=== PATIENT | female | born 1965 ===

== ENCOUNTER 2020-01-10 11:21 | Outpatient (REF) | payer OTHER, SELFPAY ==
[2020-01-10 13:45] LABS: Alanine Aminotransferase 22 U/L (0-31); Albumin Level 4.4 g/dL (3.5-5.0); Alkaline Phosphatase 71 U/L (39-117); Anion Gap 12 (12-20); Aspartate Amino Transferase 19 U/L (5-31); Bilirubin Total 0.7 mg/dL (0.0-1.0); Blood Urea Nitrogen 17 mg/dL (9-16); Calcium 8.9 mg/dL (8.4-10.2); Carbon Dioxide 28 mmol/L (22-29); Chloride 106 mmol/L (96-108); Cholesterol 198 mg/dL; Estimated Glomerular Filt Rate > 60; Glucose Fasting 83 mg/dL (60-99); HDL Cholesterol 70 mg/dL; LDL Cholesterol Calculated 112 mg/dl; Potassium 4.4 mmol/l (3.3-5.1); Sodium 142 mmol/L (135-145); Total Protein 6.5 g/dL (6.5-8.0); Triglycerides 83 mg/dL
[2020-01-10 14:07] LABS: TSH reflex Free T4 0.99 mIU/mL (0.32-4.0)
[2020-01-10 14:10] LABS: Estimated Average Glucose 97 mg/dL
== END 2020-01-10 11:22 | disposition home or self-care (01) ==
LOC: HO.LAB 11:21
PROVIDERS: PCP Physician Assistant; Visit Provider Physician Assistant
DX: E78.9 Disorder of lipoprotein metabolism, unspecified (principal); Z13.1 Encounter for screening for diabetes mellitus
CPT/HCPCS: 80053; 80061; 83036; 84443

== ENCOUNTER 2020-01-30 11:07 | Outpatient (REF) | payer OTHER, SELFPAY | END 2020-01-30 11:08 | disposition home or self-care (01) | LOC: HO.LAB 11:07 | PROVIDERS: Visit Provider Internal Medicine | DX: Z20.828 Contact with and (suspected) exposure to other viral communicable diseases (principal) | CPT/HCPCS: C9803; U0003 ==

== ENCOUNTER 2020-02-21 09:00 | Outpatient (RCR) | payer OTHER, SELFPAY | END 2020-03-12 11:05 | disposition other institution (70) | LOC: HO.PT 09:00 | PROVIDERS: PCP Physician Assistant; Visit Provider Neurological Surgery | DX: M54.5 Low back pain (principal) | CPT/HCPCS: 97110; 97112; 97140 ==

== ENCOUNTER 2020-03-08 12:59 | Outpatient (REF) | payer OTHER, SELFPAY ==
--- NOTE | 2020-03-08 13:03 | US_ITS ---
EXAMINATION: US EXTREMITY NONVASCULAR CLINICAL INFORMATION: Localized swelling or mass or lump seen along the right paramidline line along posterior iliac crest. COMPARISON: None TECHNIQUE: Routine imaging through the right posterior pelvis is performed. FINDINGS: Imaging through palpable area along the right superior gluteal region, there is a hypoechoic area likely artifact from the electrode. In addition there is subtle area of increased echogenicity more superficial measuring 1.6 x 1.7 cm. No abscess visualized; however, this may represent thick keloid deep in the soft tissues in the muscular compartment. A small radiopaque foreign body cannot be excluded. Pelvic x-ray will be obtained for comparison. US/US extremity nonvascular costa IMPRESSION: Pelvic x-ray will be obtained for correlation. Hypoechoic area seen in the right supragluteal region where patient complains of pain. Question keloid, less likely foreign body or ruptured electrode. A pelvic exam will be obtained.
--- NOTE | 2020-03-08 14:32 | XR_ITS ---
EXAMINATION: XR PELVIS CLINICAL INFORMATION: Low back pain COMPARISON: Previous right hip x-ray July [address] of the abdomen and pelvis April 2018 TECHNIQUE: AP view of the pelvis. FINDINGS: Bone alignment is normal. No fracture or dislocation is seen. There is mild arthritis at the hip joints with small osteophytes, left greater than right. The pelvis is otherwise unremarkable. There is a right sacral stimulator with lead projecting over the right lower sacrum. This appears unchanged from July 2018 images. There are surgical clips in the right lower quadrant. There are bilateral pelvic calcifications probably representing calcified phleboliths. XR/XR pelvis 1-2V IMPRESSION: Mild bilateral hip arthritis, left greater than right. Right sacral stimulator unchanged from previous exams
== END 2020-03-08 13:00 | disposition home or self-care (01) ==
LOC: HO.US 12:59
PROVIDERS: PCP Physician Assistant; Visit Provider Physician Assistant
DX: R10.2 Pelvic and perineal pain (principal); R22.2 Localized swelling, mass and lump, trunk; M54.5 Low back pain
CPT/HCPCS: 72170; 76882

== ENCOUNTER 2020-04-19 09:57 | Outpatient (REF) | payer OTHER, SELFPAY ==
[2020-04-19 11:06] LABS: Anion Gap 12 (12-20); Blood Urea Nitrogen 16 mg/dL (9-16); Carbon Dioxide 29 mmol/L (22-29); Chloride 105 mmol/L (96-108); Estimated Glomerular Filt Rate > 60; Glucose Random 87 mg/dL (60-115); Sodium 142 mmol/L (135-145)
[2020-04-19 11:27] LABS: Glucose Urine UA NEG (NEG); Leukocyte Esterase Urine NEG (NEG); Nitrite Urine NEG (NEG); PH 5.5 (5.0-8.0); Urine Blood NEG (NEG); Urine Ketones NEG (NEG); Urine Protein NEG (NEG-TRACE)
[2020-04-19 11:49] LABS: Appearance Urine CLEAR; Color Urine STRAW
== END 2020-04-19 09:58 | disposition home or self-care (01) ==
LOC: HO.LAB 09:57
PROVIDERS: PCP Physician Assistant; Visit Provider Urology
DX: N39.0 Urinary tract infection, site not specified (principal); T83.12 Displacement of other urinary devices and implants
CPT/HCPCS: 36415; 80051; 81003; 82565; 82947; 84520; 87086

== ENCOUNTER 2020-05-14 15:36 | Outpatient (REF) | payer OTHER, SELFPAY ==
[2020-05-14 17:11] LABS: Glucose Urine UA NEG (NEG); Leukocyte Esterase Urine NEG (NEG); Nitrite Urine NEG (NEG); PH 5.5 (5.0-8.0); Specific Gravity - Urine >= 1.030 (1.005-1.025); Urine Blood 1+ (NEG); Urine Ketones NEG (NEG); Urine Protein NEG (NEG-TRACE)
[2020-05-14 17:17] LABS: Appearance Urine CLEAR; Color Urine YELLOW
[2020-05-14 17:30] LABS: RBC Urine 0-2 /HPF (0); Squamous Epithelial Cell Urine 1+ /LPF; WBC Urine 0 /HPF (0-4)
[2020-05-14 17:38] LABS: Alanine Aminotransferase 17 U/L (0-31); Albumin Level 4.4 g/dL (3.5-5.0); Alkaline Phosphatase 83 U/L (39-117); Anion Gap 16 (12-20); Aspartate Amino Transferase 21 U/L (5-31); Bilirubin Total 0.9 mg/dL (0.0-1.0); Blood Urea Nitrogen 14 mg/dL (9-16); Calcium 8.9 mg/dL (8.4-10.2); Carbon Dioxide 25 mmol/L (22-29); Chloride 101 mmol/L (96-108); Estimated Glomerular Filt Rate > 60; Glucose Random 118 mg/dL (60-115); Potassium 3.5 mmol/L (3.3-5.1); Sodium 138 mmol/L (135-145); Total Protein 6.7 g/dL (6.5-8.0)
== END 2020-05-14 15:37 | disposition home or self-care (01) ==
LOC: HO.LAB 15:36
PROVIDERS: PCP Physician Assistant; Visit Provider Urology
DX: T83.12 Displacement of other urinary devices and implants (principal); N39.0 Urinary tract infection, site not specified
CPT/HCPCS: 36415; 80053; 81001; 81003; 87086

== ENCOUNTER 2020-08-15 13:11 | Emergency (ER) | payer OTHER, SELFPAY ==
[2020-08-15 13:41] VITALS: BP 178/74; PULSE 90; RESP 18; TEMP 36.6; O2SAT 99; BMI 30.2
[2020-08-15] MEDS: Tetracaine HCl/PF 0.5% Oph Sol 4 ML DROPS 2 DROP EYE-BOTH (14:27)
[2020-08-15] MEDS: Fluorescein Sodium STRIP 1 STRIP EYE-BOTH (14:27)
--- NOTE | 2020-08-15 14:55 | ED.EYEPROB ---
HPI - Eye Problem General Chief complaint: Eye Problems <BONNIE Murray - Last Filed: 08/15/20 15:13> Stated complaint: eye problems <BONNIE Murray Last Filed: 08/15/20 15:13> Time Seen by Provider: 08/15/20 14:19 <BONNIE Murray - Last Filed: 08/15/20 15:13> Source: patient <BONNIE Murray Last Filed: 08/15/20 15:13> Mode of arrival: ambulatory <BONNIE Murray - Last Filed: 08/15/20 15:13> Limitations: no limitations <BONNIE Murray - Last Filed: 08/15/20 15:13> History of Present Illness HPI Narrative: 55-year-old female presenting to the ED with complaints of right eye pain/watery drainage/foreign body sensation after she hit her eye accidentally with a stick. She reports she also had false eyelashes although she has had these in the past and never had issues. Reports since then she has been having blurry vision. <BONNIE Murray - Last Filed: 08/15/20 15:13> MD chief complaint: eye pain, eye injury, vision change and foreign body <BONNIE Murray - Last Filed: 08/15/20 15:13> Onset (ago): day(s) (Few days ago worse today) <BONNIE Murray - Last Filed: 08/15/20 15:13> Onset description: gradual <BONNIE Murray - Last Filed: 08/15/20 15:13> Duration: constant and progressively worsening <BONNIE Murray Last Filed: 08/15/20 15:13> Location: left eye <BONNIE Murray Last Filed: 08/15/20 15:13> Eye Symptoms: burning, redness, pain, foreign body sensation, itching, discharge and blurry vision <BONNIE Murray Last Filed: 08/15/20 15:13> Place: home <BONNIE Murray Last Filed: 08/15/20 15:13> Mechanism: direct trauma <BONNIE Murray Last Filed: 08/15/20 15:13> Severity: moderate <BONNIE Murray - Last Filed: 08/15/20 15:13> Severity scale (1-10): >10 <BONNIE Murray - Last Filed: 08/15/20 15:13> If Pain, Quality: aching and throbbing <BONNIE Murray - Last Filed: 08/15/20 15:13> Associated symptoms: none <BONNIE Murray - Last Filed: 08/15/20 15:13> Treatments Prior to Arrival: none <BONNIE Murray - Last Filed: 08/15/20 15:13> Related Data Patient tetanus UTD: Yes <BONNIE Murray - Last Filed: 08/15/20 15:13> Home medications: Home Medications Medication Instructions Recorded Confirmed albuterol sulfate 90 mcg/actuation 2 puff INHALATION Q6H PRN 01/05/20 07/31/20 aerosol inhaler fluticasone propionate 50 1 spray INTRANASAL BID 02/14/20 07/31/20 mcg/actuation nasal spray,suspension melatonin 5 mg tablet 5 mg PO BEDTIME PRN 07/31/20 07/31/20 Previous Rx's Medication Instructions Recorded ibuprofen 800 mg tablet 800 mg PO Q8H #42 tab 01/02/20 furosemide 20 mg tablet 20 mg PO DAILY PRN #30 tab 05/31/20 cetirizine 10 mg capsule 10 mg PO DAILY 30 Days #30 cap 07/31/20 fluoxetine 20 mg capsule 20 mg PO QAM 30 Days #30 cap 07/31/20 acetaminophen [Tylenol Extra 1,000 mg PO QID PRN #14 tab 08/15/20 Strength] erythromycin 0.5 inch OPHTHALMIC (EYE) QID 7 08/15/20 Days #3.5 g ibuprofen 600 mg PO Q8H PRN #14 tab 08/15/20 oxycodone 5 mg PO BID PRN #14 tab 08/15/20 azithromycin 250 mg tablet See Rx Instructions PO .COMPLEX #6 09/03/20 tab clonazepam 0.5 mg tablet 0.5 mg PO BID PRN 30 Days #30 tab 09/12/20 <BONNIE Murray - Last Filed: 08/15/20 15:13> Allergies/adverse reactions: Allergies Allergy/AdvReac Type Severity Reaction Status Date / Time Iodinated Contrast Media Allergy Severe Shortness Verified 08/15/20 13:41 [IV CONTRAST] of Breath penicillin V Allergy Severe throat Verified 08/15/20 13:41 swelling Penicillins Allergy Severe RASH, Verified 08/15/20 13:41 DIFFICULTY BREATHING Tetanus Vaccines and Toxoid Allergy Intermediate Difficulty Verified 08/15/20 13:45 Swallowing <BONNIE Murray - Last Filed: 08/15/20 15:13> Review of Systems Review of Systems: Constitutional : No fevers, no chills, No changes in activity, No lethargy, No recent prior head injury, No agitation, No increased fussiness ENT/Mouth : No Ear Pain, No Nasal discharge/drainage Eyes: + Vision changes/blurry/decreased vision/Eye Pain/redness/FB sensation/itching/watery drainage, No Swelling, No Photophobia, no itching, no eyelid edema, no contact lens uses, no recent welding, no bleeding Cardiovascular : No Chest Pain, No SOB Respiratory : No Cough Gastrointestinal : No Nausea, No Vomiting, No abdominal Pain Genitourinary : No Dysuria, No Urinary Frequency, No Urinary Incontinence, No Urgency, No Flank Pain Musculoskeletal : No joint pain, No neck stiffness, No back pain/injury Skin : No lacerations Neuro : No unsteady gait, No Paresthesias, No Loss of Consciousness, No altered mental status, No dizziness, No Headache Denies past medical history of HIV, recent trauma, coagulopathy, recent spinal/ epidural procedure, new medication, URI symptoms, close contacts with similar symptoms, tick bite, or known CO2 exposure. <BONNIE Murray - Last Filed: 08/15/20 15:13> Yes all other systems are reviewed and are negative <BONNIE Murray - Last Filed: 08/15/20 15:13> PMF Past Medical History Attestation statement: The following information was validated with the patient. <BONNIE Murray - Last Filed: 08/15/20 15:13> Medical History: Medical History Normal colonoscopy <BONNIE Murray - Last Filed: 08/15/20 15:13> Surgical History: Surgical History History of appendectomy History of bladder surgery History of gallbladder disease History of partial hysterectomy History of torn meniscus of right knee <BONNIE Murray - Last Filed: 08/15/20 15:13> Family History Family History: Family History Father CVD (cardiovascular disease) Past heart attack Mother No problems noted. Brother Heart problem <BONNIE Murray - Last Filed: 08/15/20 15:13> Social History Social History: Social History Alcohol intake: never Patient Tobacco Use Status: Never used Tobacco Second Hand Smoke Exposure: No <BONNIE Murray - Last Filed: 08/15/20 15:13> Physical Exam Vital Signs: Vital Signs: Last Vital Signs Temp 97.9 F 08/15/20 13:41 Pulse 90 08/15/20 13:41 Resp 18 08/15/20 13:41 BP 178/74 H 08/15/20 13:41 Pulse Ox 99 08/15/20 13:41 Body Mass Index 30.2 vital signs have been reviewed as normal and appeared to be correct. Blood pressure normal. Heart rate normal. Respiration rate normal. Temperature normal. Oxygen saturation normal. <BONNIE Murray - Last Filed: 08/15/20 15:13> Vital Signs: Last Vital Signs Temp 97.9 F 08/15/20 13:41 Pulse 90 08/15/20 13:41 Resp 18 08/15/20 13:41 BP 178/74 H 08/15/20 13:41 Pulse Ox 99 08/15/20 13:41 Body Mass Index 30.2 <Devon Shipman MD - Last Filed: 09/17/20 19:04> Appearance: Alert. Oriented X3. No acute distress. Head: Normal external exam. Normocephalic. Atraumatic. No Morton signs noted. No raccoon eyes noted Eyes: PERRLA. EOMI. Conjunctiva are normal. Right cornea with fluorescein stain revealed 2 corneal abrasions 1 to the lateral aspect of the eye and 1 to the inferior aspect of the eye. Left Cornea is normal. Funduscopic exam within normal limits. Sclera normal. Mild bilateral eyelid edema to bilateral eyes. No papilledema noted. Anterior chamber normal. No photophobia noted. ENT: EAC normal. TM's Normal. Pharynx normal. Uvula midline. Moist mucous membranes. Neck: Normal inspection. Neck supple. FROM. No adenopathy. Thyroid Normal. No meningeal signs. No neck mass noted. CVS: Normal heart rate and rhythm. Heart sound normal. No murmurs noted. Pulses normal throughout. Respiratory: No respiratory distress. Painless inspiration. Breath sounds normal. Back: Full range of motion noted. Skin: Skin warm and dry. Normal skin color. Normal skin turgor. No rashes/lesions/lacerations noted. Extremities: No lower extremity edema. Extremities exhibit normal range of motion. Extremities nontender. Neuro: Oriented X 3. No motor deficit. No sensory deficit. Reflexes normal. <BONNIE Murray - Last Filed: 08/15/20 15:13> Course Course Course Narrative: 55-year-old female presenting to the ED with injury to right eye after she hit herself with a stick accidentally she noticed some swelling therefore she took off her false eyelashes although since then she has had increased redness/watery drainage in pain. On exam patient has 2 corneal abrasions. Therefore will place the patient on antibiotics and give her symptomatic treatment with Motrin and Percocet and instructions to follow up with Dr. Chand the institutional aide and to return if any new or worsening symptoms. Patient understands agrees with this plan. <BONNIE Murray - Last Filed: 08/15/20 15:13> I have reviewed the chart <Devon Shipman MD - Last Filed: 09/17/20 19:04> MDM - Eye Problem Medical Records Attestation: I reviewed the patient's medical records. <BONNIE Murray - Last Filed: 08/15/20 15:13> Discharge Plan Discharge Clinical Impression: Corneal abrasion <BONNIE Murray - Last Filed: 08/15/20 15:13> Patient Disposition: Home, Self-Care <BONNIE Murray - Last Filed: 08/15/20 15:13> Instructions: Corneal Abrasion (ED) <BONNIE Murray Last Filed: 06/23/21 15:13> Prescriptions: New erythromycin 5 mg/gram (0.5 %) ointment 0.5 inch ophthalmic (eye) QID 7 Days Qty: 3.5 RF: 0 ibuprofen 600 mg tablet 600 mg PO Q8H PRN (Reason: fever or pain) Qty: 14 RF: 0 oxycodone 5 mg tablet 5 mg PO BID PRN (Reason: pain) Qty: 14 RF: 0 acetaminophen [Tylenol Extra Strength] 500 mg tablet 1,000 mg PO QID PRN (Reason: fever or pain) Qty: 14 RF: 0 No Action ibuprofen 800 mg tablet 800 mg PO Q8H Qty: 42 RF: 2 fluticasone propionate 50 mcg/actuation spray,suspension 1 spray intranasal BID RF: 0 furosemide 20 mg tablet 20 mg PO DAILY PRN (Reason: for swelling) Qty: 30 RF: 3 clonazepam 0.5 mg tablet 0.5 mg PO BID PRN (Reason: panic attack(s)) 30 Days Qty: 30 RF: 1 albuterol sulfate [Ventolin HFA] 90 mcg/actuation HFA aerosol inhaler 2 puff inhalation Q6H PRNRF: 0 azithromycin 250 mg tablet See Rx Instructions PO .COMPLEX Qty: 6 RF: 0 melatonin 5 mg tablet 5 mg PO BEDTIME PRNRF: 0 cetirizine 10 mg capsule 10 mg PO DAILY 30 Days Qty: 30 RF: 2 fluoxetine 20 mg capsule 20 mg PO QAM 30 Days Qty: 30 RF: 3 <BONNIE Murray - Last Filed: 08/15/20 15:13> Referrals: Elan Chand [Physician] - 08/15/20 <BONNIE Murray - Last Filed: 08/15/20 15:13> Stand Alone Forms: Work/School Release <BONNIE Murray - Last Filed: 08/15/20 15:13> Interventions: ED Discharge Assessment Last Done: 08/15/20 15:16 <BONNIE Murray - Last Filed: 08/15/20 15:13> Discharge Date/Time: 08/15/20 15:16 <BONNIE Murray - Last Filed: 08/15/20 15:13> Print Language: Polish <BONNIE Murray - Last Filed: 08/15/20 15:13>
[2020-08-15] MEDS: Erythromycin Base 0.5% Oph Oin 1 GM TUBE 1 CM EYE-BOTH (15:10)
[2020-08-15] MEDS: Ibuprofen 600 MG TABLET PO (15:10)
== END 2020-08-15 15:16 | disposition home or self-care (01) ==
PROVIDERS: Emergency Provider Emergency Medicine; PCP Physician Assistant
DX: S05.01XA Injury of conjunctiva and corneal abrasion without foreign body, right eye, initial encounter (principal); W22.8XXA Striking against or struck by other objects, initial encounter; Y93.9 Activity, unspecified; Y92.9 Unspecified place or not applicable; Y99.9 Unspecified external cause status
CPT/HCPCS: 99283; 99284

== ENCOUNTER 2020-09-03 13:31 | Outpatient (REF) | payer OTHER, SELFPAY | END 2020-09-03 13:32 | disposition home or self-care (01) | LOC: HO.LAB 13:31 | PROVIDERS: Visit Provider Nurse Practitioner Family | DX: Z20.822 Contact with and (suspected) exposure to COVID-19 (principal); R05 Cough; R07.0 Pain in throat | CPT/HCPCS: U0003; U0005 ==

== ENCOUNTER 2020-09-03 13:46 | Outpatient (REF) | payer OTHER, SELFPAY ==
[2020-09-03 16:51] LABS: Hematocrit 39.6 % (37-47); Hemoglobin 13.5 g/dl (12.0-16.0); Mean Corpuscular HGB Conc 34.1 g/dl (31.0-35.0); Mean Corpuscular Hemoglobin 31.5 pg (27.0-33.0); Mean Corpuscular Volume 92.5 fL (80-98); Mean Platelet Volume 10.3 fL (9.4-12.3); Platelet Count 222 X10*3/uL (160-400); Red Blood Count 4.28 X10*6/uL (4.20-5.50); Red Cell Distribution Width 11.5 % (11.0-16.0); White Blood Count 5.9 X10*3/uL (4.8-10.8)
[2020-09-03 17:14] LABS: Alanine Aminotransferase 15 U/L (0-31); Albumin Level 4.5 g/dL (3.5-5.0); Alkaline Phosphatase 94 U/L (39-117); Anion Gap 15 (12-20); Aspartate Amino Transferase 16 U/L (5-31); Bilirubin Total 1.2 mg/dL (0.0-1.0); Blood Urea Nitrogen 11 mg/dL (9-16); Calcium 9.5 mg/dL (8.4-10.2); Carbon Dioxide 27 mmol/L (22-29); Chloride 102 mmol/L (96-108); Cholesterol 212 mg/dL; Estimated Glomerular Filt Rate > 60; Glucose Fasting 91 mg/dL (60-99); HDL Cholesterol 62 mg/dL; LDL Cholesterol Calculated 131 mg/dl; Potassium 3.9 mmol/L (3.3-5.1); Sodium 140 mmol/L (135-145); Triglycerides 98 mg/dL
[2020-09-03 17:36] LABS: TSH reflex Free T4 0.45 uIU/mL (0.32-4.0)
== END 2020-09-03 13:47 | disposition home or self-care (01) ==
LOC: HO.HMGCLDS 13:46
PROVIDERS: PCP Physician Assistant; Visit Provider Physician Assistant
DX: E78.9 Disorder of lipoprotein metabolism, unspecified (principal); I10 Essential (primary) hypertension
CPT/HCPCS: 36415; 80053; 80061; 84443; 85027

== ENCOUNTER 2021-03-20 10:49 | Outpatient (REF) | payer OTHER, SELFPAY ==
[2021-03-20 11:10] LABS: Hematocrit 41.1 % (37.0-47.0); Hemoglobin 13.8 g/dl (12.0-16.0); Mean Corpuscular HGB Conc 33.6 g/dl (31.0-35.0); Mean Corpuscular Hemoglobin 31.7 pg (27.0-33.0); Mean Corpuscular Volume 94.5 fL (80.0-98.0); Mean Platelet Volume 9.7 fL (9.4-12.3); Platelet Count 231 X10*3/uL (160-400); Red Blood Count 4.35 X10*6/uL (4.20-5.50); Red Cell Distribution Width 11.5 % (11.0-16.0); White Blood Count 4.3 X10*3/uL (4.8-10.8)
[2021-03-20 12:00] LABS: Alanine Aminotransferase 19 U/L (0-31); Albumin Level 4.5 g/dL (3.5-5.0); Alkaline Phosphatase 78 U/L (39-117); Anion Gap 11 (12-20); Aspartate Amino Transferase 18 U/L (5-31); Bilirubin Total 0.5 mg/dL (0.0-1.0); Blood Urea Nitrogen 16 mg/dL (9-16); Calcium 9.8 mg/dL (8.4-10.2); Carbon Dioxide 31 mmol/L (22-29); Chloride 104 mmol/L (96-108); Cholesterol 240 mg/dL; Estimated Glomerular Filt Rate > 60; Glucose Fasting 93 mg/dL (60-99); HDL Cholesterol 72 mg/dL; LDL Cholesterol Calculated 153 mg/dl; Potassium 4.7 mmol/L (3.3-5.1); Sodium 141 mmol/L (135-145); Triglycerides 78 mg/dL
== END 2021-03-20 10:50 | disposition home or self-care (01) ==
LOC: HO.LAB 10:49
PROVIDERS: PCP Physician Assistant; Visit Provider Physician Assistant
DX: E78.9 Disorder of lipoprotein metabolism, unspecified (principal)
CPT/HCPCS: 36415; 80053; 80061; 85027

== ENCOUNTER 2021-04-01 10:53 | Outpatient (REF) | payer OTHER, SELFPAY ==
--- NOTE | ~2021-04-01 | XR_ITS ---
EXAMINATION: XR cervical spine 4V CLINICAL INFORMATION: Radiculopathy COMPARISON: None TECHNIQUE: 5 views of the cervical spine were obtained. XR/XR cervical spine 4V FINDINGS/IMPRESSION: The cervical spine is visualized to the level of C7 on the lateral view. Vertebral body alignment is maintained. Vertebral body heights are maintained. Lateral masses of C1 are well aligned on C2. Visualized portion of the dens is intact. Disc space heights are maintained. Uncovertebral hypertrophy and facet arthropathy results in minimal neural foraminal narrowing on the right at C4-C5 and in minimal neural foraminal narrowing on the left at C5-C6. No prevertebral soft tissue swelling. Calcifications in the soft tissues of the bilateral neck may reflect carotid calcifications.
== END 2021-04-01 10:54 | disposition home or self-care (01) ==
LOC: HO.XRAY 10:53
PROVIDERS: PCP Physician Assistant; Visit Provider Physician Assistant
DX: M54.12 Radiculopathy, cervical region (principal)
CPT/HCPCS: 72050

== ENCOUNTER 2021-09-18 10:04 | Outpatient (REF) | payer OTHER, SELFPAY ==
--- NOTE | ~2021-09-18 | US_ITS ---
EXAMINATION: US ABDOMEN LIMITED CLINICAL INFORMATION: Palpable subcutaneous lump over left upper quadrant. COMPARISON: CT abdomen and pelvis with intravenous contrast only dated 05/16/2018. TECHNIQUE: Real-time imaging of the left upper quadrant just under the rib cage; medial-lateral and contralateral right upper quadrant area scanned for comparison. FINDINGS: Numerous hyperechoic masses are seen within the subcutaneous fat of the anterior left upper quadrant abdominal wall. The margins are somewhat indistinct. The largest measures 2.6 x 1.7 x 2.6 cm. Each of the findings is hyperechoic relative to adjacent subcutaneous fat and there is internal vascularity. There is subtle stranding of the fat of the left upper quadrant anterior abdominal wall on the prior CT scan possibly from prior subcutaneous injections but no discrete mass seen suggesting these findings are new. US/US abdomen limited IMPRESSION: Numerous hyperechoic masses are seen within the subcutaneous fat of the anterior left upper quadrant abdominal wall the largest measuring 2.6 x 1.7 x 2.6 cm. These are significantly more echogenic than the adjacent subcutaneous fat. The etiology is uncertain. Recommend contrast-enhanced CT or preferably MRI for definitive evaluation. The report will be called to the ordering clinician by a [facility].
== END 2021-09-18 10:05 | disposition home or self-care (01) ==
LOC: HO.HMGCX 10:04
PROVIDERS: PCP Physician Assistant; Visit Provider Physician Assistant
DX: R22.2 Localized swelling, mass and lump, trunk (principal)
CPT/HCPCS: 76705

== ENCOUNTER 2021-10-24 13:19 | Outpatient (REF) | payer OTHER, SELFPAY ==
--- NOTE | ~2021-10-24 | XR_ITS ---
EXAMINATION: XR MRI SCREENING CLINICAL INFORMATION: Prior to MRI. Question foreign body. COMPARISON: None TECHNIQUE: Frontal view of the abdomen FINDINGS: Surgical clips are seen in the right upper quadrant and right lower quadrant. Suture line noted at the right lower quadrant. No additional radiopaque foreign body. Pelvic phleboliths. No acute osseous abnormality. Degenerative changes of the spine. Nonobstructive bowel gas pattern. XR/XR pre mri screening IMPRESSION: No unexpected radiopaque foreign body to preclude MRI.
--- NOTE | ~2021-10-24 | MR_ITS ---
EXAMINATION: MR ABDOMEN WITHOUT AND WITH CONTRAST CLINICAL INFORMATION: Swelling and lumps (markers were placed). COMPARISON: Abdominal ultrasound 09/18/2021. CT abdomen/pelvis 05/16/2018. TECHNIQUE: MR abdomen was performed without and with use of 7.5 mL intravenous Gadavist gadolinium contrast. Postcontrast images are performed in multiphase dynamic sequences. Imaging was performed in 3 planes. FINDINGS: ABDOMINAL WALL: There are 2 markers placed in the left upper abdominal wall. There are faint ill-defined areas of enhancement in the subcutaneous fat of the abdominal wall bilaterally, for instance one of them posterior to one of the markers in the left upper abdomen (10:46). These likely correlate with recently described findings on the ultrasound, and appear to correspond to faint hyperdensities on a prior CT from 05/16/2018. There are possibly very minimally T2 bright with no clear correlate on T1 precontrast images. No hernia. LUNG BASES: The visualized lung bases are unremarkable. LIVER, GALLBLADDER, AND BILIARY TREE: There is signal loss in the [id number] dual echo images in keeping with hepatic steatosis. The liver is otherwise normal in size and shape with no focal lesion. Cholecystectomy. No biliary ductal dilatation. PANCREAS: Unremarkable. SPLEEN: Normal. ADRENAL GLANDS: Normal. KIDNEYS AND URETERS: Redemonstration of a 0.8 cm T2 bright Bosniak I cyst in the posterior mid left kidney for which no imaging follow-up is recommended. Symmetric nephrograms. No hydronephrosis. GASTROINTESTINAL TRACT: The imaged bowel is within normal limits. No ascites or fluid collection. LYMPH NODES: No lymphadenopathy by size criteria. VASCULAR: Unremarkable. OSSEOUS STRUCTURES: New prominent Schmorl's nodule along the superior endplate of T12. No destructive-appearing osseous lesions. MR/MR abdomen wo/w con IMPRESSION: There are faint nonspecific enhancing areas in the subcutaneous fat of the abdominal wall bilaterally, that in retrospect are also identified as subtle hyperdensities on a prior CT from 05/16/2018; appearance resembles that of injection sites or mild phlegmonous changes of the fat. No aggressive appearing lesions are noted. Recommend correlation with physical examination and if indicated a follow-up ultrasound to reassess and evaluate for changes in size and morphology. Otherwise, no significant finding.
== END 2021-10-24 13:20 | disposition home or self-care (01) ==
LOC: HO.MRI 13:19
PROVIDERS: Visit Provider Physician Assistant
DX: R19.02 Left upper quadrant abdominal swelling, mass and lump (principal)
CPT/HCPCS: 74183; A9585

== ENCOUNTER 2021-12-24 13:15 | Outpatient (REF) | payer OTHER, SELFPAY ==
[2021-12-24 13:46] LABS: Hematocrit 37.4 % (37.0-47.0); Hemoglobin 12.6 g/dl (12.0-16.0); Mean Corpuscular HGB Conc 33.7 g/dl (31.0-35.0); Mean Corpuscular Hemoglobin 31.5 pg (27.0-33.0); Mean Corpuscular Volume 93.5 fL (80.0-98.0); Mean Platelet Volume 10.3 fL (9.4-12.3); Platelet Count 225 X10*3/uL (160-400); Red Cell Distribution Width 11.6 % (11.0-16.0); White Blood Count 4.3 X10*3/uL (4.8-10.8)
[2021-12-24 14:57] LABS: Alanine Aminotransferase 19 U/L (0-31); Albumin Level 4.3 g/dL (3.5-5.0); Alkaline Phosphatase 68 U/L (39-117); Anion Gap 14 (12-20); Aspartate Amino Transferase 18 U/L (5-31); Bilirubin Total 0.6 mg/dL (0.0-1.0); Blood Urea Nitrogen 14 mg/dL (9-16); Calcium 9.2 mg/dL (8.4-10.2); Carbon Dioxide 27 mmol/L (22-29); Chloride 106 mmol/L (96-108); Cholesterol 223 mg/dL; Estimated Glomerular Filt Rate > 60; Glucose Fasting 86 mg/dL (60-99); HDL Cholesterol 59 mg/dL; LDL Cholesterol Calculated 148 mg/dl; Potassium 4.5 mmol/L (3.3-5.1); Sodium 142 mmol/L (135-145); Total Protein 6.4 g/dL (6.5-8.0); Triglycerides 84 mg/dL
== END 2021-12-24 13:16 | disposition home or self-care (01) ==
LOC: HO.LAB 13:15
PROVIDERS: PCP Physician Assistant; Visit Provider Physician Assistant
DX: E78.9 Disorder of lipoprotein metabolism, unspecified (principal)
CPT/HCPCS: 36415; 80053; 80061; 85027

== ENCOUNTER 2022-01-08 10:55 | Outpatient (REF) | payer OTHER, SELFPAY ==
--- NOTE | ~2022-01-08 | MR_ITS ---
EXAMINATION: MR CERVICAL SPINE WITHOUT CONTRAST CLINICAL INFORMATION: 56-year-old with bilateral arm numbness, neck pain and headaches. Cervical radiculopathy. COMPARISON: None TECHNIQUE: MRI of the cervical spine was obtained using routine sequences without contrast. FINDINGS: Alignment: Normal. No spondylolisthesis or retrolisthesis. Craniocervical Junction/C1-C2 Articulations: Intact and aligned. Visualized Intracranial Structures: Within normal limits. Vertebral Bodies: Vertebral body heights are well-maintained. Disc Spaces and Endplates: The intervertebral disc space heights are well-maintained with no significant spondylosis. Bone Marrow: No significant marrow-replacing process or bone marrow edema. C2-C3: No disc herniation or canal stenosis. Minor facet arthrosis on the right. No neural foraminal stenosis. C3-C4: Tiny central disc protrusion with minimal indentation of the ventral thecal sac without cord impingement or canal stenosis. Mild facet arthropathy on the right. No neural foraminal stenosis. C4-C5: No disc herniation or canal stenosis. Mild to moderate facet arthrosis on the right with mild right-sided neural foraminal stenosis. C5-C6: No disc herniation or canal stenosis. Minor uncovertebral spurring and facet arthropathy noted without significant neural foraminal stenosis. C6-C7: Small central extruded disc herniation with slight cephalad migration and mild indentation of the ventral thecal sac without cord impingement. Ligamentum flavum thickening is noted with mild central canal stenosis. There is uncovertebral arthrosis, right more than left and minor facet arthrosis, with moderate right-sided neural foraminal stenosis. C7-T1: No disc herniation or canal stenosis. Moderate right and mild left-sided facet arthropathy noted. Mild ligamentum flavum thickening is noted. No significant neural foraminal stenosis. T1-T2: No disc herniation or canal stenosis. Mild facet arthrosis noted on the left without significant neural foraminal stenosis. Spinal Cord: There is nonspecific mild dilatation of the central canal of the spinal cord noted between C5 and T2. Otherwise normal spinal cord parenchymal signal without focal lesion. Extracranial Soft Tissues: Note is made of a single mildly prominent left submandibular space lymph node of indeterminate significance. Normal signal voids are seen in the visualized major neck vessels. Prevertebral soft tissues appear unremarkable. MR/MR cervical spine wo con IMPRESSION: 1. Small central extruded disc herniation at C6-C7 without cord impingement, with ligamentum flavum thickening and mild central canal stenosis. 2. Multilevel facet arthropathy, right more than left, with mild right-sided neural foraminal stenosis at C4-C5 and moderate right-sided neural foraminal stenosis at C6-C7. 3. Nonspecific mild dilatation of the central canal of the spinal cord between C5 and T2. This is likely a benign finding, of indeterminate etiology. 4. A single mildly enlarged left submandibular space lymph node of indeterminate significance. Follow-up as per clinical indications.
== END 2022-01-08 10:56 | disposition home or self-care (01) ==
LOC: HO.MRI 10:55
PROVIDERS: Visit Provider Student in an Organized Health Care Education/Training Program
DX: M54.12 Radiculopathy, cervical region (principal)
CPT/HCPCS: 72141

== ENCOUNTER 2022-01-22 13:23 | Outpatient (REF) | payer OTHER, SELFPAY ==
--- NOTE | ~2022-01-22 | MM_ITS ---
EXAMINATION: MM SCREENING DIGITAL BREAST TOMOSYNTHESIS, BILATERAL CLINICAL INFORMATION: Screening. Asymptomatic. The lifetime risk of breast cancer based on the Tyrer-Cuzick Model is 7%. COMPARISON: Mammography: 02/11/2019, 05/05/2016, 02/01/2013 TECHNIQUE: Digital breast tomosynthesis is performed in both the craniocaudal and mediolateral oblique views along with computer-aided detection (CAD). Synthesized 2D images are generated from the tomosynthesis. FINDINGS: There are scattered areas of fibroglandular density (ACR BI-RADS breast composition Category b). There is focal asymmetric density mid 1:00 left breast, suspect summation artifact on tomography. Patient will be recalled for additional imaging. The remainder of the bilateral breasts show no significant changes. There is intramammary node again seen mid upper outer left breast and some benign rim calcifications anterior right breast. The axilla and skin contours are unremarkable. MM/MM tomosynthesis screening BI IMPRESSION: Left: -Focal asymmetric density mid 1:00, possibly benign summation artifact. Right: -No mammographic evidence of malignancy. ASSESSMENT: BI-RADS 0: Incomplete - Need Additional Imaging Evaluation RECOMMENDATION: 1. Additional views of the left breast (rolled CC x2, standard ML). 2. Targeted ultrasound if warranted after review of the additional views. 3. Radiology department staff will contact the patient for additional imaging. This patient's information was entered into a reminder system with a target due date for their next mammogram.
== END 2022-01-22 13:24 | disposition home or self-care (01) ==
LOC: HO.MAMMO 13:23
PROVIDERS: PCP Physician Assistant; Visit Provider Physician Assistant
DX: Z12.31 Encounter for screening mammogram for malignant neoplasm of breast (principal)
CPT/HCPCS: 77063; 77067

== ENCOUNTER 2022-02-12 10:10 | Outpatient (REF) | payer OTHER, SELFPAY ==
--- NOTE | ~2022-02-12 | MM_ITS ---
EXAMINATION: MM DIAGNOSTIC DIGITAL BREAST TOMOSYNTHESIS, LEFT US BREAST TARGETED, LEFT CLINICAL INFORMATION: Asymmetric density left breast. COMPARISON: Mammography: 01/22/2022 and studies dating back to 02/01/2013. TECHNIQUE: Digital breast tomosynthesis is performed. 2D images are generated from the tomosynthesis. The following views are obtained: Rolled craniocaudal views, 90 degree mediolateral view, and spot compression craniocaudal view. Targeted left breast ultrasound. FINDINGS: The breasts are heterogeneously dense, which may obscure small masses (ACR BI-RADS breast composition Category c). Additional views compress out the majority of density that was present. There remains a small amount of nodular density about the 11 to 12 o'clock position 5.5 cm from the nipple. The majority of density representing superimposition of fibroglandular tissue. Targeted left breast ultrasound demonstrates at the 12 o'clock position approximately 6 cm from the nipple a few adjacent simple-appearing cysts over a length of approximately 8 mm x 3 mm in size. No suspicious solid mass or region of abnormal distal sound-shadowing identified. No edematous change within the tissues seen. Results are discussed with the patient at time of visit. MM/MM tomosynthesis added views L IMPRESSION: Density about the superior aspect of the left breast corresponds to a few adjacent simple-appearing cysts. ASSESSMENT: BI-RADS 2: Benign RECOMMENDATION: Routine annual mammography screening. This patient's information was entered into a reminder system with a target due date for their next mammogram.
--- NOTE | ~2022-02-12 | FL_ITS ---
EXAMINATION: FL BARIUM SWALLOW CLINICAL INFORMATION: R13.19 - Other dysphagia. Patient notes mid chest pain while swallowing. No vomiting. COMPARISON: CT abdomen and pelvis 05/16/2018. TECHNIQUE: Barium swallow examination is performed using fluoroscopic evaluation in addition to multiple fluoroscopic spot views, including cine images during swallowing. The patient is imaged both upright and prone and using both thick and thin sulfate along with effervescent granules. Barium pill also used. Fluoroscopy time: 1.6 minutes DAP: 8.63 Gycm2 Images: 32 FINDINGS: Swallowing function is normal and there is no aspiration. The cervical esophagus has no web or diverticulum or stricture. The cervical thoracic junction appears normal. There is an intermittent small sliding hiatal hernia. The distal thoracic esophagus shows mild narrowing. There is some subtle irregularity of the mucosa on the posterior medial side. No definable ulcer crater. A barium pill readily passes through this area without delay. No gastroesophageal reflux is noted during the exam nor during the water siphon test. Cursory view upper abdomen shows no gastric outlet obstruction. FL/FL barium swallow IMPRESSION: -Small intermittent sliding hiatal hernia with mild narrowing distal thoracic esophagus. -Subtle irregularity mucosa distal thoracic esophagus posterior medial side. -Recommend further evaluation with direct visualization/endoscopy.
== END 2022-02-12 10:11 | disposition home or self-care (01) ==
LOC: HO.XRAY 10:10
PROVIDERS: PCP Physician Assistant; Visit Provider Physician Assistant
DX: R13.19 Other dysphagia (principal); N64.89 Other specified disorders of breast
CPT/HCPCS: 74220; 76642; 77061; 77065

== ENCOUNTER 2022-03-26 12:13 | Emergency (ER) | payer OTHER, SELFPAY ==
--- NOTE | ~2022-03-26 | XR_ITS ---
EXAMINATION: XR CHEST CLINICAL INFORMATION: Chest pain COMPARISON: None TECHNIQUE: 2 views of the chest were obtained. FINDINGS: No significant abnormality is noted involving the heart, lungs, mediastinum, bony thorax or soft tissues. XR/XR chest 2V IMPRESSION: Unremarkable chest examination.
[2022-03-26 12:17] VITALS: BP 137/70; PULSE 84; RESP 18; TEMP 36.7; O2SAT 99; BMI 33.0
--- NOTE | 2022-03-26 12:17 | ED.CHESTPAIN ---
HPI - Chest Pain General Chief Complaint: Chest Pain <Stephanie Pantoja NP - Last Filed: 03/26/22 12:19> Stated Complaint: Sharp pains in chest <Stephanie Pantoja NP - Last Filed: 03/26/22 12:19> Time Seen by Provider: 03/26/22 16:06 <Stephanie Pantoja NP - Last Filed: 03/26/22 12:19> Source: patient <Scarlet Osuna MD - Last Filed: 03/26/22 16:50> Mode of arrival: ambulatory <Scarlet Osuna MD - Last Filed: 03/26/22 16:50> Limitations: no limitations <Scarlet Osuna MD - Last Filed: 03/26/22 16:50> History of Present Illness HPI narrative: Patient comes to the emergency room complaining of 1 episode of chest pressure that occurred 3 days ago. Patient states that she was carrying grocery bags up the stairs. She had an episode of chest pressure. Patient states since then she has had chest pressure, almost 70 hours+ no shortness of breath. Patient denies any URI symptoms, no cardiac history per patient <Scarlet Osuna MD - Last Filed: 03/26/22 16:50> Related Data Home Medications: Home Medications Medication Instructions Recorded Confirmed albuterol sulfate 90 mcg/actuation 2 puff inhalation Q6H PRN 01/05/20 12/30/21 aerosol inhaler (Ventolin HFA) meloxicam 7.5 mg tablet 7.5 mg PO BID PRN 06/27/21 12/30/21 Previous Rx's Medication Instructions Recorded acetaminophen 500 mg tablet 1,000 mg PO QID PRN fever or pain 08/15/20 (Tylenol Extra Strength) #14 tabs fluoxetine 20 mg capsule 20 mg PO QAM 30 days #30 caps 02/27/21 cetirizine 10 mg capsule 10 mg PO DAILY 30 days #30 caps 06/27/21 fluticasone propionate 50 1 spray intranasal BID 30 days #16 06/27/21 mcg/actuation nasal grams spray,suspension (Flonase Allergy Relief) clonazepam 0.5 mg tablet 0.5 mg PO BID PRN panic attack(s) 12/30/21 30 days #30 tabs hydrochlorothiazide 12.5 mg tablet 12.5 mg PO DAILY PRN edema 14 days 12/30/21 #14 tabs omeprazole 20 mg capsule,delayed 20 mg PO DAILY 30 days #30 caps 12/30/21 release diclofenac sodium 1 % topical gel 2 g topical QID 30 days #100 grams 01/06/22 (Arthritis Pain (diclofenac)) <Stephanie Pantoja NP - Last Filed: 03/26/22 12:19> Allergies/Adverse Reactions: Allergies Allergy/AdvReac Type Severity Reaction Status Date / Time Iodinated Contrast Media Allergy Severe Shortness Verified 12/30/21 14:54 [IV CONTRAST] of Breath penicillin V Allergy Severe throat Verified 12/30/21 14:54 swelling Penicillins Allergy Severe RASH, Verified 12/30/21 14:54 DIFFICULTY BREATHING Tetanus Vaccines and Toxoid Allergy Intermediate Difficulty Verified 12/30/21 14:54 Swallowing <Stephanie Pantoja NP - Last Filed: 03/26/22 12:19> Review of Systems Review of Systems: Constitutional : No Weight loss, No Fever, No Chills, No Night Sweats, No Fatigue, No Malaise ENT/Mouth : No Hearing loss, No Ear Pain, No Nasal Congestion, No Sinus Pain, No Hoarseness, No sore throat, No Rhinorrhea, No Swallowing Difficulty Eyes: No Eye Pain, No Swelling, No Redness, No Foreign Body, No Discharge, No Vision Changes Cardiovascular : Complaining of chest pressure, No SOB, No Dyspnea on Exertion, No Orthopnea, No Edema, No Palpitations Respiratory : No Cough, No Sputum, No Wheezing, No Smoke Exposure, No Dyspnea Gastrointestinal : No Nausea, No Vomiting, No Diarrhea, No Constipation, No abdominal Pain, No Hematochezia, No Melena Genitourinary : no irregular bleeding, No Dysuria, No Urinary Frequency, No Hematuria, No Urinary Incontinence, No Urgency, No Flank Pain, No Urinary Flow Changes, No Hesitancy Musculoskeletal : No joint pain, No Myalgias, No Joint Swelling Skin : No Skin Lesions, No rash Neuro : No Weakness, No Numbness, No Paresthesias, No Loss of Consciousness, No Dizziness, No Headache Psych : No Anxiety/Panic, No Depression, No SI/HI/AH/VH, No Social Issues, Heme/Lymph: No Bruising, No Bleeding,No Lymphadenopathy Endocrine : No Polyuria, No Polydipsia, No Temperature Intolerance <Scarlet Osuna MD - Last Filed: 03/26/22 16:50> [facility] Past Medical History Medical History: Medical History (Updated 03/26/22 @ 16:50 by Scarlet Osuna MD) Anxiety, generalized Asthma Esophageal stricture Normal colonoscopy <Stephanie Pantoja NP - Last Filed: 03/26/22 12:19> Surgical History: Surgical History History of appendectomy History of bladder surgery History of gallbladder disease History of partial hysterectomy History of torn meniscus of right knee <Stephanie Pantoja NP - Last Filed: 03/26/22 12:19> Family History Family History: Family History Father CVD (cardiovascular disease) Past heart attack Mother No problems noted. Brother Heart problem <Stephanie Pantoja NP - Last Filed: 03/26/22 12:19> Social History Social History: Social History Housing: Apartment Alcohol intake: current Alcohol intake frequency: holidays/special occasions only Patient Tobacco Use Status: Never used Tobacco e-Cigarette/Vaping Use: Never Used Second Hand Smoke Exposure: No Advance Directives: No Advance Directives Information Provided: Yes service: No Current occupational status: unemployed Cognitive needs: No Hearing needs: No Vision needs: No <Stephanie Pantoja NP - Last Filed: 03/26/22 12:19> Physical Exam Vital Signs: Vital Signs: Last Vital Signs Temp 97.4 F 03/26/22 15:46 Pulse 83 03/26/22 15:46 Resp 20 03/26/22 15:46 BP 132/78 03/26/22 15:46 Pulse Ox 98 03/26/22 15:46 O2 Del Method 03/26/22 15:46 BMI result Body Mass Index 33.0 <Stephanie Pantoja NP - Last Filed: 03/26/22 12:19> Vital Signs: Last Vital Signs Temp 97.4 F 03/26/22 15:46 Pulse 83 03/26/22 15:46 Resp 20 03/26/22 15:46 BP 132/78 03/26/22 15:46 Pulse Ox 98 03/26/22 15:46 O2 Del Method 03/26/22 15:46 BMI result Body Mass Index 33.0 <Scarlet Osuna MD - Last Filed: 03/26/22 16:50> Const: Other: Appearance: Alert. Oriented X3. No acute distress. Eyes: Pupils equal, round and reactive to light. ENT: Pharynx normal. Neck: Normal inspection. Neck supple. No lymph nodes noted. No crepitus CVS: Normal heart rate and rhythm. Pulses normal. Normal S1 and S2 Respiratory: No respiratory distress. Breath sounds normal. No Wheezing. No rales Abdomen: Soft and nontender. No rigidity. No distention. Skin: Skin warm and dry. Normal skin color. Normal skin turgor. Extremities: No lower extremity edema. No Lacerations. No Rash Neuro: Oriented X 3. No motor deficit. No sensory deficit. Moving all extremities. No slurred speech. CN 2 through 12 grossly intact Psych: calm, cooperative, seems anxious <Scarlet Osuna MD - Last Filed: 03/26/22 16:50> Course Course Course Narrative: This is rapid medical exam. Deferred additional HPI, ROS, PE to primary provider, 56 yo female with chest pressure x 3 days, WEATHERS, feeling weak and tired. Will obtain labs, EKG, CXR, COVID screen. VSS <Stephanie Pantoja NP - Last Filed: 03/26/22 12:19> Medical Decision Making Medical Decision Making MDM Narrative: -hematology and chemistry unremarkable. Troponin 1. Negative. We are repeating a 2nd troponin. BNP negative, chest x-ray negative. -patient likely having anxiety, unlikely that the pressure she feels in her throat and chest secondary to cardiac etiology <Scarlet Osuna MD - Last Filed: 03/26/22 16:50> Lab Data Result Diagrams: 03/26/22 12:36 03/26/22 12:36 <Stephanie Pantoja NP - Last Filed: 03/26/22 12:19> Labs: Lab Results 03/26/22 03/26/22 03/26/22 Range/Units 12:36 12:36 12:36 WBC 4.3 L (4.8-10.8) X10*3/uL RBC 4.33 (4.20-5.50) X10*6/uL Hgb 13.4 (12.0-16.0) g/dl Hct 38.6 (37.0-47.0) % MCV 89.1 (80.0-98.0) fL MCH 30.9 (27.0-33.0) pg MCHC 34.7 (31.0-35.0) g/dl RDW 11.6 (11.0-16.0) % Plt Count 236 (160-400) X10*3/uL MPV 10.2 (9.4-12.3) fL Immature Gran % (Auto) 0.2 (0.0-0.4) % Neut % (Auto) 54.6 (45-73) % Lymph % (Auto) 38.3 (20-40) % [place] % (Auto) 4.6 (2-11) % Eos % (Auto) 1.6 (0-4) % Baso % (Auto) 0.7 (0-2) % Lymph # (Auto) 1.7 (1.2-4.9) X10*3/uL [place] # (Auto) 0.2 (0.1-1.2) X10*3/uL Eos # (Auto) 0.1 (0.0-0.4) X10*3/uL Baso # (Auto) 0.0 (0.0-0.2) X10*3/uL Abs Immat Gran (auto) 0.01 (0.00-0.03) X10*3/uL Absolute Neuts (auto) 2.4 (2.0-8.3) x10*3/uL Absolute Nucleated RBC 0.000 (0.0-0.012) X10*3/uL Nucleated RBC % (auto) 0.0 (0.0-0.2) /100WBC PT 10.1 (10.0-13.1) SEC INR 0.9 (0.9-1.1) Sodium (135-145) mmol/L Potassium (3.3-5.1) mmol/L Chloride (96-108) mmol/L Carbon Dioxide (22-29) mmol/L Anion Gap (12-20) BUN (9-16) mg/dL Creatinine (0.5-1.4) mg/dL Estim Creat Clear Calc Estimated GFR Random Glucose (60-115) mg/dL Calcium (8.4-10.2) mg/dL Magnesium (1.6-2.6) mg/dL Total Bilirubin (0.0-1.0) mg/dL Direct Bilirubin (0.0-0.5) mg/dL AST (5-31) U/L ALT (0-31) U/L Alkaline Phosphatase (39-117) U/L Troponin I High Sens (<3.5-17.0) ng/L B-Natriuretic Peptide (<100) pg/mL Total Protein (6.5-8.0) g/dL Albumin (3.5-5.0) g/dL COVID-19 ([facility]) Negative (Negative) COVID-19 Clin Com See Note 03/26/22 03/26/22 03/26/22 Range/Units 12:36 12:36 12:36 WBC (4.8-10.8) X10*3/uL RBC (4.20-5.50) X10*6/uL Hgb (12.0-16.0) g/dl Hct (37.0-47.0) % MCV (80.0-98.0) fL MCH (27.0-33.0) pg MCHC (31.0-35.0) g/dl RDW (11.0-16.0) % Plt Count (160-400) X10*3/uL MPV (9.4-12.3) fL Immature Gran % (Auto) (0.0-0.4) % Neut % (Auto) (45-73) % Lymph % (Auto) (20-40) % [place] % (Auto) (2-11) % Eos % (Auto) (0-4) % Baso % (Auto) (0-2) % Lymph # (Auto) (1.2-4.9) X10*3/uL [place] # (Auto) (0.1-1.2) X10*3/uL Eos # (Auto) (0.0-0.4) X10*3/uL Baso # (Auto) (0.0-0.2) X10*3/uL Abs Immat Gran (auto) (0.00-0.03) X10*3/uL Absolute Neuts (auto) (2.0-8.3) x10*3/uL Absolute Nucleated RBC (0.0-0.012) X10*3/uL Nucleated RBC % (auto) (0.0-0.2) /100WBC PT (10.0-13.1) SEC INR (0.9-1.1) Sodium 140 (135-145) mmol/L Potassium 4.1 (3.3-5.1) mmol/L Chloride 107 (96-108) mmol/L Carbon Dioxide 27 (22-29) mmol/L Anion Gap 10 L (12-20) BUN 18 H (9-16) mg/dL Creatinine 0.82 (0.5-1.4) mg/dL Estim Creat Clear Calc 72.2 Estimated GFR > 60 Random Glucose 94 (60-115) mg/dL Calcium 9.5 (8.4-10.2) mg/dL Magnesium 2.1 (1.6-2.6) mg/dL Total Bilirubin 0.9 (0.0-1.0) mg/dL Direct Bilirubin 0.2 (0.0-0.5) mg/dL AST 16 (5-31) U/L ALT 16 (0-31) U/L Alkaline Phosphatase 75 (39-117) U/L Troponin I High Sens < 3.5 (<3.5-17.0) ng/L B-Natriuretic Peptide 12 (<100) pg/mL Total Protein 6.5 (6.5-8.0) g/dL Albumin 4.5 (3.5-5.0) g/dL COVID-19 ([facility]) (Negative) COVID-19 Clin Com <Stephanie Pantoja NP - Last Filed: 03/26/22 12:19> Lab Results 03/26/22 03/26/22 03/26/22 Range/Units 12:36 12:36 12:36 WBC 4.3 L (4.8-10.8) X10*3/uL RBC 4.33 (4.20-5.50) X10*6/uL Hgb 13.4 (12.0-16.0) g/dl Hct 38.6 (37.0-47.0) % MCV 89.1 (80.0-98.0) fL MCH 30.9 (27.0-33.0) pg MCHC 34.7 (31.0-35.0) g/dl RDW 11.6 (11.0-16.0) % Plt Count 236 (160-400) X10*3/uL MPV 10.2 (9.4-12.3) fL Immature Gran % (Auto) 0.2 (0.0-0.4) % Neut % (Auto) 54.6 (45-73) % Lymph % (Auto) 38.3 (20-40) % [place] % (Auto) 4.6 (2-11) % Eos % (Auto) 1.6 (0-4) % Baso % (Auto) 0.7 (0-2) % Lymph # (Auto) 1.7 (1.2-4.9) X10*3/uL [place] # (Auto) 0.2 (0.1-1.2) X10*3/uL Eos # (Auto) 0.1 (0.0-0.4) X10*3/uL Baso # (Auto) 0.0 (0.0-0.2) X10*3/uL Abs Immat Gran (auto) 0.01 (0.00-0.03) X10*3/uL Absolute Neuts (auto) 2.4 (2.0-8.3) x10*3/uL Absolute Nucleated RBC 0.000 (0.0-0.012) X10*3/uL Nucleated RBC % (auto) 0.0 (0.0-0.2) /100WBC PT 10.1 (10.0-13.1) SEC INR 0.9 (0.9-1.1) Sodium (135-145) mmol/L Potassium (3.3-5.1) mmol/L Chloride (96-108) mmol/L Carbon Dioxide (22-29) mmol/L Anion Gap (12-20) BUN (9-16) mg/dL Creatinine (0.5-1.4) mg/dL Estim Creat Clear Calc Estimated GFR Random Glucose (60-115) mg/dL Calcium (8.4-10.2) mg/dL Magnesium (1.6-2.6) mg/dL Total Bilirubin (0.0-1.0) mg/dL Direct Bilirubin (0.0-0.5) mg/dL AST (5-31) U/L ALT (0-31) U/L Alkaline Phosphatase (39-117) U/L Troponin I High Sens (<3.5-17.0) ng/L B-Natriuretic Peptide (<100) pg/mL Total Protein (6.5-8.0) g/dL Albumin (3.5-5.0) g/dL COVID-19 ([facility]) Negative (Negative) COVID-19 Clin Com See Note 03/26/22 03/26/22 03/26/22 Range/Units 12:36 12:36 12:36 WBC (4.8-10.8) X10*3/uL RBC (4.20-5.50) X10*6/uL Hgb (12.0-16.0) g/dl Hct (37.0-47.0) % MCV (80.0-98.0) fL MCH (27.0-33.0) pg MCHC (31.0-35.0) g/dl RDW (11.0-16.0) % Plt Count (160-400) X10*3/uL MPV (9.4-12.3) fL Immature Gran % (Auto) (0.0-0.4) % Neut % (Auto) (45-73) % Lymph % (Auto) (20-40) % [place] % (Auto) (2-11) % Eos % (Auto) (0-4) % Baso % (Auto) (0-2) % Lymph # (Auto) (1.2-4.9) X10*3/uL [place] # (Auto) (0.1-1.2) X10*3/uL Eos # (Auto) (0.0-0.4) X10*3/uL Baso # (Auto) (0.0-0.2) X10*3/uL Abs Immat Gran (auto) (0.00-0.03) X10*3/uL Absolute Neuts (auto) (2.0-8.3) x10*3/uL Absolute Nucleated RBC (0.0-0.012) X10*3/uL Nucleated RBC % (auto) (0.0-0.2) /100WBC PT (10.0-13.1) SEC INR (0.9-1.1) Sodium 140 (135-145) mmol/L Potassium 4.1 (3.3-5.1) mmol/L Chloride 107 (96-108) mmol/L Carbon Dioxide 27 (22-29) mmol/L Anion Gap 10 L (12-20) BUN 18 H (9-16) mg/dL Creatinine 0.82 (0.5-1.4) mg/dL Estim Creat Clear Calc 72.2 Estimated GFR > 60 Random Glucose 94 (60-115) mg/dL Calcium 9.5 (8.4-10.2) mg/dL Magnesium 2.1 (1.6-2.6) mg/dL Total Bilirubin 0.9 (0.0-1.0) mg/dL Direct Bilirubin 0.2 (0.0-0.5) mg/dL AST 16 (5-31) U/L ALT 16 (0-31) U/L Alkaline Phosphatase 75 (39-117) U/L Troponin I High Sens < 3.5 (<3.5-17.0) ng/L B-Natriuretic Peptide 12 (<100) pg/mL Total Protein 6.5 (6.5-8.0) g/dL Albumin 4.5 (3.5-5.0) g/dL COVID-19 ([facility]) (Negative) COVID-19 Clin Com <Scarlet Osuna MD - Last Filed: 03/26/22 16:50> Discharge Plan Discharge Clinical Impression: MEE (generalized anxiety disorder), Atypical chest pain <Stephanie Pantoja NP - Last Filed: 03/26/22 12:19> Patient Disposition: Home, Self-Care <Stephanie Pantoja NP - Last Filed: 03/26/22 12:19> Instructions: Chest Wall Pain (ED), Anxiety (ED) <Stephanie Pantoja NP - Last Filed: 03/26/22 12:19> Additional Instructions: Please follow-up with your primary care physician tomorrow. If you have any worsening or new symptoms, please return to the emergency room or call 911 <Stephanie Pantoja NP - Last Filed: 03/26/22 12:19> Prescriptions: No Action diclofenac sodium [Arthritis Pain (diclofenac)] 1 % gel 2 g topical QID 30 Days Qty: 100 0RF Rx Instructions: apply to single elbow, wrist or hand; for hand includes palm/fingers/back of hand acetaminophen [Tylenol Extra Strength] 500 mg tablet 1,000 mg PO QID PRN (Reason: fever or pain) Qty: 14 0RF albuterol sulfate [Ventolin HFA] 90 mcg/actuation HFA aerosol inhaler 2 puff inhalation Q6H PRN fluoxetine 20 mg capsule 20 mg PO QAM 30 Days Qty: 30 3RF meloxicam 7.5 mg tablet 7.5 mg PO BID PRN cetirizine 10 mg capsule 10 mg PO DAILY 30 Days Qty: 30 2RF fluticasone propionate [Flonase Allergy Relief] 50 mcg/actuation spray,suspension 1 spray intranasal BID 30 Days Qty: 16 2RF Rx Instructions: administer into each nostril omeprazole 20 mg capsule,delayed release(DR/EC) 20 mg PO DAILY 30 Days Qty: 30 2RF clonazepam 0.5 mg tablet 0.5 mg PO BID PRN (Reason: panic attack(s)) 30 Days Qty: 30 0RF hydrochlorothiazide 12.5 mg tablet 12.5 mg PO DAILY PRN (Reason: edema) 14 Days Qty: 14 0RF <Stephanie Pantoja NP - Last Filed: 03/26/22 12:19>
--- NOTE | 2022-03-26 12:18 | ECG_ITS ---
Test Reason : cp Blood Pressure : / mmHG Vent. Rate : 075 BPM Atrial Rate : 075 BPM P-R Int : 162 ms QRS Dur : 084 ms QT Int : 392 ms P-R-T Axes : 037 004 042 degrees QTc Int : 437 ms Normal sinus rhythm Normal ECG When compared with ECG of 29-JUL-2018 07:37, No significant change was found Referred By: Stephanie Pantoja Electronically Signed By:Narendra Robbins
[2022-03-26 12:46] LABS: MANUAL DIFF FLAG NO
[2022-03-26 12:49] LABS: Basophils Percent Auto 0.7 % (0-2); Eosinophils Absolute Auto 0.1 X10*3/uL (0.0-0.4); Eosinophils Percent Auto 1.6 % (0-4); Hematocrit 38.6 % (37.0-47.0); Hemoglobin 13.4 g/dl (12.0-16.0); Imm Gran Abs Auto 0.01 X10*3/uL (0.00-0.03); Imm Gran Pct Auto 0.2 % (0.0-0.4); Lymphocytes Absolute Auto 1.7 X10*3/uL (1.2-4.9); Lymphocytes Percent Auto 38.3 % (20-40); Mean Corpuscular HGB Conc 34.7 g/dl (31.0-35.0); Mean Corpuscular Hemoglobin 30.9 pg (27.0-33.0); Mean Corpuscular Volume 89.1 fL (80.0-98.0); Mean Platelet Volume 10.2 fL (9.4-12.3); Monocytes Absolute Auto 0.2 X10*3/uL (0.1-1.2); Monocytes Percent Auto 4.6 % (2-11); Neutrophils Absolute Auto 2.4 x10*3/uL (2.0-8.3); Neutrophils Percent Auto 54.6 % (45-73); Platelet Count 236 X10*3/uL (160-400); Red Blood Count 4.33 X10*6/uL (4.20-5.50); Red Cell Distribution Width 11.6 % (11.0-16.0); White Blood Count 4.3 X10*3/uL (4.8-10.8)
[2022-03-26 12:54] LABS: INTERNATIONAL NORM RATIO 0.9 (0.9-1.1); Prothrombin Time 10.1 SEC (10.0-13.1)
[2022-03-26 13:04] LABS: Alanine Aminotransferase 16 U/L (0-31); Albumin Level 4.5 g/dL (3.5-5.0); Alkaline Phosphatase 75 U/L (39-117); Anion Gap 10 (12-20); Aspartate Amino Transferase 16 U/L (5-31); Bilirubin Direct 0.2 mg/dL (0.0-0.5); Bilirubin Total 0.9 mg/dL (0.0-1.0); Blood Urea Nitrogen 18 mg/dL (9-16); Calcium 9.5 mg/dL (8.4-10.2); Carbon Dioxide 27 mmol/L (22-29); Chloride 107 mmol/L (96-108); Creatinine Clr Calc Pharmacy 72.2; Estimated Glomerular Filt Rate > 60; Glucose Random 94 mg/dL (60-115); Magnesium 2.1 mg/dL (1.6-2.6); Potassium 4.1 mmol/L (3.3-5.1); Sodium 140 mmol/L (135-145); Total Protein 6.5 g/dL (6.5-8.0)
[2022-03-26 13:10] LABS: B Type Natriuretic Peptide 12 pg/mL (<100); COVID-19 Test Negative (Negative); IDNOW Serial# 9DB6401D
[2022-03-26 13:17] LABS: Troponin-I High Sensitivity < 3.5 ng/L (<3.5-17.0)
[2022-03-26 15:46] VITALS: BP 132/78; PULSE 83; RESP 20; TEMP 36.3; O2SAT 98
--- NOTE | 2022-03-26 16:08 | PC.NURSE ---
56 y/o F pw x2 days of chest pressure with exertion with associated SOB. pt has no other complaints, VSS. awaititng repeat labs
[2022-03-26 16:49] LABS: Troponin-I High Sensitivity < 3.5 ng/L (<3.5-17.0)
== END 2022-03-26 16:53 | disposition home or self-care (01) ==
PROVIDERS: Nurse Practitioner Family; Emergency Provider Emergency Medicine; PCP Physician Assistant
DX: R07.89 Other chest pain (principal); R06.02 Shortness of breath; Z20.822 Contact with and (suspected) exposure to COVID-19; Z20.828 Contact with and (suspected) exposure to other viral communicable diseases; Z79.899 Other long term (current) drug therapy
CPT/HCPCS: 36415; 71046; 80048; 80076; 83735; 83880; 84484; 85025; 85610; 87635; 93005; 99283; 99284

== ENCOUNTER 2022-05-12 12:23 | Emergency (ER) | payer OTHER, SELFPAY ==
--- NOTE | ~2022-05-12 | XR_ITS ---
EXAMINATION: XR CHEST CLINICAL INFORMATION: Dysphagia COMPARISON: None available. TECHNIQUE: 2 views of the chest were obtained. FINDINGS: No significant abnormality is noted involving the heart, lungs, mediastinum, bony thorax or soft tissues. XR/XR chest 2V IMPRESSION: Unremarkable chest examination.
[2022-05-12 12:33] VITALS: BP 157/67; PULSE 83; RESP 18; TEMP 36.2; O2SAT 98; BMI 33.9
--- NOTE | 2022-05-12 12:36 | ECG_ITS ---
Test Reason : cp Blood Pressure : / mmHG Vent. Rate : 071 BPM Atrial Rate : 071 BPM P-R Int : 154 ms QRS Dur : 086 ms QT Int : 392 ms P-R-T Axes : 040 009 047 degrees QTc Int : 425 ms Normal sinus rhythm Normal ECG When compared with ECG of 26-MAR-2022 12:29, No significant change was found Referred By: Generic ED Physician Electronically Signed By:MARQUES JOVEL MD
[2022-05-12 12:51] LABS: MANUAL DIFF FLAG NO
[2022-05-12 12:53] LABS: Basophils Percent Auto 0.6 % (0-2); Eosinophils Percent Auto 1.2 % (0-4); Hemoglobin 13.3 g/dl (12.0-16.0); Imm Gran Abs Auto 0.01 X10*3/uL (0.00-0.03); Imm Gran Pct Auto 0.3 % (0.0-0.4); Lymphocytes Absolute Auto 1.5 X10*3/uL (1.2-4.9); Lymphocytes Percent Auto 43.6 % (20-40); Mean Corpuscular HGB Conc 34.1 g/dl (31.0-35.0); Mean Corpuscular Hemoglobin 30.9 pg (27.0-33.0); Mean Corpuscular Volume 90.5 fL (80.0-98.0); Mean Platelet Volume 9.7 fL (9.4-12.3); Monocytes Absolute Auto 0.2 X10*3/uL (0.1-1.2); Monocytes Percent Auto 6.1 % (2-11); Neutrophils Absolute Auto 1.7 x10*3/uL (2.0-8.3); Neutrophils Percent Auto 48.2 % (45-73); Platelet Count 221 X10*3/uL (160-400); Red Blood Count 4.31 X10*6/uL (4.20-5.50); Red Cell Distribution Width 11.8 % (11.0-16.0); White Blood Count 3.4 X10*3/uL (4.8-10.8)
[2022-05-12 13:11] LABS: Alanine Aminotransferase 16 U/L (0-31); Albumin Level 4.3 g/dL (3.5-5.0); Alkaline Phosphatase 78 U/L (39-117); Anion Gap 15 (12-20); Aspartate Amino Transferase 15 U/L (5-31); Bilirubin Direct 0.3 mg/dL (0.0-0.5); Bilirubin Total 1.1 mg/dL (0.0-1.0); Blood Urea Nitrogen 17 mg/dL (9-16); Calcium 9.1 mg/dL (8.4-10.2); Carbon Dioxide 26 mmol/L (22-29); Chloride 104 mmol/L (96-108); Creatinine Clr Calc Pharmacy 69.4; Estimated Glomerular Filt Rate > 60; Glucose Random 93 mg/dL (60-115); Lipase 23 U/L (8-78); Potassium 3.9 mmol/L (3.3-5.1); Sodium 141 mmol/L (135-145); Total Protein 6.4 g/dL (6.5-8.0)
[2022-05-12 13:31] LABS: Troponin-I High Sensitivity < 3.5 ng/L (<3.5-17.0)
[2022-05-12 16:43] VITALS: BP 179/86; PULSE 71; RESP 16; TEMP 37.2; O2SAT 99
--- NOTE | 2022-05-12 16:44 | PC.NURSE ---
Pt resting on stretcher, reports burning in throat/upper chest area. States it has been happening for 3 days, but it has been occurring for about a month now, hence why she had a barium study. She also states she feels like she is dehydrated since she has has difficulty with eating/drinking. Blood pressure elevated, pt is visibly upset, will re-assess BP. Awaiting MD at this time
--- NOTE | 2022-05-12 17:21 | ED_ITS ---
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 comes here as difficulty in swallowing solids but is still able to swallow till 3 days ago for last 3 days patient been vomiting even after drinking liquids unable to swallow her saliva even, with increased pain in midepigastric area Related Data Home Medications Medication Instructions Recorded Confirmed albuterol sulfate 90 mcg/actuation 2 puff inhalation Q6H PRN 01/05/20 12/30/21 aerosol inhaler (Ventolin HFA) meloxicam 7.5 mg tablet 7.5 mg PO BID PRN 06/27/21 12/30/21 Previous Rx's Medication Instructions Recorded acetaminophen 500 mg tablet 1,000 mg PO QID PRN fever or pain 08/15/20 (Tylenol Extra Strength) #14 tabs fluoxetine 20 mg capsule 20 mg PO QAM 30 days #30 caps 02/27/21 cetirizine 10 mg capsule 10 mg PO DAILY 30 days #30 caps 06/27/21 fluticasone propionate 50 1 spray intranasal BID 30 days #16 06/27/21 mcg/actuation nasal grams spray,suspension (Flonase Allergy Relief) clonazepam 0.5 mg tablet 0.5 mg PO BID PRN panic attack(s) 12/30/21 30 days #30 tabs hydrochlorothiazide 12.5 mg tablet 12.5 mg PO DAILY PRN edema 14 days 12/30/21 #14 tabs omeprazole 20 mg capsule,delayed 20 mg PO DAILY 30 days #30 caps 12/30/21 release diclofenac sodium 1 % topical gel 2 g topical QID 30 days #100 grams 01/06/22 (Arthritis Pain (diclofenac)) clonazepam 0.5 mg tablet (Klonopin) 0.5 mg PO TID PRN anxiety #20 tabs 05/12/22 Allergies Allergy/AdvReac Type Severity Reaction Status Date / Time Iodinated Contrast Media Allergy Severe Shortness Verified 05/12/22 12:32 [IV CONTRAST] of Breath penicillin V Allergy Severe throat Verified 05/12/22 12:32 swelling Penicillins Allergy Severe RASH, Verified 05/12/22 12:32 DIFFICULTY BREATHING Tetanus Vaccines and Toxoid Allergy Intermediate Difficulty Verified 05/12/22 12:32 Swallowing Review of Systems Review of Systems: Yes all other systems are reviewed and are negative [facility] Past Medical History Medical History Anxiety, generalized Asthma Esophageal stricture Normal colonoscopy Surgical History History of appendectomy History of bladder surgery History of gallbladder disease History of partial hysterectomy History of torn meniscus of right knee Family History Family History Father CVD (cardiovascular disease) Past heart attack Mother No problems noted. Brother Heart problem Social History Social History Housing: Apartment Alcohol intake: never Patient Tobacco Use Status: Never used Tobacco Smoked in Last 30 Days: No e-Cigarette/Vaping Use: Never Used Second Hand Smoke Exposure: No Use of substances other than those prescribed or required for medical reasons: No Advance Directives: No Advance Directives Information Provided: No Patient : No service: No Current occupational status: unemployed Cognitive needs: No Hearing needs: No Vision needs: No Physical Exam ED Vital Signs: Vital Signs - 24 hr 05/12/22 12:33 05/12/22 16:43 05/12/22 18:41 Temperature 97.1 F 99.0 F 97.9 F Pulse Rate 83 71 65 Respiratory Rate 18 16 13 Blood Pressure 157/67 H 179/86 H 155/61 H Pulse Oximetry 98 99 99 Oxygen Delivery Method Room Air Room Air Room Air 05/12/22 20:55 Temperature Pulse Rate 71 Respiratory Rate 12 Blood Pressure 142/88 H Pulse Oximetry 96 Oxygen Delivery Method Room Air BMI result Body Mass Index 33.9 Appearance: Alert. Oriented X3. No acute distress. Anxious Eyes: PERRLA, No Nystagmus ENT: Pharynx normal. Oral Mucosa moist Neck: Normal inspection. Neck supple. CVS: Normal heart rate and rhythm. Pulses normal. Respiratory: No respiratory distress. Equal air entry bilateral, no wheezing/rales/rhonchi Abdomen: Soft tender in epigastric area. Bowel sounds are present, no mass palpable, no CVA tenderness Skin: Skin warm and dry. Normal skin color. Normal skin turgor. Extremities: No lower extremity edema. No calf tenderness Neuro: Oriented X 3. No motor deficit. Medications Administered Discontinued Medications Generic Name Dose Route Start Last Admin Trade Name Freq PRN Reason Stop Dose Admin Al Hydroxide/Mg Hydroxide 30 ml 05/12/22 17:44 05/12/22 17:52 Magnesium Hydrox/Alum Hydrox 30 Ml Oral.Susp PO 05/12/22 17:45 30 ml ONCE ONE Administration Famotidine 20 mg 05/12/22 18:21 05/12/22 18:58 Famotidine/Pf 20 Mg/2 Ml Vial IVPUSH 05/12/22 18:22 20 mg ONCE ONE Administration Glucagon 1 mg 05/12/22 18:21 05/12/22 18:58 Glucagon,Human Recombinant 1 Mg/Ml Vial IVPUSH 05/12/22 18:22 1 mg ONCE ONE Administration Sodium Chloride 1,000 mls @ 999 mls/hr 05/12/22 18:21 05/12/22 20:08 Ns IV 05/12/22 19:21 Infused .Q1H1M ONE Infusion Lidocaine HCl 15 ml 05/12/22 19:39 05/12/22 19:48 Lidocaine Hcl Viscous 2 % 15 Ml Solution MUCOUS MEM 05/12/22 19:40 15 ml ONCE ONE Administration Lorazepam 1 mg 05/12/22 18:21 05/12/22 18:58 Lorazepam 2 Mg/Ml Vial IVPUSH 05/12/22 18:22 1 mg ONCE ONE Administration Lorazepam 1 mg 05/12/22 20:31 05/12/22 20:45 Lorazepam 2 Mg/Ml Vial IVPUSH 05/12/22 20:32 1 mg ONCE ONE Administration Metoclopramide HCl 10 mg 05/12/22 20:31 05/12/22 20:45 Metoclopramide Hcl 10 Mg/2 Ml Vial IVPUSH 05/12/22 20:32 10 mg ONCE ONE Administration Ondansetron HCl 4 mg 05/12/22 17:44 05/12/22 17:53 Ondansetron Odt 4 Mg Tab.Rapdis TRANSLINGU 05/12/22 17:45 4 mg ONCE ONE Administration Medical Decision Making Medical Decision Making MDM Narrative: Patient with difficulty in swallowing to solids and liquids for last 3 days with history of slight hiatal hernia and esophageal narrowing in the barium studies done on - Small intermittent sliding hiatal hernia with mild narrowing distal thoracic esophagus. -Subtle irregularity mucosa distal thoracic esophagus posterior medial side. -Recommend further evaluation with direct visualization/endoscopy. ?Patient was very anxious at this time p.o. challenge was tried unable to take it will give IV fluids IV glucagon and if still have the problem will call GI 2100 On further evaluation patient able to swallow and had pudding after giving Ativan case discussed Dr. 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 05/12/22 12:47 05/12/22 12:47 Labs: Lab Results 05/12/22 05/12/22 05/12/22 Range/Units 12:47 12:47 12:47 WBC 3.4 L (4.8-10.8) X10*3/uL RBC 4.31 (4.20-5.50) X10*6/uL Hgb 13.3 (12.0-16.0) g/dl Hct 39.0 (37.0-47.0) % MCV 90.5 (80.0-98.0) fL MCH 30.9 (27.0-33.0) pg MCHC 34.1 (31.0-35.0) g/dl RDW 11.8 (11.0-16.0) % Plt Count 221 (160-400) X10*3/uL MPV 9.7 (9.4-12.3) fL Immature Gran % (Auto) 0.3 (0.0-0.4) % Neut % (Auto) 48.2 (45-73) % Lymph % (Auto) 43.6 H (20-40) % [place] % (Auto) 6.1 (2-11) % Eos % (Auto) 1.2 (0-4) % Baso % (Auto) 0.6 (0-2) % Lymph # (Auto) 1.5 (1.2-4.9) X10*3/uL [place] # (Auto) 0.2 (0.1-1.2) X10*3/uL Eos # (Auto) 0.0 (0.0-0.4) X10*3/uL Baso # (Auto) 0.0 (0.0-0.2) X10*3/uL Abs Immat Gran (auto) 0.01 (0.00-0.03) X10*3/uL Absolute Neuts (auto) 1.7 L (2.0-8.3) x10*3/uL Absolute Nucleated RBC 0.000 (0.0-0.012) X10*3/uL Nucleated RBC % (auto) 0.0 (0.0-0.2) /100WBC Sodium 141 (135-145) mmol/L Potassium 3.9 (3.3-5.1) mmol/L Chloride 104 (96-108) mmol/L Carbon Dioxide 26 (22-29) mmol/L Anion Gap 15 (12-20) BUN 17 H (9-16) mg/dL Creatinine 0.90 (0.5-1.4) mg/dL Estim Creat Clear Calc 69.4 Estimated GFR > 60 Random Glucose 93 (60-115) mg/dL Calcium 9.1 (8.4-10.2) mg/dL Total Bilirubin 1.1 H (0.0-1.0) mg/dL Direct Bilirubin 0.3 (0.0-0.5) mg/dL AST 15 (5-31) U/L ALT 16 (0-31) U/L Alkaline Phosphatase 78 (39-117) U/L Troponin I High Sens < 3.5 (<3.5-17.0) ng/L Total Protein 6.4 L (6.5-8.0) g/dL Albumin 4.3 (3.5-5.0) g/dL Lipase 23 (8-78) U/L Discharge Plan Discharge Clinical Impression: Esophageal hiatal hernia, Anxiety Patient Disposition: Home, Self-Care Instructions: Hiatal Hernia (ED), Anxiety (ED) Additional Instructions: Drink plenty of fluids Follow-up with your plant operations worker as scheduled take Klonopin 1 tablet every 8 hours as needed for anxiety/difficulty in swallowing Follow with PCP Prescriptions: New clonazepam [Klonopin] 0.5 mg tablet 0.5 mg PO TID PRN (Reason: anxiety) Qty: 20 0RF No Action diclofenac sodium [Arthritis Pain (diclofenac)] 1 % gel 2 g topical QID 30 Days Qty: 100 0RF Rx Instructions: apply to single elbow, wrist or hand; for hand includes palm/fingers/back of hand acetaminophen [Tylenol Extra Strength] 500 mg tablet 1,000 mg PO QID PRN (Reason: fever or pain) Qty: 14 0RF albuterol sulfate [Ventolin HFA] 90 mcg/actuation HFA aerosol inhaler 2 puff inhalation Q6H PRN fluoxetine 20 mg capsule 20 mg PO QAM 30 Days Qty: 30 3RF meloxicam 7.5 mg tablet 7.5 mg PO BID PRN cetirizine 10 mg capsule 10 mg PO DAILY 30 Days Qty: 30 2RF fluticasone propionate [Flonase Allergy Relief] 50 mcg/actuation spray,suspension 1 spray intranasal BID 30 Days Qty: 16 2RF Rx Instructions: administer into each nostril omeprazole 20 mg capsule,delayed release(DR/EC) 20 mg PO DAILY 30 Days Qty: 30 2RF clonazepam 0.5 mg tablet 0.5 mg PO BID PRN (Reason: panic attack(s)) 30 Days Qty: 30 0RF hydrochlorothiazide 12.5 mg tablet 12.5 mg PO DAILY PRN (Reason: edema) 14 Days Qty: 14 0RF
[2022-05-12] MEDS: Magnesium Hydrox/Alum Hydrox 30 ML ORAL.SUSP PO (17:52)
[2022-05-12] MEDS: Ondansetron ODT 4 MG TAB.RAPDIS TRANSLINGU (17:53)
[2022-05-12 18:41] VITALS: BP 155/61; PULSE 65; RESP 13; TEMP 36.6; O2SAT 99
[2022-05-12] MEDS: LORazepam 2 MG/ML VIAL 1 MG IVPUSH ×2 (18:58→20:45)
[2022-05-12] MEDS: Famotidine/PF 20 MG/2 ML VIAL IVPUSH (18:58)
[2022-05-12] MEDS: 0.9 % Sodium Chloride 1,000 ML 999 ML IV (18:58)
[2022-05-12] MEDS: Lidocaine HCl Viscous 2 % 15 ML SOLUTION MUCOUS MEM (19:48)
--- NOTE | 2022-05-12 20:08 | PC.NURSE ---
pt reports none of the medications are helping and continued nausea. Pt requesting additional MD erum aware. No new orders at this time. VSS, respirations even and unlabored
[2022-05-12] MEDS: Metoclopramide HCl 10 MG/2 ML VIAL IVPUSH (20:45)
[2022-05-12 20:55] VITALS: BP 142/88; PULSE 71; RESP 12; O2SAT 96
--- NOTE | 2022-05-12 21:33 | PC.NURSE ---
pt verbalizes feeling steady on her feet and ready to go home at this time. Pt able to swallow applesauce and water with minimal difficulty. Pt verbalizes ability to swallow and states that she feels anxious swallowing but is able to.
== END 2022-05-12 21:37 | disposition home or self-care (01) ==
PROVIDERS: Emergency Provider Internal Medicine; PCP Physician Assistant
DX: K44.9 Diaphragmatic hernia without obstruction or gangrene (principal); R11.10 Vomiting, unspecified; K20.90 Esophagitis, unspecified without bleeding; F41.9 Anxiety disorder, unspecified
CPT/HCPCS: 36415; 71046; 80053; 82248; 83690; 84484; 85025; 93005; 96361; 96374; 96375; 96376; 99285; J1610; J2060; J2765

== ENCOUNTER 2022-05-17 05:25 | Emergency (ER) | payer OTHER, SELFPAY ==
--- NOTE | ~2022-05-17 | CT_ITS ---
EXAMINATION: CT HEAD WITHOUT CONTRAST CLINICAL INFORMATION: Fall. Head injury. COMPARISON: 09/04/2019 TECHNIQUE: Contiguous axial imaging was performed from the skull base to vertex without intravenous contrast. This CT examination was performed using dose optimization techniques as appropriate, variously including the following: * Automated exposure control * Adjustment of mA and/or kV according to patient size (this includes techniques or standardized protocols for targeted exams where dose is matched to indication/reason for exam; i.e. extremities or head) Use of iterative reconstruction technique DLP: 605 mGy-cm. FINDINGS: There is no evidence of acute intracranial hemorrhage or territorial infarction. No abnormal mass effect or midline shift is seen. [place] to white matter differentiation is well preserved. No extra-axial fluid collections are identified. No hydrocephalus. No significant volume loss. There is no abnormal attenuation within the brain parenchyma. Prominent subgaleal hematoma along the posterior left parietal region. No calvarial fracture. The mastoid air cells and visualized portions of the paranasal sinuses are well aerated. CT/CT head/brain wo IV con IMPRESSION: No acute intracranial pathology.
--- NOTE | ~2022-05-17 | CT_ITS ---
EXAMINATION: CT CERVICAL SPINE WITHOUT CONTRAST CLINICAL INFORMATION: Trauma. Fall COMPARISON: None available. TECHNIQUE: Multidetector CT. Examination of the cervical spine without contrast. Reformatting in the coronal and parasagittal planes This CT examination was performed using dose optimization techniques as appropriate, variously including the following: *Automated exposure control *Adjustment of mA and/or kV according to patient size (this includes techniques or standardized protocols for targeted exams where dose is matched to indication/reason for exam; i.e. extremities or head) *Use of iterative reconstruction technique DLP: 549 mGy-cm FINDINGS: There is no fracture or subluxation. No focal lesion or loss of volume. Minor smooth ossification ventral to the C5/C6 disc appears degenerative and there is no surrounding hematoma. No large abnormality within the spinal canal. No suspicious abnormality in the visualized apex of the chest. There are calcifications within the carotid on each side CT/CT cervical spine wo IV con IMPRESSION: No fracture or subluxation of the cervical spine Fleischner guidelines were followed.
[2022-05-17 05:45] VITALS: BP 151/93; PULSE 98; RESP 16; TEMP 36.6; O2SAT 99; BMI 34.0
[2022-05-17 06:19] LABS: MANUAL DIFF FLAG NO
[2022-05-17 06:23] LABS: Basophils Percent Auto 0.3 % (0-2); Eosinophils Percent Auto 0.2 % (0-4); Hematocrit 36.4 % (37.0-47.0); Hemoglobin 12.6 g/dl (12.0-16.0); Imm Gran Abs Auto 0.04 X10*3/uL (0.00-0.03); Imm Gran Pct Auto 0.4 % (0.0-0.4); Lymphocytes Absolute Auto 1.2 X10*3/uL (1.2-4.9); Lymphocytes Percent Auto 12.2 % (20-40); Mean Corpuscular HGB Conc 34.6 g/dl (31.0-35.0); Mean Corpuscular Hemoglobin 30.8 pg (27.0-33.0); Mean Platelet Volume 9.9 fL (9.4-12.3); Monocytes Absolute Auto 0.4 X10*3/uL (0.1-1.2); Monocytes Percent Auto 3.7 % (2-11); Neutrophils Absolute Auto 7.9 x10*3/uL (2.0-8.3); Neutrophils Percent Auto 83.2 % (45-73); Platelet Count 210 X10*3/uL (160-400); Red Blood Count 4.09 X10*6/uL (4.20-5.50); Red Cell Distribution Width 11.9 % (11.0-16.0); White Blood Count 9.5 X10*3/uL (4.8-10.8)
[2022-05-17 06:37] LABS: Anion Gap 18 (12-20); Blood Urea Nitrogen 13 mg/dL (9-16); Calcium 9.1 mg/dL (8.4-10.2); Carbon Dioxide 23 mmol/L (22-29); Chloride 106 mmol/L (96-108); Estimated Glomerular Filt Rate > 60; Glucose Random 97 mg/dL (60-115); Potassium 3.7 mmol/L (3.3-5.1); Sodium 143 mmol/L (135-145)
--- NOTE | 2022-05-17 06:57 | ED.HEATRA ---
HPI - Head Injury General Chief complaint: Head Injury Stated complaint: Fell down the stairs, head injury Time Seen by Provider: 05/17/22 06:36 Source: patient Limitations: no limitations History of Present Illness HPI Narrative: This is a 56 years old of female presented to the emergency department complaining of fall. Patient states that she fell is about 6-7 steps, she lost her footing she is complaining of a headache she and vomiting. Denies any abdominal pain chest wall pain MD Complaint: head injury Onset (ago): hour(s) (3) Mechanism of Injury: fall Place: home Loss of Consciousness: no Location of injury: frontal Severity: moderate Radiation: none Related Data Home Medications Medication Instructions Recorded Confirmed albuterol sulfate 90 mcg/actuation 2 puff inhalation Q6H PRN 01/05/20 12/30/21 aerosol inhaler (Ventolin HFA) meloxicam 7.5 mg tablet 7.5 mg PO BID PRN 06/27/21 12/30/21 Previous Rx's Medication Instructions Recorded acetaminophen 500 mg tablet 1,000 mg PO QID PRN fever or pain 08/15/20 (Tylenol Extra Strength) #14 tabs fluoxetine 20 mg capsule 20 mg PO QAM 30 days #30 caps 02/27/21 cetirizine 10 mg capsule 10 mg PO DAILY 30 days #30 caps 06/27/21 fluticasone propionate 50 1 spray intranasal BID 30 days #16 06/27/21 mcg/actuation nasal grams spray,suspension (Flonase Allergy Relief) clonazepam 0.5 mg tablet 0.5 mg PO BID PRN panic attack(s) 12/30/21 30 days #30 tabs hydrochlorothiazide 12.5 mg tablet 12.5 mg PO DAILY PRN edema 14 days 12/30/21 #14 tabs omeprazole 20 mg capsule,delayed 20 mg PO DAILY 30 days #30 caps 12/30/21 release diclofenac sodium 1 % topical gel 2 g topical QID 30 days #100 grams 01/06/22 (Arthritis Pain (diclofenac)) clonazepam 0.5 mg tablet (Klonopin) 0.5 mg PO TID PRN anxiety #20 tabs 05/12/22 Allergies Allergy/AdvReac Type Severity Reaction Status Date / Time Iodinated Contrast Media Allergy Severe Shortness Verified 05/12/22 12:32 [IV CONTRAST] of Breath penicillin V Allergy Severe throat Verified 05/12/22 12:32 swelling Penicillins Allergy Severe RASH, Verified 05/12/22 12:32 DIFFICULTY BREATHING Tetanus Vaccines and Toxoid Allergy Intermediate Difficulty Verified 05/12/22 12:32 Swallowing Review of Systems Constitutional: Constitutional: Reports no additional constitutional complaints Gastrointestinal: Gastrointestinal: Reports nausea and Reports vomiting PMFSH Past Medical History Medical History Anxiety, generalized Asthma Esophageal stricture Normal colonoscopy Surgical History History of appendectomy History of bladder surgery History of gallbladder disease History of partial hysterectomy History of torn meniscus of right knee Family History Family History Father CVD (cardiovascular disease) Past heart attack Mother No problems noted. Brother Heart problem Social History Social History Housing: Apartment Alcohol intake: never Patient Tobacco Use Status: Never used Tobacco Smoked in Last 30 Days: No e-Cigarette/Vaping Use: Never Used Second Hand Smoke Exposure: No Use of substances other than those prescribed or required for medical reasons: No Advance Directives: No Advance Directives Information Provided: Yes Patient : No service: No Current occupational status: unemployed Cognitive needs: No Hearing needs: No Vision needs: No Physical Exam Vital Signs: Vital Signs: Last Vital Signs Temp 98 F 05/17/22 05:45 Pulse 92 05/17/22 07:37 Resp 20 05/17/22 07:37 BP 134/66 05/17/22 07:37 Pulse Ox 97 05/17/22 07:37 O2 Del Method Room Air 05/17/22 07:37 BMI result Body Mass Index 34.0 Const: General: cooperative Nutritional Appearance: well nourished HEENT: Other: Hematoma present in the left forehead Ears: hearing grossly normal bilaterally General nose exam: Normal external nose present Face and sinus: Yes normal facial exam Mouth: Normal oral and palatal mucosa present Teeth and gingiva: dentition normal Throat: Yes posterior oropharynx normal Neck: Neck: Yes normal visual inspection, Yes full ROM and Yes no lymphadenopathy Chest: Chest palpation & inspection: normal inspection of the chest Resp: Effort & Inspection: normal respiratory effort Auscultation: clear to auscultation bilaterally Cardio: Jugular venous distension: no JVD Rate: regular rate GI: Inspection: Yes normal to inspection Palpation (GI): Soft to palpation, not firm, nontender and no guarding Skin: General skin exam: no rashes or lesions noted Course Reevaluation(s) Reevaluation #1: Patient was re-evaluated before discharge and she was able to ambulate safely, no dizziness. Head CT and C-spine CT negative Medications Administered Discontinued Medications Generic Name Dose Route Start Last Admin Trade Name Freq PRN Reason Stop Dose Admin Sodium Chloride 1,000 mls @ 999 mls/hr 05/17/22 07:00 05/17/22 09:00 Ns IVCONT 05/17/22 08:00 Infused .Q1H1M DELORIS Infusion Ibuprofen 800 mg 05/17/22 09:12 05/17/22 09:19 Ibuprofen 800 Mg Tablet PO 05/17/22 09:13 800 mg ONCE ONE Administration Ondansetron HCl 4 mg 05/17/22 06:55 05/17/22 07:30 Ondansetron Hcl 4 Mg/2 Ml Vial IVPUSH 05/17/22 06:56 4 mg ONCE ONE Administration Medical Decision Making Medical Decision Making [facility] Narrative: Patient presented with head injury will get a CT of the head and C-spine Differential Diagnosis Differential Diagnoses: The differential diagnosis associated with the presentation includes Subdural hematoma/ concussion/skull fracture Admission/Observation Consideration of admission/observation: Escalation of care including admission/observation considered Lab Data MDM Lab Attestation statement: I reviewed the patient's lab results. 05/17/22 06:15 05/17/22 06:15 Labs: Lab Results 05/17/22 05/17/22 Range/Units 06:15 06:15 WBC 9.5 (4.8-10.8) X10*3/uL RBC 4.09 L (4.20-5.50) X10*6/uL Hgb 12.6 (12.0-16.0) g/dl Hct 36.4 L (37.0-47.0) % MCV 89.0 (80.0-98.0) fL MCH 30.8 (27.0-33.0) pg MCHC 34.6 (31.0-35.0) g/dl RDW 11.9 (11.0-16.0) % Plt Count 210 (160-400) X10*3/uL MPV 9.9 (9.4-12.3) fL Immature Gran % (Auto) 0.4 (0.0-0.4) % Neut % (Auto) 83.2 H (45-73) % Lymph % (Auto) 12.2 L (20-40) % [place] % (Auto) 3.7 (2-11) % Eos % (Auto) 0.2 (0-4) % Baso % (Auto) 0.3 (0-2) % Lymph # (Auto) 1.2 (1.2-4.9) X10*3/uL [place] # (Auto) 0.4 (0.1-1.2) X10*3/uL Eos # (Auto) 0.0 (0.0-0.4) X10*3/uL Baso # (Auto) 0.0 (0.0-0.2) X10*3/uL Abs Immat Gran (auto) 0.04 H (0.00-0.03) X10*3/uL Absolute Neuts (auto) 7.9 (2.0-8.3) x10*3/uL Absolute Nucleated RBC 0.000 (0.0-0.012) X10*3/uL Nucleated RBC % (auto) 0.0 (0.0-0.2) /100WBC Sodium 143 (135-145) mmol/L Potassium 3.7 (3.3-5.1) mmol/L Chloride 106 (96-108) mmol/L Carbon Dioxide 23 (22-29) mmol/L Anion Gap 18 (12-20) BUN 13 (9-16) mg/dL Creatinine 0.77 (0.5-1.4) mg/dL Estim Creat Clear Calc 78.0 Estimated GFR > 60 Random Glucose 97 (60-115) mg/dL Calcium 9.1 (8.4-10.2) mg/dL Radiology Impression Discussion of test interpretation with radiology: I have reviewed the radiologist's reading. Radiologist Impression: ose is matched to indication/reason for exam; i.e. extremities or head) Use of iterative reconstruction technique DLP: 605 mGy-cm. FINDINGS: There is no evidence of acute intracranial hemorrhage or territorial infarction. No abnormal mass effect or midline shift is seen. [place] to white matter differentiation is well preserved. No extra-axial fluid collections are identified. No hydrocephalus. No significant volume loss. There is no abnormal attenuation within the brain parenchyma. Prominent subgaleal hematoma along the posterior left parietal region. No calvarial fracture. The mastoid air cells and visualized portions of the paranasal sinuses are well aerated. ? CT/CT head/brain wo IV con IMPRESSION: No acute intracranial pathology. ? Dictated By: Rodrigo Bowie MD Discharge Plan Discharge Clinical Impression: Head injury Patient Disposition: Home, Self-Care Instructions: Head Injury (ED) Additional Instructions: Follow-up with your primary care physician on Thursday, return to the emergency room if you worse vomiting lethargy any concern Prescriptions: No Action diclofenac sodium [Arthritis Pain (diclofenac)] 1 % gel 2 g topical QID 30 Days Qty: 100 0RF Rx Instructions: apply to single elbow, wrist or hand; for hand includes palm/fingers/back of hand acetaminophen [Tylenol Extra Strength] 500 mg tablet 1,000 mg PO QID PRN (Reason: fever or pain) Qty: 14 0RF clonazepam [Klonopin] 0.5 mg tablet 0.5 mg PO TID PRN (Reason: anxiety) Qty: 20 0RF albuterol sulfate [Ventolin HFA] 90 mcg/actuation HFA aerosol inhaler 2 puff inhalation Q6H PRN fluoxetine 20 mg capsule 20 mg PO QAM 30 Days Qty: 30 3RF meloxicam 7.5 mg tablet 7.5 mg PO BID PRN cetirizine 10 mg capsule 10 mg PO DAILY 30 Days Qty: 30 2RF fluticasone propionate [Flonase Allergy Relief] 50 mcg/actuation spray,suspension 1 spray intranasal BID 30 Days Qty: 16 2RF Rx Instructions: administer into each nostril omeprazole 20 mg capsule,delayed release(DR/EC) 20 mg PO DAILY 30 Days Qty: 30 2RF clonazepam 0.5 mg tablet 0.5 mg PO BID PRN (Reason: panic attack(s)) 30 Days Qty: 30 0RF hydrochlorothiazide 12.5 mg tablet 12.5 mg PO DAILY PRN (Reason: edema) 14 Days Qty: 14 0RF Referrals: Physician,Unknown J [Primary Care Provider] - 2 days Interventions: ED Discharge Assessment Last Done: 05/17/22 12:26 Discharge Date/Time: 05/17/22 12:27
[2022-05-17] MEDS: 0.9 % Sodium Chloride 1,000 ML 999 ML IVCONT (07:30)
[2022-05-17] MEDS: ondansetron HCL 4 MG/2 ML VIAL IVPUSH (07:30)
--- NOTE | 2022-05-17 07:30 | PC.NURSE ---
Patient resting on stretcher on her side. Patient answering questions appropriately in a quiet voice. Scattered bruising noted on patient that she attributes to her fall. Patient just received CT scan, awaiting results at this time.
[2022-05-17 07:37] VITALS: BP 134/66; PULSE 92; RESP 20; O2SAT 97
--- NOTE | 2022-05-17 09:10 | PC.NURSE ---
attempted to ambulate the pt per md order, pt keeps stating that her head hurts, hesitant at wanting to get up out of bed, pt finally did get out of bed and ambulated very slowly around the room
[2022-05-17] MEDS: Ibuprofen 800 MG TABLET PO (09:19)
== END 2022-05-17 12:27 | disposition home or self-care (01) ==
PROVIDERS: Emergency Provider Emergency Medicine
DX: S09.90XA Unspecified injury of head, initial encounter (principal); W10.8XXA Fall (on) (from) other stairs and steps, initial encounter; R51.9 Headache, unspecified; R11.10 Vomiting, unspecified; Y93.9 Activity, unspecified; Y92.018 Other place in single-family (private) house as the place of occurrence of the external cause; Y99.9 Unspecified external cause status; Z79.899 Other long term (current) drug therapy
CPT/HCPCS: 36415; 70450; 72125; 80048; 85025; 96361; 96374; 99284; J2405

== ENCOUNTER 2022-05-19 09:54 | Emergency (ER) | payer OTHER, SELFPAY ==
--- NOTE | ~2022-05-19 | CT_ITS ---
EXAMINATION: CT HEAD WITHOUT CONTRAST CLINICAL INFORMATION: Severe pain at back of head COMPARISON: Head CT 05/17/2022. TECHNIQUE: Contiguous axial imaging was performed from the skull base to vertex without intravenous administration of contrast. This CT examination was performed using dose optimization techniques as appropriate, variously including the following: *Automated exposure control *Adjustment of mA and/or kV according to patient size (this includes techniques or standardized protocols for targeted exams where dose is matched to indication/reason for exam; i.e. extremities or head) *Use of iterative reconstruction technique DLP: 582 mGy-cm FINDINGS: There is no evidence of acute intracranial hemorrhage or territorial infarction. No abnormal mass effect or midline shift is appreciated. Sierra-white differentiation is well preserved. No extra-axial fluid collections. The ventricular system and cortical sulci are normal in size. Similar large hematoma of the left posterior scalp. No underlying osseous fracture. The visualized paranasal sinuses and mastoid air cells are well aerated. CT/CT head/brain wo IV con IMPRESSION: 1. No acute intracranial pathology. 2. Similar large hematoma of the left posterior scalp.
[2022-05-19 10:00] VITALS: BP 158/78; PULSE 83; RESP 14; TEMP 36.7; O2SAT 96; BMI 34.9
--- NOTE | 2022-05-19 12:49 | ED_ITS ---
HPI - General Adult General Chief complaint: General Medical Stated complaint: follow up fall downstairs head inj loss sight eye Time Seen by Provider: 05/19/22 11:04 Source: patient Mode of arrival: ambulatory History of Present Illness HPI narrative: 56-year-old female presents with increasing pain at the back of her head after she fell on Thursday and was evaluated here in the emergency room. She denies any visual disturbance but states that the pain is very bad . Related Data Home Medications Medication Instructions Recorded Confirmed albuterol sulfate 90 mcg/actuation 2 puff inhalation Q6H PRN 01/05/20 12/30/21 aerosol inhaler (Ventolin HFA) meloxicam 7.5 mg tablet 7.5 mg PO BID PRN 06/27/21 12/30/21 Previous Rx's Medication Instructions Recorded acetaminophen 500 mg tablet 1,000 mg PO QID PRN fever or pain 08/15/20 (Tylenol Extra Strength) #14 tabs fluoxetine 20 mg capsule 20 mg PO QAM 30 days #30 caps 02/27/21 cetirizine 10 mg capsule 10 mg PO DAILY 30 days #30 caps 06/27/21 fluticasone propionate 50 1 spray intranasal BID 30 days #16 06/27/21 mcg/actuation nasal grams spray,suspension (Flonase Allergy Relief) clonazepam 0.5 mg tablet 0.5 mg PO BID PRN panic attack(s) 12/30/21 30 days #30 tabs hydrochlorothiazide 12.5 mg tablet 12.5 mg PO DAILY PRN edema 14 days 12/30/21 #14 tabs omeprazole 20 mg capsule,delayed 20 mg PO DAILY 30 days #30 caps 12/30/21 release diclofenac sodium 1 % topical gel 2 g topical QID 30 days #100 grams 01/06/22 (Arthritis Pain (diclofenac)) clonazepam 0.5 mg tablet (Klonopin) 0.5 mg PO TID PRN anxiety #20 tabs 05/12/22 Allergies Allergy/AdvReac Type Severity Reaction Status Date / Time Iodinated Contrast Media Allergy Severe Shortness Verified 05/12/22 12:32 [IV CONTRAST] of Breath penicillin V Allergy Severe throat Verified 05/12/22 12:32 swelling Penicillins Allergy Severe RASH, Verified 05/12/22 12:32 DIFFICULTY BREATHING Tetanus Vaccines and Toxoid Allergy Intermediate Difficulty Verified 05/12/22 12:32 Swallowing Review of Systems Review of Systems: Pertinent positives and negatives as stated in HPI [facility] Past Medical History Source: nursing notes reviewed Medical History Anxiety, generalized Asthma Esophageal stricture Normal colonoscopy Surgical History History of appendectomy History of bladder surgery History of gallbladder disease History of partial hysterectomy History of torn meniscus of right knee Family History Family History Father CVD (cardiovascular disease) Past heart attack Mother No problems noted. Brother Heart problem Social History Social History Housing: Apartment Alcohol intake: never Patient Tobacco Use Status: Never used Tobacco Smoked in Last 30 Days: No e-Cigarette/Vaping Use: Never Used Second Hand Smoke Exposure: No Use of substances other than those prescribed or required for medical reasons: No Any prior treatment program specific to substance use: No Advance Directives: No Advance Directives Information Provided: No Patient : No service: No Current occupational status: unemployed Cognitive needs: No Hearing needs: No Vision needs: No Physical Exam ED Vital Signs: Vital Signs - 24 hr 05/19/22 10:00 Temperature 98.0 F Pulse Rate 83 Respiratory Rate 14 Blood Pressure 158/78 H Pulse Oximetry 96 Oxygen Delivery Method Room Air BMI result Body Mass Index 34.9 VITAL SIGNS: Reviewed. GENERAL: Well developed, well nourished, in no acute distress. HEAD: Normocephalic/hematoma/contusion with fluctuance mild abrasion EYES: PERRLA, EOMI, periorbital ecchymosis but no gaze palsies noted EARS: Ext canals without abnormality NOSE: Nares patent bilateral OROPHARYNX: no oral lesions noted, posterior pharynx clear NECK: Supple, no adenopathy LUNGS: Normal breath sounds. No adventitious sounds or accessory muscle use. SpO2<96> CARDIOVASCULAR: Regular rate and rhythm without noted murmurs ABDOMEN: Soft, non-tender, non-distended with bowel sounds. MUSCULOSKELETAL: No tenderness, deformities, or effusions noted on gross inspection. EXTREMITIES: No cyanosis, clubbing or edema. SKIN: Inspection of the skin reveals no rashes NEUROLOGIC: Alert and oriented x 4. Strength and sensation to light touch were grossly intact x 4. Medications Administered Discontinued Medications Generic Name Dose Route Start Last Admin Trade Name Freq PRN Reason Stop Dose Admin Acetaminophen 975 mg 05/19/22 12:50 05/19/22 12:56 Acetaminophen 325 Mg Tablet PO 05/19/22 12:51 975 mg ONCE ONE Administration Ibuprofen 400 mg 05/19/22 12:50 05/19/22 12:56 Ibuprofen 400 Mg Tablet PO 05/19/22 12:51 400 mg ONCE ONE Administration Medical Decision Making Medical Decision Making MDM Narrative: 56-year-old female will pre provided with combination analgesics, repeat head CT, she is nonfocal and no visual disturbances. Review of all investigations negative for new or in acute findings. She is otherwise discharged home in stable condition with recommendations for combination analgesics, ice, compression. Differential Diagnosis Please see the discussion above Lab Data Please see the discussion above Radiology Impression Radiologist Impression: My interpretation is in agreement with radiology's impression of the imaging study. External Record Review External record reviewed: Prior outpatient labs Discharge Plan Discharge Clinical Impression: Hematoma of occipital region of scalp Patient Disposition: Elopement Prescriptions: No Action diclofenac sodium [Arthritis Pain (diclofenac)] 1 % gel 2 g topical QID 30 Days Qty: 100 0RF Rx Instructions: apply to single elbow, wrist or hand; for hand includes palm/fingers/back of hand acetaminophen [Tylenol Extra Strength] 500 mg tablet 1,000 mg PO QID PRN (Reason: fever or pain) Qty: 14 0RF clonazepam [Klonopin] 0.5 mg tablet 0.5 mg PO TID PRN (Reason: anxiety) Qty: 20 0RF albuterol sulfate [Ventolin HFA] 90 mcg/actuation HFA aerosol inhaler 2 puff inhalation Q6H PRN fluoxetine 20 mg capsule 20 mg PO QAM 30 Days Qty: 30 3RF meloxicam 7.5 mg tablet 7.5 mg PO BID PRN cetirizine 10 mg capsule 10 mg PO DAILY 30 Days Qty: 30 2RF fluticasone propionate [Flonase Allergy Relief] 50 mcg/actuation spray,suspension 1 spray intranasal BID 30 Days Qty: 16 2RF Rx Instructions: administer into each nostril omeprazole 20 mg capsule,delayed release(DR/EC) 20 mg PO DAILY 30 Days Qty: 30 2RF clonazepam 0.5 mg tablet 0.5 mg PO BID PRN (Reason: panic attack(s)) 30 Days Qty: 30 0RF hydrochlorothiazide 12.5 mg tablet 12.5 mg PO DAILY PRN (Reason: edema) 14 Days Qty: 14 0RF Interventions: ED Discharge Assessment Last Done: 05/19/22 15:10
[2022-05-19] MEDS: Acetaminophen 325 MG TABLET 975 MG PO (12:56)
[2022-05-19] MEDS: Ibuprofen 400 MG TABLET PO (12:56)
== END 2022-05-19 15:22 | disposition left against medical advice (07) ==
PROVIDERS: Emergency Provider Student in an Organized Health Care Education/Training Program; PCP Physician Assistant
DX: S00.03XA Contusion of scalp, initial encounter (principal); R51.9 Headache, unspecified; X58.XXXA Exposure to other specified factors, initial encounter; Y93.9 Activity, unspecified; Y92.9 Unspecified place or not applicable; Y99.9 Unspecified external cause status
CPT/HCPCS: 70450; 99284

== ENCOUNTER 2022-06-17 10:24 | Day surgery (SDC) | payer OTHER, SELFPAY ==
--- NOTE | 2022-06-16 13:53 | HO.ANESPROP2 ---
HPI - Anesthesia Eval Consult details Narrative: 56yo F for Upper Endoscopy [facility] Active Problems Active Problems: All Active Problems (Updated 05/20/22 @ 00:00 by Marino Goyal) Esophageal stricture (Acute) Asthma (Acute) Abnormal barium swallow (Acute) Osteoarthritis (Acute) Leg edema (Acute) Dysphagia (Acute) Abdominal wall mass of left upper quadrant (Acute) Abdominal wall lump (Acute) Breast cancer screening (Acute) Annual physical exam (Acute) Radiculopathy of cervical spine (Acute) Cough (Acute) Throat pain in adult (Acute) MEE (generalized anxiety disorder) (Acute) Lumbar spine pain (Acute) Pelvic pain (Acute) Lump of skin of back (Acute) Annual physical exam (Acute) Screening for diabetes mellitus (DM) (Acute) Borderline high cholesterol (Acute) Obese (Acute) Allergic rhinitis (Acute) Lumbar disc disease (Acute) Past Medical History Medical History Anxiety, generalized Asthma Esophageal stricture Normal colonoscopy Family History Family History Father CVD (cardiovascular disease) Past heart attack Mother No problems noted. Brother Heart problem Surgical History Surgical History History of appendectomy History of bladder surgery History of gallbladder disease History of partial hysterectomy History of torn meniscus of right knee Social History Social History Housing: Apartment Alcohol intake: never Patient Tobacco Use Status: Never used Tobacco e-Cigarette/Vaping Use: Never Used Second Hand Smoke Exposure: No service: No Current occupational status: unemployed Cognitive needs: No Hearing needs: No Vision needs: No Meds Allergies Allergy/AdvReac Type Severity Reaction Status Date / Time Iodinated Contrast Media Allergy Severe Shortness Verified 05/12/22 12:32 [IV CONTRAST] of Breath penicillin V Allergy Severe throat Verified 05/12/22 12:32 swelling Penicillins Allergy Severe RASH, Verified 05/12/22 12:32 DIFFICULTY BREATHING Tetanus Vaccines and Toxoid Allergy Intermediate Difficulty Verified 05/12/22 12:32 Swallowing Exam Exam Date and Time: June 16, 2022 1353 Pertinent Lab Results Pertinent Lab Results: Laboratory Tests 05/17/22 05/17/22 06:15 06:15 WBC 9.5 Hgb 12.6 Hct 36.4 L Plt Count 210 Sodium 143 Potassium 3.7 Chloride 106 Carbon Dioxide 23 BUN 13 Creatinine 0.77 Narrative Narrative: EKG 04/2022 Vent. Rate : 071 BPM ? ? Atrial Rate : 071 BPM ?? P-R Int : 154 ms? QRS Dur : 086 ms ? ? QT Int : 392 ms ? ? ? P-R-T Axes : 040 009 047 degrees ?? QTc Int : 425 ms ? Normal sinus rhythm Normal ECG When compared with ECG of 26-MAR-2022 12:29, No significant change was found Assessment and Plan Assessment Anesthesia Assessment: Chart Reviewed
[2022-06-17 10:39] VITALS: BMI 33.4
[2022-06-17] MEDS: Lactated Ringers 1,000 ML 100 ML IVCONT (10:43)
[2022-06-17 10:57] VITALS: BP 140/69; PULSE 66; RESP 18; TEMP 36.2; O2SAT 98
--- NOTE | 2022-06-17 11:44 | MHC.SHP ---
Pre-Procedural Eval Section A Date of Service: 06/17/22 The patient is an INPATIENT: No Changes since office visit: No Cold of Flu in the past 2 weeks, No New Medical Problems, No Changes in Medication and No Patient answered all questions The History & Physical has been completed within 30 days and I have reviewed it.: Yes Section B Chief Complaint: Abnormal findings on diagnostic imaging,dysphagia Allergies: Allergies Allergy/AdvReac Type Severity Reaction Status Date / Time Iodinated Contrast Media Allergy Severe Shortness Verified 05/12/22 12:32 [IV CONTRAST] of Breath penicillin V Allergy Severe throat Verified 05/12/22 12:32 swelling Penicillins Allergy Severe RASH, Verified 05/12/22 12:32 DIFFICULTY BREATHING Tetanus Vaccines and Toxoid Allergy Intermediate Difficulty Verified 05/12/22 12:32 Swallowing Plan I have reviewed the history and physical and performed a pertinent physical examination on my patient. No changes have occurred unless specified. Time Spent With Patient Time: Total time managing care of this patient today ____ minutes.
--- NOTE | 2022-06-17 12:13 | PM.OP ---
Brief Operative Note Date of Service: 06/17/22 Pre-op diagnosis: dysphagia Post-op diagnosis: same Surgeon: Sami Foster Anesthesia: MAC Was an Sulfate Drier Machine Operator used for this Procedure?: No Estimated blood loss (mL): 2 Pathology: other Condition: stable Disposition: PACU
[2022-06-17 12:18] VITALS: BP 150/67; PULSE 73; RESP 16; TEMP 36.6; O2SAT 95
[2022-06-17 12:33] VITALS: BP 112/51; PULSE 69; RESP 16; TEMP 36.6; O2SAT 100
--- NOTE | 2022-06-17 12:43 | OP_ITS ---
DATE OF SERVICE: 06/17/2022 SURGEON: Sami Foster MD INDICATIONS: Dysphagia and abnormal barium swallow. PREOPERATIVE DIAGNOSIS: POSTOPERATIVE DIAGNOSIS: PROCEDURE PERFORMED: Upper endoscopy with biopsy. ESTIMATED BLOOD LOSS: COMPLICATIONS: ANESTHESIA: Monitored anesthesia care. ASSISTANTS: SPECIMENS: DESCRIPTION OF PROCEDURE: A history and physical was performed. The risks and benefits of the procedure were explained to the patient. An informed consent was obtained. The patient was placed in the left lateral decubitus position. The Olympus video gastroscope was introduced into the esophagus, stomach, and duodenum. Examination was performed. The scope was removed. She tolerated the procedure well and was returned to the recovery area in stable condition. FINDINGS: Esophagus: There was erosive esophagitis over the distal half of the esophagus with linear ulcerations. The largest was approximately 15 x 35 mm. There was no active bleeding. There was no definite stricture seen. Stomach: There was a small hiatal hernia. Antral biopsies were obtained to evaluate for H pylori. No ulcer was seen. Duodenum: The bulb and 2nd portion were normal. IMPRESSION: Erosive esophagitis. RECOMMENDATIONS: 1. Increase acid suppressive therapy to omeprazole 40 mg daily. 2. Followup the biopsy results. 3. She will need a repeat upper endoscopy in 12 weeks for followup of erosive esophagitis to assess her healing, any stricture formation, and possible underlying Barretts esophagus. MD PRICE Upton/NICOLASA / [id number] MTDD
--- NOTE | 2022-06-17 12:43 | HO.POSTANES ---
Post Anesthesia Evaluation Post Anesthesia Evaluation Vital Signs: Vital Signs Temp Pulse Resp BP Pulse Ox O2 Del Method 06/17/22 12:33 98 F 69 16 112/51 L 100 Room Air 06/17/22 12:18 98 F 73 16 150/67 H 95 Room Air 06/17/22 10:57 97.2 F 66 18 140/69 H 98 Room Air Anesthesia: Monitored Mental Status: Awake Pain Control: Satisfactory Nausea/Vomiting: None Hydration: Adequate Anesthesia-Related Issues: No Anes. Related Issues
== END 2022-06-17 13:14 | disposition home or self-care (01) ==
PROVIDERS: PCP Physician Assistant; Visit Provider Internal Medicine Gastroenterology
PROC: 0DJ08ZZ Inspection of Upper Intestinal Tract, Via Natural or Artificial Opening Endoscopic (ICD-10-PCS; CPT 43235; principal; 2022-06-17 11:50)
DX: R13.19 Other dysphagia (principal); K22.10 Ulcer of esophagus without bleeding; K44.9 Diaphragmatic hernia without obstruction or gangrene; J45.909 Unspecified asthma, uncomplicated; E78.00 Pure hypercholesterolemia, unspecified; Z79.899 Other long term (current) drug therapy; Z88.0 Allergy status to penicillin; Z91.041 Radiographic dye allergy status
CPT/HCPCS: 43239; 88305; 88342

== ENCOUNTER 2022-07-07 14:24 | Outpatient (REF) | payer OTHER, SELFPAY ==
[2022-07-07 15:30] LABS: Hematocrit 38.6 % (37.0-47.0); Hemoglobin 13.3 g/dl (12.0-16.0); Mean Corpuscular HGB Conc 34.5 g/dl (31.0-35.0); Mean Corpuscular Hemoglobin 30.4 pg (27.0-33.0); Mean Corpuscular Volume 88.1 fL (80.0-98.0); Mean Platelet Volume 10.1 fL (9.4-12.3); Platelet Count 229 X10*3/uL (160-400); Red Blood Count 4.38 X10*6/uL (4.20-5.50); Red Cell Distribution Width 11.9 % (11.0-16.0); White Blood Count 5.4 X10*3/uL (4.8-10.8)
[2022-07-07 16:11] LABS: Alanine Aminotransferase 26 U/L (0-31); Albumin Level 4.5 g/dL (3.5-5.0); Alkaline Phosphatase 84 U/L (39-117); Anion Gap 17 (12-20); Aspartate Amino Transferase 21 U/L (5-31); Bilirubin Total 1.4 mg/dL (0.0-1.0); Blood Urea Nitrogen 14 mg/dL (9-16); Calcium 9.5 mg/dL (8.4-10.2); Carbon Dioxide 22 mmol/L (22-29); Chloride 105 mmol/L (96-108); Cholesterol 265 mg/dL; Estimated Glomerular Filt Rate > 60; Glucose Fasting 81 mg/dL (60-99); HDL Cholesterol 66 mg/dL; LDL Cholesterol Calculated 179 mg/dl; Sodium 140 mmol/L (135-145); Total Protein 6.8 g/dL (6.5-8.0); Triglycerides 104 mg/dL
[2022-07-07 16:25] LABS: TSH reflex Free T4 1.28 uIU/mL (0.32-4.0)
== END 2022-07-07 14:25 | disposition home or self-care (01) ==
LOC: HO.LAB 14:24
PROVIDERS: PCP Physician Assistant; Visit Provider Physician Assistant
DX: E78.9 Disorder of lipoprotein metabolism, unspecified (principal); E78.00 Pure hypercholesterolemia, unspecified
CPT/HCPCS: 36415; 80053; 80061; 84443; 85027

== ENCOUNTER 2022-09-04 12:14 | Outpatient (AMB) | payer OTHER, SELFPAY ==
--- NOTE | 2022-09-04 12:50 | A.OFFPC_ITS ---
Vital Signs 09/04/22 12:51 Height 5 ft 1.5 in Weight 180 lb BMI 33.5 BP 136/70 Blood Pressure Location Lt brachial Position Sitting Pulse 87 Pulse Source Pulse Oximeter Temp Source Skin Pulse Oximetry (%) 96 Oxygen Delivery Method Room Air Intake Visit Reasons: Arm Pain Intake Note: pt states rash on both arms since yesterday, spreading throught body Architectural Wood Model Maker Required: No Allergies Iodinated Contrast Media [IV CONTRAST] Allergy (Severe, Verified 09/04/22 13:30) Shortness of Breath penicillin V Allergy (Severe, Verified 09/04/22 13:30) throat swelling Penicillins Allergy (Severe, Verified 09/04/22 13:30) RASH, DIFFICULTY BREATHING Tetanus Vaccines and Toxoid Allergy (Intermediate, Verified 09/04/22 13:30) Difficulty Swallowing Medication List - Last Reconciled 09/04/22 by JENNY Durant acetaminophen (Tylenol Extra Strength) 1,000 mg (2 x 500 mg) PO QID PRN omeprazole 20 mg PO DAILY 30 days Tobacco use date assessed: 09/04/22 HPI Arm Pain HPI Details Patient is a 57-year-old female who presents today for the same day visit due to burning rash her arms since yesterday. Patient of BONNIE Swenson. patient reports that 08/28/22 over 1 week ago she did have for injections in her neck for pain at the clinic in [place], then she did have IV contrast to take images and she developed anaphylactic reaction and she was transferred to [facility] ICU, she was discharged 2 days ago. Patient is allergic to IV contr ast. Patient reports that she was discharged home with epinephrine pen no other medications. Patient reports pruritic rash on her both arms and left groin, she reports that she feels like her arms are on fire. She denies difficulty breathing although reports that her neck is slightly swollen. Patient denies shortness of breath or chest pain. Patient reports that her chest feels slightly heavy since being admitted to the hospital. Patient denies new shampoo, body wash, new detergent. No new medications. Will request records from [facility]. [facility] Medical History Anxiety, generalized Asthma Esophageal stricture Normal colonoscopy Surgical History History of appendectomy History of bladder surgery History of endoscopy History of gallbladder disease History of partial hysterectomy History of torn meniscus of right knee Family History Father CVD (cardiovascular disease) Past heart attack Mother No problems noted. Brother Heart problem Pacemaker Social History Housing: Apartment Alcohol intake: never Patient Tobacco Use Status: Never used Tobacco e-Cigarette/Vaping Use: Never Used Second Hand Smoke Exposure: No service: No Current occupational status: unemployed Cognitive needs: No Hearing needs: No Vision needs: Yes (Reading glasses) Questionnaire Thrive Questionnaire Date Thrive assessed: 07/07/22 AUDIT C Alcohol Use Questionnaire (AUDIT-C) 1. How often do you have a drink containing alcohol?: Monthly or less 2. How many drinks containing alcohol do you have on a typical day when you are drinking?: 1 or 2 Total Score: 1 Score Reviewed/Action Taken: No MEE-7 AMB Questionnaire MEE-7 Date MEE - 7 assessed: 07/07/22 Source: Developed by Drs. John Phan, Bebe Valerio, Lito Padron and colleagues, with an educational allison from [employer]. Review of Systems Const Denies body aches, Denies chills, Denies fever(s) and Denies headache(s) Eyes Denies change in vision ENT Denies dizziness, Denies otalgia, Denies headache(s), Denies nasal discharge, Denies sinus pain and Denies sore throat Card Denies chest pain, Denies edema, Denies lightheadedness and Denies dyspnea Resp Denies cough and Denies dyspnea GI Denies abdominal pain Denies dysuria Musc Denies myalgias Skin/Breast Reports rash Neuro Denies dizziness and Denies headache(s) Physical exam (Primary Care) Vital Signs: Last Vital Signs Pulse 87 09/04/22 12:51 BP 136/70 09/04/22 12:51 Pulse Ox 96 09/04/22 12:51 Oxygen Delivery Method Room Air 09/04/22 12:51 BMI result Body Mass Index 33.5 Tobacco/Smoking Status: Tobacco use Status Tobacco use date assessed 09/04/22 09/04/22 12:51 Patient Tobacco Use Status Never used Tobacco 09/04/22 12:51 e-Cigarette/Vaping Use Never Used 09/04/22 12:51 Thrive Assessment: Date of Thrive Assessment Date Thrive assessed 07/07/22 09/04/22 12:51 Const General: cooperative and no acute distress Orientation/consciousness: patient oriented x3 HENMT Head: Yes normocephalic and Yes atraumatic Face and sinus: Yes sinuses nontender Mouth: oropharynx normal and moist mucous membranes Throat: Yes posterior oropharynx normal Eyes General: appearance normal, both eyes and all related structures Neck Other: Mild anterior neck fullness noted, patient reports mild tenderness on both sides of the neck Neck: Yes normal visual inspection, Yes full ROM and Yes no lymphadenopathy Resp Effort & Inspection: normal respiratory effort and able to speak in complete sentences Auscultation: clear to auscultation bilaterally, no crackles, no rales, no rhonchi and no wheezes Cardio Rate: regular rate Rhythm: regular rhythm Heart sounds: S1 normal heart sound present and S2 normal heart sound present GI Auscultation: normal bowel sounds Skin Other: Bilateral arms AC aspect with moderate amount of erythematous papular rash, patient reports severe pruritus, slightly tender to touch, skin is intact Left groin with mild amount of erythematous papular rash, patient reports severe pruritus, slightly tender to touch, skin is intact Neuro General: patient oriented x3 Gait exam (Neuro): Normal gait present Extrem General: Yes full ROM and No edema Assessment and Plan Assessment & Plan (1) Pruritic rash: Code(s): L28.2 - Other prurigo Plan: Patient presents today for the same day visit to follow-up after [facility] discharge due to anaphylactic reaction due to IV contrast. Physical exam revealed Bilateral arms AC aspect with moderate amount of erythematous papular rash, patient reports severe pruritus, slightly tender to touch, skin is intact. Left groin with mild amount of erythematous papular rash, patient reports severe pruritus, slightly tender to touch, skin is intact. Patient has EpiPen at home. Will treat with prednisone taper, Benadryl t.i.d. p.r.n.- educated about drowsiness and triamcinolone cream daily to rash. Follow-up if no improvement after finishing treatment. Signs and symptoms reviewed when to notify provider or go to the emergency department. Patient agreed with the plan. Medications: New prednisone Take 4 tablets for 3 days then, Take 3 tablets for 3 days then, Take 2 tablets 3 days then, Take 1 tablet 3 days and stop 10 mg PO DAILY 30 tabs 0RF L28.2 - Other prurigo diphenhydramine HCl (Benadryl Allergy) 25 mg PO TID PRN 20 tabs 0RF allergy symptoms L28.2 - Other prurigo triamcinolone acetonide 0.1% 1 appl topical DAILY 14 days 15 grams 0RF L28.2 - Other prurigo Coding Level of Care Code Est Pt Level 3 (81749) Diagnoses Pruritic rash L28.2
[2022-09-04 12:51] VITALS: BP 136/70; PULSE 87; O2SAT 96; BMI 33.5
== END 2022-09-04 14:18 | disposition home or self-care (01) ==
PROVIDERS: PCP Physician Assistant; Visit Provider Nurse Practitioner Family
DX: L28.2 Other prurigo (principal)
CPT/HCPCS: 99213

== ENCOUNTER 2022-09-16 07:04 | Day surgery (SDC) | payer OTHER, SELFPAY ==
--- NOTE | 2022-09-15 13:10 | PC.NURSE ---
Patient states went to hospital 08/28 d/t allergic reaction to contrast dye, was in ICU for a few days and discharged the or the followed up w/ PCP d/t recurring rash/reaction symptoms and was put on 14 day prednisone taper. My last pill is tomorrow morning (09/16) . Patient states I'm feeling fine now denies SOB, tightness in chest, other symptoms.
--- NOTE | 2022-09-15 14:26 | P.CONAN_ITS ---
Documented by User: Vicky Evangelista NP 09/15/22 14:31 HPI - Anesthesia Eval Consult details Narrative: 57yo F for Upper Endoscopy 08/2022 [facility] ICU admit for anaphylaxis from IV contrast with joint injections. Continued with rash at PCP f/u visit. Rx for prednisone taper. Per RN telephone call 09/15/22, symptoms improved, no SOB, last prednisone dose 09/16/22 PMFSH Active Problems Active Problems: All Active Problems (Updated 09/04/22 @ 13:41 by JENNY Durant) Pruritic rash (Acute) GERD (gastroesophageal reflux disease) (Acute) Esophageal stricture (Acute) Asthma (Acute) Abnormal barium swallow (Acute) Osteoarthritis (Acute) Leg edema (Acute) Dysphagia (Acute) Abdominal wall mass of left upper quadrant (Acute) Abdominal wall lump (Acute) Breast cancer screening (Acute) Annual physical exam (Acute) Radiculopathy of cervical spine (Acute) Cough (Acute) Throat pain in adult (Acute) MEE (generalized anxiety disorder) (Acute) Lumbar spine pain (Acute) Pelvic pain (Acute) Lump of skin of back (Acute) Annual physical exam (Acute) Screening for diabetes mellitus (DM) (Acute) Borderline high cholesterol (Acute) Obese (Acute) Allergic rhinitis (Acute) Lumbar disc disease (Acute) Past Medical History Medical History Anxiety, generalized Asthma Esophageal stricture Normal colonoscopy Family History Family History Father CVD (cardiovascular disease) Past heart attack Mother No problems noted. Brother Heart problem Pacemaker Surgical History Surgical History History of appendectomy History of bladder surgery History of endoscopy History of gallbladder disease History of partial hysterectomy History of torn meniscus of right knee Social History Social History Housing: Apartment Alcohol intake: never Patient Tobacco Use Status: Never used Tobacco e-Cigarette/Vaping Use: Never Used Second Hand Smoke Exposure: No Are you DNR?: No Advance Directives: No Advance Directives Information Provided: Yes Nutrition Risks: No Nutritional Risk service: No Current occupational status: unemployed Cognitive needs: No Hearing needs: No Vision needs: Yes (Reading glasses) Meds Allergies Allergy/AdvReac Type Severity Reaction Status Date / Time Iodinated Contrast Media Allergy Severe Anaphylaxis Verified 09/16/22 08:00 [IV CONTRAST] penicillin V Allergy Severe throat Verified 09/16/22 08:00 swelling Penicillins Allergy Severe RASH, Verified 09/16/22 08:00 DIFFICULTY BREATHING Tetanus Vaccines and Toxoid Allergy Intermediate Difficulty Verified 09/16/22 08:00 Swallowing Exam Exam Date and Time: September 15, 2022 1426 Pertinent Lab Results Pertinent Lab Results: Laboratory Tests 07/07/22 07/07/22 14:34 14:34 WBC 5.4 Hgb 13.3 Hct 38.6 Plt Count 229 Sodium 140 Potassium 4.0 Chloride 105 Carbon Dioxide 22 BUN 14 Creatinine 0.85 Narrative Narrative: EKG 04/2022 Vent. Rate : 071 BPM ? ? Atrial Rate : 071 BPM ?? P-R Int : 154 ms? QRS Dur : 086 ms ? ? QT Int : 392 ms ? ? ? P-R-T Axes : 040 009 047 degrees ?? QTc Int : 425 ms ? Normal sinus rhythm Normal ECG When compared with ECG of 26-MAR-2022 12:29, No significant change was found Assessment and Plan Assessment Anesthesia Assessment: Chart Reviewed Documented by User: Iwona Rosa MD 09/16/22 08:33 [facility] Past Medical History Medical History Anxiety, generalized Asthma Esophageal stricture Normal colonoscopy Family History Family History Father CVD (cardiovascular disease) Past heart attack Mother No problems noted. Brother Heart problem Pacemaker Family history of problems with anesthesia: No Surgical History Surgical History History of appendectomy History of bladder surgery History of endoscopy History of gallbladder disease History of partial hysterectomy History of torn meniscus of right knee History of Problems with Anesthesia: No Social History Social History Housing: Apartment Alcohol intake: never Patient Tobacco Use Status: Never used Tobacco e-Cigarette/Vaping Use: Never Used Second Hand Smoke Exposure: No Are you DNR?: No Advance Directives: No Advance Directives Information Provided: Yes Nutrition Risks: No Nutritional Risk service: No Current occupational status: unemployed Cognitive needs: No Hearing needs: No Vision needs: Yes (Reading glasses) Meds Allergies Allergy/AdvReac Type Severity Reaction Status Date / Time Iodinated Contrast Media Allergy Severe Anaphylaxis Verified 09/16/22 08:00 [IV CONTRAST] penicillin V Allergy Severe throat Verified 09/16/22 08:00 swelling Penicillins Allergy Severe RASH, Verified 09/16/22 08:00 DIFFICULTY BREATHING Tetanus Vaccines and Toxoid Allergy Intermediate Difficulty Verified 09/16/22 08:00 Swallowing Exam Airway Mallampati Class: II TM Dist: >3cm Neck ROM: Full Heart: rrr Lungs: cta Assessment and Plan Assessment Anesthesia Assessment: Anesthesia Plan Discussed Final Anesthetic Review Family History of Problems with Anesthesia: No History of Problems with Anesthesia: No NPO: Yes ASA Class: II Final Preanesthetic Review: No Changes in Pt Med Stat, Meds/Allgs Chart Reviewed, Consent Obtained/Reviewed and Anes Risks/Benef Reviewed Patient Risk: Low Procedure Risk: Low Anesthetic Plan Anesthetic Plan: MAC: Disposition: Standard PACU
[2022-09-16 05:57] VITALS: BMI 34.4
[2022-09-16] MEDS: Lactated Ringers 1,000 ML 100 ML IVCONT (07:27)
[2022-09-16 07:37] VITALS: BP 141/54; PULSE 70; RESP 18; TEMP 36.7; O2SAT 98
--- NOTE | 2022-09-16 08:19 | MHC.SHP ---
Pre-Procedural Eval Section A Date of Service: 09/16/22 Section B Chief Complaint: Other dysphagia Details of Present Illness: see H*P and addendum Relevant Family History (Specify if Yes): No Relevant Social History: None Present Medications: None Medical History: No relevant PMH History of Previous Operations: No relevant previous surgery Allergies: Allergies Allergy/AdvReac Type Severity Reaction Status Date / Time Iodinated Contrast Media Allergy Severe Anaphylaxis Verified 09/16/22 08:00 [IV CONTRAST] penicillin V Allergy Severe throat Verified 09/16/22 08:00 swelling Penicillins Allergy Severe RASH, Verified 09/16/22 08:00 DIFFICULTY BREATHING Tetanus Vaccines and Toxoid Allergy Intermediate Difficulty Verified 09/16/22 08:00 Swallowing Review of Systems Sugical H&P ROS: Negative: Constitution, Cardiovascular, Respiratory, Neurological, Psychiatric, Hem-Onc, Allergic/Immunologic, Gastrointestinal, Genitourinary, Musculoskeletal, Integumentary, Endocrine and Eyes/Ears/Nose/Throat Exam Surgical H&P Exam: Normal: HEENT, Normal: Heart, Normal: Lungs, Normal: Extremities, Normal: Abdomen, Normal: Skin and Normal: Neurological Plan Diagnosis/Plan: Unchanged I have reviewed the history and physical and performed a pertinent physical examination on my patient. No changes have occurred unless specified. Time Spent With Patient Time: Total time managing care of this patient today ____ minutes.
[2022-09-16 08:40] VITALS: BP 151/79; PULSE 87; RESP 16; TEMP 36.3; O2SAT 95
--- NOTE | 2022-09-16 08:47 | PM.OP ---
Brief Operative Note Date of Service: 09/16/22 Pre-op diagnosis: erosive esophagitis Post-op diagnosis: same Surgeon: Sami Foster Anesthesia: MAC Was an Clinical Abstractor used for this Procedure?: No Estimated blood loss (mL): 2 Pathology: other Condition: stable Disposition: PACU
--- NOTE | 2022-09-16 08:54 | OP_ITS ---
DATE OF SERVICE: 09/16/2022 SURGEON: Sami Foster MD INDICATIONS: Erosive esophagitis. PREOPERATIVE DIAGNOSIS: POSTOPERATIVE DIAGNOSIS: PROCEDURE PERFORMED: Upper endoscopy with biopsy. ESTIMATED BLOOD LOSS: COMPLICATIONS: ANESTHESIA: Monitored anesthesia care. ASSISTANTS: SPECIMENS: DESCRIPTION OF PROCEDURE: A history and physical were performed. The risks and benefits of the procedure were explained to the patient. Informed consent was obtained. The patient was placed in the left lateral decubitus position. The Olympus video gastroscope was introduced into the esophagus, stomach, and duodenum. Examination was performed. The scope was removed. She tolerated the procedure well and was returned to the recovery in stable condition. FINDINGS: 1. Esophagus. The esophagus showed 2 very small erosions just above the EG junction, measuring less than 5 mm. This was much improved from her previous endoscopy with there was erosive esophagitis involving the distal half of the esophagus. No stricture was identified. Biopsies were obtained from the EG junction. There was no definite endoscopic evidence of Quach esophagus. There was a small sliding hiatal hernia. 2. Stomach. The stomach showed no evidence of masses, ulcers, or polyps. There was some mild nodularity in the antrum. Biopsies were again obtained from the antrum. 3. Duodenum, the bulb, and second portion were normal. IMPRESSION: Erosive esophagitis. RECOMMENDATIONS: 1. Follow up the biopsy results. 2. Continue omeprazole 40 mg daily. MD PRICE Upton/NICOLASA / [id number]
[2022-09-16 08:55] VITALS: BP 145/75; PULSE 67; RESP 20; TEMP 36.4; O2SAT 95
[2022-09-16 09:05] VITALS: BP 145/75; PULSE 67; RESP 20; TEMP 36.4; O2SAT 95
== END 2022-09-16 09:57 | disposition home or self-care (01) ==
PROVIDERS: PCP Physician Assistant; Visit Provider Internal Medicine Gastroenterology
PROC: 0DJ08ZZ Inspection of Upper Intestinal Tract, Via Natural or Artificial Opening Endoscopic (ICD-10-PCS; CPT 43235; principal; 2022-09-16 08:00)
DX: K22.10 Ulcer of esophagus without bleeding (principal); R13.19 Other dysphagia; R93.3 Abnormal findings on diagnostic imaging of other parts of digestive tract; K21.9 Gastro-esophageal reflux disease without esophagitis; J45.909 Unspecified asthma, uncomplicated; E66.9 Obesity, unspecified; Z68.34 Body mass index [BMI] 34.0-34.9, adult
CPT/HCPCS: 43239; 88305; 88342

== ENCOUNTER 2022-12-10 14:04 | Outpatient (AMB) | payer OTHER, SELFPAY ==
--- NOTE | 2022-12-10 14:10 | AM.OFFWIN_ITS ---
Intake Vital Signs 3 12/10/22 14:11 Height 5 ft 1.5 in Weight 185 lb BMI 34.4 BP 138/80 Blood Pressure Location Lt brachial Position Sitting Pulse 78 Pulse Source Pulse Oximeter Temp 98.3 F Temp Source Temporal Artery Scan Pulse Oximetry (%) 97 Intake Visit Reasons: EP, left ear/face pain Intake Note: pt is here for c/o left ear and face pain Patient Tobacco Use Status: Never used Tobacco Allergies Iodinated Contrast Media [IV CONTRAST] Allergy (Severe, Verified 12/10/22 14:12) Anaphylaxis penicillin V Allergy (Severe, Verified 12/10/22 14:12) throat swelling Penicillins Allergy (Severe, Verified 12/10/22 14:12) RASH, DIFFICULTY BREATHING Tetanus Vaccines and Toxoid Allergy (Intermediate, Verified 12/10/22 14:12) Difficulty Swallowing HPI EP, left ear/face pain 2 HPI0 Details 57 year old female patient presents toda y with c/o left sided facial pain and swelling. She states this has been present for about 4 months and has been worsening. She recently had a temporary crown placed by her dentist about 2 weeks ago, however she reports facial pain/swelling started prior to this dental work. Dentist started her on an antibiotic which sounds to be possibly Keflex, which she has completed. She reports tenderness on her left upper cheek, near her TM joint as well as left ear pain. She denies any trauma to area. She denies any mouth or tooth pain. Denies fever or chills. Has pain with chewing but is able to swallow without pain. She has been taking Ibuprofen 800mg without relief. [facility] Medical History Anxiety, generalized Esophageal stricture Normal colonoscopy Asthma Surgical History History of endoscopy History of appendectomy History of bladder surgery History of torn meniscus of right knee History of gallbladder disease History of partial hysterectomy Family History Father CVD (cardiovascular disease) Past heart attack Mother No problems noted. Brother Heart problem Pacemaker Social History Housing: Apartment Alcohol intake: never Patient Tobacco Use Status: Never used Tobacco e-Cigarette/Vaping Use: Never Used Second Hand Smoke Exposure: No service: No Current occupational status: unemployed Cognitive needs: No Hearing needs: No Vision needs: Yes (Reading glasses) Review of Systems Const All systems reviewed & are unremarkable except as noted in HPI and below Physical Exam Vital Signs: Last Vital Signs Temp 98.3 F 12/10/22 14:11 Pulse 78 12/10/22 14:11 BP 138/80 12/10/22 14:11 Pulse Ox 97 12/10/22 14:11 BMI result Body Mass Index 34.4 Const Other: uncomfortable appearing General: cooperative HEENT Other: Mild swelling and moderate tenderness of left side of face over parotid area. No erythema or warmth. Pain in that location with opening/closing of the mouth. No clicking/popping of TMJ. Ears: hearing grossly normal bilaterally, external ears normal, TM normal on the right and TM abnormal (left TM bulging, erythematous) General nose exam: Normal external nose present Face images: 2 1. pain/swelling Mouth: Normal oral and palatal mucosa present, lip normal, tongue normal, oropharynx normal and moist mucous membranes Throat: Yes posterior oropharynx normal and Yes uvula midline Neck Neck: Yes no lymphadenopathy Resp Effort & Inspection: normal respiratory effort and able to speak in complete sentences Auscultation: clear to auscultation bilaterally Cardio Jugular venous distension: no JVD Palpation: normal PMI Rate: regular rate Rhythm: regular rhythm Skin General skin exam: no rashes or lesions noted Extrem General: Yes capillary refill normal and Yes no clubbing, cyanosis or edema Psych Appearance: grossly normal Mental Status: mental status grossly normal Speech and movement: Normal speech and movement present Assessment & Plan Assessment & Plan (1) Left facial swelling: Code(s): R22.0 - Localized swelling, mass and lump, head Plan: Patient has left sided facial pain/swelling over the last 4 months. She does not appear to have any sort of dental abscess/oral infection. She does however have left OM on exam. I discussed this case with Dr. Swanson, who advised to start her on abx, NSAID, and have her return Thursday to the clinic for f/u evaluation with him. She has PCN/Amxcn allergy and it sounds like her dentist previously had her on Keflex, so I will start her on Doxy BID as well as Meloxicam. We reviewed indications, use, possible s/e of medications. I advised she apply warm compress to area. She will f/u with Dr. Gary at [facility] on Thursday. If she develops any worsening pain, swelling, fever, difficulty/painful swallowing, she should go to the ED for evaluation. She verbalizes understanding and agrees to plan. (2) Left otitis media: Code(s): H66.92 - Otitis media, unspecified, left ear Qualifiers: Otitis media type: unspecified nonsuppurative Qualified Code(s): H65.92 - Unspecified nonsuppurative otitis media, left ear Medications: New 2 doxycycline hyclate 100 mg PO BID 7 days 14 tabs 0RF R22.0 - Localized swelling, mass and lump, head meloxicam 15 mg PO DAILY 7 days 7 tabs 0RF R22.0 - Localized swelling, mass and lump, head Coding Level of Care Code Est Pt Level 3 (57849) Diagnoses Left facial swelling R22.0 Left non-suppurative otitis media H65.92 Otitis media type: unspecified nonsuppurative
[2022-12-10 14:11] VITALS: BP 138/80; PULSE 78; TEMP 36.8; O2SAT 97; BMI 34.4
== END 2022-12-10 15:02 | disposition home or self-care (01) ==
PROVIDERS: PCP Physician Assistant; Visit Provider Nurse Practitioner Family
DX: R22.0 Localized swelling, mass and lump, head (principal); H65.92 Unspecified nonsuppurative otitis media, left ear
CPT/HCPCS: 99213

== ENCOUNTER 2022-12-12 10:45 | Emergency (ER) | payer OTHER, SELFPAY ==
--- NOTE | ~2022-12-12 | CT_ITS ---
EXAMINATION: CT FACIAL BONES WITHOUT CONTRAST CLINICAL INFORMATION: Question abscess to right upper teeth. Dental pain. COMPARISON: None available. TECHNIQUE: CT of the facial bones was performed without contrast. Multiplanar reformats were rendered and reviewed. This CT examination was performed using dose optimization techniques as appropriate, variously including the following: *Automated exposure control *Adjustment of mA and/or kV according to patient size (this includes techniques or standardized protocols for targeted exams where dose is matched to indication/reason for exam; i.e. extremities or head) *Use of iterative reconstruction technique DLP: 209 mGy-cm FINDINGS: No maxillary periapical disease is seen. There are retained right posterior maxillary molar root tips but without periapical lucency. No mandibular periapical disease is seen. There are no large caries. No inflammatory stranding is seen within the gingivobuccal tissues. No stranding is seen along the floor of mouth or in the submandibular triangles. The parotid and submandibular glands appear normal. No enlarged upper cervical chain lymph nodes are seen. There is no acute intracranial abnormality. The mastoids are underpneumatized but clear. The middle ear cavities are clear. There is mild bilateral ethmoid mucosal thickening. There is a small mucosal retention cysts along the right maxillary sinus floor. CT/CT facial bones wo IV con IMPRESSION: No periapical disease is seen. No evidence of gingivobuccal inflammatory stranding. No abscess.
[2022-12-12 10:50] VITALS: BP 137/71; PULSE 89; RESP 19; TEMP 36.6; O2SAT 98; BMI 32.1
--- NOTE | 2022-12-12 12:03 | ED_ITS ---
HPI - General Adult General Chief complaint: General Medical Stated complaint: l side facial swelling Time Seen by Provider: 12/12/22 11:23 Source: patient Mode of arrival: ambulatory Limitations: no limitations History of Present Illness HPI narrative: Patient is a 57-year-old female with a PMH of asthma, esophageal stricture, obese, borderline, MEE presenting with several months of left sided facial pain X 4 weeks that has acutely worsened the past several days. Patient that the pain began shortly after having an anaphylactic reaction to IV contrast in June of this year or after dental work. Pain is in the region in front of her left ear/cheek , radiates to the left mosque, is constant in nature, and worse with meals/ chewing. . She notes she recently has had many dental procedures done including a cavity repair 1 week ago on the same side. She was seen yesterday in urgent care for similar symptoms and sent home on doxycycline. Today she denies fever, chills, muscle aches, labored breathing, ear pain, chest pain, abdominal pain, nausea, difficulty swallowing, sore throat and vomiting. Onset (ago): month(s) Location: face and neck Exacerbating factors: eating Related Data Previous Rx's Medication Instructions Recorded acetaminophen 500 mg tablet 1,000 mg (2 x 500 mg) PO QID PRN 08/15/20 (Tylenol Extra Strength) fever or pain #14 tabs omeprazole 20 mg capsule,delayed 20 mg PO DAILY 30 days #30 caps 12/30/21 release diphenhydramine HCl 25 mg tablet 25 mg PO TID PRN allergy symptoms 09/04/22 (Benadryl Allergy) #20 tabs triamcinolone acetonide 0.1 % 1 appl topical DAILY 14 days #15 09/04/22 topical cream grams doxycycline hyclate 100 mg tablet 100 mg PO BID 7 days #14 tabs 12/10/22 meloxicam 15 mg tablet 15 mg PO DAILY 7 days #7 tabs 12/10/22 clindamycin HCl 300 mg capsule 300 mg PO TID 10 days #30 caps 12/12/22 ketorolac 10 mg tablet 10 mg PO Q8H #10 tabs 12/12/22 prednisone 20 mg tablet 40 mg (2 x 20 mg) PO DAILY 5 days 12/12/22 #10 tabs Allergies Allergy/AdvReac Type Severity Reaction Status Date / Time Iodinated Contrast Media Allergy Severe Anaphylaxis Verified 12/12/22 10:50 [IV CONTRAST] penicillin V Allergy Severe throat Verified 12/12/22 10:50 swelling Penicillins Allergy Severe RASH, Verified 12/12/22 10:50 DIFFICULTY BREATHING Tetanus Vaccines and Toxoid Allergy Intermediate Difficulty Verified 12/12/22 10:50 Swallowing Review of Systems 2 Review of Systems: Constitutional : No Weight loss, No Fever, No Chills, No Fatigue, No Malaise Head: + facial pain and swelling ENT/Mouth : + neck pain, No sore throat, No Rhinorrhea Eyes: , No Eye Pain, No Swelling, No Redness Cardiovascular : No Chest Pain, No SOB, No Dyspnea on Exertion, No Orthopnea, No Edema, No Palpitations Respiratory : No Cough, No Sputum, No Wheezing Gastrointestinal : No Nausea, No Vomiting, No Diarrhea, No Constipation, No abdominal Pain, No Hematochezia, No Melena Genitourinary : No Dysuria, No Urinary Frequency, No Hematuria, Musculoskeletal : No joint pain, No Myalgias, No Joint Swelling Skin : No Skin Lesions, No rash Neuro : No Weakness, No Numbness, No Dizziness All other systems reviewed and are negative Yes all other systems are reviewed and are negative FORMERLY [facility], [facility]–1983 Past Medical History Attestation statement: The following information was validated with the patient. Source: old records reviewed and nursing notes reviewed Medical History Anxiety, generalized Esophageal stricture Normal colonoscopy Asthma Surgical History History of endoscopy History of appendectomy History of bladder surgery History of torn meniscus of right knee History of gallbladder disease History of partial hysterectomy Family History Family History Father CVD (cardiovascular disease) Past heart attack Mother No problems noted. Brother Heart problem Pacemaker Social History Social History Housing: Apartment Alcohol intake: never Patient Tobacco Use Status: Never used Tobacco e-Cigarette/Vaping Use: Never Used Second Hand Smoke Exposure: No Advance Directives: No Advance Directives Information Provided: No service: No Current occupational status: unemployed Cognitive needs: No Hearing needs: No Vision needs: Yes (Reading glasses) Physical Exam ED Vital Signs: Vital Signs - 24 hr 12/12/22 10:50 12/12/22 13:53 Temperature 98 F 98.2 F Pulse Rate 89 67 Respiratory Rate 19 16 Blood Pressure 137/71 159/77 H Pulse Oximetry 98 97 Oxygen Delivery Method Room Air BMI result Body Mass Index 32.1 vss Appearance: Alert.? Oriented X3.? Tearful.? Head: Normocephalic, atraumatic. Tender mild left sided facial swelling in the preauricular region/ cheek and to the left anterior neck without overlaying erythema. Eyes: Pupils equal, round and reactive to light.? ENT:+ TTP to left upper gum region. Pharynx normal.?No uvular deviation. External ears normal, TMs normal bilaterally and EAC's normal. No pain with manipulation of external ears bilaterally. No mastoid tenderness. Neck: Normal inspection.? Neck supple.? CVS: Normal heart rate and rhythm.? Pulses normal.? Respiratory: No respiratory distress.? Breath sounds normal.? Abdomen: Soft and nontender.? Skin: Skin warm and dry.? Normal skin color.? Normal skin turgor.? Extremities: No lower extremity edema.? No calf ttp. 5/5 strength to bilateral upper and lower extremities Neuro: Oriented X 3.? Course Reevaluation(s) Reevaluation #1: Ct of facial bones ordered w/o contrast due to anaphylaxis to contrast. Imaging pending Time: 15:14 Reevaluation #2: CT of the face no periapical disease no evidence of gingivalbuvo inflammatory stranding or abscess however this is limited secondary to no contrast, I am concerned for possible cellulitis starting in mouth. Will discharge on clindamycin. Advised to follow-up with dentist. Labs unremarkable normal inflammatory markers. Unlikely temporal arteritis. Educated patient on diagnosis and treatment plan, answered all question, patient verbalizes understanding. At this time patient will be discharged home, advised to return with new or worsening symptoms. Educated on worrisome signs and symptoms and when to return. At this time I feel comfortable discharge home. Time: 16:30 Reevaluation #3: Toradol sent for patient as requested for dental pain. Medications Administered Discontinued Medications Generic Name Dose Route Start Last Admin Trade Name Freq PRN Reason Stop Dose Admin Dexamethasone Sodium Phosphate 10 mg 12/12/22 12:18 12/12/22 13:07 Dexamethasone Sod Phosphate 10 Mg/Ml Vial IVPUSH 12/12/22 12:19 10 mg ONCE ONE Administration Ketorolac Tromethamine 30 mg 12/12/22 15:17 12/12/22 15:44 Ketorolac Tromethamine 15 Mg/Ml Vial IM 12/12/22 15:18 30 mg ONCE ONE Administration Medical Decision Making Medical Decision Making [facility] Narrative: Patient is a 57-year-old female presenting with several months of left sided facial pain that has acutely worsened the past several days. Recently had a cavity filled on the left side one week ago. PE w/ + TTP to left upper gum region. Tender mild left sided facial swelling in the preauricular region/ cheek and to the left anterior neck without overlaying erythema. Likely periapical/dental abscess given history of poor dentition and recent dental procedures. Possibly early cellulitis. Unlikely mastoiditis,necrotizing infection, OM/externa, malignant otitis externa, peritonsillar abscess, sialadenitis, trigeminal neuralgia, and giant cell arteritis. Unlikely acute anaphylaxis or allergic reaction. I do not suspect angioedema No signs of stroke or posterior stroke Patient to be sent home with oral antibiotics and analgesics. Recommend follow up with dentist. Differential Diagnosis Differential Diagnoses: The differential diagnosis associated with the presentation includes Likely periapical/dental abscess given history of poor dentition and recent dental procedures. Possibly early cellulitis. Unlikely mastoiditis,necrotizing infection, OM/externa, malignant otitis externa, peritonsillar abscess, sialadenitis, trigeminal neuralgia, and giant cell arteritis. Unlikely acute anaphylaxis or allergic reaction. I do not suspect angioedema No signs of stroke or posterior stroke Admission/Observation Consideration of admission/observation: Escalation of care including admission/observation considered Lab Data 12/12/22 15:25 12/12/22 15:25 Labs: Lab Results 12/12/22 Range/Units 15:25 WBC 6.7 (4.8-10.8) X10*3/uL RBC 4.51 (4.20-5.50) X10*6/uL Hgb 13.9 (12.0-16.0) g/dl Hct 41.0 (37.0-47.0) % MCV 90.9 (80.0-98.0) fL MCH 30.8 (27.0-33.0) pg MCHC 33.9 (31.0-35.0) g/dl RDW 12.1 (11.0-16.0) % Plt Count 253 (160-400) X10*3/uL MPV 9.9 (9.4-12.3) fL Immature Gran % (Auto) 0.3 (0.0-0.4) % Neut % (Auto) 81.8 H (45-73) % Lymph % (Auto) 14.1 L (20-40) % [place] % (Auto) 1.8 L (2-11) % Eos % (Auto) 1.5 (0-4) % Baso % (Auto) 0.5 (0-2) % Lymph # (Auto) 0.9 L (1.2-4.9) X10*3/uL [place] # (Auto) 0.1 (0.1-1.2) X10*3/uL Eos # (Auto) 0.1 (0.0-0.4) X10*3/uL Baso # (Auto) 0.0 (0.0-0.2) X10*3/uL Abs Immat Gran (auto) 0.02 (0.00-0.03) X10*3/uL Absolute Neuts (auto) 5.4 (2.0-8.3) x10*3/uL Absolute Nucleated RBC 0.000 (0.0-0.012) X10*3/uL Nucleated RBC % (auto) 0.0 (0.0-0.2) /100WBC ESR 8 (0-20) MM/HR Sodium 140 (135-145) mmol/L Potassium 4.5 (3.3-5.1) mmol/L Chloride 104 (96-108) mmol/L Carbon Dioxide 26 (22-29) mmol/L Anion Gap 15 (12-20) BUN 9 (9-16) mg/dL Creatinine 0.76 (0.5-1.4) mg/dL Estim Creat Clear Calc 75.7 Estimated GFR > 60 Random Glucose 91 (60-115) mg/dL Calcium 10.2 D (8.4-10.2) mg/dL Total Bilirubin 1.2 H (0.0-1.0) mg/dL AST 23 (5-31) U/L ALT 25 (0-31) U/L Alkaline Phosphatase 92 (39-117) U/L C-Reactive Protein 0.14 (< or = 0.50) mg/dL Total Protein 7.5 (6.5-8.0) g/dL Albumin 4.8 (3.5-5.0) g/dL Independent Interpretation I performed an independent interpretation of an: CT Scan Radiology Impression Discussion of test interpretation with radiology: I have reviewed the radiologist's reading. Critical Care Time Critical Care Time Critical Care Time: No Discharge Plan Discharge Clinical Impression: Dental abscess, Facial swelling Patient Disposition: Home, Self-Care Instructions: Dental Abscess (ED) Additional Instructions: Take your medications as prescribed. If you were prescribed antibiotics today, it is important that you take your medication to their entirety, do not skip any doses, do not finish them early. Follow-up with your primary care provider this week. Please follow-up with a dentist as soon as possible Return to the emergency department with new or worsening symptoms. Such as fevers, chills, chest pain, shortness of breath, nausea, vomiting, dizziness, headache, vision changes, lethargy In case of emergency call 911 Stop taking doxycycline and start taking clindamycin it is better for the mouth brayden. This medication can cause infectious diarrhea if diarrhea rises please return for prompt evaluation. CT/CT facial bones wo IV con IMPRESSION: No periapical disease is seen. No evidence of gingivobuccal inflammatory stranding. No abscess. Prescriptions: New prednisone 20 mg tablet 40 mg PO DAILY 5 Days Qty: 10 0RF clindamycin HCl 300 mg capsule 300 mg PO TID 10 Days Qty: 30 0RF ketorolac 10 mg tablet 10 mg PO Q8H Qty: 10 0RF No Action acetaminophen [Tylenol Extra Strength] 500 mg tablet 1,000 mg PO QID PRN (Reason: fever or pain) Qty: 14 0RF doxycycline hyclate 100 mg tablet 100 mg PO BID 7 Days Qty: 14 0RF meloxicam 15 mg tablet 15 mg PO DAILY 7 Days Qty: 7 0RF omeprazole 20 mg capsule,delayed release(DR/EC) 20 mg PO DAILY 30 Days Qty: 30 2RF diphenhydramine HCl [Benadryl Allergy] 25 mg tablet 25 mg PO TID PRN (Reason: allergy symptoms) Qty: 20 0RF triamcinolone acetonide 0.1 % cream 1 appl topical DAILY 14 Days Qty: 15 0RF Referrals: Elias Swenson PA-C [Primary Care Provider] - 2 days Stand Alone Forms: Work/School Release
[2022-12-12] MEDS: dexAMETHasone sod phosphate 10 MG/ML VIAL IVPUSH (13:07)
[2022-12-12 13:53] VITALS: BP 159/77; PULSE 67; RESP 16; TEMP 36.8; O2SAT 97
[2022-12-12 15:34] LABS: MANUAL DIFF FLAG NO
[2022-12-12 15:38] LABS: Basophils Percent Auto 0.5 % (0-2); Eosinophils Absolute Auto 0.1 X10*3/uL (0.0-0.4); Eosinophils Percent Auto 1.5 % (0-4); Hemoglobin 13.9 g/dl (12.0-16.0); Imm Gran Abs Auto 0.02 X10*3/uL (0.00-0.03); Imm Gran Pct Auto 0.3 % (0.0-0.4); Lymphocytes Absolute Auto 0.9 X10*3/uL (1.2-4.9); Lymphocytes Percent Auto 14.1 % (20-40); Mean Corpuscular HGB Conc 33.9 g/dl (31.0-35.0); Mean Corpuscular Hemoglobin 30.8 pg (27.0-33.0); Mean Corpuscular Volume 90.9 fL (80.0-98.0); Mean Platelet Volume 9.9 fL (9.4-12.3); Monocytes Absolute Auto 0.1 X10*3/uL (0.1-1.2); Monocytes Percent Auto 1.8 % (2-11); Neutrophils Absolute Auto 5.4 x10*3/uL (2.0-8.3); Neutrophils Percent Auto 81.8 % (45-73); Platelet Count 253 X10*3/uL (160-400); Red Blood Count 4.51 X10*6/uL (4.20-5.50); Red Cell Distribution Width 12.1 % (11.0-16.0); White Blood Count 6.7 X10*3/uL (4.8-10.8)
[2022-12-12] MEDS: Ketorolac Tromethamine 15 MG/ML VIAL 30 MG IM (15:44)
[2022-12-12 15:53] LABS: Alanine Aminotransferase 25 U/L (0-31); Albumin Level 4.8 g/dL (3.5-5.0); Alkaline Phosphatase 92 U/L (39-117); Anion Gap 15 (12-20); Aspartate Amino Transferase 23 U/L (5-31); Bilirubin Total 1.2 mg/dL (0.0-1.0); Blood Urea Nitrogen 9 mg/dL (9-16); C Reactive Protein 0.14 mg/dL (< or = 0.50); Calcium 10.2 mg/dL (8.4-10.2); Carbon Dioxide 26 mmol/L (22-29); Chloride 104 mmol/L (96-108); Creatinine Clr Calc Pharmacy 75.7; Estimated Glomerular Filt Rate > 60; Glucose Random 91 mg/dL (60-115); Potassium 4.5 mmol/L (3.3-5.1); Sodium 140 mmol/L (135-145); Total Protein 7.5 g/dL (6.5-8.0)
[2022-12-12 16:52] LABS: Erythrocyte Sedimentation Rate 8 MM/HR (0-20)
== END 2022-12-12 17:04 | disposition home or self-care (01) ==
PROVIDERS: Physician Assistant; Emergency Provider Emergency Medicine; PCP Physician Assistant
DX: L02.91 Cutaneous abscess, unspecified (principal); R51.9 Headache, unspecified; M54.2 Cervicalgia; K08.89 Other specified disorders of teeth and supporting structures; Z79.899 Other long term (current) drug therapy
CPT/HCPCS: 36415; 70486; 80053; 85025; 85652; 86140; 96372; 96374; 99284; J1100; J1885

== ENCOUNTER 2022-12-30 13:48 | Outpatient (AMB) | payer OTHER, SELFPAY ==
--- NOTE | 2022-12-30 13:56 | A.OFFPC_ITS ---
Vital Signs 3 12/30/22 13:57 Height 5 ft 1 in Weight 177 lb 2 oz BMI 33.5 BP 158/70 H Blood Pressure Location Lt brachial Position Sitting Pulse 101 H Pulse Source Pulse Oximeter Pulse Oximetry (%) 97 Oxygen Delivery Method Room Air Intake Visit Reasons: f/u luis check and borderline cholesterol Public Health Worker Required: No Accompanied by: Self / Same As Patient Allergies Iodinated Contrast Media [IV CONTRAST] Allergy (Severe, Verified 12/30/22 14:22) Anaphylaxis penicillin V Allergy (Severe, Verified 12/30/22 14:22) throat swelling Penicillins Allergy (Severe, Verified 12/30/22 14:22) RASH, DIFFICULTY BREATHING Tetanus Vaccines and Toxoid Allergy (Intermediate, Verified 12/30/22 14:22) Difficulty Swallowing Medication List - Last Reconciled 12/30/22 by Elias Swenson PA-C acetaminophen (Tylenol Extra Strength) 1,000 mg (2 x 500 mg) PO QID PRN diphenhydramine HCl (Benadryl Allergy) 25 mg PO TID PRN omeprazole 20 mg PO DAILY 30 days Tobacco use date assessed: 09/04/22 Dental Screening Dental Screen Date: 12/30/22 Did you have a dental visit in the last 12 months?: Yes Did you have a dental problem in the last 6 months where you did not have access to dental care?: No Was dental information given to patient?: Patient has dentist HPI f/u luis check and borderline cholesterol 2 HPI0 Details Patient is a 57-year-old female here today for follow-up visit. ?Patient has a past medical history significant for allergic rhinitis, obesity, GERD, MEE, chronic lumbar and cervical? spine pain. Recently seen at the walk-in clinic for right facial swelling was placed on Keflex. Has been dealing with a dental issue recently getting a crown though does not feel it is fitting right. Continues to have swelling over the right side her face. Again has done 2 rounds of antibiotics and prednisone. She will be following up with dentist in near future for further treatment and upper dental pain and swelling. .. Hyperlipidemia: Most recent lipid panel showing high total cholesterol and LDL. He is not interested in starting medication will like to continue working on lifestyle to reduce her cholesterol. Of note she does have family history of coronary artery disease which she is aware of. Again advised on starting statin therapy though patient declines .. Lumbar /cervical spine pain:? Continues have pain in her lumbar spine though has been manageable with as needed Tylenol.? .. Obesity:? Unfortunately has gained some weight since last office visit.. She reports she has been stress eating due to having more stress at home with her 's health. Asthma: Well controlled only using her rescue inhaler on a p.r.n. basis. Laboratory Tests 12/24/21 05/17/22 07/07/22 13:23 06:15 14:34 RBC 4.09 L Hgb 12.6 Creatinine 0.77 Cholesterol 223 265 LDL Cholesterol, C alc 148 179 12/12/22 15:25 RBC 4.51 Hgb Creatinine 0.76 Cholesterol LDL Cholesterol, C alc PFSH Medical History Anxiety, generalized Esophageal stricture Normal colonoscopy Asthma Surgical History History of endoscopy History of appendectomy History of bladder surgery History of torn meniscus of right knee History of gallbladder disease History of partial hysterectomy Family History Father CVD (cardiovascular disease) Past heart attack Mother No problems noted. Brother Heart problem Pacemaker Social History Housing: Apartment Alcohol intake: never Patient Tobacco Use Status: Never used Tobacco e-Cigarette/Vaping Use: Never Used Second Hand Smoke Exposure: No service: No Current occupational status: unemployed Cognitive needs: No Hearing needs: No Vision needs: Yes (Reading glasses) Questionnaire Thrive Questionnaire Date Thrive assessed: 07/07/22 MEE-7 AMB Questionnaire MEE-7 Date MEE - 7 assessed: 07/07/22 Source: Developed by Drs. John Phan, Bebe Valerio, Lito Padron and colleagues, with an educational allison from [employer]. ACT Questionnaire In the past 4 weeks, how much of the time did your asthma keep you from getting as much done at work, school or at home?: None of the time During the past 4 weeks, how often have you had shortness of breath?: Not at all During the past 4 weeks, how often did your asthma symptoms wake you up at night or earlier than usual in the morning?: Not at all During the past 4 weeks, how often have you had to use your rescue inhaler or nebulizer medication?: Not at all How would you rate your asthma control during the past 4 weeks?: Completely controlled ACT Interpretation: Negative Score: 25 Review of Systems Const Denies headache(s) Eyes Denies loss of vision ENT Denies vertigo, Denies dizziness, Denies headache(s) and Denies sore throat Card Denies chest pain, Denies leg edema and Denies lightheadedness Resp Denies cough, Denies hemoptysis and Denies wheezing GI Denies abdominal pain, Denies melena, Denies constipation, Denies diarrhea and Denies vomiting Denies urinary frequency, Denies dysuria and Denies urinary urgency Musc Denies arthralgias, Denies joint swelling, Denies numbness and Denies tingling Neuro Denies Abnormal speech present, Denies behavioral changes, Denies vertigo, Denies dizziness, Denies headache(s), Denies loss of vision, Denies memory loss, Denies numbness and Denies tingling Psych Denies anxiety, Denies behavioral changes, Denies depression, Denies memory loss and Denies panic attacks Kane/Lymph Denies easy bleeding and Denies easy bruising Aller/Immun Denies wheezing Physical exam (Primary Care) Vital Signs: Last Vital Signs Pulse 101 H 12/30/22 13:57 BP 158/70 H 12/30/22 13:57 Pulse Ox 97 12/30/22 13:57 Oxygen Delivery Method Room Air 12/30/22 13:57 BMI result Body Mass Index 33.5 BMI Assessment/Plan discussion: High Tobacco/Smoking Status: Tobacco use Status Tobacco use date assessed 09/04/22 12/30/22 13:57 Patient Tobacco Use Status Never used Tobacco 12/30/22 13:57 e-Cigarette/Vaping Use Never Used 12/30/22 13:57 Thrive Assessment: Date of Thrive Assessment Date Thrive assessed 07/07/22 12/30/22 13:57 Const Other: Obese General: healthy appearing, no acute distress, alert and awake Nutritional Appearance: well nourished Orientation/consciousness: oriented to person, oriented to place and oriented to time [facility] Head images: 2 1. SMALL AMOUNTS FACIAL SWELLING ON LEFT SIDE Ears: TM's normal bilaterally General nose exam: Normal nasal mucous membranes and turbinates present Eyes Conjunctivae: conjunctivae normal Sclerae: sclerae normal Pupils: Equal, round and reactive pupils present Neck Neck: Yes no lymphadenopathy and Yes no JVD Thyroid: Thyroid normal Carotids: no bruits Resp Effort & Inspection: normal respiratory effort and not tachypneic Auscultation: no crackles, no rales, no rhonchi and no wheezes Cardio Rate: regular rate Rhythm: regular rhythm Heart sounds: no murmurs and normal S1 and S2 GI Palpation (GI): Soft to palpation, nontender, no hepatomegaly and no splenomegaly Auscultation: normal bowel sounds Skin General skin exam: no rashes or lesions noted and dry skin Neuro General: oriented to person, oriented to place and oriented to time Cranial nerves: Yes Equal, round and reactive pupils present Speech: No Abnormal speech present Gait exam (Neuro): Normal gait present Motor exam (neuro): no tremor noted Extrem Right upper extremity: full ROM Left upper extremity: full ROM Right lower extremity: full ROM; no edema Left lower extremity: full ROM; no edema Psych Mental Status: mental status grossly normal Speech and movement: Normal speech and movement present Affect: normal affect Attitude: cooperative Thought process: Normal thought process present Assessment and Plan Assessment & Plan (1) Obese: Code(s): E66.9 - Obesity, unspecified Qualifiers: Body mass index: BMI 32.0-32.9 Obesity classification: adult class 1 (BMI 30 - 34.9) Obesity type: due to excess calories Serious obesity comorbidity presence: without serious comorbidity Qualified Code(s): E66.09 - Other obesity due to excess calories; Z68.32 - Body mass index [BMI] 32.0-32.9, adult Plan: Patient does understand BMI is over 30 will continue working on better eating habits being more physically active to reduce her weight (2) Lumbar disc disease: Code(s): M51.9 - Unspecified thoracic, thoracolumbar and lumbosacral intervertebral disc disorder Plan: As per HPI patient does have chronic lumbar spine pain due to disc protrusion. She has done physical therapy and is able to manage her pain with as needed Tylenol. (3) GERD (gastroesophageal reflux disease): Code(s): K21.9 - Gastro-esophageal reflux disease without esophagitis Qualifiers: Esophagitis presence: without esophagitis Qualified Code(s): K21.9 - Gastro-esophageal reflux disease without esophagitis Plan: Patient found to gastritis and esophagitis on most recent EGD. Has been started on PPI therapy and will have repeat EGD in 2 months. (4) Borderline high cholesterol: Code(s): E78.9 - Disorder of lipoprotein metabolism, unspecified Plan: Patient's most recent fasting lipid panel showing high total cholesterol.. She does have family history of coronary artery disease. She has been working extensively on lifestyle modifications to reduce her weight and high cholesterol foods. Goal LDL to be below 130 (5) Asthma: Code(s): J45.909 - Unspecified asthma, uncomplicated Qualifiers: Asthma complication type: uncomplicated Asthma persistence: i ntermittent Asthma severity: mild Qualified Code(s): J45.20 - Mild intermittent asthma, uncomplicated Plan: Patient reports her asthma has been well controlled without even need for albuterol inhaler. She denies any nighttime awakenings with asthma symptoms or recent asthma exacerbations. Orders: Orders 2 Vitamin B12 and Folate 12/30/22 E53.8 - Deficiency of other specified B group vitamins, E78.9 - Disorder of lipoprotein metabolism, unspecified Lipid Panel 12/30/22 E78.9 - Disorder of lipoprotein metabolism, unspecified Comprehensive [place]. Panel Fast 12/30/22 E78.9 - Disorder of lipoprotein metabolism, unspecified Complete Blood Count no Diff 12/30/22 E78.9 - Disorder of lipoprotein metabolism, unspecified Coding Level of Care Code Est Pt Level 4 (38437) Diagnoses Class 1 obesity due to excess calories without serious comorbidity with body mass index (BMI) of 32.0 to 32.9 in adult E66.09; Z68.32 Body mass index: BMI 32.0-32.9 Obesity classification: adult class 1 (BMI 30 - 34.9) Obesity type: due to excess calories Serious obesity comorbidity presence: without serious comorbidity Lumbar disc disease M51.9 Gastroesophageal reflux disease without esophagitis K21.9 Esophagitis presence: without esophagitis Borderline high cholesterol E78.9 Mild intermittent asthma without complication J45.20 Asthma complication type: uncomplicated Asthma persistence: intermittent Asthma severity: mild
[2022-12-30 13:57] VITALS: BP 158/70; PULSE 101; O2SAT 97; BMI 33.5
== END 2022-12-30 14:38 | disposition home or self-care (01) ==
PROVIDERS: Visit Provider Physician Assistant
DX: E66.09 Other obesity due to excess calories (principal); Z68.32 Body mass index [BMI] 32.0-32.9, adult; M51.9 Unspecified thoracic, thoracolumbar and lumbosacral intervertebral disc disorder; K21.9 Gastro-esophageal reflux disease without esophagitis; E78.9 Disorder of lipoprotein metabolism, unspecified; J45.20 Mild intermittent asthma, uncomplicated
CPT/HCPCS: 99214

== ENCOUNTER 2023-01-28 09:06 | Outpatient (AMB) | payer OTHER, SELFPAY ==
--- NOTE | 2023-01-28 09:08 | MHC.OFFWIV ---
Intake Vital Signs 01/28/23 09:10 Height 5 ft 1 in Weight 177 lb BMI 33.4 BP 140/70 H Blood Pressure Location Rt brachial Position Sitting Pulse 81 Pulse Source Pulse Oximeter Temp 97.5 F Temp Source Temporal Artery Scan Pulse Oximetry (%) 98 Oxygen Delivery Method Room Air Intake Visit Reasons: EP cough congestion sinus masked in lobby Intake Note: Pt is here c/o cough congestion, and sinus pressure for more than one week. Pt states she is coughing up green/brown phlegm. Pt also has stuffy nose. Patient Tobacco Use Status: Never used Tobacco Allergies Iodinated Contrast Media [IV CONTRAST] Allergy (Severe, Verified 01/28/23 09:33) Anaphylaxis penicillin V Allergy (Severe, Verified 01/28/23 09:33) throat swelling Penicillins Allergy (Severe, Verified 01/28/23 09:33) RASH, DIFFICULTY BREATHING Tetanus Vaccines and Toxoid Allergy (Intermediate, Verified 01/28/23 09:33) Difficulty Swallowing Medication List - Last Reconciled 01/28/23 by MANUEL SuP- acetaminophen (Tylenol Extra Strength) 1,000 mg (2 x 500 mg) PO QID PRN omeprazole 20 mg PO DAILY 30 days Do you need a note to return to daycare/school/sports/work: Yes HPI HPI Comments History of Present Illness Details here today for c/o cough, stuffy nose, mild sore throat, feels week, tired sx > 1 week home COVID test neg x 2 taking multiple otc meds w/o relief did use vicks nasal decongestant x 2 UTD on vaccines exposed to grand kid w illness [facility] Medical History Anxiety, generalized Esophageal stricture Normal colonoscopy Asthma Surgical History History of endoscopy History of appendectomy History of bladder surgery History of torn meniscus of right knee History of gallbladder disease History of partial hysterectomy Family History Father CVD (cardiovascular disease) Past heart attack Mother No problems noted. Brother Heart problem Pacemaker Social History Housing: Apartment Alcohol intake: never Patient Tobacco Use Status: Never used Tobacco e-Cigarette/Vaping Use: Never Used Second Hand Smoke Exposure: No service: No Current occupational status: unemployed Cognitive needs: No Hearing needs: No Vision needs: Yes (Reading glasses) Review of Systems Const All systems reviewed & are unremarkable except as noted in HPI and below Physical Exam Vital Signs: Last Vital Signs Temp 97.5 F 01/28/23 09:10 Pulse 81 01/28/23 09:10 BP 140/70 H 01/28/23 09:10 Pulse Ox 98 01/28/23 09:10 Oxygen Delivery Method Room Air 01/28/23 09:10 BMI result Body Mass Index 33.4 Const Other: awake alert mildly ill appearing conjuntival inj bilat R TM effusion, Left TM intact, clear frontal sinus pain w/ palp, R turbinate edematous, congested. Pharynx PND LS CTAB, congested cough w/o distress RRR Assessment & Plan Assessment & Plan (1) Acute frontal sinusitis: Code(s): J01.10 - Acute frontal sinusitis, unspecified Qualifiers: Recurrence: non-recurrent Qualified Code(s): J01.10 - Acute frontal sinusitis, unspecified Plan: ab as directed, no nasal spray other than flonase or saline. rest, supportive care. OOW note provided (2) Cough: Code(s): R05 - Cough Qualifiers: Cough type: acute Qualified Code(s): R05.1 - Acute cough Plan: ab as directed, no nasal spray other than flonase or saline. rest, supportive care. OOW note provided Medications: New azithromycin For 250 mg dose pack: take 500 mg today (day 1), then 250 mg for 4 days (days 2-5) PO 6 tabs 0RF 5 days Coding Level of Care Code Est Pt Level 3 (78474) Diagnoses Acute non-recurrent frontal sinusitis J01.10 Recurrence: non-recurrent Acute cough R05.1 Cough type: acute
[2023-01-28 09:10] VITALS: BP 140/70; PULSE 81; TEMP 36.4; O2SAT 98; BMI 33.4
== END 2023-01-28 10:11 | disposition home or self-care (01) ==
PROVIDERS: PCP Physician Assistant; Visit Provider Nurse Practitioner Family
DX: J01.10 Acute frontal sinusitis, unspecified (principal); R05.1 Acute cough
CPT/HCPCS: 99213

== ENCOUNTER → 2023-01-28 13:30 | Outpatient (BNV) | payer OTHER, SELFPAY | PROVIDERS: PCP Physician Assistant; Visit Provider Radiology Diagnostic Radiology | DX: Z12.31 Encounter for screening mammogram for malignant neoplasm of breast (principal) | CPT/HCPCS: 77063; 77067 ==

== ENCOUNTER 2023-01-28 13:41 | Outpatient (REF) | payer OTHER, SELFPAY | END 2023-01-28 13:42 | disposition home or self-care (01) | LOC: HO.MAMMO 13:41 | PROVIDERS: PCP Physician Assistant; Visit Provider Physician Assistant | DX: Z12.31 Encounter for screening mammogram for malignant neoplasm of breast (principal) | CPT/HCPCS: 77063; 77067 ==

== ENCOUNTER 2023-02-15 07:02 | Emergency (ER) | payer OTHER, SELFPAY ==
--- NOTE | ~2023-02-15 | XR_ITS ---
EXAMINATION: XR CHEST CLINICAL INFORMATION: Cough. Shortness of breath. COMPARISON: None available. TECHNIQUE: 2 views of the chest were obtained. FINDINGS: Mild aortic calcific atherosclerosis. Normal heart size. No effusions or pneumothoraces. Normal pattern of pulmonary vasculature. No focal pulmonary consolidation. Right upper quadrant cholecystectomy clips. Mild multilevel anterior endplate osteophytosis of the thoracic spine. XR/XR chest 2V IMPRESSION: 1. No acute cardiopulmonary abnormalities. Lungs clear. 2. Mild aortic calcific atherosclerosis.
[2023-02-15 07:06] VITALS: BP 148/57; PULSE 90; RESP 16; TEMP 36.2; O2SAT 96; BMI 31.6
--- NOTE | 2023-02-15 07:15 | ECG_ITS ---
Test Reason : SOB Blood Pressure : / mmHG Vent. Rate : 074 BPM Atrial Rate : 074 BPM P-R Int : 152 ms QRS Dur : 084 ms QT Int : 398 ms P-R-T Axes : 029 007 042 degrees QTc Int : 441 ms Normal sinus rhythm Normal ECG No previous ECGs available Referred By: Generic ED Physician Electronically Signed By:MARQUES JOVEL MD
--- NOTE | 2023-02-15 07:26 | ED.GENADULT ---
HPI - General Adult General Chief complaint: General Medical Stated complaint: Shortness of breath, cough 4 days Time Seen by Provider: 02/15/23 07:21 Source: patient and family Mode of arrival: ambulatory Limitations: no limitations History of Present Illness HPI narrative: 49-year-old female who denies any medical history presents the ER with complaints of URI symptoms since Thursday now with wheezing and shortness of breath and palpitations. No chest pain. No leg swelling or leg pain, no fevers or chills. Patient denies smoking. She has been using an [id number] cough medication and Mucinex with continued symptoms. No recent travel or sick contact. Related Data Previous Rx's Medication Instructions Recorded azithromycin 250 mg tablet See Rx Instructions PO .COMPLEX #6 02/15/23 tabs benzonatate 200 mg capsule 200 mg PO TID PRN cough #30 caps 02/15/23 prednisone 20 mg tablet 40 mg (2 x 20 mg) PO DAILY #15 tabs 02/15/23 Allergies Allergy/AdvReac Type Severity Reaction Status Date / Time Penicillins [PCN] Allergy Hives Verified 02/15/23 07:12 Tetanus Vaccines and Toxoid Allergy Difficulty Verified 02/15/23 07:12 Breathing Iodinated Contrast Media AdvReac Anaphylaxis Verified 02/15/23 07:12 [Contrast Dye] Review of Systems Review of Systems: Yes all other systems are reviewed and are negative Constitutional: Constitutional: Reports no additional constitutional complaints, Denies body ache(s), Denies chills, Denies fever(s), Denies headache(s) and Denies weakness Eyes: Eyes: Reports no additional eye complaints and Denies change in vision ENT: Reports system reviewed and no additional complaints, except as documented, Denies dizziness, Denies headache(s), Denies nasal congestion, Denies nasal discharge and Denies neck pain Cardiovascular: Cardiovascular: Reports no additional cardiovascular complaints, Denies chest pain, Denies leg edema, Reports palpitations and Reports dyspnea Respiratory: Respiratory: Reports no additional respiratory complaints, Reports cough, Reports dyspnea and Reports wheezing Gastrointestinal: Gastrointestinal: Reports no additional gastrointestinal complaints, Denies abdominal pain, Denies diarrhea, Denies nausea and Denies vomiting Genitourinary: Genitourinary: Reports no additional female genitourinary complaints and Denies urinary incontinence Musculoskeletal: Musculoskeletal: Reports no additional musculoskeletal complaints, Denies back pain, Denies arthralgias, Denies joint swelling, Denies neck pain, Denies numbness and Denies tingling Integumentary/Breasts: Skin/Breast: Reports system reviewed and no additional complaints, except as docu and Denies rash Neurologic: Reports system reviewed and no additional complaints, except as documented, Denies Abnormal speech present, Denies dizziness, Denies headache(s), Denies numbness, Denies tingling and Denies weakness Endocrine: Endocrine: Reports palpitations Allergic/Immunologic: Allergic/Immunologic: Reports wheezing PMFSH Past Medical History Attestation statement: The following information was validated with the patient. Source: old records reviewed and nursing notes reviewed Social History Social History Advance Directives: No Advance Directives Information Provided: No Physical Exam ED Vital Signs: Vital Signs - 24 hr 02/15/23 07:06 02/15/23 07:42 Temperature 97.2 F Pulse Rate 90 91 Respiratory Rate 16 18 Blood Pressure 148/57 H Pulse Oximetry 96 Oxygen Delivery Method Room Air BMI result Body Mass Index 31.6 Const General: cooperative, healthy appearing, comfortable and no acute distress Orientation/consciousness: patient oriented x3 Limitations: no limitations HENMT Head: Yes normal to inspection Ears: hearing grossly normal bilaterally and TM's normal bilaterally General nose exam: Normal external nose present Face and sinus: Yes normal facial exam Mouth: Normal oral and palatal mucosa present Throat: Yes posterior oropharynx normal, Yes tonsils normal and Yes uvula midline Eyes General: appearance normal, both eyes and all related structures Pupils: Equal, round and reactive pupils present Neck Neck: Yes normal visual inspection, Yes full ROM, Yes no lymphadenopathy and Yes no meningeal signs Chest Chest palpation & inspection: normal inspection of the chest Resp Effort & Inspection: normal respiratory effort Auscultation: wheezes Cardio Rate: regular rate Rhythm: regular rhythm Peripheral pulses: Peripheral pulses 2+ throughout GI Inspection: Yes normal to inspection Palpation (GI): Soft to palpation and nontender Auscultation: normal bowel sounds Back/Spine/Pelvis Thoracic/Lumbar Spine: thoracic and lumbar spine normal to inspection Skin General skin exam: no rashes or lesions noted Neuro General: patient oriented x3, no meningeal signs, no focal motor deficits and normal sensation to monofilament Cranial nerves: Yes Equal, round and reactive pupils present Cognition (Neuro): normal cognition Speech: No Abnormal speech present Gait exam (Neuro): Normal gait present Motor exam (neuro): 5/5 motor strength present throughout Extrem General: Yes normal to inspection, Yes no pedal edema and Yes no calf tenderness Course Course Course Narrative: Chest x-ray shows no signs of infection. Viral testing is negative. EKG is nonischemic. Exam consistent with bronchitis. Patient will be discharged home with antibiotic, prednisone, cough suppressant and albuterol MDI. Reviewed worrisome signs and symptoms of when to return to the emergency room. Comfortable plan for discharge home. Medications Administered Discontinued Medications Generic Name Dose Route Start Last Admin Trade Name Freq PRN Reason Stop Dose Admin Albuterol Sulfate 2 puff 02/15/23 07:26 02/15/23 07:41 Albuterol Sulfate 90 Mcg 8 Gm Inhaler INHALE 02/15/23 07:27 2 puff ONCE ONE Administration Medical Decision Making Medical Decision Making [facility] Narrative: 49-year-old female who denies any medical history presents the ER with complaints of URI symptoms since Thursday now with wheezing and shortness of breath and palpitations.? No chest pain.? No leg swelling or leg pain, no fevers or chills.? Patient denies smoking.? She has been using an [id number] cough medication and Mucinex with continued symptoms.? No recent travel or sick contact. Wheezing on exam. Vitals are stable Will obtain EKG, chest x-ray, viral testing Will give albuterol MDI Differential Diagnosis Differential Diagnoses: The differential diagnosis associated with the presentation includes Bronchitis, viral syndrome, pneumonia Low concern for PE-no hypoxia, no tachypnea, no tachycardia, no clinical findings to suggest DVT Admission/Observation Consideration of admission/observation: Escalation of care including admission/observation considered No hypoxia or tachypnea requiring supplemental oxygen and or admission Lab Data MDM Lab Attestation statement: I reviewed the patient's lab results. Labs: Lab Results 02/15/23 Range/Units 07:29 Influenza Type A (PCR) NEGATIVE (Negative) Influenza Type B (PCR) NEGATIVE (Negative) RSV RNA Qual (PCR) NEGATIVE (Negative) SARS-CoV-2 RNA (RT-PCR) NEGATIVE (Negative) Independent Interpretation I performed an independent interpretation of an: EKG and Plain X-Ray Interpretation: I independently reviewed the EKG which shows normal sinus rhythm with a rate of 74, normal AR, normal QRS, normal QT I independently reviewed the chest x-ray agree with Radiology report Radiology Impression Discussion of test interpretation with radiology: I have reviewed the radiologist's reading. Radiologist Impression: [id number] [place] [id number] XRay Report Signed Patient: Ele Lino MR#: [id number] : 1965 Acct:[id number] Age/Sex: 57 / F ADM Date: 02/15/23 Loc: .ED Attending Dr: Ordering Physician: Stephanie Yanez NP Date of Service: 02/15/23 Procedure(s): XR chest 2V Accession Number(s): [id number] cc: Elias Swenson PA-C; Stephanie Yanez NP~ EXAMINATION: XR CHEST CLINICAL INFORMATION: Cough. Shortness of breath. COMPARISON: None available. TECHNIQUE: 2 views of the chest were obtained. FINDINGS: Mild aortic calcific atherosclerosis. Normal heart size. No effusions or pneumothoraces. Normal pattern of pulmonary vasculature. No focal pulmonary consolidation. Right upper quadrant cholecystectomy clips. Mild multilevel anterior endplate osteophytosis of the thoracic spine. XR/XR chest 2V IMPRESSION: 1. No acute cardiopulmonary abnormalities. Lungs clear. 2. Mild aortic calcific atherosclerosis. Prescription Management I considered prescription management with: Antibiotic Discharge Plan Discharge Clinical Impression: Bronchitis Patient Disposition: Home, Self-Care Instructions: Acute Bronchitis (ED) Additional Instructions: Testing for flu, COVID, RSV is negative Your chest x-ray shows no signs of pneumonia Increase fluids, rest Return for any worsening symptom Use albuterol 2 puffs every 4 hours as needed for cough or wheezing Prescriptions: New azithromycin 250 mg tablet See Rx Instructions .ROUTE .COMPLEX Qty: 6 0RF Rx Instructions: For 250 mg dose pack: take 500 mg today (day 1), then 250 mg for 4 days (days 2-5) prednisone 20 mg tablet 40 mg PO DAILY Qty: 15 0RF benzonatate 200 mg capsule 200 mg PO TID PRN (Reason: cough) Qty: 30 0RF Referrals: Messi,Elias, PA-C [Primary Care Provider] - 1 week Stand Alone Forms: Work/School Release
--- NOTE | 2023-02-15 07:32 | PC.NURSE ---
swab obtained and sent. patient resting quietly in room, awaiting respiratory and xray
[2023-02-15] MEDS: Albuterol Sulfate 90 MCG 8 GM INHALER 2 PUFF INHALE (07:41)
[2023-02-15 07:42] VITALS: PULSE 91; RESP 18; O2SAT 99
[2023-02-15 08:15] LABS: Influenza A PCR NEGATIVE (Negative); Influenza B PCR NEGATIVE (Negative); Resp Syncy Virus RNA Qual PCR NEGATIVE (Negative); SARS COV2 PCR INHOUSE NEGATIVE (Negative)
== END 2023-02-15 08:57 | disposition home or self-care (01) ==
PROVIDERS: Nurse Practitioner Family; Emergency Provider Student in an Organized Health Care Education/Training Program; PCP Physician Assistant
DX: J40 Bronchitis, not specified as acute or chronic (principal); Z20.822 Contact with and (suspected) exposure to COVID-19; Z20.828 Contact with and (suspected) exposure to other viral communicable diseases
CPT/HCPCS: 0241U; 71046; 93005; 94640; 99284

== ENCOUNTER → 2023-02-15 07:15 | Outpatient (BNV) | payer OTHER, SELFPAY | PROVIDERS: Emergency Provider Student in an Organized Health Care Education/Training Program; PCP Physician Assistant; Visit Provider Internal Medicine Cardiovascular Disease | DX: R06.02 Shortness of breath (principal) | CPT/HCPCS: 93010 ==

== ENCOUNTER 2023-03-16 09:06 | Outpatient (AMB) | payer OTHER, SELFPAY ==
--- NOTE | 2023-03-16 09:26 | MHC.PC.OV ---
Vital Signs 03/16/23 09:27 Height 5 ft 1 in Weight 170 lb BMI 32.1 Pulse 78 Pulse Source Pulse Oximeter Pulse Oximetry (%) 98 Oxygen Delivery Method Room Air Intake Visit Reasons: f/u covid +, currently having symptoms Intake Note: The patient is presenting with symptoms resembling Covid/flu and has received a positive result from a home test conducted on March 14, 2022. The patient is seeking a work note covering the period from March 10, 2023, to March 20, 2023. The patient's concerns include a persistent cough, body aches, high fever, vomiting, 1-2 episodes of diarrhea, and chest congestion. 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 Required: No Accompanied by: Self / Same As Patient Allergies penicillin V Allergy (Severe, Verified 03/16/23 09:48) throat swelling Penicillins [PCN] Allergy (Verified 03/16/23 09:48) Hives Tetanus Vaccines and Toxoid Allergy (Verified 03/16/23 09:48) Difficulty Breathing Iodinated Contrast Media [Contrast Dye] Adverse Reaction (Verified 03/16/23 09:48) Anaphylaxis Medication List - Last Reconciled 03/16/23 by Elias Swenson PA-C acetaminophen (Tylenol Extra Strength) 1,000 mg (2 x 500 mg) PO QID PRN azithromycin For 250 mg dose pack: take 500 mg today (day 1), then 250 mg for 4 days (days 2-5) PO 5 days benzonatate 200 mg PO TID PRN omeprazole 20 mg PO DAILY 30 days prednisone 40 mg (2 x 20 mg) PO DAILY Tobacco use date assessed: 03/16/23 Dental Screening Dental Screen Date: 03/16/23 Did you have a dental visit in the last 12 months?: Yes Did you have a dental problem in the last 6 months where you did not have access to dental care?: No Was dental information given to patient?: Patient has dentist HPI f/u covid +, currently having symptoms HPI Details Patient is a 57-year-old female here today for a problem visit. She reports she was exposed to influenza and was started on Tamiflu last week. Has been out of work due to her upper respiratory viral symptoms. She did test positive for COVID also on March 14. Here because she needs a note for work. We did discuss perhaps starting Paxlovid/ antiviral though will like to hold often manage symptoms conservatively with [id number] meds [facility] Medical History Anxiety, generalized Esophageal stricture Normal colonoscopy Asthma Surgical History History of endoscopy History of appendectomy History of bladder surgery History of torn meniscus of right knee History of gallbladder disease History of partial hysterectomy Family History Father CVD (cardiovascular disease) Past heart attack Mother No problems noted. Brother Heart problem Pacemaker Social History Housing: Apartment Alcohol intake: never Patient Tobacco Use Status: Never used Tobacco e-Cigarette/Vaping Use: Never Used Second Hand Smoke Exposure: No service: No Current occupational status: unemployed Cognitive needs: No Hearing needs: No Vision needs: Yes (Reading glasses) Questionnaire PHQ-9 Over the last 2 weeks, how often have you been bothered by any of the following problems? 1. Little interest or pleasure in doing things: not at all 2. Feeling down, depressed, or hopeless: not at all 3. Trouble falling or staying asleep, or sleeping too much: not at all 4. Feeling tired or having little energy: not at all 5. Poor appetite or overeating: not at all 6. Feeling bad about yourself - or that you are a failure or have let yourself or your family down: not at all 7. Trouble concentrating on things, such as reading the newspaper or watching television: not at all 8. Moving or speaking so slowly that other people could have noticed. Or the opposite - being so fidgety or restless that you have been moving around a lot more than usual: not at all 9. Thoughts that you would be better off or of hurting yourself in some way: not at all Total score: 0 Depression Screening Interpretation: Negative Depression Screening Done: Yes 76385 - PHQ-9 Billing: Yes Source: Developed by Drs. John Phan, Bebe Valerio, Lito Padron and colleagues, with an educational allison from [employer]. Thrive Questionnaire Date Thrive assessed: 03/16/23 I am a: Patient What is your living situation today?: I have a steady place to live Within the past 12 months, did the food you bought not last and you didn't have the money to get more?: Never true Within the past 12 months, did you worry whether your food would run out before you got money to buy more?: Never true Do you have trouble paying for medicines?: No Do you have trouble getting transportation to medical appointments?: No Do you have trouble paying your heating and electricity bill?: No Do you have trouble taking care of your child, family member or friend?: No Do you have trouble with day-to-day activities such as bathing, preparing meals, shopping, managing finances, etc.?: No Are you currently unemployed and looking for a job?: No Are you interested in more education?: No Please select the resources that you would like help with: None Currently or been in a relationship where the following occur: no concerns reported THRIVE Score: 0 AUDIT C Alcohol Use Questionnaire (AUDIT-C) 1. How often do you have a drink containing alcohol?: Monthly or less 2. How many drinks containing alcohol do you have on a typical day when you are drinking?: 1 or 2 Total Score: 1 Score Reviewed/Action Taken: No MEE-7 AMB Questionnaire MEE-7 Date MEE - 7 assessed: 03/16/23 Feeling nervous, anxious, or on edge: 0 = Not at all Not being able to stop or control worryin = Not at all Worrying too much about different things: 0 = Not at all Trouble relaxin = Not at all Being so restless that it is hard to sit still: 0 = Not at all Becoming easily annoyed or irritable: 0 = Not at all Feeling afraid as if something awful might happen: 0 = Not at all Total MEE-7 score (0-4 normal; 5-9 mild; 10-14 moderate; 15-21 severe): 0 Source: Developed by Drs. John Phan, Bebe Valerio, Lito Padron and colleagues, with an educational allison from [employer] MEE-7 Assessment Billing MEE-7 Assessment Tool: MEE-7 Assessment 79237 Review of Systems Const Reports headache(s) Eyes Denies loss of vision ENT Denies vertigo, Denies dizziness, Reports headache(s) and Reports sore throat Card Denies chest pain, Denies leg edema and Denies lightheadedness Resp Reports cough, Denies hemoptysis and Denies wheezing GI Denies abdominal pain, Denies melena, Denies constipation, Reports diarrhea and Denies vomiting Denies urinary frequency, Denies dysuria and Denies urinary urgency Musc Denies arthralgias, Denies joint swelling, Denies numbness and Denies tingling Neuro Denies Abnormal speech present, Denies behavioral changes, Denies vertigo, Denies dizziness, Reports headache(s), Denies loss of vision, Denies memory loss, Denies numbness and Denies tingling Psych Denies anxiety, Denies behavioral changes, Denies depression, Denies memory loss and Denies panic attacks Kane/Lymph Denies easy bleeding and Denies easy bruising Aller/Immun Denies wheezing Physical exam (Primary Care) Vital Signs: Last Vital Signs Pulse 78 03/16/23 09:27 Pulse Ox 98 03/16/23 09:27 Oxygen Delivery Method Room Air 03/16/23 09:27 BMI result Body Mass Index 32.1 Tobacco/Smoking Status: Tobacco use Status Tobacco use date assessed 03/16/23 03/16/23 09:42 Patient Tobacco Use Status Never used Tobacco 03/16/23 09:27 e-Cigarette/Vaping Use Never Used 03/16/23 09:27 PHQ-9: PHQ-9 Score PHQ-9: Total score 0 03/16/23 09:52 Depression Screening Interpretation: Negative Thrive Assessment: Date of Thrive Assessment Date Thrive assessed 03/16/23 03/16/23 09:36 Currently or been in a relationship where the following occur: no concerns reported Const Other: APPEARS ILL General: healthy appearing, no acute distress, alert and awake Nutritional Appearance: well nourished Orientation/consciousness: oriented to person, oriented to place and oriented to time HENMT Ears: TM's normal bilaterally General nose exam: Normal nasal mucous membranes and turbinates present Eyes Conjunctivae: conjunctivae normal Sclerae: sclerae normal Pupils: Equal, round and reactive pupils present Neck Neck: Yes no lymphadenopathy and Yes no JVD Thyroid: Thyroid normal Carotids: no bruits Resp Other: OCCASIONAL COUGH DURING EXAM Effort & Inspection: normal respiratory effort, Actively coughing and not tachypneic Auscultation: no crackles, no rales, no rhonchi and no wheezes Cardio Rate: regular rate Rhythm: regular rhythm Heart sounds: no murmurs and normal S1 and S2 GI Palpation (GI): Soft to palpation, nontender, no hepatomegaly and no splenomegaly Auscultation: normal bowel sounds Skin General skin exam: no rashes or lesions noted and dry skin Neuro General: oriented to person, oriented to place and oriented to time Cranial nerves: Yes Equal, round and reactive pupils present Speech: No Abnormal speech present Gait exam (Neuro): Normal gait present Motor exam (neuro): no tremor noted Extrem Right upper extremity: full ROM Left upper extremity: full ROM Right lower extremity: full ROM; no edema Left lower extremity: full ROM; no edema Psych Mental Status: mental status grossly normal Speech and movement: Normal speech and movement present Affect: normal affect Attitude: cooperative Thought process: Normal thought process present Assessment and Plan Assessment & Plan (1) COVID: Code(s): U07.1 - COVID-19 Plan: Patient positive COVID. We did discuss and patient would like to hold and treat conservatively with [id number] medications. Given work note for the rest of the week (2) Bronchitis: Code(s): J40 - Bronchitis, not specified as acute or chronic Plan: As above has upper respiratory viral bronchitis infection. Orders: Orders SARS-CoV2/FLU/RSV 03/16/23 R09.89 - Other specified symptoms and signs involving the circulatory and respiratory systems XR chest 2V 03/16/23 R05.1 - Acute cough Medications: Changed From prednisone 40 mg (2 x 20 mg) PO DAILY 15 tabs 0RF U07.1 - COVID-19 To prednisone 40 mg (2 x 20 mg) PO DAILY 4 days 8 tabs 0RF U07.1 - COVID-19 From benzonatate 200 mg PO TID PRN 30 caps 0RF cough U07.1 - COVID-19 To benzonatate 200 mg PO TID 7 days 21 caps 0RF cough U07.1 - COVID-19 Coding Level of Care Code Est Pt Level 3 (83783) Diagnoses COVID U07.1 Bronchitis J40 Additional Codes MEE-7 Assessment Billing - MEE-7 Assessment Tool: MEE-7 Assessment 21274 ([id number])
[2023-03-16 09:27] VITALS: PULSE 78; O2SAT 98; BMI 32.1
== END 2023-03-16 10:01 | disposition home or self-care (01) ==
PROVIDERS: PCP Physician Assistant; Visit Provider Physician Assistant
DX: U07.1 COVID-19 (principal); J40 Bronchitis, not specified as acute or chronic
CPT/HCPCS: 99213

== ENCOUNTER 2023-03-16 19:18 | Outpatient (REF) | payer OTHER, SELFPAY ==
[2023-03-16 20:02] LABS: Influenza A PCR NEGATIVE (Negative); Influenza B PCR NEGATIVE (Negative); Resp Syncy Virus RNA Qual PCR NEGATIVE (Negative); SARS COV2 PCR INHOUSE POSITIVE (Negative)
== END 2023-03-16 19:19 | disposition home or self-care (01) ==
LOC: HO.LNP 19:18
PROVIDERS: Visit Provider Physician Assistant
DX: Z11.52 Encounter for screening for COVID-19 (principal); Z20.822 Contact with and (suspected) exposure to COVID-19; R09.89 Other specified symptoms and signs involving the circulatory and respiratory systems
CPT/HCPCS: 0241U

== ENCOUNTER 2023-03-23 14:02 | Outpatient (REF) | payer OTHER, SELFPAY ==
--- NOTE | ~2023-03-23 | XR_ITS ---
EXAMINATION: XR CHEST CLINICAL INFORMATION: Acute cough. COMPARISON: Chest radiograph 02/15/2023. TECHNIQUE: 2 views of the chest were obtained. FINDINGS: Normal heart size. Mild aortic calcific atherosclerosis. Slightly increased diffuse interstitial prominence compared to January 2023. No focal consolidation, pleural effusion or pneumothorax. Thoracic spondylosis. No acute osseous findings. Right upper quadrant surgical clips. XR/XR chest 2V IMPRESSION: Slightly increased interstitial prominence since January 2023 which is nonspecific and could be associated with asthma, bronchitis or reactive airways disease.
== END 2023-03-23 14:03 | disposition home or self-care (01) ==
LOC: HO.XRAY 14:02
PROVIDERS: PCP Physician Assistant; Visit Provider Physician Assistant
DX: R05.1 Acute cough (principal)
CPT/HCPCS: 71046

== ENCOUNTER 2023-04-19 01:14 | Emergency (ER) | payer OTHER, SELFPAY ==
--- NOTE | ~2023-04-19 | XR_ITS ---
EXAMINATION: XR CHEST CLINICAL INFORMATION: Cough and fever. COMPARISON: 03/23/2023 TECHNIQUE: Frontal view of the chest was obtained. FINDINGS: No significant abnormality is noted involving the heart, lungs, mediastinum, bony thorax or soft tissues. XR/XR chest 1V IMPRESSION: Unremarkable examination.
[2023-04-19 01:26] VITALS: BP 146/65; PULSE 82; RESP 18; TEMP 36.7; O2SAT 98; BMI 32.5
[2023-04-19 03:07] LABS: COVID-19 Test Positive (Negative); IDNOW Serial# 08D9AD1C
[2023-04-19 03:08] LABS: IDNOW Serial# 58CA691E; Strep A Nucleic Acid Negative (Negative)
[2023-04-19 03:09] VITALS: BP 154/72; PULSE 74; RESP 18; TEMP 36.5; O2SAT 97
[2023-04-19 03:11] LABS: IDNOW Serial# 152EDE1D; Influenza A Negative (Negative); Influenza B2 Negative (Negative)
[2023-04-19 05:27] VITALS: O2SAT 96
--- NOTE | 2023-04-19 05:41 | ED.URI ---
HPI - URI/Sore Throat General Chief Complaint: Upper Respiratory Symptoms Stated Complaint: gen med Time Seen by Provider: 04/19/23 05:38 Related Data Previous Rx's Medication Instructions Recorded acetaminophen 500 mg tablet 1,000 mg (2 x 500 mg) PO QID PRN 08/15/20 (Tylenol Extra Strength) fever or pain #14 tabs omeprazole 20 mg capsule,delayed 20 mg PO DAILY 30 days #30 caps 12/30/21 release azithromycin 250 mg tablet See Rx Instructions PO .COMPLEX 5 01/28/23 days #6 tabs benzonatate 200 mg capsule 200 mg PO TID cough 7 days #21 caps 03/16/23 prednisone 20 mg tablet 40 mg (2 x 20 mg) PO DAILY 4 days 03/16/23 #8 tabs albuterol sulfate 90 mcg/actuation 1 inh inhalation QID PRN shortness 03/30/23 aerosol inhaler of breath or wheezing 30 days #8.5 grams cefuroxime axetil 500 mg tablet 500 mg PO Q12H 7 days #14 tabs 04/19/23 morphine 15 mg immediate release 15 mg PO Q6H PRN pain #10 tabs 04/19/23 tablet prednisone 20 mg tablet 60 mg (3 x 20 mg) PO DAILY 5 days 04/19/23 #15 tabs Allergies Allergy/AdvReac Type Severity Reaction Status Date / Time penicillin V Allergy Severe throat Verified 04/19/23 01:26 swelling Penicillins [PCN] Allergy Hives Verified 04/19/23 01:26 Tetanus Vaccines and Toxoid Allergy Difficulty Verified 04/19/23 01:26 Breathing Iodinated Contrast Media AdvReac Anaphylaxis Verified 04/19/23 01:26 [Contrast Dye] [facility] Past Medical History Medical History Anxiety, generalized Esophageal stricture Normal colonoscopy Asthma Surgical History History of endoscopy History of appendectomy History of bladder surgery History of torn meniscus of right knee History of gallbladder disease History of partial hysterectomy Family History Family History Father CVD (cardiovascular disease) Past heart attack Mother No problems noted. Brother Heart problem Pacemaker Social History Social History Housing: Apartment Alcohol intake: never Patient Tobacco Use Status: Never used Tobacco e-Cigarette/Vaping Use: Never Used Second Hand Smoke Exposure: No Advance Directives: No Advance Directives Information Provided: No Patient : No service: No Current occupational status: unemployed Cognitive needs: No Hearing needs: No Vision needs: Yes (Reading glasses) Physical Exam Vital Signs: Vital Signs: Last Vital Signs Temp 97.7 F 04/19/23 03:09 Pulse 74 04/19/23 03:09 Resp 18 04/19/23 03:09 BP 154/72 H 04/19/23 03:09 Pulse Ox 96 04/19/23 05:27 O2 Del Method Room Air 04/19/23 05:27 BMI result Body Mass Index 32.5 Medical Decision Making Lab Data Labs: Lab Results 04/19/23 Range/Units 02:43 COVID-19 ([facility]ESHAM) Positive A (Negative) COVID-19 Clin Com See Note Influenza Type A (BRENDA) Negative (Negative) Influenza Type B (BRENDA) Negative (Negative) Influenza A & B Note See Note S. pyogenes GrpA BRENDA Negative (Negative) Radiology Impression Discussion of test interpretation with radiology: I have reviewed the radiologist's reading. Radiologist Impression: XR chest 1V IMPRESSION: Unremarkable examination. Dictated By: John Salas Discharge Plan Discharge Clinical Impression: Acute bronchitis, Acute left otitis media, Asthma exacerbation, COVID-19 virus infection Patient Disposition: Home, Self-Care Additional Instructions: Your chest x-ray revealed no evidence for pneumonia. Your COVID test is positive-the COVID test can remain positive up to 2-8 weeks after the initial infection. Your left ear does appear to be infected. On your lung exam your wheezing and this is most likely caused by either bronchitis or flare-up of your asthma. Take Ceftin (cefuroxime) 500 mg, 1 pill every 12 hours times 7 days. Take prednisone 20 mg pills, 3 pills once a day for 5 days. While you ?are taking prednisone, do not take any NSAIDs (Motrin, Advil, ibuprofen, Aleve, naproxen). Continue to use your inhaler 2 puffs 4 to 6 times a day for your wheezing. Take Tylenol (acetaminophen) 2 pills every 4-6 hours as needed for pain. For pain not relieved byTylenol take morphine 15 mg pills, 1 pill every 4 hours as needed for pain. This medication will make you sleepy, do not drive or work while taking this medication. Morphine is a narcotic medication and can be addicting. If you are concerned about addiction you can ask the pharmacist for less pills or do not get this prescription filled. Follow-up with your doctor in 2 days. Please return to the emergency department if your symptoms get worse or if you develop any symptoms that are concerning to you. Please see the work note Prescriptions: New prednisone 20 mg tablet 60 mg PO DAILY 5 Days Qty: 15 0RF cefuroxime axetil 500 mg tablet 500 mg PO Q12H 7 Days Qty: 14 0RF morphine 15 mg tablet 15 mg PO Q6H PRN (Reason: pain) Qty: 10 0RF Rx Instructions: The patient may ask for partial fill; Partial Fill upon patient request. No Action albuterol sulfate 90 mcg/actuation HFA aerosol inhaler 1 inh inhalation QID PRN (Reason: shortness of breath or wheezing) 30 Days Qty: 8.5 0RF acetaminophen [Tylenol Extra Strength] 500 mg tablet 1,000 mg PO QID PRN (Reason: fever or pain) Qty: 14 0RF azithromycin 250 mg tablet See Rx Instructions PO .COMPLEX 5 Days Qty: 6 0RF Rx Instructions: For 250 mg dose pack: take 500 mg today (day 1), then 250 mg for 4 days (days 2-5) PO prednisone 20 mg tablet 40 mg PO DAILY 4 Days Qty: 8 0RF benzonatate 200 mg capsule 200 mg PO TID 7 Days Qty: 21 0RF omeprazole 20 mg capsule,delayed release(DR/EC) 20 mg PO DAILY 30 Days Qty: 30 2RF Stand Alone Forms: Work/School Release
== END 2023-04-19 06:12 | disposition home or self-care (01) ==
PROVIDERS: Emergency Provider Emergency Medicine Emergency Medical Services; PCP Physician Assistant
DX: U07.1 COVID-19 (principal); J45.901 Unspecified asthma with (acute) exacerbation; J20.9 Acute bronchitis, unspecified; J06.9 Acute upper respiratory infection, unspecified; H66.92 Otitis media, unspecified, left ear; Z79.899 Other long term (current) drug therapy
CPT/HCPCS: 71045; 87502; 87635; 87651; 99283; 99284

== ENCOUNTER 2023-05-21 11:30 | Emergency (ER) | payer OTHER, SELFPAY ==
[2023-05-21] VITALS (7 sets, daily range): BP systolic 128–153; BP diastolic 74–86; PULSE 79–107; RESP 18–20; TEMP 36.7–37.7; O2SAT 94–97; BMI 32.1
--- NOTE | ~2023-05-21 | XR_ITS ---
EXAMINATION: XR CHEST CLINICAL INFORMATION: Chest pain COMPARISON: 04/19/2023 TECHNIQUE: 2 views of the chest were obtained. FINDINGS: No significant abnormality is noted involving the heart, lungs, mediastinum, bony thorax or soft tissues. Degenerative changes are present in the spine. XR/XR chest 2V IMPRESSION: Unremarkable examination.
--- NOTE | 2023-05-21 11:35 | ED_ITS ---
HPI - General Adult General Chief complaint: Syncope Stated complaint: Heart palpitations, fainting Time Seen by Provider: 05/21/23 20:24 History of Present Illness HPI narrative: The patient is a 57-year-old woman who says that she has not felt very well for the last 2-3 weeks. She describes having a sense of palpitations in her chest. She describes having a sense of feeling faint. She also says that she has been having intermittent episodes of shortness of breath and wheezing and using her albuterol inhaler. She says she has a history of asthma but has never been a smoker. Related Data Previous Rx's Medication Instructions Recorded acetaminophen 500 mg tablet 1,000 mg (2 x 500 mg) PO QID PRN 08/15/20 (Tylenol Extra Strength) fever or pain #14 tabs omeprazole 20 mg capsule,delayed 20 mg PO DAILY 30 days #30 caps 12/30/21 release azithromycin 250 mg tablet See Rx Instructions PO .COMPLEX 5 01/28/23 days #6 tabs benzonatate 200 mg capsule 200 mg PO TID cough 7 days #21 caps 03/16/23 prednisone 20 mg tablet 40 mg (2 x 20 mg) PO DAILY 4 days 03/16/23 #8 tabs albuterol sulfate 90 mcg/actuation 1 inh inhalation QID PRN shortness 03/30/23 aerosol inhaler of breath or wheezing 30 days #8.5 grams cefuroxime axetil 500 mg tablet 500 mg PO Q12H 7 days #14 tabs 04/19/23 morphine 15 mg immediate release 15 mg PO Q6H PRN pain #10 tabs 04/19/23 tablet prednisone 20 mg tablet 60 mg (3 x 20 mg) PO DAILY 5 days 04/19/23 #15 tabs albuterol sulfate 90 mcg/actuation 2 puff inhalation Q4-6H PRN 05/22/23 aerosol inhaler shortness of breath or wheezing #8.5 grams azithromycin 250 mg tablet 250 mg PO DAILY 4 days #4 tabs 05/22/23 prednisone 20 mg tablet 20 mg PO DAILY #12 tabs 05/22/23 Allergies Allergy/AdvReac Type Severity Reaction Status Date / Time penicillin V Allergy Severe throat Verified 05/21/23 11:35 swelling Penicillins [PCN] Allergy Hives Verified 05/21/23 11:35 Tetanus Vaccines and Toxoid Allergy Difficulty Verified 05/21/23 11:35 Breathing Iodinated Contrast Media AdvReac Anaphylaxis Verified 05/21/23 11:35 [Contrast Dye] Review of Systems 2 Review of Systems: Yes all other systems are reviewed and are negative [facility] Past Medical History Medical History Anxiety, generalized Esophageal stricture Normal colonoscopy Asthma Surgical History History of endoscopy History of appendectomy History of bladder surgery History of torn meniscus of right knee History of gallbladder disease History of partial hysterectomy Family History Family History Father CVD (cardiovascular disease) Past heart attack Mother No problems noted. Brother Heart problem Pacemaker Social History Social History Housing: Apartment Alcohol intake: never Patient Tobacco Use Status: Never used Tobacco e-Cigarette/Vaping Use: Never Used Second Hand Smoke Exposure: No Advance Directives: No service: No Current occupational status: unemployed Cognitive needs: No Hearing needs: No Vision needs: Yes (Reading glasses) Physical Exam ED Vital Signs: Vital Signs - 24 hr 05/21/23 11:35 05/21/23 16:29 05/21/23 20:36 Temperature 98.1 F 99.9 F Pulse Rate 103 H 107 H Respiratory Rate 18 18 Blood Pressure 153/86 H 128/74 Pulse Oximetry 96 96 96 Oxygen Delivery Method Room Air Room Air Room Air 05/21/23 20:45 05/21/23 20:59 05/21/23 21:30 Temperature 99.1 F Pulse Rate 100 89 107 H Respiratory Rate 18 20 20 Blood Pressure 152/79 H Pulse Oximetry 97 Oxygen Delivery Method Room Air 05/21/23 22:47 05/22/23 01:22 05/22/23 01:30 Temperature 97.9 F 97.9 F Pulse Rate 79 74 74 Respiratory Rate 20 17 17 Blood Pressure 110/58 L 110/58 L Pulse Oximetry 96 96 Oxygen Delivery Method Room Air Room Air BMI result Body Mass Index 32.1 Const Other: The patient is awake and alert. She was coughing a great deal. She looks fatigued and somewhat worn out but she did not appear obviously acutely ill or toxic HENMT Other: Mucous membranes are moist, the pharynx is unremarkable. Face is symmetrical. Eyes Other: Insert round equal, conjunctivae are clear, extraocular movements intact Neck Other: No JVD Resp Other: The patient was coughing frequently, a course, deep cough. She had inspiratory and expiratory wheezes bilaterally and she seemed to have some crackles on the left side. Cardio Rate: regular rate Rhythm: regular rhythm Heart sounds: S1 normal heart sound present and S2 normal heart sound present GI Other: Abdomen is soft and nontender Skin Other: Skin is pale and dry. Neuro Other: The patient is awake and alert. Cranial nerves grossly intact. She moves her extremities symmetrically. Gait is normal. Grossly neurologically intact. Extrem Other: No calf swelling or tenderness, no peripheral edema Course Course Course Narrative: RME:?57 yo female w/ hx of asthma here for eval of generalized weakness, heart palpitations, SOB x1 week. endorses 1 episode of syncope 1 week ago when going from sitting to standing. cannot recall any preceding symptoms. no recent travel or long car rides. endorses episode of asthma yesterday where she had to use her inhaler at home. denies known sick contacts. denies fever, chills, sore throat, cough, hemoptysis, or LE pain/swelling. expiratory rhonchi to left lung base. labs, EKG, CXR ordered. Full HPI, ROS and PE to be performed by the primary ED provider. Medications Administered Discontinued Medications Generic Name Dose Route Start Last Admin Trade Name Freq PRN Reason Stop Dose Admin Albuterol Sulfate 5 mg 05/21/23 22:20 05/21/23 22:46 Albuterol Sulfate (0.083%) 2.5 Mg/3 Ml Vial.Neb INHALE 05/21/23 22:21 5 mg ONCE ONE Administration Albuterol/Ipratropium 3 ml 05/21/23 20:36 05/21/23 20:56 Albuterol/Iprat 2.5/0.5mg 3 Ml Ampul.Neb INHALE 05/21/23 20:37 3 ml ONCE ONE Administration Albuterol/Ipratropium 3 ml 05/21/23 21:18 05/21/23 21:29 Albuterol/Iprat 2.5/0.5mg 3 Ml Ampul.Neb INHALE 05/21/23 21:19 3 ml ONCE ONE Administration Azithromycin 500 mg 05/21/23 22:01 05/21/23 22:51 Azithromycin 500 Mg Tablet PO 05/21/23 22:02 500 mg ONCE ONE Administration Guaifenesin/Dextromethorphan 5 ml 05/21/23 21:40 05/21/23 21:58 Guaifenesin Dm 100/10/5 Ml 5 Ml Syrup PO 05/21/23 21:41 5 ml ONCE ONE Administration Sodium Chloride 1,000 mls @ 999 mls/hr 05/21/23 20:45 05/21/23 22:04 Ns IV 05/21/23 21:45 Infused .Q1H1M DELORSI Infusion Sodium Chloride 1,000 mls @ 999 mls/hr 05/21/23 22:15 05/21/23 22:51 Ns IV 05/21/23 23:15 999 mls/hr .Q1H1M DELORIS Administration Sodium Chloride 1,000 mls @ 999 mls/hr 05/21/23 22:15 05/21/23 22:51 Ns IV 05/21/23 23:15 999 mls/hr .Q1H1M DELORIS Administration Ketorolac Tromethamine 10 mg 05/21/23 20:37 05/21/23 20:42 Ketorolac Tromethamine 15 Mg/Ml Vial IVPUSH 05/21/23 20:38 10 mg ONCE ONE Administration Metoclopramide HCl 10 mg 05/21/23 21:18 05/21/23 21:27 Metoclopramide Hcl 10 Mg/2 Ml Vial IVPUSH 05/21/23 21:19 10 mg ONCE ONE Administration Ondansetron HCl 4 mg 05/21/23 16:30 05/21/23 16:33 Ondansetron Odt 4 Mg Tab.Rapdis TRANSLINGU 05/21/23 16:31 4 mg ONCE ONE Administration Prednisone 60 mg 05/21/23 21:18 05/21/23 21:27 Prednisone 20 Mg Tablet PO 05/21/23 21:19 60 mg ONCE ONE Administration Medical Decision Making Medical Decision Making MDM Narrative: The patient is a 57-year-old woman with a history of asthma who presents with 2 weeks of feeling unwell. She has felt congested. She has been coughing a great deal. She was coughing in the emergency room and clearly had a very congested cough. She has wheezes bilaterally. The nasal swab was negative for influenza, RSV, and COVID. Chest x-ray shows no acute findings. EKG showed normal sinus rhythm at 100 beats per minute. It was a normal EKG. White blood count was 4000 with a normal differential. Troponins are negative, undetectable. Clinically the patient seems to have a case of an acute asthmatic bronchitis. A D-dimer had been ordered at triage. Her D-dimer is mildly elevated. My clinical suspicion for pulmonary embolism is essentially non-existent as she seems to very much have a bronchitis syndrome. She has a severe contrast dye allergy and I do not think it would be iyer to obtain a CT pulmonary angiogram. My suspicion for pulmonary embolism is sufficiently low that I do not think a V/Q scan would be indicated. She was treated with a bronchodilator treatments, prednisone, and azithromycin. She was also given Robitussin for her cough. She was observed for several hours. Ultimately she fell asleep, azithromycin, and albuterol. She should follow up with her regular doctor. Return if worse. Lab Data 05/21/23 11:50 05/21/23 11:50 Labs: Lab Results 05/21/23 05/21/23 05/21/23 Range/Units 11:49 11:50 17:05 WBC 4.0 L (4.8-10.8) X10*3/uL RBC 4.30 (4.20-5.50) X10*6/uL Hgb 13.3 (12.0-16.0) g/dl Hct 38.5 (37.0-47.0) % MCV 89.5 (80.0-98.0) fL MCH 30.9 (27.0-33.0) pg MCHC 34.5 (31.0-35.0) g/dl RDW 12.0 (11.0-16.0) % Plt Count 180 D (160-400) X10*3/uL MPV 9.4 (9.4-12.3) fL Immature Gran % (Auto) 0.5 H (0.0-0.4) % Neut % (Auto) 69.5 (45-73) % Lymph % (Auto) 21.1 (20-40) % [place] % (Auto) 7.2 (2-11) % Eos % (Auto) 1.2 (0-4) % Baso % (Auto) 0.5 (0-2) % Lymph # (Auto) 0.9 L (1.2-4.9) X10*3/uL [place] # (Auto) 0.3 (0.1-1.2) X10*3/uL Eos # (Auto) 0.1 (0.0-0.4) X10*3/uL Baso # (Auto) 0.0 (0.0-0.2) X10*3/uL Abs Immat Gran (auto) 0.02 (0.00-0.03) X10*3/uL Absolute Neuts (auto) 2.8 (2.0-8.3) x10*3/uL Absolute Nucleated RBC 0.000 (0.0-0.012) X10*3/uL Nucleated RBC % (auto) 0.0 (0.0-0.2) /100WBC PT 11.0 L (11.1-13.3) SEC INR 0.9 (0.9-1.1) D-Dimer High Sensitivty 392 NG/ML Sodium 138 (135-145) mmol/L Potassium 4.1 (3.3-5.1) mmol/L Chloride 102 (96-108) mmol/L Carbon Dioxide 27 (22-29) mmol/L Anion Gap 13 (12-20) BUN 14 (9-16) mg/dL Creatinine 1.00 (0.5-1.4) mg/dL Estim Creat Clear Calc 57.5 Estimated GFR 57 Random Glucose 90 (60-115) mg/dL Calcium 9.0 D (8.4-10.2) mg/dL Magnesium 2.3 (1.6-2.6) mg/dL Total Bilirubin 0.9 (0.0-1.0) mg/dL AST 18 (5-31) U/L ALT 16 (0-31) U/L Alkaline Phosphatase 83 (39-117) U/L Total Creatine Kinase 69 (26-140) U/L Troponin I High Sens < 2.7 < 2.7 (<3.5-17.0) ng/L C-Reactive Protein 1.17 H (< or = 0.50) mg/dL Total Protein 6.8 (6.5-8.0) g/dL Albumin 4.2 (3.5-5.0) g/dL Influenza Type A (PCR) NEGATIVE (Negative) Influenza Type B (PCR) NEGATIVE (Negative) RSV RNA Qual (PCR) NEGATIVE (Negative) SARS-CoV-2 RNA (RT-PCR) NEGATIVE (Negative) Discharge Plan Discharge Clinical Impression: Acute asthmatic bronchitis Patient Disposition: Home, Self-Care Instructions: Asthma (ED), How to Use a Metered-Dose Inhaler and a Spacer (ED) Additional Instructions: I have sent a prescription for prednisone to your pharmacy. Please take this daily until done. There is also a prescription for the antibiotic azithromycin. Please take this daily until done. Is also a prescription for an albuterol inhaler. Use 2 puffs every 4-6 hours as needed for shortness of breath or wheezing. Use the inhaler with an AeroChamber (also known as a spacer). Please follow-up soon with your regular doctor. Return to the emergency room if worse. Prescriptions: New prednisone 20 mg tablet 20 mg PO DAILY Qty: 12 0RF Rx Instructions: Take 3 tablets by mouth daily for 2 days, then take 2 tablets by mouth daily for 3 days. azithromycin 250 mg tablet 250 mg PO DAILY 4 Days Qty: 4 0RF Rx Instructions: start on day 2 of therapy albuterol sulfate 90 mcg/actuation HFA aerosol inhaler 2 puff inhalation Q4-6H PRN (Reason: shortness of breath or wheezing) Qty: 8.5 0RF No Action albuterol sulfate 90 mcg/actuation HFA aerosol inhaler 1 inh inhalation QID PRN (Reason: shortness of breath or wheezing) 30 Days Qty: 8.5 0RF acetaminophen [Tylenol Extra Strength] 500 mg tablet 1,000 mg PO QID PRN (Reason: fever or pain) Qty: 14 0RF prednisone 20 mg tablet 60 mg PO DAILY 5 Days Qty: 15 0RF cefuroxime axetil 500 mg tablet 500 mg PO Q12H 7 Days Qty: 14 0RF morphine 15 mg tablet 15 mg PO Q6H PRN (Reason: pain) Qty: 10 0RF Rx Instructions: The patient may ask for partial fill; Partial Fill upon patient request. azithromycin 250 mg tablet See Rx Instructions PO .COMPLEX 5 Days Qty: 6 0RF Rx Instructions: For 250 mg dose pack: take 500 mg today (day 1), then 250 mg for 4 days (days 2-5) PO prednisone 20 mg tablet 40 mg PO DAILY 4 Days Qty: 8 0RF benzonatate 200 mg capsule 200 mg PO TID 7 Days Qty: 21 0RF omeprazole 20 mg capsule,delayed release(DR/EC) 20 mg PO DAILY 30 Days Qty: 30 2RF Referrals: Elias Swenson PA-C [Primary Care Provider] - (Asthma exacerbation, asthmatic bronchitis) Stand Alone Forms: Work/School Release Interventions: ED Discharge Assessment Last Done: 05/22/23 01:30 Discharge Date/Time: 05/22/23 01:31
--- NOTE | 2023-05-21 11:37 | ECG_ITS ---
Test Reason : CHEST PAIN Blood Pressure : / mmHG Vent. Rate : 100 BPM Atrial Rate : 100 BPM P-R Int : 160 ms QRS Dur : 082 ms QT Int : 340 ms P-R-T Axes : 038 010 042 degrees QTc Int : 438 ms Normal sinus rhythm Normal ECG No previous ECGs available Referred By: Vy Alicea Electronically Signed By:Narendra Robbins
[2023-05-21 11:54] LABS: MANUAL DIFF FLAG NO
[2023-05-21 11:58] LABS: Basophils Percent Auto 0.5 % (0-2); Eosinophils Absolute Auto 0.1 X10*3/uL (0.0-0.4); Eosinophils Percent Auto 1.2 % (0-4); Hematocrit 38.5 % (37.0-47.0); Hemoglobin 13.3 g/dl (12.0-16.0); Imm Gran Abs Auto 0.02 X10*3/uL (0.00-0.03); Imm Gran Pct Auto 0.5 % (0.0-0.4); Lymphocytes Absolute Auto 0.9 X10*3/uL (1.2-4.9); Lymphocytes Percent Auto 21.1 % (20-40); Mean Corpuscular HGB Conc 34.5 g/dl (31.0-35.0); Mean Corpuscular Hemoglobin 30.9 pg (27.0-33.0); Mean Corpuscular Volume 89.5 fL (80.0-98.0); Mean Platelet Volume 9.4 fL (9.4-12.3); Monocytes Absolute Auto 0.3 X10*3/uL (0.1-1.2); Monocytes Percent Auto 7.2 % (2-11); Neutrophils Absolute Auto 2.8 x10*3/uL (2.0-8.3); Neutrophils Percent Auto 69.5 % (45-73); Platelet Count 180 X10*3/uL (160-400)
[2023-05-21 12:11] LABS: Alanine Aminotransferase 16 U/L (0-31); Albumin Level 4.2 g/dL (3.5-5.0); Alkaline Phosphatase 83 U/L (39-117); Anion Gap 13 (12-20); Aspartate Amino Transferase 18 U/L (5-31); Bilirubin Total 0.9 mg/dL (0.0-1.0); Blood Urea Nitrogen 14 mg/dL (9-16); Carbon Dioxide 27 mmol/L (22-29); Chloride 102 mmol/L (96-108); Creatinine Clr Calc Pharmacy 57.5; Estimated Glomerular Filt Rate 57; Glucose Random 90 mg/dL (60-115); INTERNATIONAL NORM RATIO 0.9 (0.9-1.1); Magnesium 2.3 mg/dL (1.6-2.6); Potassium 4.1 mmol/L (3.3-5.1); Sodium 138 mmol/L (135-145); Total Protein 6.8 g/dL (6.5-8.0)
[2023-05-21 12:19] LABS: Troponin-I High Sensitivity < 2.7 ng/L (<3.5-17.0)
[2023-05-21 12:37] LABS: Influenza A PCR NEGATIVE (Negative); Influenza B PCR NEGATIVE (Negative); Resp Syncy Virus RNA Qual PCR NEGATIVE (Negative); SARS COV2 PCR INHOUSE NEGATIVE (Negative)
[2023-05-21] MEDS: Ondansetron ODT 4 MG TAB.RAPDIS TRANSLINGU (16:33)
[2023-05-21 17:57] LABS: Troponin-I High Sensitivity < 2.7 ng/L (<3.5-17.0)
[2023-05-21 19:07] LABS: D Dimer High Sensitivity 392 NG/ML
[2023-05-21] MEDS: 0.9 % Sodium Chloride 1,000 ML 999 ML IV ×3 (20:40→22:51)
[2023-05-21] MEDS: Ketorolac Tromethamine 15 MG/ML VIAL 10 MG IVPUSH (20:42)
[2023-05-21] MEDS: Albuterol/Iprat 2.5/0.5MG 3 ML AMPUL.NEB INHALE ×2 (20:56→21:29)
[2023-05-21 21:02] LABS: C Reactive Protein 1.17 mg/dL (< or = 0.50)
[2023-05-21] MEDS: Metoclopramide HCl 10 MG/2 ML VIAL IVPUSH (21:27)
[2023-05-21] MEDS: predniSONE 20 MG TABLET 60 MG PO (21:27)
[2023-05-21] MEDS: guaiFENesin DM 100/10/5 ML 5 ML SYRUP PO (21:58)
[2023-05-21] MEDS: Albuterol Sulfate (0.083%) 2.5 MG/3 ML VIAL.NEB 5 MG INHALE (22:46)
[2023-05-21] MEDS: Azithromycin 500 MG TABLET PO (22:51)
[2023-05-22 01:22] VITALS: BP 110/58; PULSE 74; RESP 17; TEMP 36.6; O2SAT 96
[2023-05-22 01:30] VITALS: BP 110/58; PULSE 74; RESP 17; TEMP 36.6; O2SAT 96
== END 2023-05-22 01:31 | disposition home or self-care (01) ==
PROVIDERS: Physician Assistant Medical; Emergency Provider Emergency Medicine; PCP Physician Assistant
DX: J45.909 Unspecified asthma, uncomplicated (principal); Z91.041 Radiographic dye allergy status; Z11.52 Encounter for screening for COVID-19; Z20.828 Contact with and (suspected) exposure to other viral communicable diseases
CPT/HCPCS: 0241U; 36415; 71046; 80053; 82550; 83735; 84484; 85025; 85379; 85610; 86140; 93005; 94640; 96361; 96374; 96375; 99285; J1885; J2765

== ENCOUNTER → 2023-05-21 11:37 | Outpatient (BNV) | payer OTHER, SELFPAY | PROVIDERS: PCP Physician Assistant; Visit Provider Internal Medicine Cardiovascular Disease | DX: R07.9 Chest pain, unspecified (principal) | CPT/HCPCS: 93010 ==

== ENCOUNTER 2023-05-25 22:53 | Inpatient (IN) | payer OTHER, SELFPAY ==
--- NOTE | ~2023-05-25 | NM_ITS ---
EXAMINATION: PULMONARY PERFUSION STUDY CLINICAL INFORMATION: Rule out PE. COMPARISON: No previous lung scan is available for comparison. A radiograph the chest dated 05/28/2023, the same date as this lung scan, is available for comparison. TECHNIQUE: Following the intravenous injection of 4.0 mCi Tc-99m MAA, a 6-view perfusion study was performed using a gamma scintillation camera. FINDINGS: No segmental perfusion defects are present. There is homogeneous distribution of activity bilaterally. There are no focal anatomic appearing perfusion defects present. NM/NM pul perfusion IMPRESSION: Normal radionuclide lung perfusion scan.
--- NOTE | ~2023-05-25 | XR_ITS ---
EXAMINATION: XR CHEST CLINICAL INFORMATION: Chest pain COMPARISON: Chest 05/25/2023 TECHNIQUE: AP upright portable view of the chest was obtained. 8:06 AM FINDINGS: Interval improvement in pulmonary aeration with decreased prominence of the interstitial markings. No focal consolidation, interstitial pulmonary edema or pneumothorax. The cardiomediastinal silhouette is stable. No pleural effusion. No acute osseous abnormality. XR/XR chest 1V IMPRESSION: Interval improvement in pulmonary aeration with decreased prominence of interstitial markings. No pneumonia or CHF.
--- NOTE | ~2023-05-25 | XR_ITS ---
EXAMINATION: XR CHEST CLINICAL INFORMATION: Shortness of breath. COMPARISON: Chest radiograph 05/21/2023. TECHNIQUE: Frontal view of the chest was obtained. FINDINGS: Stable prominence of the cardiomediastinal silhouette. Worsening pulmonary aeration with increased at least moderate diffuse interstitial thickening. No focal consolidation or pleural effusion. No pneumothorax. No acute osseous findings. XR/XR chest 1V IMPRESSION: Findings are suggestive of small airways disease versus atypical/viral infection without consolidation nor pleural effusion.
[2023-05-25 22:59] VITALS: PULSE 112; RESP 26; TEMP 37.1; O2SAT 98; BMI 32.1
[2023-05-25 23:15] VITALS: BP 152/83; PULSE 96; RESP 34; TEMP 36.8
--- NOTE | 2023-05-25 23:16 | MHC.EDTECH ---
This pct assumed care of patient at 2300 ,Patient was change into hospital attire ,,vitals taken ,and Patient was hooked up to awake overnight monitor ,Call trujillo within Pt reach .
[2023-05-25 23:17] VITALS: PULSE 89; RESP 24; O2SAT 100
[2023-05-25] MEDS: Albuterol Sulfate 2.5 MG, Albuterol/Iprat 2.5/0.5MG 3 ML 3 ML INHALE (23:17)
--- NOTE | 2023-05-25 23:20 | ECG_ITS ---
Test Reason : SOB Blood Pressure : / mmHG Vent. Rate : 104 BPM Atrial Rate : 104 BPM P-R Int : 126 ms QRS Dur : 088 ms QT Int : 350 ms P-R-T Axes : 025 011 038 degrees QTc Int : 460 ms Poor data quality Sinus tachycardia Nonspecific ST abnormality Abnormal ECG When compared with ECG of 21-MAY-2023 11:43, Poor data quality in current ECG precludes serial comparison Referred By: Olive Galo Electronically Signed By:MARQUES JOVEL MD
[2023-05-25 23:27] LABS: MANUAL DIFF FLAG NO
[2023-05-25] MEDS: methylPREDNISolone Sod Succ 125 MG/2 ML VIAL IVPUSH (23:27)
[2023-05-25] MEDS: Magnesium Sulfate/H2O 2 GM/50 ML PIGGYBACK IV (23:27)
[2023-05-25 23:29] LABS: Basophils Percent Auto 0.2 % (0-2); Hematocrit 37.5 % (37.0-47.0); Hemoglobin 13.2 g/dl (12.0-16.0); Imm Gran Abs Auto 0.02 X10*3/uL (0.00-0.03); Imm Gran Pct Auto 0.4 % (0.0-0.4); Lymphocytes Absolute Auto 2.1 X10*3/uL (1.2-4.9); Lymphocytes Percent Auto 43.8 % (20-40); Mean Corpuscular HGB Conc 35.2 g/dl (31.0-35.0); Mean Platelet Volume 9.5 fL (9.4-12.3); Monocytes Absolute Auto 0.2 X10*3/uL (0.1-1.2); Monocytes Percent Auto 3.8 % (2-11); Neutrophils Absolute Auto 2.5 x10*3/uL (2.0-8.3); Neutrophils Percent Auto 51.8 % (45-73); Platelet Count 241 X10*3/uL (160-400); Red Blood Count 4.26 X10*6/uL (4.20-5.50); Red Cell Distribution Width 11.9 % (11.0-16.0); White Blood Count 4.8 X10*3/uL (4.8-10.8)
--- NOTE | 2023-05-25 23:30 | ED.SOB ---
HPI - SOB/Dyspnea General Chief Complaint: Dyspnea Stated Complaint: BREATHING DIFFICULTY Time Seen by Provider: 05/25/23 23:08 History of Present Illness HPI Narrative: Patient is a 57-year-old female presents today with having coughing congestion shortness of breath history of bronchitis. Was seen in the emergency department prior. Presented again with similar symptoms. Patient is seen in the clinic in the past. Never been admitted at [facility]. Positive history of smoking. Patient is from home. Related Data Previous Rx's Medication Instructions Recorded acetaminophen 500 mg tablet 1,000 mg (2 x 500 mg) PO QID PRN 08/15/20 (Tylenol Extra Strength) fever or pain #14 tabs omeprazole 20 mg capsule,delayed 20 mg PO DAILY 30 days #30 caps 12/30/21 release azithromycin 250 mg tablet See Rx Instructions PO .COMPLEX 5 01/28/23 days #6 tabs benzonatate 200 mg capsule 200 mg PO TID cough 7 days #21 caps 03/16/23 prednisone 20 mg tablet 40 mg (2 x 20 mg) PO DAILY 4 days 03/16/23 #8 tabs albuterol sulfate 90 mcg/actuation 1 inh inhalation QID PRN shortness 03/30/23 aerosol inhaler of breath or wheezing 30 days #8.5 grams cefuroxime axetil 500 mg tablet 500 mg PO Q12H 7 days #14 tabs 04/19/23 morphine 15 mg immediate release 15 mg PO Q6H PRN pain #10 tabs 04/19/23 tablet prednisone 20 mg tablet 60 mg (3 x 20 mg) PO DAILY 5 days 04/19/23 #15 tabs albuterol sulfate 90 mcg/actuation 2 puff inhalation Q4-6H PRN 05/22/23 aerosol inhaler shortness of breath or wheezing #8.5 grams azithromycin 250 mg tablet 250 mg PO DAILY 4 days #4 tabs 05/22/23 prednisone 20 mg tablet 20 mg PO DAILY #12 tabs 05/22/23 Allergies Allergy/AdvReac Type Severity Reaction Status Date / Time penicillin V Allergy Severe throat Verified 05/21/23 11:35 swelling Penicillins [PCN] Allergy Hives Verified 05/21/23 11:35 Tetanus Vaccines and Toxoid Allergy Difficulty Verified 05/21/23 11:35 Breathing Iodinated Contrast Media AdvReac Anaphylaxis Verified 05/21/23 11:35 [Contrast Dye] Review of Systems Review of Systems: Positive wheezing Yes all other systems are reviewed and are negative [facility] Past Medical History Medical History Anxiety, generalized Esophageal stricture Normal colonoscopy Asthma Surgical History History of endoscopy History of appendectomy History of bladder surgery History of torn meniscus of right knee History of gallbladder disease History of partial hysterectomy Family History Family History Father CVD (cardiovascular disease) Past heart attack Mother No problems noted. Brother Heart problem Pacemaker Social History Social History Housing: Apartment Alcohol intake: never Patient Tobacco Use Status: Never used Tobacco e-Cigarette/Vaping Use: Never Used Second Hand Smoke Exposure: No Advance Directives: No Advance Directives Information Provided: Yes service: No Current occupational status: unemployed Cognitive needs: No Hearing needs: No Vision needs: Yes (Reading glasses) Physical Exam Vital Signs: Vital Signs: Last Vital Signs Temp 98.2 F 05/25/23 23:15 Pulse 82 05/26/23 00:22 Resp 18 05/26/23 00:22 BP 152/83 H 05/25/23 23:15 Pulse Ox 98 05/25/23 22:59 O2 Del Method Room Air 05/25/23 22:59 BMI result Body Mass Index 32.1 Appearance: Alert. Oriented X3. No acute distress. Eyes: Pupils equal, round and reactive to light. ENT: Pharynx normal. Neck: Normal inspection. Neck supple. No lymph nodes noted. No crepitus CVS: Normal heart rate and rhythm. Pulses normal. Normal S1 and S2 Respiratory: Diminished breath sounds bilaterally to auscultation Abdomen: Soft and nontender. No rigidity. No distention. good BS x4 Skin: Skin warm and dry. Normal skin color. Normal skin turgor. Extremities: No lower extremity edema. Neurovascular intact to all extremities. No Lacerations. No Rash Neuro: Oriented X 3. No motor deficit. No sensory deficit. Moving all extermities. No slurred speech Medications Administered Discontinued Medications Generic Name Dose Route Start Last Admin Trade Name Freq PRN Reason Stop Dose Admin Albuterol Sulfate 2.5 mg/ 0 mg 05/25/23 23:12 05/25/23 23:17 Albuterol/Ipratropium 3 ml INHALE 05/25/23 23:13 5 dose ONCE ONE Administration Albuterol Sulfate 2.5 mg/ 0 mg 05/26/23 00:05 05/26/23 00:21 Albuterol/Ipratropium 3 ml INHALE 05/26/23 00:06 5 dose ONCE ONE Administration Magnesium Sulfate 2 gm in 50 mls @ 150 mls/hr 05/25/23 23:10 05/25/23 23:47 Magnesium Sulfate/H2o IV 05/25/23 23:29 Infused ONCE ONE Infusion Lorazepam 0.5 mg 05/25/23 23:26 05/25/23 23:37 Lorazepam 2 Mg/Ml Vial IVPUSH 05/25/23 23:27 0.5 mg ONCE ONE Administration Methylprednisolone Sodium Succinate 125 mg 05/25/23 23:10 05/25/23 23:27 Methylprednisolone Sod Succ 125 Mg/2 Ml Vial IVPUSH 05/25/23 23:11 125 mg ONCE ONE Administration Medical Decision Making Medical Decision Making [facility] Narrative: 57-year-old female presents today with having shortness of breath wheezing has a history of bronchitis in the past been seen in the emergency department multiple times. Never been admitted. Patient started on steroid bronchodilator protocol. Will monitor very carefully. Patient given steroid, magnesium, multiple neb treatment. Continued to be tight. Having expiratory wheezing. Been into the emergency department multiple times. COVID flu RSV were all negative. Chest x-ray showed no focal infiltrate given multiple treatments still having episodes of hypoxia patient was placed on 2 L. white count is normal. Patient's history not consistent with PE. Will admit patient for further evaluation. Differential Diagnosis Differential Diagnoses: The differential diagnosis associated with the presentation includes Asthma, bronchitis, viral infection, congestive heart failure Admission/Observation Consideration of admission/observation: Escalation of care including admission/observation considered Consult Healthcare Provider Management of the patient was discussed with: Hospitalist Lab Data [facility] Lab Attestation statement: I reviewed the patient's lab results. 05/25/23 23:24 05/25/23 23:24 Labs: Lab Results 05/25/23 05/25/23 Range/Units 23:23 23:24 WBC 4.8 (4.8-10.8) X10*3/uL RBC 4.26 (4.20-5.50) X10*6/uL Hgb 13.2 (12.0-16.0) g/dl Hct 37.5 (37.0-47.0) % MCV 88.0 (80.0-98.0) fL MCH 31.0 (27.0-33.0) pg MCHC 35.2 H (31.0-35.0) g/dl RDW 11.9 (11.0-16.0) % Plt Count 241 D (160-400) X10*3/uL MPV 9.5 (9.4-12.3) fL Immature Gran % (Auto) 0.4 (0.0-0.4) % Neut % (Auto) 51.8 (45-73) % Lymph % (Auto) 43.8 H (20-40) % [place] % (Auto) 3.8 (2-11) % Eos % (Auto) 0.0 (0-4) % Baso % (Auto) 0.2 (0-2) % Lymph # (Auto) 2.1 (1.2-4.9) X10*3/uL [place] # (Auto) 0.2 (0.1-1.2) X10*3/uL Eos # (Auto) 0.0 (0.0-0.4) X10*3/uL Baso # (Auto) 0.0 (0.0-0.2) X10*3/uL Abs Immat Gran (auto) 0.02 (0.00-0.03) X10*3/uL Absolute Neuts (auto) 2.5 (2.0-8.3) x10*3/uL Absolute Nucleated RBC 0.000 (0.0-0.012) X10*3/uL Nucleated RBC % (auto) 0.0 (0.0-0.2) /100WBC PT 10.2 L (11.1-13.3) SEC INR 0.8 L (0.9-1.1) Sodium 143 (135-145) mmol/L Potassium 3.5 (3.3-5.1) mmol/L Chloride 109 H (96-108) mmol/L Carbon Dioxide 23 (22-29) mmol/L Anion Gap 15 (12-20) BUN 20 H (9-16) mg/dL Creatinine 0.86 (0.5-1.4) mg/dL Estim Creat Clear Calc 67.0 Estimated GFR > 60 Random Glucose 125 H (60-115) mg/dL Calcium 9.5 (8.4-10.2) mg/dL Magnesium 2.1 (1.6-2.6) mg/dL Total Bilirubin 0.6 (0.0-1.0) mg/dL AST 16 (5-31) U/L ALT 15 (0-31) U/L Alkaline Phosphatase 77 (39-117) U/L Total Protein 7.1 (6.5-8.0) g/dL Albumin 4.3 (3.5-5.0) g/dL Influenza Type A (PCR) NEGATIVE (Negative) Influenza Type B (PCR) NEGATIVE (Negative) RSV RNA Qual (PCR) NEGATIVE (Negative) SARS-CoV-2 RNA (RT-PCR) NEGATIVE (Negative) Independent Interpretation I performed an independent interpretation of an: EKG (Sinus heart rate is 100 unable to make further interpretation secondary to the poor baseline as patient is short of breath) and Plain X-Ray (Negative for any large focal infiltrate) Radiology Impression Discussion of test interpretation with radiology: I have reviewed the radiologist's reading. External Record Review External record reviewed: Outpatient record Previous outpatient record reviewed Critical Care Time Critical Care Time Critical Care Time: Yes Total Critical Care Time: 40 Attestation: I have personally provided 40 minutes of critical care time exclusive of time spent on separately billable procedures. ?Time includes review of lab data, radiology results, discussion with consultants, and monitoring for potential decompensation. ?Interventions were performed as documented above Discharge Plan Discharge Clinical Impression: Asthma Patient Disposition: Admitted As Inpatient Prescriptions: No Action albuterol sulfate 90 mcg/actuation HFA aerosol inhaler 1 inh inhalation QID PRN (Reason: shortness of breath or wheezing) 30 Days Qty: 8.5 0RF acetaminophen [Tylenol Extra Strength] 500 mg tablet 1,000 mg PO QID PRN (Reason: fever or pain) Qty: 14 0RF prednisone 20 mg tablet 60 mg PO DAILY 5 Days Qty: 15 0RF cefuroxime axetil 500 mg tablet 500 mg PO Q12H 7 Days Qty: 14 0RF morphine 15 mg tablet 15 mg PO Q6H PRN (Reason: pain) Qty: 10 0RF Rx Instructions: The patient may ask for partial fill; Partial Fill upon patient request. prednisone 20 mg tablet 20 mg PO DAILY Qty: 12 0RF Rx Instructions: Take 3 tablets by mouth daily for 2 days, then take 2 tablets by mouth daily for 3 days. azithromycin 250 mg tablet 250 mg PO DAILY 4 Days Qty: 4 0RF Rx Instructions: start on day 2 of therapy albuterol sulfate 90 mcg/actuation HFA aerosol inhaler 2 puff inhalation Q4-6H PRN (Reason: shortness of breath or wheezing) Qty: 8.5 0RF azithromycin 250 mg tablet See Rx Instructions PO .COMPLEX 5 Days Qty: 6 0RF Rx Instructions: For 250 mg dose pack: take 500 mg today (day 1), then 250 mg for 4 days (days 2-5) PO prednisone 20 mg tablet 40 mg PO DAILY 4 Days Qty: 8 0RF benzonatate 200 mg capsule 200 mg PO TID 7 Days Qty: 21 0RF omeprazole 20 mg capsule,delayed release(DR/EC) 20 mg PO DAILY 30 Days Qty: 30 2RF
--- NOTE | 2023-05-25 23:31 | MHC.EDTECH ---
patient ekg taken and was read by Provider ,blood drawn and sent to lab .
[2023-05-25 23:34] LABS: INTERNATIONAL NORM RATIO 0.8 (0.9-1.1); Prothrombin Time 10.2 SEC (11.1-13.3)
[2023-05-25] MEDS: LORazepam 2 MG/ML VIAL 0.5 MG IVPUSH (23:37)
[2023-05-26] VITALS (13 sets, daily range): BP systolic 117–151; BP diastolic 52–78; PULSE 79–96; RESP 16–22; TEMP 36.3–36.9; O2SAT 94–98; BMI 32.1
[2023-05-26 00:05] LABS: Influenza A PCR NEGATIVE (Negative); Influenza B PCR NEGATIVE (Negative); Resp Syncy Virus RNA Qual PCR NEGATIVE (Negative); SARS COV2 PCR INHOUSE NEGATIVE (Negative)
--- NOTE | 2023-05-26 00:14 | PC.NURSE ---
spo2 dropped to 88% on room air. per verbal order from MD placed on O2 @ 2LPM via NC.
[2023-05-26] MEDS: Albuterol Sulfate 2.5 MG, Albuterol/Iprat 2.5/0.5MG 3 ML 3 ML INHALE (00:21)
[2023-05-26 00:42] LABS: Alanine Aminotransferase 15 U/L (0-31); Albumin Level 4.3 g/dL (3.5-5.0); Alkaline Phosphatase 77 U/L (39-117); Anion Gap 15 (12-20); Aspartate Amino Transferase 16 U/L (5-31); Bilirubin Total 0.6 mg/dL (0.0-1.0); Blood Urea Nitrogen 20 mg/dL (9-16); Calcium 9.5 mg/dL (8.4-10.2); Carbon Dioxide 23 mmol/L (22-29); Chloride 109 mmol/L (96-108); Estimated Glomerular Filt Rate > 60; Glucose Random 125 mg/dL (60-115); Magnesium 2.1 mg/dL (1.6-2.6); Potassium 3.5 mmol/L (3.3-5.1); Sodium 143 mmol/L (135-145); Total Protein 7.1 g/dL (6.5-8.0)
--- NOTE | 2023-05-26 01:05 | ECG_ITS ---
Test Reason : DYSPENIA Blood Pressure : / mmHG Vent. Rate : 084 BPM Atrial Rate : 084 BPM P-R Int : 146 ms QRS Dur : 102 ms QT Int : 394 ms P-R-T Axes : 049 004 045 degrees QTc Int : 465 ms Normal sinus rhythm Minimal voltage criteria for LVH, may be normal variant ( Elias product ) Borderline ECG When compared with ECG of 25-MAY-2023 23:27, No significant change was found Referred By: Olive Galo Electronically Signed By:MARQUES JOVEL MD
[2023-05-26 01:07] LABS: Troponin-I High Sensitivity < 2.7 ng/L (<3.5-17.0)
[2023-05-26 01:10] LABS: VBG Base Excess 1.5 mmol/L; VBG HCO3 27 mmol/L (22-26); VBG pCO2 48 mmHg; VBG pH 7.36 (7.32-7.43); VBG pO2 38 mmHg
[2023-05-26 01:10] LABS: Venous Blood Gas Refer to POC result
[2023-05-26 01:10] LABS: B Type Natriuretic Peptide < 10 pg/mL (<100)
--- NOTE | 2023-05-26 01:10 | MHC.EDTECH ---
patient repeated ekg taken and was read by provider ,Venous blood glass drawn and sent to lab ,And Patient belonging list done ,Patient was assisted unto bedside commode ,and and was assisted back to bed .,Patient is feeling much better and Patient at bedside ,Call trujillo within Pt reach .
[2023-05-26] MEDS: Albuterol/Iprat 2.5/0.5MG 3 ML AMPUL.NEB INHALE ×5 (02:46→20:11)
--- NOTE | 2023-05-26 02:48 | P.HPHOSP_ITS ---
History of Present Illness Date of Service: 05/26/23 Attending physician on admission: Anastasiia Villa Chief Complaint: Shortness on breath Ele Gupta is a 57 years old woman with past medical history significant for asthma and generalized anxiety presents to the emergency department complaining of worsening shortness of breath over the last several days. Shortness on breath associated with wheezing and nonproductive cough. She also reported feeling the sensation that her throat is closing and dizziness. She denied any chest pain, nausea, vomiting, fevers or chills. Recently, patient was evaluated in the emergency department (May 20) due to same symptoms are was discharged home to take a course of azithromycin, cefuroxime and prednisone which she has been taking. She did not report any acute gastrointestinal or genitourinary symptoms. Denies tobacco or marijuana smoking, alcohol abuse or illicit drug use. In the ED, she was found to have significant tachypnea. Oxygen saturation is 98 % on room air. There is no fever or significant tachycardia. Blood workup showed no leukocytosis. Platelets and hemoglobin are normal. There are no significant electrolyte imbalances. Renal function is adequate. LFTs negative x2. Troponin is negative x2. Viral testing for influenza, COVID 19 and RSV is negative. CXR showed small airway disease versus atypical/viral infection without consolidation or pleural effusions. ED tx: Solu-Medrol 125 mg IV, magnesium 2 g, albuterol sulfate 2.5 mg/albuterol/ipratropium 3 mL x2, DuoNeb 3 mL and lorazepam 0.5 mg IV. Review of Systems 2 Review of Systems: All 12 systems were reviewed and normal except as noted in HPI. [facility] Medical History Anxiety, generalized Esophageal stricture Normal colonoscopy Asthma Family History Father CVD (cardiovascular disease) Past heart attack Mother No problems noted. Brother Heart problem Pacemaker Surgical History History of endoscopy History of appendectomy History of bladder surgery History of torn meniscus of right knee History of gallbladder disease History of partial hysterectomy Social History Housing: Apartment Alcohol intake: never Patient Tobacco Use Status: Never used Tobacco e-Cigarette/Vaping Use: Never Used Second Hand Smoke Exposure: No Advance Directives: No Advance Directives Information Provided: Yes service: No Current occupational status: unemployed Cognitive needs: No Hearing needs: No Vision needs: Yes (Reading glasses) Meds Allergies Allergy/AdvReac Type Severity Reaction Status Date / Time penicillin V Allergy Severe throat Verified 05/21/23 11:35 swelling Penicillins [PCN] Allergy Hives Verified 05/21/23 11:35 Tetanus Vaccines and Toxoid Allergy Difficulty Verified 05/21/23 11:35 Breathing Iodinated Contrast Media AdvReac Anaphylaxis Verified 05/21/23 11:35 [Contrast Dye] Active Medications: Current Medications Acetaminophen (Acetaminophen 325 Mg Tablet) 650 mg PO Q6H PRN PRN Reason: Pain, Mild (Pain Scale 1-3) Albuterol/Ipratropium (Albuterol/Iprat 2.5/0.5mg 3 Ml Ampul.Neb) 3 ml INHALE Q4H [facility] Enoxaparin Sodium (Enoxaparin Sodium 40 Mg/0.4 Ml Syringe) 40 mg SUBCUT Q24H [facility] Doxycycline Hyclate 100 mg/ (Sodium Chloride) 250 mls @ 166.67 mls/hr IV BID [facility] Lorazepam (Lorazepam 0.5 Mg Tablet) 0.5 mg PO Q6H PRN PRN Reason: Anxiety Methylprednisolone Sodium Succinate (Methylprednisolone Sod Succ 40 Mg/Ml Vial) 40 mg IVPUSH Q8H [facility] Sodium Chloride (0.9 % Sodium Chloride Flush 3 Ml Syringe) 3 ml IVFLUSH QSHIFT [facility] Physical Exam 2 Vital Signs and Narrative: Vital Signs: Last Vital Signs Temp 98.4 F 05/26/23 02:00 Pulse 96 05/26/23 02:46 Resp 20 05/26/23 02:46 BP 151/77 H 05/26/23 02:00 Pulse Ox 97 05/26/23 02:00 O2 Del Method Nasal Cannula 05/26/23 02:00 O2 Flow Rate 2 05/26/23 02:00 BMI result Body Mass Index 32.1 Constitutional - Awake and Alert, No apparent distress. Looks very anxious. Afebrile. HEENT - Normocephalic, atraumatic. Oropharynx: Hyperemia without swelling. Heart - S1S2, RRR. Lungs - Normal lung expansion, Normal respiratory effort, No respiratory distress. Tachypnea. Bilateral inspiratory and expiratory wheezing. Abdomen - NT / ND; +BS; No rebound or guarding Extremities - no calf tenderness bilaterally, no swelling Musculoskeletal - Normal inspection, normal ROM Skin - Warm/Dry Neurological - Alert & oriented x3. No focal weakness. Normal speech. Psychological - depression affect Results Labs 05/25/23 23:24 05/25/23 23:24 Labs: Laboratory Results - last 24 hr 05/25/23 05/25/23 05/26/23 23:23 23:24 01:02 MCV 88.0 MCH 31.0 MCHC 35.2 H RDW 11.9 Plt Count 241 D MPV 9.5 Immature Gran % (Auto) 0.4 Neut % (Auto) 51.8 Lymph % (Auto) 43.8 H [place] % (Auto) 3.8 Eos % (Auto) 0.0 Baso % (Auto) 0.2 Lymph # (Auto) 2.1 [place] # (Auto) 0.2 Eos # (Auto) 0.0 Baso # (Auto) 0.0 Abs Immat Gran (auto) 0.02 Absolute Neuts (auto) 2.5 Absolute Nucleated RBC 0.000 Nucleated RBC % (auto) 0.0 PT 10.2 L INR 0.8 L VBG pH 7.36 VBG pCO2 48 VBG pO2 38 VBG HCO3 27 H VBG O2 Saturation 58.0 VBG Base Excess 1.5 Anion Gap 15 Estim Creat Clear Calc 67.0 Estimated GFR > 60 Random Glucose 125 H Calcium 9.5 Magnesium 2.1 Total Bilirubin 0.6 AST 16 ALT 15 Alkaline Phosphatase 77 Troponin I High Sens < 2.7 B-Natriuretic Peptide < 10 Total Protein 7.1 Albumin 4.3 Influenza Type A (PCR) NEGATIVE Influenza Type B (PCR) NEGATIVE RSV RNA Qual (PCR) NEGATIVE SARS-CoV-2 RNA (RT-PCR) NEGATIVE Imaging Radiologist's Impressions: Impressions Chest X-Ray 05/25/23 23:10 IMPRESSION: Findings are suggestive of small airways disease versus atypical/viral infection without consolidation nor pleural effusion. Assessment and Plan (1) Acute asthma exacerbation: Qualifiers: Asthma persistence: persistent Asthma severity: unspecified severity Qualified Code(s): J45.901 - Unspecified asthma with (acute) exacerbation Status: Acute (2) MEE (generalized anxiety disorder): Status: Acute Plan Ele Gupta is a 57 years old woman admitted with: * Acute asthma exacerbation (2nd visit to ED due to same symptoms, feeling outpatient treatment + continue with symptoms despite receiving treatment with multiple nebs and IV steroids in ED); atypical pneumonia. Admit to hospitalist service. Pulse oximetry. Supplemental oxygen as needed to keep O2 sats > 90%. Continue bronchodilator therapy and IV steroids. Start treatment with doxycycline 500 mg IV every 12 hours. * Generalized anxiety. Ativan p.o. as needed. DVT prophylaxis: Lovenox Code status: Full Need hospitalization for at least 2 midnights for acute asthma exacerbation treatment with Quality Stroke Does the patient have a stroke diagnosis?: No VTE Prior VTE?: No VTE Risk Level:: Medical - moderate - high VTE Device Contraindication: Treatment Not Indicated VTE Drug Contraindication: N/A - Med Ordered
[2023-05-26] MEDS: Doxycycline Hyclate 100 MG in 0.9 % Sodium Chloride 250 ML 166.67 MG IV ×3 (02:51→22:26)
--- NOTE | 2023-05-26 03:24 | MHC.EDTECH ---
PATIENT HAD A HAM SANDWICH AND APPLE JUICE FOR SNACK .
[2023-05-26] MEDS: Morphine Sulfate 2 MG/ML CARTRIDGE IVPUSH ×4 (04:29→20:56)
[2023-05-26 06:38] LABS: Basophils Percent Auto 0.2 % (0-2); Hematocrit 34.2 % (37.0-47.0); Hemoglobin 11.6 g/dl (12.0-16.0); Imm Gran Abs Auto 0.02 X10*3/uL (0.00-0.03); Imm Gran Pct Auto 0.4 % (0.0-0.4); Lymphocytes Absolute Auto 0.5 X10*3/uL (1.2-4.9); Lymphocytes Percent Auto 9.8 % (20-40); MANUAL DIFF FLAG SCAN; Mean Corpuscular HGB Conc 33.9 g/dl (31.0-35.0); Mean Corpuscular Hemoglobin 30.5 pg (27.0-33.0); Mean Platelet Volume 10.2 fL (9.4-12.3); Monocytes Percent Auto 0.8 % (2-11); Neutrophils Absolute Auto 4.4 x10*3/uL (2.0-8.3); Neutrophils Percent Auto 88.8 % (45-73); Platelet Count 205 X10*3/uL (160-400); SCAN SMEAR FLAG 1
[2023-05-26] MEDS: methylPREDNISolone Sod Succ 40 MG/ML VIAL IVPUSH ×3 (06:44→22:26)
[2023-05-26 07:02] LABS: Alanine Aminotransferase 13 U/L (0-31); Albumin Level 3.9 g/dL (3.5-5.0); Alkaline Phosphatase 63 U/L (39-117); Anion Gap 15 (12-20); Aspartate Amino Transferase 12 U/L (5-31); Bilirubin Total 0.4 mg/dL (0.0-1.0); Blood Urea Nitrogen 16 mg/dL (9-16); Carbon Dioxide 21 mmol/L (22-29); Chloride 110 mmol/L (96-108); Creatinine Clr Calc Pharmacy 74.8; Estimated Glomerular Filt Rate > 60; Glucose Random 174 mg/dL (60-115); Potassium 3.7 mmol/L (3.3-5.1); Sodium 142 mmol/L (135-145); Total Protein 6.2 g/dL (6.5-8.0)
[2023-05-26 07:08] LABS: SLIDE REVIEW VERIFIED
[2023-05-26 07:15] LABS: Calcium 8.3 mg/dL (8.4-10.2)
[2023-05-26] MEDS: 0.9 % Sodium Chloride Flush 3 ML SYRINGE IVFLUSH ×2 (08:38→16:57)
--- NOTE | 2023-05-26 08:57 | PHA.MEDREC ---
Pharmacy Consult ? Medication Reconciliation Pharmacy has completed the medication reconciliation. Patient states albuterol pump has not been helping, notes that she had two days left of her prednisone for today and tomorrow.
[2023-05-26] MEDS: Enoxaparin Sodium 40 MG/0.4 ML SYRINGE SUBCUT (09:55)
[2023-05-26] MEDS: guaiFEN/Codeine SF 200/20/10ML 10 ML LIQUID PO ×3 (11:09→22:26)
[2023-05-26] MEDS: Loratadine 10 MG TABLET PO (11:10)
[2023-05-26] MEDS: LORazepam 0.5 MG TABLET PO (13:12)
--- NOTE | 2023-05-26 13:25 | PC.NURSE ---
Pt reports increased SOB and asthma worsening however pt with only mild exp wheeze to left side with notable forced exp effort, breathing is unlabored and even. Pt appears anxious and agreeable to try Ativan as ordered. Doxy infusing longer than expected run time d/t IV location and pt bending arm, new IV start 22g to left wrist. Decreased pain level 5/10 s/p Morphine given.
--- NOTE | 2023-05-26 13:51 | MHC.CM.PN ---
IMM 05/26/23, Pt lives alone, she is independent, no home health services or medical equipment, HCP discussed and pt does not have one and declined to complete one. Her PCP is: Hanh Swenson, She will arrange transport at DC. CM to follow and assist with DC plan.
[2023-05-27] VITALS (11 sets, daily range): BP systolic 128–157; BP diastolic 60–92; PULSE 67–89; RESP 16–20; TEMP 36.1–36.7; O2SAT 92–97
[2023-05-27] MEDS: 0.9 % Sodium Chloride Flush 3 ML SYRINGE IVFLUSH ×4 (00:01→22:25)
[2023-05-27] MEDS: guaiFEN/Codeine SF 200/20/10ML 10 ML LIQUID PO ×4 (05:36→22:24)
[2023-05-27] MEDS: methylPREDNISolone Sod Succ 40 MG/ML VIAL IVPUSH ×3 (05:36→22:20)
[2023-05-27] MEDS: Enoxaparin Sodium 40 MG/0.4 ML SYRINGE SUBCUT (07:49)
[2023-05-27] MEDS: Loratadine 10 MG TABLET PO (07:49)
[2023-05-27] MEDS: Morphine Sulfate 2 MG/ML CARTRIDGE IVPUSH ×3 (07:51→22:19)
[2023-05-27] MEDS: Albuterol/Iprat 2.5/0.5MG 3 ML AMPUL.NEB INHALE ×4 (07:54→19:41)
[2023-05-27] MEDS: Doxycycline Hyclate 100 MG in 0.9 % Sodium Chloride 250 ML 166.67 MG IV ×2 (07:59→22:37)
--- NOTE | 2023-05-27 14:35 | HO.PM.IMPN ---
Subjective Subjective Date of Service: 05/27/23 Interval History: Acute asthma exacerbation Review of Systems Patient is still short of breath with minimal exertion, toxin very slow sentences Has cough mostly dry No fever Physical Exam Vital Signs: Vital Signs: Last Vital Signs Temp 98.0 F 05/27/23 11:38 Pulse 77 05/27/23 11:38 Resp 18 05/27/23 11:38 BP 135/60 05/27/23 11:38 Pulse Ox 93 05/27/23 11:38 O2 Del Method Room Air 05/27/23 11:38 O2 Flow Rate 2 05/26/23 04:25 BMI result Body Mass Index 32.1 Appearance: Alert.? Oriented X3.? cvs: rrr, [id number] , no murmur res:air entry diminshed ,has b/l wheezing abd: no rebound or guarding ,nt, bs present. ext pulses present , no cyanosis . neuro: axo3 , nonfocal. Objective Data Active Medications Acetaminophen (Acetaminophen 325 Mg Tablet) 650 mg PO Q6H PRN PRN Reason: Pain, Mild (Pain Scale 1-3) Albuterol/Ipratropium (Albuterol/Iprat 2.5/0.5mg 3 Ml Ampul.Neb) 3 ml INHALE Q4H [facility] Last Admin: 05/27/23 11:09 Dose: 3 ml Documented By: JAH Enoxaparin Sodium (Enoxaparin Sodium 40 Mg/0.4 Ml Syringe) 40 mg SUBCUT Q24H [facility] Last Admin: 05/27/23 07:49 Dose: 40 mg Documented By: BRAULIO Guaifenesin/Codeine Phosphate (Guaifen/Codeine Sf 200/20/10ml 10 Ml Liquid) 10 ml PO Q6H [facility] Last Admin: 05/27/23 12:27 Dose: 10 ml Documented By: BRAULIO Doxycycline Hyclate 100 mg/ (Sodium Chloride) 250 mls @ 166.67 mls/hr IV BID [facility] Last Infusion: 05/27/23 09:30 Dose: Infused Documented By: BRAULIO Loratadine (Loratadine 10 Mg Tablet) 10 mg PO DAILY [facility] Last Admin: 05/27/23 07:49 Dose: 10 mg Documented By: BRAULIO Lorazepam (Lorazepam 0.5 Mg Tablet) 0.5 mg PO Q6H PRN PRN Reason: Anxiety Last Admin: 05/26/23 13:12 Dose: 0.5 mg Documented By: PARRIS Methylprednisolone Sodium Succinate (Methylprednisolone Sod Succ 40 Mg/Ml Vial) 40 mg IVPUSH Q8H [facility] Last Admin: 05/27/23 13:58 Dose: 40 mg Documented By: BRAULIO Morphine Sulfate (Morphine Sulfate 2 Mg/Ml Cartridge) 2 mg IVPUSH Q4H PRN; Protocol PRN Reason: Pain, Mild (Pain Scale 1-3) Last Admin: 05/27/23 13:57 Dose: 2 mg Documented By: BRAULIO Sodium Chloride (0.9 % Sodium Chloride Flush 3 Ml Syringe) 3 ml IVFLUSH QSHIFT [facility] Last Admin: 05/27/23 13:58 Dose: 3 ml Documented By: BRAULIO Labs 05/26/23 05:19 05/26/23 05:19 Assessment and Plan (1) Acute asthma exacerbation: Status: Acute Plan 57 years old woman admitted with: Acute asthma exacerbation (2nd visit to ED due to same symptoms, feeling outpatient treatment + continue with symptoms despite receiving treatment with multiple nebs and IV steroids in ED);possible atypical pneumonia. Still short of breath with minimal exertion, only little improvement continue Pulse oximetry. Supplemental oxygen as needed to keep O2 sats > 90%, nebs,steriods ,doxycycline ,loratidine ,cough med. Generalized anxiety. Ativan p.o. as needed. DVT prophylaxis: Lovenox Ongoing hospitalization need 48-72 hours: acute asthma exacerbation treatment with possible atypical pneumonia : Still symptomatic with current treatment plan, possible benefit from continuing current treatment regimen for next 24 hours or so. Quality Stroke Does the patient have a stroke diagnosis?: No VTE Prior VTE?: No VTE Risk Level:: Medical - moderate - high VTE Device Contraindication: Treatment Not Indicated VTE Drug Contraindication: N/A - Med Ordered
--- NOTE | 2023-05-27 14:49 | MHC.CM.PN ---
EMR reviewed and per MD rounds, pt is not medically cleared for D/C due to management of acute asthma exacerbation.
[2023-05-28] VITALS (11 sets, daily range): BP systolic 125–158; BP diastolic 57–78; PULSE 66–86; RESP 16–20; TEMP 36–37.2; O2SAT 92–98
--- NOTE | 2023-05-28 | ECG_ITS ---
Test Reason : chest pain Blood Pressure : / mmHG Vent. Rate : 060 BPM Atrial Rate : 060 BPM P-R Int : 134 ms QRS Dur : 090 ms QT Int : 428 ms P-R-T Axes : 043 015 042 degrees QTc Int : 428 ms Normal sinus rhythm Normal ECG When compared with ECG of 26-MAY-2023 01:05, No significant change was found Referred By: Anastasiia Villa Electronically Signed By:MARQUES JOVEL MD
[2023-05-28] MEDS: guaiFEN/Codeine SF 200/20/10ML 10 ML LIQUID PO ×4 (05:58→22:48)
[2023-05-28] MEDS: Morphine Sulfate 2 MG/ML CARTRIDGE IVPUSH ×3 (05:58→12:53)
[2023-05-28] MEDS: methylPREDNISolone Sod Succ 40 MG/ML VIAL IVPUSH ×3 (05:59→23:24)
--- NOTE | 2023-05-28 07:00 | CA_ITS ---
Transthoracic Echocardiogram Patient (Last, First, Middle): Ele Gupta M Gender: Female Date of : 1965 Age: 57 Procedure Date: 05/28/2023 Procedure Type: Transthoracic Echocardiogram Location: [facility] [place] Height: 154.94 cm Weight: 77.11 kg BSA: 1.76 m2 Heart Rate: bpm BP: 157 / 78 mmHg Glass Driller: TO Referring MD: Geoff Gray MD Greenskeeper Supervisor: Rubio Moody MD Symptoms: chest pains Study Quality: Fair/Contrast ECG Rhythm: Sinus Conclusions: - 1. Hyperdynamic LV EF of greater than 70% with grade 1 diastolic dysfunction with possible basal inferior inferoseptal hypokinesis 2. Cardiac valvular Doppler within normal limits 3. Upper limits of normal ascending aortic size 4. Normal RV systolic pressure 5. No pericardial effusion Findings Procedure Information Contrast agent, definity, is being given per protocol without apparent complications. Left Ventricle Normal left ventricular cavity size. There is normal left ventricular wall thickness. The left ventricular systolic function is hyperdynamic. The visually estimated ejection fraction is >70%. Spectral Doppler is indicative of an impaired relaxation filling pattern. E/E prime ratio is <8, consistent with normal filling pressures. There is mild septal asymmetric hypertrophy. Wall Motion Rest Echo Findings The basal inferior and basal inferoseptal segments are hypokinetic. All other scored wall segments showed normal motion. Right Ventricle Normal right ventricular cavity size and systolic function. Atria Both atria are normal in size. Interatrial shunt cannot be excluded. Aortic Valve There is no aortic valve stenosis. There is no aortic valve regurgitation. Mitral Valve There is mild anterior and posterior mitral leaflet thickening. There is mild posterior mitral annular calcification. There is mild mitral annular calcification. There is no mitral valve regurgitation. There is no mitral valve stenosis. Pulmonic Valve The pulmonic valve is likely normal. Tricuspid Valve Normal tricuspid valve structure. There is mild tricuspid valve regurgitation. The right ventricular systolic pressure is normal. The right ventricular systolic pressure is 29 mmHg. Normal right atrial pressure. There is no evidence of pulmonary hypertension. Great Vessels All visible segments of the aorta are normal in size. The pulmonary artery was not well visualized. Venous The inferior vena cava is normal in size and collapses greater than 50% with inspiration. Pericardium/Pleural There is no evidence of pericardial effusion. Prior Study Comparison No prior study available for comparison. Measurements 2D Linear Measurements IVSd: 1.23 0.6-0.9/0.6-1.0 cm LVIDd: 4.21 3.9-5.3/4.2-5.9 cm LVIDd Index: 2.39 2.4-3.2/2.2-3.1 cm/m2 LVIDs: 2.77 2.0-3.6 cm LVPWd: 0.92 0.7-1.1 cm LA Diam: 3.30 2.7-3.8/3.0-4.0 cm LAIDs Index: 1.88 1.5-2.3 cm/m2 LV Mass: 189.95 67-162/88-224 g LV Mass Index: 107.92 43-95/49-115 g/m2 LVOT Diam: 2.00 3.0+(-)1.3 cm 2D Systolic Function EF 4C: 66.10 >55% EF 2C: 74.90 >55% EF BiP: 71.20 >55% Mitral Valve MV VTI: 0.23 MV Pk Ray: 1.02 MV Mn Ray: 0.59 MV Pk Grad: 4.00 MV Mn Grad: 2.00 MV Pk E: 0.64 MV PK A: 0.64 MV Decel Time: 178.00 E/A: 1.00 E'Lateral: 9.57 E'Medial: 6.53 E/E' Med: 9.80 E/E' Lat: 6.70 PHT: 52.00 MVA PHT: 4.23 MVA Continuity: 3.71 Decel [place]: 3.59 Aortic Valve AoV Pk Ray: 1.57 AoV Mn Ray: 1.06 AoV VTI: 0.31 AoV Pk Grad: 10.00 Aov Mn Grad: 5.00 ROD Cont.VTI: 2.72 LVOT LVOT Pk Ray: 1.16 LVOT Mn Ray: 0.78 LVOT VTI: 0.27 LVOT Pk Grad: 5.00 LVOT Mn Grad: 3.00 LVOT Diam: 2.00 LVOT Area: 3.14 Diastolic Function MV Pk E: 0.64 MV Pk A: 0.64 E/A: 1.00 E'Medial: 6.53 E/E' Med: 9.80 E' Laterial: 9.57 E/E' Lat: 6.70 Right Ventricle TAPSE (mm): 21.30 TVS' Ray: 19.00 Tricuspid Valve TR Pk Ray: 2.27 TR Pk Grad: 21.00 RA Press: 8.00 RVSP: 29.00 Great Vessels Aorta Sinus of Valsalva: 3.07 2.0-3.5 cm Ao Asc: 3.60 2.1-3.4 cm Ao Arch: 3.00 Updated in Other Vendor System with Status of Final Rubio Moody MD electronically signed on 05/28/2023 2:55:00 PM with status of Final
[2023-05-28] MEDS: Albuterol/Iprat 2.5/0.5MG 3 ML AMPUL.NEB INHALE ×5 (07:24→23:54)
[2023-05-28 07:56] LABS: Troponin-I High Sensitivity < 2.7 ng/L (<3.5-17.0)
[2023-05-28] MEDS: Loratadine 10 MG TABLET PO (08:42)
[2023-05-28] MEDS: Enoxaparin Sodium 40 MG/0.4 ML SYRINGE SUBCUT (08:42)
[2023-05-28] MEDS: Doxycycline Hyclate 100 MG in 0.9 % Sodium Chloride 250 ML 166.67 MG IV ×2 (08:43→20:41)
[2023-05-28] MEDS: 0.9 % Sodium Chloride Flush 3 ML SYRINGE IVFLUSH ×2 (08:43→16:10)
--- NOTE | 2023-05-28 09:49 | P.CONPL_ITS ---
History of Present Illness History of Present Illness Consult date: 05/28/23 Chief complaint: Acute asthma exacerbation Narrative: This is an inpatient pulmonary consultation. The patient is a 57 years old woman previously very healthy with a history of asthma who presents to the emergency department complaining of worsening shortness of breath over the last several days. Shortness on breath associated with wheezing and nonproductive cough. She also reported feeling the sensation that her throat is closing and dizziness. She denied any chest pain, nausea, vomiting, fevers or chills. Recently, patient was evaluated in the emergency department (May 20) due to same symptoms are was discharged home to take a course of azithromycin, cefuroxime and prednisone which she has been taking. She did not report any acute gastrointestinal or genitourinary symptoms. Denies tobacco or marijuana smoking, alcohol abuse or illicit drug use. CXR personally by me demonstrated small airway disease and a small pleural effusions. She is complaining significant pleuritic pain. She had done blood work initially on presentation her D-dimer was indeed elevated. Unfortunately she appears to have severe allergies to contrast dye. She is on steroids and therefore we can just have her have a CTA the fact that she is already premedicated with steroids but based on her significant anaphylaxis will go ahead and order a V/Q scan for her to have. In the meantime do agree that getting an echocardiogram will be helpful assessing for pericarditis. Her symptoms are real she is very uncomfortable. Review of Systems 2 Constitutional: Constitutional: Denies fever(s) Eyes: Eyes: Reports no additional eye complaints ENT: Reports system reviewed and no additional complaints, except as documented Cardiovascular: Cardiovascular: Reports chest pain, Reports palpitations and Reports dyspnea Respiratory: Respiratory: Reports cough, Reports pain on inspiration, Reports pain with cough, Reports dyspnea and Reports wheezing Gastrointestinal: Gastrointestinal: Reports no additional gastrointestinal complaints Musculoskeletal: Musculoskeletal: Reports no additional musculoskeletal complaints Endocrine: Endocrine: Reports palpitations Hematologic/Lymphatic: Hematologic/Lymphatic: Denies easy bleeding and Denies easy bruising Allergic/Immunologic: Allergic/Immunologic: Reports wheezing PMFSH Past Medical History Medical History Anxiety, generalized Esophageal stricture Normal colonoscopy Asthma Family History Family History Father CVD (cardiovascular disease) Past heart attack Mother No problems noted. Brother Heart problem Pacemaker Surgical History Surgical History History of endoscopy History of appendectomy History of bladder surgery History of torn meniscus of right knee History of gallbladder disease History of partial hysterectomy Social History Social History Household Members: Spouse Housing: Apartment Do you presently have visiting nurse or other home services: No Alcohol intake: never Patient Tobacco Use Status: Never used Tobacco e-Cigarette/Vaping Use: Never Used Second Hand Smoke Exposure: No Use of substances other than those prescribed or required for medical reasons: No Currently Displaying Signs/Symptoms of Drug Intoxication Withdrawal: No Have you been hit, kicked, punched, or otherwise hurt by someone within the past year? If so, by whom?: No Do you feel safe in your current relationship?: Yes Is there a partner from a previous relationship who is making you feel unsafe now?: No Are you made to feel afraid or neglected: No Spiritual Healthcare Practices: Hinduism Advance Directives: No Advance Directives Information Provided: Yes Do you have thoughts of harming others: None Do you have a plan to hurt others: No Plan Recently lost weight without trying: Unsure Nutrition Risks: Poor intake 0-25% >4 days Patient : No : No service: No Current occupational status: unemployed Cognitive needs: No Hearing needs: No Vision needs: Yes (Reading glasses) Meds Allergies Allergy/AdvReac Type Severity Reaction Status Date / Time penicillin V Allergy Severe throat Verified 05/21/23 11:35 swelling Penicillins [PCN] Allergy Hives Verified 05/21/23 11:35 Tetanus Vaccines and Toxoid Allergy Difficulty Verified 05/21/23 11:35 Breathing Iodinated Contrast Media AdvReac Anaphylaxis Verified 05/21/23 11:35 [Contrast Dye] Active Medications: Current Medications Acetaminophen (Acetaminophen 325 Mg Tablet) 650 mg PO Q6H PRN PRN Reason: Pain, Mild (Pain Scale 1-3) Albuterol/Ipratropium (Albuterol/Iprat 2.5/0.5mg 3 Ml Ampul.Neb) 3 ml INHALE Q4H [facility] Last Admin: 05/28/23 07:24 Dose: 3 ml Enoxaparin Sodium (Enoxaparin Sodium 40 Mg/0.4 Ml Syringe) 40 mg SUBCUT Q24H [facility] Last Admin: 05/28/23 08:42 Dose: 40 mg Guaifenesin/Codeine Phosphate (Guaifen/Codeine Sf 200/20/10ml 10 Ml Liquid) 10 ml PO Q6H [facility] Last Admin: 05/28/23 05:58 Dose: 10 ml Doxycycline Hyclate 100 mg/ (Sodium Chloride) 250 mls @ 166.67 mls/hr IV BID [facility] Last Admin: 05/28/23 08:43 Dose: 166.67 mls/hr Loratadine (Loratadine 10 Mg Tablet) 10 mg PO DAILY [facility] Last Admin: 05/28/23 08:42 Dose: 10 mg Lorazepam (Lorazepam 0.5 Mg Tablet) 0.5 mg PO Q6H PRN PRN Reason: Anxiety Last Admin: 05/26/23 13:12 Dose: 0.5 mg Methylprednisolone Sodium Succinate (Methylprednisolone Sod Succ 40 Mg/Ml Vial) 40 mg IVPUSH Q8H [facility] Last Admin: 05/28/23 05:59 Dose: 40 mg Morphine Sulfate (Morphine Sulfate 2 Mg/Ml Cartridge) 2 mg IVPUSH Q4H PRN; Protocol PRN Reason: Pain, Mild (Pain Scale 1-3) Last Admin: 05/28/23 05:58 Dose: 2 mg Sodium Chloride (0.9 % Sodium Chloride Flush 3 Ml Syringe) 3 ml IVFLUSH QSHIFT [facility] Last Admin: 05/28/23 08:43 Dose: 3 ml Home Medications ?Medication ?Instructions ?Recorded ?Confirmed ?Last Taken ?Type albuterol sulfate 90 mcg/actuation 2 puff inhalation Q4-6H PRN 05/26/23 05/26/23 Unknown History aerosol inhaler wheezing prednisone 20 mg tablet 40 mg PO DAILY 05/26/23 05/26/23 05/25/23 History Physical Exam 2 Vital Signs: Vital Signs: Last Vital Signs Temp 97.4 F 05/28/23 07:32 Pulse 75 05/28/23 07:32 Resp 20 05/28/23 07:32 BP 157/78 H 05/28/23 07:32 Pulse Ox 98 05/28/23 07:32 O2 Del Method Room Air 05/28/23 07:32 O2 Flow Rate 2 05/26/23 04:25 BMI result Body Mass Index 32.1 Const: General: comfortable and anxious HEENT: Head: Yes normocephalic Neck: Neck: Yes supple Chest: Chest palpation & inspection: normal inspection of the chest Resp: Effort & Inspection: normal respiratory effort Auscultation: wheezes Cardio: Heart sounds: S1 normal heart sound present and S2 normal heart sound present GI: Palpation (GI): Soft to palpation Skin: General skin exam: no rashes or lesions noted Extrem: General: No cyanosis Results Laboratory Findings 05/26/23 05:19 05/26/23 05:19 ABG, PT/INR, D-dimer: PT/INR, D-dimer PT 10.2 SEC (11.1-13.3) L 05/25/23 23:23 INR 0.8 (0.9-1.1) L 05/25/23 23:23 Abnormal lab findings: Abnormal Labs 05/25/23 05/25/23 05/26/23 23:23 23:24 01:02 RBC Hgb Hct MCHC 35.2 H Neut % (Auto) Lymph % (Auto) 43.8 H [place] % (Auto) Lymph # (Auto) [place] # (Auto) PT 10.2 L INR 0.8 L VBG HCO3 27 H Chloride 109 H Carbon Dioxide BUN 20 H Random Glucose 125 H Calcium Total Protein 05/26/23 05:19 RBC 3.80 L Hgb 11.6 L Hct 34.2 L MCHC Neut % (Auto) 88.8 H Lymph % (Auto) 9.8 L [place] % (Auto) 0.8 L Lymph # (Auto) 0.5 L [place] # (Auto) 0.0 L PT INR VBG HCO3 Chloride 110 H Carbon Dioxide 21 L BUN Random Glucose 174 H Calcium 8.3 L D Total Protein 6.2 L Assessment and Plan (1) Acute asthma exacerbation: Qualifiers: Asthma persistence: persistent Asthma severity: unspecified severity Q ualified Code(s): J45.901 - Unspecified asthma with (acute) exacerbation Status: Acute (2) COVID-19 virus infection: Status: Acute (3) Pleuritic chest pain: Status: Acute Plan The patient is presenting with worsening shortness of breath and chest pain after having a prolonged course of COVID. Her D-dimer was indeed elevated. Ruling thromboembolic disease is very important in a young lady who was previously healthy. Echocardiogram also be helpful assessing for pericarditis after having a viral syndrome. Had enzymes are reassuring and normal. Her asthma seems to be slowly improving. Recommendations: Need to rule out thromboembolic disease. Anaphylactic reactions to contrast dye. Therefore will do a V/Q scan. If we need to get a CTA we will talk to her and make sure she is well premedicated to be able to do it safely. Continue Solu-Medrol Noncontrast CT scan may also be helpful assessing for pleural effusions them be resulting in the pleuritic discomfort. Specially with the abnormal chest x-ray initially. Will wait for the results of V/Q scan before ordering additional testing. Awaiting echocardiogram Will request additional blood work at this time Procedures Date of Service Date of Service: 05/28/23
[2023-05-28 10:13] LABS: Amphetamine Screen Urine Not Detected (Not Detect); Barbiturates, Urine Not Detected (Not Detect); Benzodiazepines Screen Urine Not Detected (Not Detect); Cannabinoid Screen Urine Not Detected (Not Detect); Cocaine Screen Urine Not Detected (Not Detect); Fentanyl, urine Not Detected (Not Detect); Opiate Screen Urine POSITIVE (Not Detect); Phencyclidine Screen Urine Not Detected (Not Detect)
[2023-05-28 11:54] LABS: Erythrocyte Sedimentation Rate 12 MM/HR (0-20)
--- NOTE | 2023-05-28 12:32 | PC.RT ---
RT called, RN states pt c/o asthma attack. Pt awake, spo2 95% ra, hr 91, rr 21 pt post ambulation, LS bilat persistant exp wheezes. PRN svn given, linette well by pt. 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
[2023-05-28 14:45] LABS: Adenovirus PCR Not Detected (Not Detect.); Bordetella parapertussis PCR Not Detected (Not Detect.); Bordetella pertussis PCR Not Detected (Not Detect.); Chlamydia pneumoniae PCR Not Detected (Not Detect.); Coronavirus 229E PCR Not Detected (Not Detect.); Coronavirus HKU1 PCR Not Detected (Not Detect.); Coronavirus NL63 PCR Not Detected (Not Detect.); Coronavirus OC43 PCR Not Detected (Not Detect.); Human metapneumovirus PCR Not Detected (Not Detect.); Influenza A PCR Not Detected (Not Detect.); Influenza B PCR Not Detected (Not Detect.); Mycoplasma pneumoniae PCR Not Detected (Not Detect.); Parainfluenza 1 PCR Not Detected (Not Detect.); Parainfluenza 2 PCR Not Detected (Not Detect.); Parainfluenza 3 PCR Not Detected (Not Detect.); Parainfluenza 4 PCR Not Detected (Not Detect.); RSV PCR Not Detected (Not Detect.); Rhino/Enterovirus PCR Not Detected (Not Detect.); SARS-CoV-2 PCR Not Detected (Not Detect.)
--- NOTE | 2023-05-28 15:06 | P.PNIM_ITS ---
Subjective Subjective Date of Service: 05/28/23 Interval History: acute asthma excerebation Review of Systems sob seems similar has intermittent pleurtic pain Physical Exam 2 Vital Signs: Vital Signs: Last Vital Signs Temp 98.2 F 05/28/23 10:58 Pulse 69 05/28/23 11:05 Resp 20 05/28/23 11:05 BP 149/67 H 05/28/23 10:58 Pulse Ox 94 05/28/23 10:58 O2 Del Method Room Air 05/28/23 10:58 O2 Flow Rate 2 05/26/23 04:25 BMI result Body Mass Index 32.1 Appearance: Alert.? Oriented X3.? cvs: rrr, [id number] , no murmur res:air entry diminshed ,has b/l wheezing abd: no rebound or guarding ,nt, bs present. ext pulses present , no cyanosis. neuro: axo3 , nonfocal. Objective Data Active Medications Acetaminophen (Acetaminophen 325 Mg Tablet) 650 mg PO Q6H PRN PRN Reason: Pain, Mild (Pain Scale 1-3) Albuterol/Ipratropium (Albuterol/Iprat 2.5/0.5mg 3 Ml Ampul.Neb) 3 ml INHALE Q4H [facility] Last Admin: 05/28/23 11:04 Dose: 3 ml Documented By: SOUMYA Enoxaparin Sodium (Enoxaparin Sodium 40 Mg/0.4 Ml Syringe) 40 mg SUBCUT Q24H [facility] Last Admin: 05/28/23 08:42 Dose: 40 mg Documented By: VALENTINE Guaifenesin/Codeine Phosphate (Guaifen/Codeine Sf 200/20/10ml 10 Ml Liquid) 10 ml PO Q6H [facility] Last Admin: 05/28/23 12:23 Dose: 10 ml Documented By: VALENTINE Doxycycline Hyclate 100 mg/ (Sodium Chloride) 250 mls @ 166.67 mls/hr IV BID [facility] Last Infusion: 05/28/23 11:17 Dose: Infused Documented By: VALENTINE Loratadine (Loratadine 10 Mg Tablet) 10 mg PO DAILY [facility] Last Admin: 05/28/23 08:42 Dose: 10 mg Documented By: VALENTINE Lorazepam (Lorazepam 0.5 Mg Tablet) 0.5 mg PO Q6H PRN PRN Reason: Anxiety Last Admin: 05/26/23 13:12 Dose: 0.5 mg Documented By: PARRIS Methylprednisolone Sodium Succinate (Methylprednisolone Sod Succ 40 Mg/Ml Vial) 40 mg IVPUSH Q8H [facility] Last Admin: 05/28/23 12:53 Dose: 40 mg Documented By: VALENTINE Morphine Sulfate (Morphine Sulfate 2 Mg/Ml Cartridge) 2 mg IVPUSH Q4H PRN; Protocol PRN Reason: Pain, Mild (Pain Scale 1-3) Last Admin: 05/28/23 12:53 Dose: 2 mg Documented By: VALENTINE Sodium Chloride (0.9 % Sodium Chloride Flush 3 Ml Syringe) 3 ml IVFLUSH QSHIFT [facility] Last Admin: 05/28/23 08:43 Dose: 3 ml Documented By: VALENTINE Labs 05/26/23 05:19 05/26/23 05:19 Labs: Laboratory Results - last 24 hr 05/28/23 05/28/23 05/28/23 07:25 09:50 10:35 ESR 12 Troponin I High Sens < 2.7 Urine Opiates Screen POSITIVE H Urine Fentanyl Screen Not Detected Ur Barbiturates Screen Not Detected Ur Phencyclidine Scrn Not Detected Ur Amphetamines Screen Not Detected U Benzodiazepines Scrn Not Detected Urine Cocaine Screen Not Detected U Marijuana (THC) Screen Not Detected Respiratory Panel [facility] Adenovirus (Rapid PCR) B.pert (TEM-PCR) B.parapertussis DNA PCR C. pneumoniae DNA (PCR) Coronavirus OC43 (PCR) Coronavirus HKU1 (PCR) Coronavirus 229E (PCR) Coronavirus NL63 (PCR) Human Metapneumovir PCR Influenza A (RT-PCR) Influenza B (RT-PCR) M. pneumoniae (PCR) Parainfluenza 1 (PCR) Parainfluenza 2 (PCR) Parainfluenza 3 (PCR) Parainfluenza 4 (PCR) RSV (PCR) Entero/Rhino (PCR) SARS-CoV-2 RNA (RT-PCR) 05/28/23 13:24 ESR Troponin I High Sens Urine Opiates Screen Urine Fentanyl Screen Ur Barbiturates Screen Ur Phencyclidine Scrn Ur Amphetamines Screen U Benzodiazepines Scrn Urine Cocaine Screen U Marijuana (THC) Screen Respiratory Panel [facility] See Note Adenovirus (Rapid PCR) Not Detected B.pert (TEM-PCR) Not Detected B.parapertussis DNA PCR Not Detected C. pneumoniae DNA (PCR) Not Detected Coronavirus OC43 (PCR) Not Detected Coronavirus HKU1 (PCR) Not Detected Coronavirus 229E (PCR) Not Detected Coronavirus NL63 (PCR) Not Detected Human Metapneumovir PCR Not Detected Influenza A (RT-PCR) Not Detected Influenza B (RT-PCR) Not Detected M. pneumoniae (PCR) Not Detected Parainfluenza 1 (PCR) Not Detected Parainfluenza 2 (PCR) Not Detected Parainfluenza 3 (PCR) Not Detected Parainfluenza 4 (PCR) Not Detected RSV (PCR) Not Detected Entero/Rhino (PCR) Not Detected SARS-CoV-2 RNA (RT-PCR) Not Detected Assessment and Plan (1) Pleuritic chest pain: Status: Acute (2) Acute asthma exacerbation: Status: Acute Assessment and Plan: 57 years old woman admitted with: Acute asthma exacerbation (2nd visit to ED due to same symptoms, feeling outpatient treatment + continue with symptoms despite receiving treatment with multiple nebs and IV steroids in ED);possible atypical pneumonia. Still short of breath with minimal exertion, only little improvement pleurtic chest pain -workup v/q scan neg , tropx3 since admission neg, EKg nonischemic , repeat cxr improving , echo -ef 70% with possible basal inferior inferoseptal hypokinesis . d/w cardiology : currently patient cardiac enzymes /ekg -does not show ischmeic changes -defer cardiac workup outpatient pain improving with hycodan, added toradol. d/w pulm -continue Pulse oximetry. Supplemental oxygen as needed to keep O2 sats > 90%, nebs,steriods ,doxycycline ,loratidine ,cough med. Generalized anxiety. Ativan p.o. as needed. DVT prophylaxis: Lovenox Ongoing hospitalization need 48-72 hours: acute asthma exacerbation treatment with possible atypical pneumonia : Still symptomatic with current treatment plan, possible benefit from continuing current treatment regimen for next 24 hours or so. Quality Stroke Does the patient have a stroke diagnosis?: No VTE Prior VTE?: No VTE Risk Level:: Medical - moderate - high VTE Device Contraindication: Treatment Not Indicated VTE Drug Contraindication: N/A - Med Ordered
--- NOTE | 2023-05-28 15:17 | P.CDIM_ITS ---
PROVIDER RESPONSE TEXT: To clarify, the appropriate diagnosis supported by the clinical indicators: Mild persistent: with acute asthma excerebation QUERY TEXT: PHYSICIAN'S DOCUMENTATION REQUEST Date of Query: 05/28/2023 10:52 AM EDT Patient Name: Ele Gupta Admit Date: 05/26/2023 Dear Geoff Gray, A review of the medical record indicates additional documentation may be needed. Please review below and update the documentation accordingly. The diagnosis of asthma was documented in the record on 05/27/23. Additional clinical indicators from the record include: bilateral wheezing Acute Asthma exacerbation treated with nebs and IV steroids Based on the above, please clarify in the Progress Notes further specificity regarding the type and a cuity of the asthma: Mild intermittent Please specify if with or without acute exacerbation or status asthmaticus Mild persistent Please specify if with or without acute exacerbation or status asthmaticus Moderate persistent Please specify if with or without acute exacerbation or status asthmaticus Severe persistent Please specify if with or without acute exacerbation or status asthmaticus Exercise induced Please specify if with or without acute exacerbation or status asthmaticus Chronic obstructive asthma and indicate if with acute lower respiratory infection Please specify if with or without acute exacerbation or status asthmaticus Asthma with underlying COPD and indicate if with acute lower respiratory infection Please specify if with or without acute exacerbation or status asthmaticus Other (explain) Clinically unable to determine (explain) Thank you, Stephanie Desai RN Use of terms such as suspected, likely, concern for, or probable (associated with a specific diagnosi s that is being evaluated, monitored, or treated as if it exists) are acceptable and can be coded in the inpatient se tting, when documented at the time of discharge. Please use your independent medical judgment in providing your response. THIS QUERY IS PART OF THE PERMANENT MEDICAL RECORD
[2023-05-28] MEDS: Omeprazole 20 MG CAPSULE.DR PO (16:10)
[2023-05-28] MEDS: Ketorolac Tromethamine 15 MG/ML VIAL IVPUSH ×2 (16:18→23:24)
[2023-05-29] VITALS (11 sets, daily range): BP systolic 124–155; BP diastolic 65–72; PULSE 68–109; RESP 18–22; TEMP 36.3–36.9; O2SAT 92–96
[2023-05-29] MEDS: guaiFEN/Codeine SF 200/20/10ML 10 ML LIQUID PO ×4 (05:05→23:06)
[2023-05-29] MEDS: Albuterol/Iprat 2.5/0.5MG 3 ML AMPUL.NEB INHALE ×5 (05:06→22:30)
[2023-05-29] MEDS: Omeprazole 20 MG CAPSULE.DR PO ×2 (05:06→16:54)
[2023-05-29] MEDS: methylPREDNISolone Sod Succ 40 MG/ML VIAL IVPUSH (05:07)
[2023-05-29] MEDS: Acetaminophen 325 MG TABLET 650 MG PO (05:09)
[2023-05-29] MEDS: 0.9 % Sodium Chloride Flush 3 ML SYRINGE IVFLUSH ×5 (05:09→23:15)
[2023-05-29] MEDS: Ketorolac Tromethamine 15 MG/ML VIAL IVPUSH ×4 (06:07→23:09)
--- NOTE | 2023-05-29 07:21 | PC.RT ---
Pt had 0500 svn, declined this morning, denies any sob at this time.
[2023-05-29] MEDS: Loratadine 10 MG TABLET PO (09:24)
[2023-05-29] MEDS: Enoxaparin Sodium 40 MG/0.4 ML SYRINGE SUBCUT (09:25)
--- NOTE | 2023-05-29 09:36 | P.PNPL_ITS ---
Subjective Subjective Date of Service: 05/29/23 Interval history: The patient was seen on exam. She feels a little better. The Toradol did help some. Her chest pain is better. She still having shortness of breath. Feels like she has a hard time expectorating. I did provide her an Lakisha for CPT. She is still having wheezing. Overall better. She did have a repeat chest x- ray which is better in addition to that she had a V/Q scan ruling out PE which is reassuring. She also underwent an echocardiogram which was slightly abnormal with diastolic dysfunction in addition to hypokinesis. She does have a significant cardiac history and should further have that evaluated by cardiology follow-up. Clinically patient is doing well though I do believe that she will be able to go home soon. Objective Data Labs 05/26/23 05:19 05/26/23 05:19 Labs: Laboratory Results - last 24 hr 05/28/23 05/28/23 05/28/23 09:50 10:35 13:24 ESR 12 Urine Opiates Screen POSITIVE H Urine Fentanyl Screen Not Detected Ur Barbiturates Screen Not Detected Ur Phencyclidine Scrn Not Detected Ur Amphetamines Screen Not Detected U Benzodiazepines Scrn Not Detected Urine Cocaine Screen Not Detected U Marijuana (THC) Screen Not Detected Respiratory Panel [facility] See Note Adenovirus (Rapid PCR) Not Detected B.pert (TEM-PCR) Not Detected B.parapertussis DNA PCR Not Detected C. pneumoniae DNA (PCR) Not Detected Coronavirus OC43 (PCR) Not Detected Coronavirus HKU1 (PCR) Not Detected Coronavirus 229E (PCR) Not Detected Coronavirus NL63 (PCR) Not Detected Human Metapneumovir PCR Not Detected Influenza A (RT-PCR) Not Detected Influenza B (RT-PCR) Not Detected M. pneumoniae (PCR) Not Detected Parainfluenza 1 (PCR) Not Detected Parainfluenza 2 (PCR) Not Detected Parainfluenza 3 (PCR) Not Detected Parainfluenza 4 (PCR) Not Detected RSV (PCR) Not Detected Entero/Rhino (PCR) Not Detected SARS-CoV-2 RNA (RT-PCR) Not Detected Review of Systems Constitutional: Denies fever(s) Eyes: Reports no additional eye complaints Reports system reviewed and no additional complaints, except as documented Cardiovascular: Denies chest pain, Reports palpitations and Reports dyspnea Respiratory: Reports chest congestion, Reports cough, Denies pain on inspiration, Denies pain with cough, Reports dyspnea and Reports wheezing Gastrointestinal: Reports no additional gastrointestinal complaints Musculoskeletal: Reports no additional musculoskeletal complaints Endocrine: Reports palpitations Hematologic/Lymphatic: Denies easy bleeding and Denies easy bruising Allergic/Immunologic: Reports wheezing Physical Exam 2 Vital Signs: Vital Signs: Last Vital Signs Temp 98.4 F 05/29/23 07:25 Pulse 80 05/29/23 07:25 Resp 20 05/29/23 07:25 BP 155/72 H 05/29/23 07:25 Pulse Ox 95 05/29/23 07:25 O2 Del Method Room Air 05/29/23 07:25 O2 Flow Rate 2 05/26/23 04:25 BMI result Body Mass Index 32.1 Const: General: comfortable; No anxious HEENT: Head: Yes normocephalic Neck: Neck: Yes supple Chest: Chest palpation & inspection: normal inspection of the chest Resp: Effort & Inspection: normal respiratory effort Auscultation: wheezes Cardio: Heart sounds: S1 normal heart sound present and S2 normal heart sound present GI: Palpation (GI): Soft to palpation Skin: General skin exam: no rashes or lesions noted Extrem: General: No cyanosis Procedures Date of Service Date of Service: 05/29/23 Assessment and Plan Assessment and plan (1) Pleuritic chest pain: Status: Acute Assessment and Plan: likely pleurisy, better (2) Acute asthma exacerbation: Status: Acute Plan change to PO prednisone 40mg daily and taper by 10mg every 3-4 days complete 8-10 days of antibiotics add Mucinex add Breo 200 CHARBEL as needed provided CPT with an aerobika Cardiology w/u with abn ECHO and +FHx F/U with pulmonary Time Spent With Patient Time: Total time managing care of this patient today ____ minutes. Progress Note: Quality Stroke Does the patient have a stroke diagnosis?: No
[2023-05-29] MEDS: Doxycycline Hyclate 100 MG in 0.9 % Sodium Chloride 250 ML 166.67 MG IV ×2 (09:45→23:06)
[2023-05-29] MEDS: LORazepam 0.5 MG TABLET PO ×2 (11:31→21:38)
[2023-05-29] MEDS: guaiFENesin DM 600/30 1 TAB TAB.ER.12H 2 TAB PO (11:50)
--- NOTE | 2023-05-29 13:12 | P.PNIM_ITS ---
Subjective Subjective Date of Service: 05/29/23 Interval History: acute asthma excerebation Review of Systems sob seems similar has intermittent pleurtic pain which is improving Physical Exam 2 Vital Signs: Vital Signs: Last Vital Signs Temp 97.6 F 05/29/23 11:19 Pulse 85 05/29/23 11:30 Resp 20 05/29/23 11:30 BP 133/68 05/29/23 11:19 Pulse Ox 95 05/29/23 11:19 O2 Del Method Room Air 05/29/23 11:19 O2 Flow Rate 2 05/26/23 04:25 BMI result Body Mass Index 32.1 Appearance: Alert.? Oriented X3.? cvs: rrr, [id number] , no murmur res:air entry diminshed ,has b/l wheezing abd: no rebound or guarding ,nt, bs present. ext pulses present , no cyanosis. neuro: axo3 , nonfocal. Objective Data Active Medications Acetaminophen (Acetaminophen 325 Mg Tablet) 650 mg PO Q6H PRN PRN Reason: Pain, Mild (Pain Scale 1-3) Last Admin: 05/29/23 05:09 Dose: 650 mg Documented By: AARON Albuterol/Ipratropium (Albuterol/Iprat 2.5/0.5mg 3 Ml Ampul.Neb) 3 ml INHALE Q4H [facility] Last Admin: 05/29/23 11:26 Dose: 3 ml Documented By: SOUMYA Enoxaparin Sodium (Enoxaparin Sodium 40 Mg/0.4 Ml Syringe) 40 mg SUBCUT Q24H [facility] Last Admin: 05/29/23 09:25 Dose: 40 mg Documented By: HODAN Fluticasone/Vilanterol (Fluticasone/Vilanterol 200/25 Blst.W.Dev) 1 puff INHALE RDAILY [facility] Guaifenesin/Codeine Phosphate (Guaifen/Codeine Sf 200/20/10ml 10 Ml Liquid) 10 ml PO Q6H [facility] Last Admin: 05/29/23 11:51 Dose: 10 ml Documented By: HODAN Guaifenesin/Dextromethorphan (Guaifenesin Dm 600/30 1 Tab Tab.Er.12h) 2 tab PO BID [facility] Last Admin: 05/29/23 11:50 Dose: 2 tab Documented By: HODAN Doxycycline Hyclate 100 mg/ (Sodium Chloride) 250 mls @ 166.67 mls/hr IV BID [facility] Last Infusion: 05/29/23 11:52 Dose: Infused Documented By: HODAN Ketorolac Tromethamine (Ketorolac Tromethamine 15 Mg/Ml Vial) 15 mg IVPUSH Q6H PRN PRN Reason: Pain, Mild (Pain Scale 1-3) Last Admin: 05/29/23 06:07 Dose: 15 mg Documented By: AARON Loratadine (Loratadine 10 Mg Tablet) 10 mg PO DAILY [facility] Last Admin: 05/29/23 09:24 Dose: 10 mg Documented By: HODAN Lorazepam (Lorazepam 0.5 Mg Tablet) 0.5 mg PO Q6H PRN PRN Reason: Anxiety Last Admin: 05/29/23 11:31 Dose: 0.5 mg Documented By: HODAN Methylprednisolone Sodium Succinate (Methylprednisolone Sod Succ 40 Mg/Ml Vial) 40 mg IVPUSH Q8H [facility] Last Admin: 05/29/23 05:07 Dose: 40 mg Documented By: AARON Omeprazole (Omeprazole 20 Mg Capsule.Dr) 20 mg PO BID@0630,1630 [facility] Last Admin: 05/29/23 05:06 Dose: 20 mg Documented By: AARON Sodium Chloride (0.9 % Sodium Chloride Flush 3 Ml Syringe) 3 ml IVFLUSH QSHIFT [facility] Last Admin: 05/29/23 09:25 Dose: 3 ml Documented By: HODAN Labs 05/26/23 05:19 05/26/23 05:19 Labs: Laboratory Results - last 24 hr 05/28/23 13:24 Respiratory Panel [place] See Note Adenovirus (Rapid PCR) Not Detected B.pert (TEM-PCR) Not Detected B.parapertussis DNA PCR Not Detected C. pneumoniae DNA (PCR) Not Detected Coronavirus OC43 (PCR) Not Detected Coronavirus HKU1 (PCR) Not Detected Coronavirus 229E (PCR) Not Detected Coronavirus NL63 (PCR) Not Detected Human Metapneumovir PCR Not Detected Influenza A (RT-PCR) Not Detected Influenza B (RT-PCR) Not Detected M. pneumoniae (PCR) Not Detected Parainfluenza 1 (PCR) Not Detected Parainfluenza 2 (PCR) Not Detected Parainfluenza 3 (PCR) Not Detected Parainfluenza 4 (PCR) Not Detected RSV (PCR) Not Detected Entero/Rhino (PCR) Not Detected SARS-CoV-2 RNA (RT-PCR) Not Detected Assessment and Plan (1) Pleuritic chest pain: Status: Acute (2) Acute asthma exacerbation: Status: Acute Assessment and Plan: 57 years old woman admitted with: Acute asthma exacerbation (2nd visit to ED due to same symptoms, feeling outpatient treatment + continue with symptoms despite receiving treatment with multiple nebs and IV steroids in ED);possible atypical pneumonia. Still short of breath with minimal exertion, only little improvement pleurtic chest pain -workup v/q scan neg , tropx3 since admission neg, EKg nonischemic , repeat cxr improving , echo -ef 70% with possible basal inferior inferoseptal hypokinesis . d/w cardiology : currently patient cardiac enzymes /ekg -does not show ischmeic changes -defer cardiac workup outpatient pain improving with hycodan, added toradol. d/w pulm -continue Pulse oximetry. Supplemental oxygen as needed to keep O2 sats > 90%, nebs,steriods ,doxycycline ,loratidine ,cough med. pulm following Generalized anxiety. Ativan p.o. as needed. DVT prophylaxis: Lovenox Ongoing hospitalization for : acute asthma exacerbation treatment with possible atypical pneumonia : Still symptomatic with current treatment plan, possible benefit from continuing current treatment regimen . Quality Stroke Does the patient have a stroke diagnosis?: No VTE Prior VTE?: No VTE Risk Level:: Medical - moderate - high VTE Device Contraindication: Treatment Not Indicated VTE Drug Contraindication: N/A - Med Ordered
--- NOTE | 2023-05-29 13:50 | MHC.CM.PN ---
EMR reviewed and per MD rounds, pt is not medically cleared for D/C due to management of acute asthma exacerbation with possible atypical pneumonia.
[2023-05-29] MEDS: predniSONE 20 MG TABLET 40 MG PO (16:54)
[2023-05-29 22:39] LABS: Immunoglobulin E 105 kU/L (<OR=114)
[2023-05-30] VITALS (9 sets, daily range): BP systolic 129–157; BP diastolic 58–81; PULSE 77–91; RESP 18–20; TEMP 36.1–36.7; O2SAT 94–96
[2023-05-30] MEDS: guaiFEN/Codeine SF 200/20/10ML 10 ML LIQUID PO ×4 (06:02→22:07)
[2023-05-30] MEDS: Omeprazole 20 MG CAPSULE.DR PO ×2 (06:02→15:43)
[2023-05-30] MEDS: Ketorolac Tromethamine 15 MG/ML VIAL IVPUSH ×3 (06:05→23:18)
[2023-05-30] MEDS: Albuterol/Iprat 2.5/0.5MG 3 ML AMPUL.NEB INHALE ×4 (07:44→23:36)
[2023-05-30] MEDS: Fluticasone/Vilanterol 200/25 BLST.W.DEV 1 PUFF INHALE (07:44)
[2023-05-30] MEDS: Doxycycline Hyclate 100 MG in 0.9 % Sodium Chloride 250 ML 166.67 MG IV ×2 (08:22→22:10)
[2023-05-30] MEDS: guaiFENesin DM 600/30 1 TAB TAB.ER.12H 2 TAB PO ×2 (08:22→22:06)
[2023-05-30] MEDS: Loratadine 10 MG TABLET PO (08:22)
[2023-05-30] MEDS: predniSONE 20 MG TABLET 40 MG PO (08:22)
[2023-05-30 09:44] LABS: HIV AB/AG Nonreactive (Nonreactive); HIV Num 1 0.05 S/CO (0.00-0.99)
[2023-05-30] MEDS: LORazepam 0.5 MG TABLET PO ×2 (10:25→23:53)
--- NOTE | 2023-05-30 15:42 | P.PNIM_ITS ---
Subjective Subjective Date of Service: 05/30/23 Interval History: acute asthma excerebatio Review of Systems sob seems similar has intermittent pleurtic pain which is improving Physical Exam 2 Vital Signs: Vital Signs: Last Vital Signs Temp 98.1 F 05/30/23 10:58 Pulse 91 05/30/23 12:03 Resp 20 05/30/23 12:03 BP 156/74 H 05/30/23 10:58 Pulse Ox 94 05/30/23 10:58 O2 Del Method Room Air 05/30/23 10:58 O2 Flow Rate 2 05/26/23 04:25 BMI result Body Mass Index 32.1 Appearance: Alert.? Oriented X3.? cvs: rrr, [id number] , no murmur res:air entry diminshed ,has b/l wheezing abd: no rebound or guarding ,nt, bs present. ext pulses present , no cyanosis. neuro: axo3 , nonfocal. Objective Data Active Medications Acetaminophen (Acetaminophen 325 Mg Tablet) 650 mg PO Q6H PRN PRN Reason: Pain, Mild (Pain Scale 1-3) Last Admin: 05/29/23 05:09 Dose: 650 mg Documented By: AARON Albuterol/Ipratropium (Albuterol/Iprat 2.5/0.5mg 3 Ml Ampul.Neb) 3 ml INHALE Q4H [facility] Last Admin: 05/30/23 15:37 Dose: Not Given Documented By: ANJELICA Non-Admin Reason: Patient Refused Fluticasone/Vilanterol (Fluticasone/Vilanterol 200/25 Blst.W.Dev) 1 puff INHALE RDAILY [facility] Last Admin: 05/30/23 07:44 Dose: 1 puff Documented By: ANJELICA Guaifenesin/Codeine Phosphate (Guaifen/Codeine Sf 200/20/10ml 10 Ml Liquid) 10 ml PO Q6H [facility] Last Admin: 05/30/23 10:25 Dose: 10 ml Documented By: CAROLYNN Guaifenesin/Dextromethorphan (Guaifenesin Dm 600/30 1 Tab Tab.Er.12h) 2 tab PO BID [facility] Last Admin: 05/30/23 08:22 Dose: 2 tab Documented By: CAROLYNN Doxycycline Hyclate 100 mg/ (Sodium Chloride) 250 mls @ 166.67 mls/hr IV BID [facility] Last Infusion: 05/30/23 09:52 Dose: Infused Documented By: CAROLYNN Ketorolac Tromethamine (Ketorolac Tromethamine 15 Mg/Ml Vial) 15 mg IVPUSH Q6H PRN PRN Reason: Pain, Mild (Pain Scale 1-3) Last Admin: 05/30/23 13:02 Dose: 15 mg Documented By: CAROLYNN Loratadine (Loratadine 10 Mg Tablet) 10 mg PO DAILY [facility] Last Admin: 05/30/23 08:22 Dose: 10 mg Documented By: CAROLYNN Lorazepam (Lorazepam 0.5 Mg Tablet) 0.5 mg PO Q6H PRN PRN Reason: Anxiety Last Admin: 05/30/23 10:25 Dose: 0.5 mg Documented By: CAROLYNN Omeprazole (Omeprazole 20 Mg Capsule.Dr) 20 mg PO BID@0630,1630 [facility] Last Admin: 05/30/23 06:02 Dose: 20 mg Documented By: DANIELLE Prednisone (Prednisone 20 Mg Tablet) 40 mg PO DAILY [facility] Last Admin: 05/30/23 08:22 Dose: 40 mg Documented By: CAROLYNN Sodium Chloride (0.9 % Sodium Chloride Flush 3 Ml Syringe) 3 ml IVFLUSH QSHIFT [facility] Last Admin: 05/29/23 23:15 Dose: 3 ml Documented By: DANIELLE Labs 05/26/23 05:19 05/26/23 05:19 Labs: Laboratory Results - last 24 hr 05/28/23 05/29/23 15:29 13:49 IgE 105 HIV 1&2 Ab/P24 Ag 4thGn Nonreactive Assessment and Plan (1) Pleuritic chest pain: Status: Acute (2) Acute asthma exacerbation: Status: Acute Assessment and Plan: 57 years old woman admitted with: Acute asthma exacerbation (2nd visit to ED due to same symptoms, feeling outpatient treatment + continue with symptoms despite receiving treatment with multiple nebs and IV steroids in ED);possible atypical pneumonia. Still short of breath with minimal exertion, only little improvement pleurtic chest pain -workup v/q scan neg , tropx3 since admission neg, EKg nonischemic , repeat cxr improving , echo -ef 70% with possible basal inferior inferoseptal hypokinesis . d/w cardiology : currently patient cardiac enzymes /ekg -does not show ischmeic changes -defer cardiac workup outpatient pain improving with hycodan, added toradol. d/w pulm -continue Pulse oximetry. Supplemental oxygen as needed to keep O2 sats > 90%, nebs,steriods ,doxycycline ,loratidine ,cough med. pulm following Generalized anxiety. Ativan p.o. as needed. DVT prophylaxis: Lovenox Ongoing hospitalization for : acute asthma exacerbation treatment with possible atypical pneumonia : Still symptomatic with current treatment plan, possible benefit from continuing current treatment regimen . Quality Stroke Does the patient have a stroke diagnosis?: No VTE Prior VTE?: No VTE Risk Level:: Medical - moderate - high VTE Device Contraindication: Treatment Not Indicated VTE Drug Contraindication: N/A - Med Ordered
[2023-05-30] MEDS: 0.9 % Sodium Chloride Flush 3 ML SYRINGE IVFLUSH ×2 (15:45→22:15)
[2023-05-30 17:13] LABS: Anti Nuclear Antibody Screen NEGATIVE (NEGATIVE)
[2023-05-30] MEDS: Cyclobenzaprine HCl 5 MG TABLET PO (22:06)
[2023-05-31] VITALS (11 sets, daily range): BP systolic 123–150; BP diastolic 59–70; PULSE 78–107; RESP 16–20; TEMP 35.8–36.8; O2SAT 92–98
[2023-05-31] MEDS: guaiFEN/Codeine SF 200/20/10ML 10 ML LIQUID PO ×4 (05:38→23:08)
[2023-05-31] MEDS: Omeprazole 20 MG CAPSULE.DR PO ×2 (05:38→16:39)
[2023-05-31] MEDS: Fluticasone/Vilanterol 200/25 BLST.W.DEV 1 PUFF INHALE (07:50)
[2023-05-31] MEDS: Albuterol/Iprat 2.5/0.5MG 3 ML AMPUL.NEB INHALE ×5 (07:50→23:23)
[2023-05-31] MEDS: Cyclobenzaprine HCl 5 MG TABLET PO ×2 (09:07→23:03)
[2023-05-31] MEDS: 0.9 % Sodium Chloride Flush 3 ML SYRINGE IVFLUSH ×2 (09:07→16:39)
[2023-05-31] MEDS: predniSONE 20 MG TABLET 40 MG PO (09:08)
[2023-05-31] MEDS: guaiFENesin DM 600/30 1 TAB TAB.ER.12H 2 TAB PO ×2 (09:08→23:02)
[2023-05-31] MEDS: Loratadine 10 MG TABLET PO (09:08)
[2023-05-31] MEDS: Acetaminophen 325 MG TABLET 650 MG PO (09:08)
[2023-05-31] MEDS: Doxycycline Hyclate 100 MG in 0.9 % Sodium Chloride 250 ML 166.67 MG IV ×2 (09:09→23:06)
--- NOTE | 2023-05-31 14:09 | HO.PM.IMPN ---
Subjective Subjective Date of Service: 05/31/23 Interval History: acute asthma excerebation Review of Systems sob seems similar has intermittent pleurtic pain aggressive cough Physical Exam Vital Signs: Vital Signs: Last Vital Signs Temp 96.4 F L 05/31/23 11:53 Pulse 79 05/31/23 11:53 Resp 18 05/31/23 11:53 BP 145/70 H 05/31/23 11:53 Pulse Ox 94 05/31/23 11:53 O2 Del Method Room Air 05/31/23 11:53 O2 Flow Rate 2 05/26/23 04:25 BMI result Body Mass Index 32.1 Appearance: Alert.? Oriented X3.?sob cvs: rrr, [id number] , no murmur res:air entry diminshed ,has b/l wheezing abd: no rebound or guarding ,nt, bs present. ext pulses present , no cyanosis. neuro: axo3 , nonfocal. Objective Data Active Medications Acetaminophen (Acetaminophen 325 Mg Tablet) 650 mg PO Q6H PRN PRN Reason: Pain, Mild (Pain Scale 1-3) Last Admin: 05/31/23 09:08 Dose: 650 mg Documented By: HARITHA Albuterol/Ipratropium (Albuterol/Iprat 2.5/0.5mg 3 Ml Ampul.Neb) 3 ml INHALE Q4H [facility] Last Admin: 05/31/23 11:20 Dose: 3 ml Documented By: ODALYS Cyclobenzaprine HCl (Cyclobenzaprine Hcl 5 Mg Tablet) 5 mg PO BID [facility] Last Admin: 05/31/23 09:07 Dose: 5 mg Documented By: HARITHA Fluticasone/Vilanterol (Fluticasone/Vilanterol 200/25 Blst.W.Dev) 1 puff INHALE RDAILY [facility] Last Admin: 05/31/23 07:50 Dose: 1 puff Documented By: ODALYS Guaifenesin/Codeine Phosphate (Guaifen/Codeine Sf 200/20/10ml 10 Ml Liquid) 10 ml PO Q6H [facility] Last Admin: 05/31/23 11:07 Dose: 10 ml Documented By: HARITHA Guaifenesin/Dextromethorphan (Guaifenesin Dm 600/30 1 Tab Tab.Er.12h) 2 tab PO BID [facility] Last Admin: 05/31/23 09:08 Dose: 2 tab Documented By: HARITHA Doxycycline Hyclate 100 mg/ (Sodium Chloride) 250 mls @ 166.67 mls/hr IV BID [facility] Last Infusion: 05/31/23 10:39 Dose: Infused Documented By: HARITHA Loratadine (Loratadine 10 Mg Tablet) 10 mg PO DAILY [facility] Last Admin: 05/31/23 09:08 Dose: 10 mg Documented By: HARITHA Omeprazole (Omeprazole 20 Mg Capsule.Dr) 20 mg PO BID@0630,1630 [facility] Last Admin: 05/31/23 05:38 Dose: 20 mg Documented By: ASPEN Prednisone (Prednisone 20 Mg Tablet) 40 mg PO DAILY [facility] Last Admin: 05/31/23 09:08 Dose: 40 mg Documented By: HARITHA Sodium Chloride (0.9 % Sodium Chloride Flush 3 Ml Syringe) 3 ml IVFLUSH QSHIFT [facility] Last Admin: 05/31/23 09:07 Dose: 3 ml Documented By: HARITHA Labs 05/26/23 05:19 05/26/23 05:19 Labs: Laboratory Results - last 24 hr 05/28/23 15:29 CASSY Screen NEGATIVE Assessment and Plan (1) Pleuritic chest pain: Status: Acute (2) Acute asthma exacerbation: Status: Acute Assessment and Plan: 57 years old woman admitted with: Acute asthma exacerbation (2nd visit to ED due to same symptoms, feeling outpatient treatment + continue with symptoms despite receiving treatment with multiple nebs and IV steroids in ED);possible atypical pneumonia. Still short of breath with minimal exertion, only little improvement pleurtic chest pain -workup v/q scan neg , tropx3 since admission neg, EKg nonischemic , repeat cxr improving , echo -ef 70% with possible basal inferior inferoseptal hypokinesis . d/w cardiology : currently patient cardiac enzymes /ekg -does not show ischmeic changes -defer cardiac workup outpatient pain improving with hycodan, added toradol. d/w pulm -continue Pulse oximetry. Supplemental oxygen as needed to keep O2 sats > 90%, nebs,steriods ,doxycycline ,loratidine ,cough med. pulm following Generalized anxiety. Ativan p.o. as needed. DVT prophylaxis: Lovenox Ongoing hospitalization for : acute asthma exacerbation treatment with possible atypical pneumonia : Still symptomatic with current treatment plan, possible benefit from continuing current treatment regimen . Quality Stroke Does the patient have a stroke diagnosis?: No VTE Prior VTE?: No VTE Risk Level:: Medical - moderate - high VTE Device Contraindication: Treatment Not Indicated VTE Drug Contraindication: N/A - Med Ordered
[2023-06-01] VITALS (7 sets, daily range): BP systolic 113–137; BP diastolic 53–62; PULSE 72–116; RESP 16; TEMP 36.4–37; O2SAT 93–97
[2023-06-01] MEDS: Ketorolac Tromethamine 15 MG/ML VIAL IVPUSH ×2 (00:59→13:21)
[2023-06-01] MEDS: 0.9 % Sodium Chloride Flush 3 ML SYRINGE IVFLUSH ×2 (05:22→08:57)
[2023-06-01] MEDS: guaiFEN/Codeine SF 200/20/10ML 10 ML LIQUID PO ×3 (05:22→16:45)
[2023-06-01] MEDS: Omeprazole 20 MG CAPSULE.DR PO ×2 (07:02→16:45)
[2023-06-01] MEDS: Fluticasone/Vilanterol 200/25 BLST.W.DEV 1 PUFF INHALE (07:48)
[2023-06-01] MEDS: Albuterol/Iprat 2.5/0.5MG 3 ML AMPUL.NEB INHALE ×3 (07:50→15:10)
[2023-06-01] MEDS: guaiFENesin DM 600/30 1 TAB TAB.ER.12H 2 TAB PO (08:52)
[2023-06-01] MEDS: Cyclobenzaprine HCl 5 MG TABLET PO (08:52)
[2023-06-01] MEDS: Loratadine 10 MG TABLET PO (08:53)
[2023-06-01] MEDS: predniSONE 20 MG TABLET 40 MG PO (08:53)
[2023-06-01] MEDS: Doxycycline Hyclate 100 MG in 0.9 % Sodium Chloride 250 ML 166.67 MG IV (08:57)
--- NOTE | 2023-06-01 10:24 | MHC.CM.PN ---
Second IMM 06/01/23, pt has been medically cleared for DC, she will go home via private transport today, self care.
--- NOTE | 2023-06-01 11:13 | PM.DS ---
DS: Providers Provider Date of Service: 06/01/23 Date of admission: 05/26/23 02:26 Date of discharge: 06/01/23 Primary care physician: Vicky Pate NP Consults: 05/28/23 07:26 Consult to Pulmonology Routine Consulting Provider: [facility] [place] Pulmonology Services Reason for consultation: asthma /pleutric pain Has provider been notified: No Attending physician on discharge: Geoff Gray Discharging clinician: Geoff Gray DS: Diagnosis Discharge Diagnosis (1) Pleuritic chest pain: Status: Acute (2) Acute asthma exacerbation: Status: Acute DS: Summary Hospital Course Hospital Course: 57 years old woman with past medical history significant for asthma and generalized anxiety presents to the emergency department complaining of worsening shortness of breath over the last several days. Shortness on breath associated with wheezing and nonproductive cough. She also reported feeling the sensation that her throat is closing and dizziness. She denied any chest pain, nausea, vomiting, fevers or chills. Recently, patient was evaluated in the emergency department (May 20) due to same symptoms are was discharged home to take a course of azithromycin, cefuroxime and prednisone which she has been taking. She did not report any acute gastrointestinal or genitourinary symptoms. Denies tobacco or marijuana smoking, alcohol abuse or illicit drug use. In the ED, she was found to have significant tachypnea. Oxygen saturation is 98 % on room air. There is no fever or significant tachycardia. Blood workup showed no leukocytosis. Platelets and hemoglobin are normal. There are no significant electrolyte imbalances. Renal function is adequate. LFTs negative x2. Troponin is negative x2. Viral testing for influenza, COVID 19 and RSV is negative. CXR showed small airway disease versus atypical/viral infection without consolidation or pleural effusions. ED tx: Solu-Medrol 125 mg IV, magnesium 2 g, albuterol sulfate 2.5 mg/albuterol/ipratropium 3 mL x2, DuoNeb 3 mL and lorazepam 0.5 mg IV. Hospital course: Patient was admitted to the hospital because of shortness of breath and pleurisy: no leucocytosis , cxr -possible atypical pneumonia,Started steroids,nebs,antibiotics ,cough medictaion,nsaids .also done v/q scan due to mild ddimer elevation -v/q scan is negative , echoand troponins was done due to pleursy symptoms : troponins negatives and echo:ef 70% with possible basal inferior inferoseptal hypokinesis . discussed cardiology -further workup outpatient.discussed with cardiology -patient will need outpatient appointment for echo abnormalities.patient is currently asymptomatic. plan: please complete prednisone 40 mg daily for 4 days ,doxycycline 100 mg po bid x5 days. for abnormal echo -further workup per cardiology outpatient. repeat chest imaging in 3-4 weeks to see resolution of pneumonia. cardiology may arrange their own appointment. Above management discussed with the patient in detail length she understand and in agreement with the above plan, time spent 40 minutes and 50% time spent on counseling. Time Attestation Total time managing care of this patient today: 40 mintues. Discharge Coordination Time (in mins): 40 min Quality: Safe Use of Opioids Does Pt have an Active Cancer Diagnosis on the Problem List?: No Quality: Stroke Does the patient have a stroke diagnosis?: No Physical Exam Vital Signs: Vital Signs: Last Vital Signs Temp 97.5 F 06/01/23 07:36 Pulse 80 06/01/23 07:50 Resp 16 06/01/23 07:50 BP 113/53 L 06/01/23 07:36 Pulse Ox 96 06/01/23 07:36 O2 Del Method Room Air 06/01/23 07:36 O2 Flow Rate 2 05/26/23 04:25 BMI result Body Mass Index 32.1 Appearance: Alert.? Oriented X3.? cvs: rrr, [id number] , no murmur res:air entry fair , no rales or wheezing abd: no rebound or guarding ,nt, bs present. ext pulses present , no cyanosis. neuro: axo3 , nonfocal. DS: Data Data Completed and Pending Labs on day of discharge: Laboratory Results - last 24 hr 05/28/23 15:29 CASSY Titer TNP CASSY Titer 2 TNP CASSY Titer 3 TNP [facility] Pattern TNP [facility] Pattern 2 TNP C[facility]Y Pattern 3 TNP Imaging Chest x-ray: Radiologist's impression: ITS Impressions Chest X-Ray 05/25/23 23:10 IMPRESSION: Findings are suggestive of small airways disease versus atypical/viral infection without consolidation nor pleural effusion. Chest X-Ray 05/28/23 08:11 IMPRESSION: Interval improvement in pulmonary aeration with decreased prominence of interstitial markings. No pneumonia or CHF. Pulmonary Perfusion Imaging 05/28/23 12:10 IMPRESSION: Normal radionuclide lung perfusion scan. Discharge Plan Discharge Anticipated Discharge Date/Time: 06/01/23 07:58 Patient Disposition: Home, Self-Care Discharge Diagnosis: asthma exacerbation, possible atypical pneumonia. Referrals: Vicky Pate, [employer] [Primary Care Provider] - 1 Week Discharge Medications: New doxycycline hyclate [Doxy-100] 100 mg Recon Soln 100 mg IV BID Qty: 8 0RF omeprazole 20 mg Capsule,Delayed Release(Dr/Ec) 20 mg PO DAILY Qty: 30 0RF codeine-guaifenesin 10-100 mg/5 mL Liquid 10 ml PO Q6H Qty: 100 0RF loratadine 10 mg Tablet 10 mg PO DAILY Qty: 10 0RF cyclobenzaprine 5 mg Tablet 5 mg PO BID Qty: 10 0RF fluticasone furoate-vilanterol [Breo Ellipta] 200-25 mcg/dose Blister With Device 1 inh inhalation RDAILY Qty: 1 0RF ibuprofen 400 mg tablet 400 mg PO Q8H PRN (Reason: pain) Qty: 10 0RF Continued albuterol sulfate 90 mcg/actuation HFA aerosol inhaler 2 puff INHALATION Q4-6H PRN (Reason: wheezing) prednisone 20 mg tablet 40 mg PO DAILY Qty: 8 0RF Rx Instructions: per patient, today 4/2 and tomorrow 4/3 were her last two days Discharge Orders: Discharge Order (Routine); Ordered 06/01/23 Ordered By: Geoff Gray Diet: Advance to usual diet Activity on Discharge: As tolerated Stand Alone Forms: Patient Portal Discharge page Print Language: Lebanese Care Plan Goals: Patient was admitted to the hospital because of shortness of breath and pleurisy: no leucocytosis , cxr -possible atypical pneumonia,Started steroids,nebs,antibiotics ,cough medictaion,nsaids also done v/q scan due to mild ddimer elevation -v/q scan is negative . echo was done due to pleusy symptoms :ef 70% with possible basal inferior inferoseptal hypokinesis . discussed cardiology -further workup outpatient. Health Concerns: as above. Plan of Treatment: please complete prednisone 40 mg daily for 4 days ,doxycycline 100 mg po bid x5 days. for abnormal echo -further workup per cardiology outpatient. cardiology may arrange their own appointment. Assessment: as above.
[2023-06-02 11:28] LABS: Cyclic Citrullinated Peptide <16 UNITS
== END 2023-06-01 18:00 | disposition home or self-care (01) | DRG 202 ==
LOC: HO.ED 05-26 01:06 → HO.EDOVER 05-26 02:33 → HO.IMC 05-26 14:42
PROVIDERS: Hospitalist; Physician Assistant; Admitting Provider Internal Medicine; Emergency Provider Emergency Medicine Emergency Medical Services; PCP Nurse Practitioner Primary Care; Visit Provider Internal Medicine
DX: J45.21 Mild intermittent asthma with (acute) exacerbation (principal); J18.9 Pneumonia, unspecified organism; F41.1 Generalized anxiety disorder; Z20.822 Contact with and (suspected) exposure to COVID-19; Z91.041 Radiographic dye allergy status; Z79.899 Other long term (current) drug therapy
CPT/HCPCS: 0241U; 36415; 71045; 78580; 80053; 80307; 82785; 82803; 83735; 83880; 84484; 85025; 85610; 85652; 86038; 86200; 87389; 87633; 93005; 93306; 94640; 99285; A9540; J1650; J1885; J2060; J2270; J2919; J2920; J2930; J3475; Q9957

== ENCOUNTER → 2023-05-25 23:20 | Outpatient (BNV) | payer OTHER, SELFPAY | PROVIDERS: Admitting Provider Internal Medicine; Emergency Provider Emergency Medicine Emergency Medical Services; Visit Provider Internal Medicine Cardiovascular Disease | DX: R06.00 Dyspnea, unspecified (principal) | CPT/HCPCS: 93010 ==

== ENCOUNTER → 2023-05-26 01:05 | Outpatient (BNV) | payer OTHER, SELFPAY | PROVIDERS: Admitting Provider Internal Medicine; Emergency Provider Emergency Medicine Emergency Medical Services; Visit Provider Internal Medicine Cardiovascular Disease | DX: R06.00 Dyspnea, unspecified (principal) | CPT/HCPCS: 93010 ==

== ENCOUNTER 2023-05-26 02:26 | Outpatient (BNV) | payer OTHER, SELFPAY | END 2023-05-28 06:55 | PROVIDERS: Admitting Provider Internal Medicine; Emergency Provider Emergency Medicine Emergency Medical Services; PCP Nurse Practitioner Primary Care; Visit Provider Internal Medicine Cardiovascular Disease | DX: R07.9 Chest pain, unspecified (principal) | CPT/HCPCS: 93010; 93306 ==

== ENCOUNTER → 2023-05-26 02:26 | Outpatient (BNV) | payer OTHER, SELFPAY | PROVIDERS: Admitting Provider Internal Medicine; Emergency Provider Emergency Medicine Emergency Medical Services; Visit Provider Internal Medicine | DX: R07.81 Pleurodynia (principal); J45.901 Unspecified asthma with (acute) exacerbation | CPT/HCPCS: 99222; 99231; 99232; 99239 ==

== ENCOUNTER → 2023-05-26 02:26 | Outpatient (BNV) | payer OTHER, SELFPAY | PROVIDERS: Admitting Provider Internal Medicine; Emergency Provider Emergency Medicine Emergency Medical Services; PCP Nurse Practitioner Primary Care; Visit Provider Hospitalist | DX: R07.81 Pleurodynia (principal); J45.901 Unspecified asthma with (acute) exacerbation | CPT/HCPCS: 99223; 99233 ==

== ENCOUNTER 2023-06-15 13:03 | Outpatient (AMB) | payer OTHER, SELFPAY ==
[2023-06-15 13:14] VITALS: BP 152/82; PULSE 76; O2SAT 97; BMI 34.8
--- NOTE | 2023-06-15 13:14 | MHC.PC.OV ---
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 Service Required: No Accompanied by: Self / Same As Patient Allergies penicillin V Allergy (Severe, Verified 06/15/23 13:32) throat swelling Penicillins [PCN] Allergy (Verified 06/15/23 13:32) Hives Tetanus Vaccines and Toxoid Allergy (Verified 06/15/23 13:32) Difficulty Breathing Iodinated Contrast Media [Contrast Dye] Adverse Reaction (Verified 06/15/23 13:32) Anaphylaxis Medication List - Last Reconciled 06/15/23 by Elias Swenson PA-C albuterol sulfate 90 mcg/actuation 2 puffs inhalation Q4-6H PRN albuterol sulfate 2.5 mg (3 mL) inhalation Q6H PRN 30 days codeine-guaifenesin 10-100 mg/5 mL (Guaifenesin AC) 10 mL PO Q4-6H PRN cyclobenzaprine 5 mg PO BID doxycycline hyclate 100 mg PO BID fluticasone furoate-vilanterol 200-25 mcg/dose (Breo Ellipta) 1 inh inhalation RDAILY ibuprofen 400 mg PO Q8H PRN loratadine 10 mg PO DAILY nebulizers (AeroEclipse II Nebulizer) As directed nebulizers (Aeroneb Go Nebulizer) As directed omeprazole 20 mg PO DAILY prednisone 40 mg (2 x 20 mg) PO DAILY Tobacco use date assessed: 03/16/23 Dental Screening Dental Screen Date: 03/16/23 HPI HDF HPI Details Patient is a 57-year-old female here today for hospital discharge follow. ?Patient has a past medical history significant for allergic rhinitis, obesity, GERD, MEE, chronic lumbar and cervical? spine pain. She was recently admitted to [facility] for acute asthma exacerbation, was treated with prednisone and DuoNebs and antibiotics. She did undergo a echocardiogram due to pleurisy symptoms and it did show hyperdynamic function with an EF of 70%. She unfortunately still feels somewhat short of breath at times even when speaking. She does also report feeling somewhat dizzy when she exerted herself at work. She has had a history of vertigo though her dizziness she is experiencing at this time is different from her vertigo. Has no outpatient Cardiology follow-up with this time. As for her shortness of breath she has been given Breo and does have an albuterol rescue inhaler. She has stopped using Breo over the last 4 days. Physical exam today does note a whitish geographic tongue. . [facility] Medical History Anxiety, generalized Esophageal stricture Normal colonoscopy Asthma Surgical History History of endoscopy History of appendectomy History of bladder surgery History of torn meniscus of right knee History of gallbladder disease History of partial hysterectomy Family History Father CVD (cardiovascular disease) Past heart attack Mother No problems noted. Brother Heart problem Pacemaker Social History Household Members: Spouse Housing: Apartment Do you presently have visiting nurse or other home services: No Alcohol intake: never Patient Tobacco Use Status: Never used Tobacco e-Cigarette/Vaping Use: Never Used Second Hand Smoke Exposure: No service: No Current occupational status: unemployed Cognitive needs: No Hearing needs: No Vision needs: Yes (Reading glasses) Questionnaire Thrive Questionnaire Date Thrive assessed: 05/26/23 MEE-7 AMB Questionnaire MEE-7 Date MEE - 7 assessed: 03/16/23 Source: Developed by Drs. John Phan, Bebe Valerio, Lito Pdaron and colleagues, with an educational allison from [employer]. Review of Systems Const Denies headache(s), Reports lethargy and Reports malaise Eyes Denies loss of vision ENT Denies vertigo, Reports dizziness, Denies headache(s) and Denies sore throat Card Denies chest pain, Denies leg edema, Denies lightheadedness, Reports dyspnea and Reports dyspnea on exertion Resp Denies cough, Denies hemoptysis, Reports dyspnea, Reports dyspnea on exertion and Denies wheezing GI Denies abdominal pain, Denies melena, Denies constipation, Denies diarrhea and Denies vomiting Denies urinary frequency, Denies dysuria and Denies urinary urgency Musc Denies arthralgias, Denies joint swelling, Denies numbness and Denies tingling Neuro Denies Abnormal speech present, Denies behavioral changes, Denies vertigo, Reports dizziness, Denies headache(s), Denies loss of vision, Denies memory loss, Denies numbness and Denies tingling Psych Denies anxiety, Denies behavioral changes, Denies depression, Denies memory loss and Denies panic attacks Kane/Lymph Denies easy bleeding and Denies easy bruising Aller/Immun Denies wheezing Physical exam (Primary Care) Vital Signs: Last Vital Signs Pulse 76 06/15/23 13:14 BP 152/82 H 06/15/23 13:14 Pulse Ox 97 06/15/23 13:14 Oxygen Delivery Method Room Air 06/15/23 13:14 BMI result Body Mass Index 34.8 Tobacco/Smoking Status: Tobacco use Status Tobacco use date assessed 03/16/23 06/15/23 13:15 Patient Tobacco Use Status Never used Tobacco 06/15/23 13:15 e-Cigarette/Vaping Use Never Used 06/15/23 13:15 Thrive Assessment: Date of Thrive Assessment Date Thrive assessed 05/26/23 06/15/23 13:15 Const General: healthy appearing, no acute distress, alert and awake Nutritional Appearance: well nourished Orientation/consciousness: oriented to person, oriented to place and oriented to time HENMT Ears: TM's normal bilaterally General nose exam: Normal nasal mucous membranes and turbinates present Mouth/tongue images: 1. WHITE FILM OVER TONGUE WITH GEOGRAPHIC APPEARANCE Eyes Conjunctivae: conjunctivae normal Sclerae: sclerae normal Pupils: Equal, round and reactive pupils present Neck Neck: Yes no lymphadenopathy and Yes no JVD Thyroid: Thyroid normal Carotids: no bruits Resp Effort & Inspection: normal respiratory effort and not tachypneic Auscultation: no crackles, no rales, no rhonchi and no wheezes Cardio Rate: regular rate Rhythm: regular rhythm Heart sounds: no murmurs and normal S1 and S2 GI Palpation (GI): Soft to palpation, nontender, no hepatomegaly and no splenomegaly Auscultation: normal bowel sounds Skin General skin exam: no rashes or lesions noted and dry skin Neuro General: oriented to person, oriented to place and oriented to time Cranial nerves: Yes Equal, round and reactive pupils present Speech: No Abnormal speech present Gait exam (Neuro): Normal gait present Motor exam (neuro): no tremor noted Extrem Right upper extremity: full ROM Left upper extremity: full ROM Right lower extremity: full ROM; no edema Left lower extremity: full ROM; no edema Psych Mental Status: mental status grossly normal Speech and movement: Normal speech and movement present Affect: normal affect Attitude: cooperative Thought process: Normal thought process present Assessment and Plan Assessment & Plan (1) Cardiomyopathy: Code(s): I42.9 - Cardiomyopathy, unspecified Qualifiers: Cardiomyopathy type: unspecified Qualified Code(s): I42.9 - Cardiomyopathy, unspecified Plan: Patient's most recent echocardiogram showing hyperdynamic function with EF of 70%. There is some concerned about hypokinesis in the bottom chambers. Troponins and lung perfusion scan were normal. She does report being somewhat symptomatic with dizziness, fatigue, shortness of breath on exertion. Will place surgeon cardiology referral. Advised on low threshold to return back to the ER if symptoms worsen (2) Asthma: Code(s): J45.909 - Unspecified asthma, uncomplicated Qualifiers: Asthma severity: mild Asthma persistence: persistent Asthma complication type: uncomplicated Qualified Code(s): J45.30 - Mild persistent asthma, uncomplicated Plan: Patient recently admitted to [facility] with acute bronchitis. As per HPI. She was discharged home with Breo to which she used for a month though was unclear she had any benefit. (3) Vertigo: Code(s): R42 - Dizziness and giddiness (4) Thrush: Code(s): B37.0 - Candidal stomatitis Plan: Noted signs symptoms of thrush. Will supply patient with liquid nystatin. Orders: Orders Complete Blood Count no Diff Today I42.9 - Cardiomyopathy, unspecified Basic Metabolic Panel Today I42.9 - Cardiomyopathy, unspecified Referrals Cardiology Referral I42.9 - Cardiomyopathy, unspecified Medications: New meclizine 12.5 mg PO TID 7 days 21 tabs 0RF dizziness R42 - Dizziness and giddiness nystatin swish and swallow 5 mL PO DAILY 10 days PRN 50 mL 0RF mouth irritation B37.0 - Candidal stomatitis Discontinued doxycycline hyclate Discontinued Reason: Doctor's Order 100 mg PO BID 8 caps 0RF Coding Level of Care Code Est Pt Level 4 (05233) Diagnoses Cardiomyopathy, unspecified type I42.9 Cardiomyopathy type: unspecified Mild persistent asthma without complication J45.30 Asthma severity: mild Asthma persistence: persistent Asthma complication type: uncomplicated Vertigo R42 Thrush B37.0
== END 2023-06-15 13:59 | disposition home or self-care (01) ==
LOC: HO.HMGH 13:13
PROVIDERS: PCP Physician Assistant; Visit Provider Physician Assistant
DX: I42.9 Cardiomyopathy, unspecified (principal); J45.30 Mild persistent asthma, uncomplicated; R42 Dizziness and giddiness; B37.0 Candidal stomatitis
CPT/HCPCS: 99214

== ENCOUNTER 2023-06-15 14:09 | Outpatient (REF) | payer OTHER, SELFPAY ==
[2023-06-15 15:18] LABS: Hematocrit 39.3 % (37.0-47.0); Hemoglobin 13.2 g/dl (12.0-16.0); Mean Corpuscular HGB Conc 33.6 g/dl (31.0-35.0); Mean Corpuscular Hemoglobin 31.4 pg (27.0-33.0); Mean Corpuscular Volume 93.3 fL (80.0-98.0); Mean Platelet Volume 10.2 fL (9.4-12.3); Platelet Count 204 X10*3/uL (160-400); Red Blood Count 4.21 X10*6/uL (4.20-5.50); Red Cell Distribution Width 12.5 % (11.0-16.0); White Blood Count 4.5 X10*3/uL (4.8-10.8)
[2023-06-15 15:45] LABS: Alanine Aminotransferase 26 U/L (0-31); Albumin Level 4.3 g/dL (3.5-5.0); Alkaline Phosphatase 77 U/L (39-117); Anion Gap 11 (12-20); Aspartate Amino Transferase 21 U/L (5-31); Bilirubin Total 0.6 mg/dL (0.0-1.0); Blood Urea Nitrogen 14 mg/dL (9-16); Calcium 9.6 mg/dL (8.4-10.2); Carbon Dioxide 26 mmol/L (22-29); Chloride 107 mmol/L (96-108); Cholesterol 278 mg/dL (<200); Estimated Glomerular Filt Rate > 60; Glucose Fasting 89 mg/dL (60-99); Glucose Random 89 mg/dL (60-115); HDL Cholesterol 83 mg/dL (>40); LDL Cholesterol Calculated 168 mg/dL (<100); Potassium 4.3 mmol/L (3.3-5.1); Sodium 140 mmol/L (135-145); Total Protein 7.2 g/dL (6.5-8.0); Triglycerides 137 mg/dL (<150)
[2023-06-15 16:11] LABS: Vitamin B12 368 pg/mL (200-900)
== END 2023-06-15 14:10 | disposition home or self-care (01) ==
LOC: HO.LAB 14:09
PROVIDERS: PCP Physician Assistant; Visit Provider Physician Assistant
DX: E78.9 Disorder of lipoprotein metabolism, unspecified (principal); E53.8 Deficiency of other specified B group vitamins; I42.9 Cardiomyopathy, unspecified
CPT/HCPCS: 36415; 80048; 80053; 80061; 82607; 82746; 85027

== ENCOUNTER 2023-07-02 13:55 | Outpatient (AMB) | payer OTHER, SELFPAY ==
--- NOTE | 2023-07-02 14:32 | MHC.OFFVIS ---
Vital Signs 07/02/23 14:33 Height 5 ft 1 in Weight 178 lb 9.191 oz BMI 33.7 BP 152/70 H Blood Pressure Location Lt brachial Position Sitting Pulse 76 Intake Visit Reasons: [facility] [place] PCP REF Allergies penicillin V Allergy (Severe, Verified 07/02/23 15:01) throat swelling Penicillins [PCN] Allergy (Verified 07/02/23 15:01) Hives Tetanus Vaccines and Toxoid Allergy (Verified 07/02/23 15:01) Difficulty Breathing Iodinated Contrast Media [Contrast Dye] Adverse Reaction (Verified 07/02/23 15:01) Anaphylaxis Medication List - Last Reconciled 07/02/23 by Becky Grant NP albuterol sulfate 90 mcg/actuation 2 puffs inhalation Q4-6H PRN albuterol sulfate 2.5 mg (3 mL) inhalation Q6H PRN 30 days aspirin 81 mg PO DAILY cyclobenzaprine 5 mg PO BID fluticasone furoate-vilanterol 200-25 mcg/dose (Breo Ellipta) 1 inh inhalation RDAILY ibuprofen 400 mg PO Q8H PRN loratadine 10 mg PO DAILY meclizine 12.5 mg PO TID 7 days nebulizers (AeroEclipse II Nebulizer) As directed nebulizers (Aeroneb Go Nebulizer) As directed omeprazole 20 mg PO DAILY HPI Comments Details: 57-year-old female presents for a new patient visit. She reports she gets chest heaviness and shortness of breath on exertion. She reports she also gets a fast heart rate then feels a skipped beat and then her heart rate returns to normal. She reports no cardiac history for herself but she reports family history of pacemaker placement, CABG, and CAD. [facility] Medical History Intermittent palpitations Chest pain Anxiety, generalized Esophageal stricture Normal colonoscopy Asthma Surgical History History of endoscopy History of appendectomy History of bladder surgery History of torn meniscus of right knee History of gallbladder disease History of partial hysterectomy Family History Father CVD (cardiovascular disease) Past heart attack Mother No problems noted. Brother Heart problem Pacemaker Social History Household Members: Spouse Housing: Apartment Do you presently have visiting nurse or other home services: No Alcohol intake: never Patient Tobacco Use Status: Never used Tobacco e-Cigarette/Vaping Use: Never Used Second Hand Smoke Exposure: No service: No Current occupational status: unemployed Cognitive needs: No Hearing needs: No Vision needs: Yes (Reading glasses) Review of Systems Const Denies weakness ENT Denies dizziness Card Denies chest pain, Denies chest pain with activity, Denies syncope, Denies rapid heart rate, Denies pedal edema, Denies edema, Denies leg edema, Denies lightheadedness, Denies palpitations, Denies dyspnea, Denies dyspnea on exertion and Denies orthopnea Resp Denies cough, Denies dyspnea and Denies dyspnea on exertion GI Denies hematochezia and Denies change in stool character Musc Denies abnormal gait, Denies muscle cramps, Denies muscle weakness, Denies numbness, Denies radiating pain into limb and Denies tingling Neuro Denies abnormal gait, Denies dizziness, Denies syncope, Denies numbness, Denies tingling and Denies weakness Endo Denies palpitations Physical Exam Vital Signs: Last Vital Signs Pulse 76 07/02/23 14:33 BP 152/70 H 07/02/23 14:33 BMI result Body Mass Index 33.7 Const General: healthy appearing and no acute distress Orientation/consciousness: patient oriented x3 HEENT Head: Yes normal to inspection Eyes General: appearance normal, both eyes and all related structures Neck Neck: Yes normal visual inspection Chest Chest palpation & inspection: normal inspection of the chest Resp Effort & Inspection: normal respiratory effort Auscultation: clear to auscultation bilaterally Cardio Jugular venous distension: no JVD Palpation: normal PMI Rate: regular rate Rhythm: regular rhythm Heart sounds: S1 normal heart sound present, S2 normal heart sound present, no click, no gallops, no murmurs and no rubs GI Inspection: Yes normal to inspection Palpation (GI): Soft to palpation Skin General skin exam: no rashes or lesions noted Neuro General: patient oriented x3 Extrem General: Yes normal to inspection Psych Appearance: grossly normal Assessment & Plan Assessment & Plan (1) Cardiomyopathy: Code(s): I42.9 - Cardiomyopathy, unspecified Category: Medical Qualifiers: Cardiomyopathy type: unspecified Qualified Code(s): I42.9 - Cardiomyopathy, unspecified Plan: Echo showing Normal left ventricular cavity size. There is normal left ventricular wall thickness. The left ventricular systolic function is hyperdynamic. The visually estimated ejection fraction is >70%. Spectral Doppler is indicative of an impaired relaxation filling pattern. There is mild septal asymmetric hypertrophy. (2) Chest pain: Code(s): R07.9 - Chest pain, unspecified Category: Medical Plan: Chest pain on exertion paired with shortness of breath. Will get stress test to assess for ischemia. She has gotten short of breath easily with minimal exertion will do pharmacological stress test. (3) Intermittent palpitations: Code(s): R00.2 - Palpitations Category: Medical Plan: Intermittent palpitations. Described as racing heart rate with it terminating as a skipped beat then returning to normal. Will get holter to assess for arrhythmias. Follow-up after testing. Orders: Orders NM cardiolite stress test 07/02/23 Becky Grant NP I42.9 - Cardiomyopathy, unspecified, R07.9 - Chest pain, unspecified ECG 3 day holter monitor 07/02/23 Becky Grant NP R00.2 - Palpitations CA lexiscan stress w uriel 07/02/23 Becky Grant NP I42.9 - Cardiomyopathy, unspecified, R07.9 - Chest pain, unspecified Medications: Changed From cyclobenzaprine 5 mg PO BID 10 tabs 0RF To cyclobenzaprine 5 mg PO BID Geoff Gray MD Coding Level of Care Code New Pt Level 3 (54995) Diagnoses Cardiomyopathy, unspecified type I42.9 Cardiomyopathy type: unspecified Chest pain R07.9 Intermittent palpitations R00.2
[2023-07-02 14:33] VITALS: BP 152/70; PULSE 76; BMI 33.7
== END 2023-07-02 15:13 | disposition home or self-care (01) ==
PROVIDERS: PCP Physician Assistant; Visit Provider Nurse Practitioner
DX: I42.9 Cardiomyopathy, unspecified (principal); R07.9 Chest pain, unspecified; R00.2 Palpitations
CPT/HCPCS: 99203

== ENCOUNTER → 2023-07-02 13:55 | Outpatient (BNVA) | payer OTHER, SELFPAY | PROVIDERS: PCP Physician Assistant; Visit Provider Nurse Practitioner | DX: I42.9 Cardiomyopathy, unspecified (principal); R07.9 Chest pain, unspecified; R00.2 Palpitations | CPT/HCPCS: 99202 ==

== ENCOUNTER 2023-07-06 08:26 | Emergency (ER) | payer OTHER, SELFPAY ==
--- NOTE | ~2023-07-06 | XR_ITS ---
EXAMINATION: XR RIGHT FOREARM XR RIGHT SHOULDER CLINICAL INFORMATION: Right upper extremity pain. COMPARISON: 08/10/2018 TECHNIQUE: AP and lateral views of the right forearm were obtained. AP, Grashey and transscapular Y views of the right shoulder were obtained. FINDINGS: Hypertrophic changes of the acromioclavicular joint. Glenohumeral joint space is maintained. No displaced fracture or dislocation. No abnormal soft tissue calcifications. Anatomic alignment of the right forearm. No displaced fracture or dislocation. XR/XR forearm RT 2V IMPRESSION: No acute abnormality.
--- NOTE | ~2023-07-06 | US_ITS ---
EXAMINATION: US VENOUS WITH DOPPLER UPPER EXTREMITY, RIGHT CLINICAL INFORMATION: Right arm pain COMPARISON: None available. TECHNIQUE: Ultrasound of the upper extremity is performed using compression sonography and color and pulse Doppler flow with assessment of augmentation of flow. There is also imaging and Doppler assessment of the jugular and subclavian veins. Spectral analysis with color-flow imaging is performed. FINDINGS: Respiratory variation, normal compression, and augmented flow are noted throughout the upper extremity including the axillary, brachial, cubital, and radial and ulnar veins. There is normal flow in the internal jugular and subclavian veins. There is no visible deep or superficial thrombophlebitis. If the patient's symptoms progress, a followup ultrasound in 5 -7 days might be of value to exclude proximal propagation from a nonvisualized distal arm vein. US/US venous duplex UE RT IMPRESSION: No DVT demonstrated in the right upper extremity
--- NOTE | ~2023-07-06 | XR_ITS ---
EXAMINATION: XR RIGHT FOREARM XR RIGHT SHOULDER CLINICAL INFORMATION: Right upper extremity pain. COMPARISON: 08/10/2018 TECHNIQUE: AP and lateral views of the right forearm were obtained. AP, Grashey and transscapular Y views of the right shoulder were obtained. FINDINGS: Hypertrophic changes of the acromioclavicular joint. Glenohumeral joint space is maintained. No displaced fracture or dislocation. No abnormal soft tissue calcifications. Anatomic alignment of the right forearm. No displaced fracture or dislocation. XR/XR shoulder RT min 2V IMPRESSION: No acute abnormality.
[2023-07-06 08:33] VITALS: BP 151/70; PULSE 86; RESP 18; TEMP 36.6; O2SAT 99; BMI 31.6
[2023-07-06 09:36] LABS: MANUAL DIFF FLAG NO
[2023-07-06 09:39] LABS: Eosinophils Absolute Auto 0.3 X10*3/uL (0.0-0.4); Eosinophils Percent Auto 6.2 % (0-4); Hematocrit 36.7 % (37.0-47.0); Hemoglobin 12.5 g/dl (12.0-16.0); Imm Gran Abs Auto 0.02 X10*3/uL (0.00-0.03); Imm Gran Pct Auto 0.5 % (0.0-0.4); Lymphocytes Absolute Auto 1.2 X10*3/uL (1.2-4.9); Lymphocytes Percent Auto 30.3 % (20-40); Mean Corpuscular HGB Conc 34.1 g/dl (31.0-35.0); Mean Corpuscular Hemoglobin 30.9 pg (27.0-33.0); Mean Corpuscular Volume 90.8 fL (80.0-98.0); Mean Platelet Volume 9.5 fL (9.4-12.3); Monocytes Absolute Auto 0.3 X10*3/uL (0.1-1.2); Monocytes Percent Auto 6.7 % (2-11); Neutrophils Absolute Auto 2.3 x10*3/uL (2.0-8.3); Neutrophils Percent Auto 55.3 % (45-73); Platelet Count 214 X10*3/uL (160-400); Red Blood Count 4.04 X10*6/uL (4.20-5.50); Red Cell Distribution Width 12.5 % (11.0-16.0); White Blood Count 4.1 X10*3/uL (4.8-10.8)
--- NOTE | 2023-07-06 09:42 | ED_ITS ---
HPI - Extremity Problem General Chief complaint: Extremity Injury, Upper Stated complaint: R arm pain Time Seen by Provider: 07/06/23 09:09 Source: patient Mode of arrival: ambulatory Limitations: no limitations History of Present Illness HPI Narrative: 57-year-old with past medical history of asthma, GErD, presents to the ED for right arm pain for 1 week without any trauma. Patient denies any neck pain radiating down right arm. Patient states right shoulder pain radiating down to right hand. Patient denies any numbness/tingling. Patient denies any swelling, redness, fever, chills. Patient denies any posterior neck pain, chest pain, or shortness of breath. Patient denies any heavy lifting or new workouts. Patient admits to recent hospital admission and IV on right arm. Related Data Home Medications ?Medication ?Instructions ?Recorded ?Confirmed albuterol sulfate 90 mcg/actuation 2 puff inhalation Q4-6H PRN 05/26/23 07/02/23 aerosol inhaler wheezing aspirin 81 mg tablet,delayed 81 mg PO DAILY 07/02/23 07/02/23 release cyclobenzaprine 5 mg tablet 5 mg PO BID 07/02/23 07/02/23 Previous Rx's ?Medication ?Instructions ?Recorded fluticasone furoate 200 1 inh inhalation RDAILY #1 ea 06/01/23 mcg-vilanterol 25 mcg/dose inhalation powder (Breo Ellipta) ibuprofen 400 mg tablet 400 mg PO Q8H PRN pain #10 tabs 06/01/23 omeprazole 20 mg capsule,delayed 20 mg PO DAILY #30 caps 06/01/23 release albuterol sulfate 2.5 mg/3 mL 2.5 mg (3 mL) inhalation Q6H PRN 06/02/23 (0.083 %) solution for nebulization shortness of breath or wheezing 30 days #180 mL nebulizers (AeroEclipse II #1 ea 06/02/23 Nebulizer) nebulizers (Aeroneb Go Nebulizer) #1 ea 06/04/23 meclizine 12.5 mg tablet 12.5 mg PO TID dizziness 7 days 06/15/23 #21 tabs loratadine 10 mg tablet 10 mg PO DAILY #10 tabs 06/17/23 cyclobenzaprine 10 mg tablet 10 mg PO TID PRN muscle spasm 5 07/06/23 days #15 tabs naproxen 500 mg tablet 500 mg PO BID PRN pain 7 days #14 07/06/23 tabs Allergies Allergy/AdvReac Type Severity Reaction Status Date / Time penicillin V Allergy Severe throat Verified 07/06/23 08:34 swelling Penicillins [PCN] Allergy Hives Verified 07/06/23 08:34 Tetanus Vaccines and Toxoid Allergy Difficulty Verified 07/06/23 08:34 Breathing Iodinated Contrast Media AdvReac Anaphylaxis Verified 07/06/23 08:34 [Contrast Dye] Review of Systems 2 Review of Systems: Right arm pain. atraumatic Yes all other systems are reviewed and are negative [facility] Past Medical History Medical History Intermittent palpitations Chest pain Anxiety, generalized Esophageal stricture Normal colonoscopy Asthma Surgical History History of endoscopy History of appendectomy History of bladder surgery History of torn meniscus of right knee History of gallbladder disease History of partial hysterectomy Family History Family History Father CVD (cardiovascular disease) Past heart attack Mother No problems noted. Brother Heart problem Pacemaker Social History Social History Household Members: Spouse Housing: Apartment Do you presently have visiting nurse or other home services: No Alcohol intake: never Patient Tobacco Use Status: Never used Tobacco e-Cigarette/Vaping Use: Never Used Second Hand Smoke Exposure: No Advance Directives: No Advance Directives Information Provided: Yes service: No Current occupational status: unemployed Cognitive needs: No Hearing needs: No Vision needs: Yes (Reading glasses) Physical Exam 2 Vital Signs: Vital Signs: Last Vital Signs Temp 98.2 F 07/06/23 13:57 Pulse 68 07/06/23 13:57 Resp 16 07/06/23 13:57 BP 150/60 H 07/06/23 13:57 Pulse Ox 98 07/06/23 13:57 O2 Del Method Room Air 07/06/23 13:57 BMI result Body Mass Index 31.6 Const: General: cooperative, healthy appearing, comfortable, no acute distress, well developed, alert, awake and Physically active O rientation/consciousness: oriented to person, oriented to place, oriented to time and patient oriented x3 HEENT: Head: Yes normal to inspection, Yes No palpable skull fracture present, Yes normocephalic, Yes atraumatic and No abrasion Eyes: General: appearance normal, both eyes and all related structures Neck: Neck: Yes normal visual inspection, Yes full ROM, Yes no lymphadenopathy, Yes no meningeal signs, Yes trachea midline, Yes supple, No anterior neck swelling and No tender Chest: Chest palpation & inspection: normal inspection of the chest and normal palpation of entire chest wall Breast/axilla palpation: normal palpation of the breasts and normal palpation of the axillae Resp: Effort & Inspection: normal respiratory effort and able to speak in complete sentences Auscultation: clear to auscultation bilaterally Cardio: Jugular venous distension: no JVD Heart sounds: S1 normal heart sound present and S2 normal heart sound present GI: Inspection: Yes normal to inspection Palpation (GI): Soft to palpation, not firm, nontender, no guarding and not rigid : General: No CVA tenderness and Yes no CVA tenderness Back/Spine/Pelvis: Back: no CVA tenderness, No CVA tenderness and No back tenderness Skin: General skin exam: no rashes or lesions noted, elasticity normal and turgor normal Neuro: General: oriented to person, oriented to place, oriented to time, patient oriented x3, gait normal, tone normal, moves all extremities, Normal light touch and pain sensation, no meningeal signs, no focal motor deficits, CN's II-XI intact bilaterally and normal sensation to monofilament Extrem: General: Yes normal to inspection, Yes full ROM and Yes capillary refill normal Shoulder/upper arm images: 1. tenderness on palpation. Negative for erythema, crepitus, ecchymosis, swelling, deformity, hotness, or coldness. Motor/neuro/ vascular exam intact. Psych: Appearance: grossly normal, well kempt and not disheveled Medications Administered Discontinued Medications Generic Name Dose Route Start Last Admin Trade Name Freq PRN Reason Stop Dose Admin Ketorolac Tromethamine 30 mg 07/06/23 09:29 07/06/23 09:43 Ketorolac Tromethamine 30 Mg/Ml Vial IM 07/06/23 09:30 30 mg ONCE ONE Administration Prednisone 40 mg 07/06/23 09:29 07/06/23 09:43 Prednisone 20 Mg Tablet PO 07/06/23 09:30 40 mg ONCE ONE Administration Medical Decision Making Medical Decision Making [facility] Narrative: 57-year-old female presents to the ED for 1 week of right atraumatic arm pain. will send for x-ray of right upper extremity. Will order ultrasound to rule out blood clots. Will do labs including CPK. Patient states family history of blood clots. Will give Toradol prednisone for pain relief 1:25pm: x-ray of shoulder and forearm negative for fracture. Labs are normal. Negative for signs of dehydration rhabdomyolysis. Ultrasound negative for DVT. Physical exam does not indicate arterial occlusion. Neurovascular motor exam intact. Motor exam intact but with pain. Patient informed to follow up with primary care provider. Patient explained worrisome signs informed to return to the ED if she has them. history physical exam does not indicate compartment syndrome, cellulitis, arterial occlusion, osteomyelitis, septic joint, DVT, or fracture Differential Diagnosis Differential Diagnoses: The differential diagnosis associated with the presentation includes ( DVT, fracture, phlebitis, cellulitis,) Admission/Observation Consideration of admission/observation: Escalation of care including admission/observation considered Lab Data [facility] Lab Attestation statement: I reviewed the patient's lab results. 07/06/23 09:29 07/06/23 09:29 Labs: Lab Results 07/06/23 Range/Units 09:29 WBC 4.1 L (4.8-10.8) X10*3/uL RBC 4.04 L (4.20-5.50) X10*6/uL Hgb 12.5 (12.0-16.0) g/dl Hct 36.7 L (37.0-47.0) % MCV 90.8 (80.0-98.0) fL MCH 30.9 (27.0-33.0) pg MCHC 34.1 (31.0-35.0) g/dl RDW 12.5 (11.0-16.0) % Plt Count 214 (160-400) X10*3/uL MPV 9.5 (9.4-12.3) fL Immature Gran % (Auto) 0.5 H (0.0-0.4) % Neut % (Auto) 55.3 (45-73) % Lymph % (Auto) 30.3 (20-40) % [place] % (Auto) 6.7 (2-11) % Eos % (Auto) 6.2 H (0-4) % Baso % (Auto) 1.0 (0-2) % Lymph # (Auto) 1.2 (1.2-4.9) X10*3/uL [place] # (Auto) 0.3 (0.1-1.2) X10*3/uL Eos # (Auto) 0.3 (0.0-0.4) X10*3/uL Baso # (Auto) 0.0 (0.0-0.2) X10*3/uL Abs Immat Gran (auto) 0.02 (0.00-0.03) X10*3/uL Absolute Neuts (auto) 2.3 (2.0-8.3) x10*3/uL Absolute Nucleated RBC 0.000 (0.0-0.012) X10*3/uL Nucleated RBC % (auto) 0.0 (0.0-0.2) /100WBC PT 10.6 L (11.1-13.3) SEC INR 0.9 (0.9-1.1) APTT 32.0 (26.0-36.8) SEC Sodium 145 (135-145) mmol/L Potassium 3.7 (3.3-5.1) mmol/L Chloride 106 (96-108) mmol/L Carbon Dioxide 28 (22-29) mmol/L Anion Gap 15 (12-20) BUN 14 (9-16) mg/dL Creatinine 0.72 (0.5-1.4) mg/dL Estim Creat Clear Calc 79.2 Estimated GFR > 60 Random Glucose 75 (60-115) mg/dL Calcium 9.3 (8.4-10.2) mg/dL Total Bilirubin 0.8 (0.0-1.0) mg/dL AST 18 (5-31) U/L ALT 18 (0-31) U/L Alkaline Phosphatase 77 (39-117) U/L Total Creatine Kinase 133 (26-140) U/L Total Protein 6.3 L (6.5-8.0) g/dL Albumin 4.1 (3.5-5.0) g/dL Independent Interpretation I performed an independent interpretation of an: Plain X-Ray and Ultrasound Radiology Impression Discussion of test interpretation with radiology: I have reviewed the radiologist's reading. Independent Historian Clinical information obtained from an independent historian. History obtained from or confirmed by: Other ( patient) External Record Review External record reviewed: Other ( prior visit) Prescription Management I considered prescription management with: Pain Medication Discharge Plan Discharge Clinical Impression: Arm pain Patient Disposition: Home, Self-Care Instructions: Arm Pain (ED) Additional Instructions: return to the ED for severe pain, redness, swelling, bluish black discoloration, numbness/ tingling, paralysis, chest pain, shortness of breath, neck pain, headache, fever, chills, loss of vision, or any other concerning symptoms. Recommend follow-up with primary care provider Prescriptions: New naproxen 500 mg tablet 500 mg PO BID PRN (Reason: pain) 7 Days Qty: 14 0RF cyclobenzaprine 10 mg tablet 10 mg PO TID PRN (Reason: muscle spasm) 5 Days Qty: 15 0RF Rx Instructions: side effect is drowsiness. Do not take at work or while driving. No Action albuterol sulfate 2.5 mg /3 mL (0.083 %) solution for nebulization 2.5 mg inhalation Q6H PRN (Reason: shortness of breath or wheezing) 30 Days Qty: 180 3RF (DME) nebulizers [AeroEclipse II Nebulizer] Mis See Rx Instructions .Route Qty: 1 0RF Rx Instructions: As directed (DME) nebulizers [Aeroneb Go Nebulizer] Misc See Rx Instructions .Route Qty: 1 0RF Rx Instructions: As directed loratadine 10 mg tablet 10 mg PO DAILY Qty: 10 0RF albuterol sulfate 90 mcg/actuation HFA aerosol inhaler 2 puff INHALATION Q4-6H PRN (Reason: wheezing) omeprazole 20 mg Capsule,Delayed Release(Dr/Ec) 20 mg PO DAILY Qty: 30 0RF fluticasone furoate-vilanterol [Breo Ellipta] 200-25 mcg/dose Blister With Device 1 inh inhalation RDAILY Qty: 1 0RF ibuprofen 400 mg tablet 400 mg PO Q8H PRN (Reason: pain) Qty: 10 0RF meclizine 12.5 mg tablet 12.5 mg PO TID 7 Days Qty: 21 0RF cyclobenzaprine 5 mg tablet 5 mg PO BID aspirin 81 mg tablet,delayed release (DR/EC) 81 mg PO DAILY Stand Alone Forms: Work/School Release Interventions: ED Discharge Assessment Last Done: 07/06/23 13:57 Discharge Date/Time: 07/06/23 13:57 Print Language: Azerbaijani
[2023-07-06] MEDS: predniSONE 20 MG TABLET 40 MG PO (09:43)
[2023-07-06] MEDS: Ketorolac Tromethamine 30 MG/ML VIAL IM (09:43)
[2023-07-06 09:47] LABS: INTERNATIONAL NORM RATIO 0.9 (0.9-1.1); Prothrombin Time 10.6 SEC (11.1-13.3)
[2023-07-06 09:53] LABS: Alanine Aminotransferase 18 U/L (0-31); Albumin Level 4.1 g/dL (3.5-5.0); Alkaline Phosphatase 77 U/L (39-117); Anion Gap 15 (12-20); Aspartate Amino Transferase 18 U/L (5-31); Bilirubin Total 0.8 mg/dL (0.0-1.0); Blood Urea Nitrogen 14 mg/dL (9-16); Calcium 9.3 mg/dL (8.4-10.2); Carbon Dioxide 28 mmol/L (22-29); Chloride 106 mmol/L (96-108); Creatinine Clr Calc Pharmacy 79.2; Estimated Glomerular Filt Rate > 60; Glucose Random 75 mg/dL (60-115); Potassium 3.7 mmol/L (3.3-5.1); Sodium 145 mmol/L (135-145); Total Protein 6.3 g/dL (6.5-8.0)
[2023-07-06 10:57] VITALS: BP 131/62; PULSE 72; RESP 14
[2023-07-06 13:57] VITALS: BP 150/60; PULSE 68; RESP 16; TEMP 36.8; O2SAT 98
== END 2023-07-06 13:57 | disposition home or self-care (01) ==
PROVIDERS: Physician Assistant; Emergency Provider Emergency Medicine; PCP Physician Assistant
DX: M79.601 Pain in right arm (principal); R60.0 Localized edema; Z79.899 Other long term (current) drug therapy
CPT/HCPCS: 36415; 73030; 73090; 80053; 82550; 85025; 85610; 85730; 93971; 96372; 99284; J1885

== ENCOUNTER 2023-07-11 07:13 | Emergency (ER) | payer OTHER, SELFPAY ==
--- NOTE | ~2023-07-11 | US_ITS ---
EXAMINATION: US TRIPLEX UPPER EXTREMITY, RIGHT CLINICAL INFORMATION: Blistering, pain COMPARISON: Ultrasound venous upper extremity right from 07/06/2023 TECHNIQUE: Color-flow triplex imaging with spectral analysis and compression Doppler was performed on the right upper extremity. FINDINGS: The right internal jugular, subclavian, and axillary veins are patent and free of thrombus. The imaged segment of the right brachiocephalic vein is patent. Spectral doppler waveforms are normal. Contralateral subclavian vein is patent. The brachial, basilic, radial, and ulnar veins are patient and compressible. Partial thrombus of the right cephalic vein corresponding to a region of redness and blistering suggesting superficial thrombophlebitis. US/US venous duplex UE RT IMPRESSION: 1. No evidence of deep venous thrombosis involving the right upper extremity. 2. Partial thrombus of the right cephalic vein corresponding to a region of redness and blistering suggesting superficial thrombophlebitis.
[2023-07-11 07:22] VITALS: BP 142/64; PULSE 92; RESP 18; TEMP 36.6; O2SAT 99; BMI 31.6
[2023-07-11 08:39] VITALS: BP 142/74; PULSE 83; RESP 15; O2SAT 97
--- NOTE | 2023-07-11 09:05 | ED.GENADULT ---
HPI - General Adult General Chief complaint: General Medical Stated complaint: blisters on arm Time Seen by Provider: 07/11/23 09:02 Source: patient Mode of arrival: ambulatory Limitations: no limitations History of Present Illness ED Provider: Keshawn Schmitt NP HPI narrative: Patient is a 58-year-old female with history of asthma, anxiety, esophageal stricture presenting to the emergency department with complaint of right arm pain and blistering rash. She states that the arm pain began on 07/01. She states that she saw a black spider in her car that day but is unsure if it bit her. She was evaluated in this emergency department on 07/05 for right arm pain. At that time she had an ultrasound and x-ray, which were negative for fracture or DVT. Since that time, she has developed a rash and blisters. She describes the pain as throughout her entire arm. Denies fevers. Denies new medications or recent medication changes. Denies known injury or trauma. Denies drainage from the blisters. She reports that the pain and rash are to her right arm only, denies pain or rash in any other areas. MD complaint: arm pain, rash Onset (ago): day(s) Location: right and upper extremity Severity: severe Quality: constant Relieving factors: none Associated symptoms: denies other symptoms Treatments prior to arrival: other (calamine lotion) Related Data Home Medications ?Medication ?Instructions ?Recorded ?Confirmed albuterol sulfate 90 mcg/actuation 2 puff inhalation Q4-6H PRN 05/26/23 07/02/23 aerosol inhaler wheezing aspirin 81 mg tablet,delayed 81 mg PO DAILY 07/02/23 07/02/23 release cyclobenzaprine 5 mg tablet 5 mg PO BID 07/02/23 07/02/23 Previous Rx's ?Medication ?Instructions ?Recorded fluticasone furoate 200 1 inh inhalation RDAILY #1 ea 06/01/23 mcg-vilanterol 25 mcg/dose inhalation powder (Breo Ellipta) ibuprofen 400 mg tablet 400 mg PO Q8H PRN pain #10 tabs 06/01/23 omeprazole 20 mg capsule,delayed 20 mg PO DAILY #30 caps 06/01/23 release albuterol sulfate 2.5 mg/3 mL 2.5 mg (3 mL) inhalation Q6H PRN 06/02/23 (0.083 %) solution for nebulization shortness of breath or wheezing 30 days #180 mL nebulizers (AeroEclipse II #1 ea 06/02/23 Nebulizer) nebulizers (Aeroneb Go Nebulizer) #1 ea 06/04/23 meclizine 12.5 mg tablet 12.5 mg PO TID dizziness 7 days 06/15/23 #21 tabs loratadine 10 mg tablet 10 mg PO DAILY #10 tabs 06/17/23 cyclobenzaprine 10 mg tablet 10 mg PO TID PRN muscle spasm 5 07/06/23 days #15 tabs naproxen 500 mg tablet 500 mg PO BID PRN pain 7 days #14 07/06/23 tabs clobetasol 0.05 % topical cream 1 appl topical BID 2 weeks #15 07/11/23 grams doxycycline hyclate 100 mg capsule 100 mg PO BID #20 caps 07/11/23 oxycodone 5 mg tablet 5 mg PO Q8H PRN severe pain (scale 07/11/23 score 7-10) #9 tabs prednisone 20 mg tablet 20 mg PO DAILY #18 tabs 07/11/23 Allergies Allergy/AdvReac Type Severity Reaction Status Date / Time penicillin V Allergy Severe throat Verified 07/11/23 07:23 swelling Penicillins [PCN] Allergy Hives Verified 07/11/23 07:23 Tetanus Vaccines and Toxoid Allergy Difficulty Verified 07/11/23 07:23 Breathing Iodinated Contrast Media AdvReac Anaphylaxis Verified 07/11/23 07:23 [Contrast Dye] Review of Systems Review of Systems: As per HPI. Yes all other systems are reviewed and are negative Constitutional: Constitutional: Reports as per HPI [facility], [facility] Past Medical History Medical History Intermittent palpitations Chest pain Anxiety, generalized Esophageal stricture Normal colonoscopy Asthma Surgical History History of endoscopy History of appendectomy History of bladder surgery History of torn meniscus of right knee History of gallbladder disease History of partial hysterectomy Family History Family History Father CVD (cardiovascular disease) Past heart attack Mother No problems noted. Brother Heart problem Pacemaker Social History Social History Household Members: Spouse Housing: Apartment Do you presently have visiting nurse or other home services: No Alcohol intake: never Patient Tobacco Use Status: Never used Tobacco e-Cigarette/Vaping Use: Never Used Second Hand Smoke Exposure: No Advance Directives: No Advance Directives Information Provided: Yes service: No Current occupational status: unemployed Cognitive needs: No Hearing needs: No Vision needs: Yes (Reading glasses) Physical Exam ED Vital Signs: Vital Signs - 24 hr 07/11/23 07:22 07/11/23 08:39 Temperature 98 F Pulse Rate 92 83 Respiratory Rate 18 15 Blood Pressure 142/64 H 142/74 H Pulse Oximetry 99 97 Oxygen Delivery Method Room Air BMI result Body Mass Index 31.6 Vital signs have been reviewed and appear to be correct. Blood pressure elevated. Heart rate normal. Respiratory rate normal. Temperature normal. Oxygen saturation normal. Const General: cooperative, healthy appearing and no acute distress Orientation/consciousness: oriented to person, oriented to place, oriented to time and patient oriented x3 Limitations: no limitations HENMT Head: Yes normocephalic and Yes atraumatic Ears: external ears normal General nose exam: Normal external nose present Face and sinus: Yes face symmetric Mouth: Normal oral and palatal mucosa present, lip normal, tongue normal, oropharynx normal, moist mucous membranes and other (no oral lesions) Throat: Yes uvula midline Eyes Pupils: Equal, round and reactive pupils present Neck Neck: Yes normal visual inspection and Yes supple Resp Effort & Inspection: normal respiratory effort and able to speak in complete sentences Auscultation: clear to auscultation bilaterally Cardio Rate: regular rate Rhythm: regular rhythm Heart sounds: S1 normal heart sound present and S2 normal heart sound present GI Palpation (GI): Soft to palpation and nontender Auscultation: normoactive bowel sounds General: Yes no CVA tenderness Back/Spine/Pelvis Back: no CVA tenderness Skin Other: General skin exam: elasticity normal and turgor normal Rashes: rashes noted (tense, negative Nikolsky's) bullae right arm arrangement clustered, color red and tender; fluctuant not assessed, macules right arm arrangement clustered, color red, surface blanching and tender Neuro General: oriented to person, oriented to place, oriented to time, patient oriented x3, moves all extremities, no focal motor deficits and CN's II-XI intact bilaterally Cranial nerves: Yes Equal, round and reactive pupils present Cognition (Neuro): normal cognition Extrem General: Yes full ROM, Yes no pedal edema and Yes no calf tenderness Psych Mental Status: mental status grossly normal Affect: normal affect Thought process: Normal thought process present Medications Administered Discontinued Medications Generic Name Dose Route Start Last Admin Trade Name Myesha PRN Reason Stop Dose Admin Doxycycline Monohydrate 100 mg 07/11/23 09:33 07/11/23 09:39 Doxycycline Monohydrate 100 Mg Capsule PO 07/11/23 09:34 100 mg ONCE ONE Administration Ibuprofen 600 mg 07/11/23 09:28 07/11/23 09:40 Ibuprofen 600 Mg Tablet PO 07/11/23 09:29 600 mg ONCE ONE Administration Oxycodone HCl 5 mg 07/11/23 09:28 07/11/23 09:40 Oxycodone Hcl Immed Release 5 Mg Tablet PO 07/11/23 09:29 5 mg ONCE ONE Administration Prednisone 40 mg 07/11/23 09:28 07/11/23 09:39 Prednisone 20 Mg Tablet PO 07/11/23 09:29 40 mg ONCE ONE Administration Medical Decision Making Medical Decision Making [facility] Narrative: Patient is a 58-year-old female with history of asthma, anxiety, esophageal stricture presenting to the emergency department with complaint of right arm pain and blistering rash. On exam patient is awake, A+Ox3, VS WNL, afebrile, normal neurological exam without focal deficits, physical exam findings as above. Given reported symptoms and physical exam findings, initial differential includes bullous pemphigoid, herpes zoster, arthropod bite, dermatitis herpetiformis. Ultrasound notable for superficial thrombophlebitis but no evidence of DVT. My interpretation is in agreement with the radiologist's interpretation. Case discussed with Dr. Fields who also evaluated patient and recommends treatment with pain medication, steroids, and doxycycline. Do not feel rash is consistent with herpes zoster. Given negative Nikosly's, no oral lesions, area is localized to right arm only, do not suspect DRESS, TTP DIC, necrotizing fasciitis, pemphigus vulgaris, RMSF, SSSS, TEN/SJS, TSS, secondary syphilis. Feel rash is most consistent with bullous pemphigoid especially given prodromal symptoms for which patient initially presented to the emergency department. Will treat patient with tapering course of prednisone, clobetasol cream, and doxycycline. Instructed patient to follow-up with primary care provider. Will refer to Dermatology as well. Return precautions discussed at bedside. Patient verbalized understanding of and agreement with plan. Differential Diagnosis Differential Diagnoses: The differential diagnosis associated with the presentation includes As per MDM. Independent Interpretation I performed an independent interpretation of an: Ultrasound Interpretation: Right upper extremity ultrasound notable for no DVT, superficial phlebitis corresponding to area of redness. Radiology Impression Discussion of test interpretation with radiology: I have reviewed the radiologist's reading. Radiologist Impression: US/US venous duplex UE RT IMPRESSION: 1. No evidence of deep venous thrombosis involving the right upper extremity. 2. Partial thrombus of the right cephalic vein corresponding to a region of redness and blistering suggesting superficial thrombophlebitis. External Record Review External record reviewed: Inpatient record, Office record and Outpatient record Prescription Management I considered prescription management with: Pain Medication, Antibiotic and Other Discharge Plan Discharge Clinical Impression: Bullous rash Patient Disposition: Home, Self-Care Additional Instructions: You were evaluated in the emergency department today for right arm pain and rash. It is possible this rash is due to a condition called bullous pemphigoid, but in order to determine this for certain, you will need skin biopsies. You are being treated with a course of antibiotics, please complete the full course as prescribed. You are also being completed with a tapering dose of steroids as well as a topical steroid cream. Please keep the appointment Thursday with your primary care provider. You are also being referred to Dermatology, please call their office to schedule an appointment. Return to the emergency department if you develop increasing areas of rash, thick yellow drainage, fevers/chills/body aches, lesions inside your mouth, to your palms or soles of her feet, or any other concerning symptoms. Prescriptions: New doxycycline hyclate 100 mg capsule 100 mg PO BID Qty: 20 0RF prednisone 20 mg tablet 20 mg PO DAILY Qty: 18 0RF Rx Instructions: Take 60mg (3 tabs) for 3 days, then take 40mg (2 tabs) for 3 days, then take 20mg (1 tab) for 3 days clobetasol 0.05 % cream 1 appl topical BID 14 Days Qty: 15 0RF oxycodone 5 mg tablet 5 mg PO Q8H PRN (Reason: severe pain (scale score 7-10)) Qty: 9 0RF Rx Instructions: Partial Fill upon patient request. No Action albuterol sulfate 2.5 mg /3 mL (0.083 %) solution for nebulization 2.5 mg inhalation Q6H PRN (Reason: shortness of breath or wheezing) 30 Days Qty: 180 3RF (DME) nebulizers [AeroEclipse II Nebulizer] [facility] [place] See Rx Instructions .Route Qty: 1 0RF Rx Instructions: As directed (DME) nebulizers [Aeroneb Go Nebulizer] [facility] [place] See Rx Instructions .Route Qty: 1 0RF Rx Instructions: As directed loratadine 10 mg tablet 10 mg PO DAILY Qty: 10 0RF naproxen 500 mg tablet 500 mg PO BID PRN (Reason: pain) 7 Days Qty: 14 0RF cyclobenzaprine 10 mg tablet 10 mg PO TID PRN (Reason: muscle spasm) 5 Days Qty: 15 0RF Rx Instructions: side effect is drowsiness. Do not take at work or while driving. albuterol sulfate 90 mcg/actuation HFA aerosol inhaler 2 puff INHALATION Q4-6H PRN (Reason: wheezing) omeprazole 20 mg Capsule,Delayed Release(Dr/Ec) 20 mg PO DAILY Qty: 30 0RF fluticasone furoate-vilanterol [Breo Ellipta] 200-25 mcg/dose Blister With Device 1 inh inhalation RDAILY Qty: 1 0RF ibuprofen 400 mg tablet 400 mg PO Q8H PRN (Reason: pain) Qty: 10 0RF meclizine 12.5 mg tablet 12.5 mg PO TID 7 Days Qty: 21 0RF cyclobenzaprine 5 mg tablet 5 mg PO BID aspirin 81 mg tablet,delayed release (DR/EC) 81 mg PO DAILY Referrals: [facility] [Provider Group] [facility] [Provider Group] [facility] [Provider Group] Print Language: Montenegrin
[2023-07-11] MEDS: Doxycycline Monohydrate 100 MG CAPSULE PO (09:39)
[2023-07-11] MEDS: predniSONE 20 MG TABLET 40 MG PO (09:39)
[2023-07-11] MEDS: Ibuprofen 600 MG TABLET PO (09:40)
[2023-07-11] MEDS: oxyCODONE HCl Immed Release 5 MG TABLET PO (09:40)
[2023-07-11] MEDS: Morphine Sulfate 4 MG/ML CARTRIDGE IM (11:44)
[2023-07-11 12:06] VITALS: BP 142/74; PULSE 83; RESP 15; TEMP 36.6; O2SAT 97
== END 2023-07-11 12:07 | disposition home or self-care (01) ==
PROVIDERS: Emergency Provider Emergency Medicine; PCP Physician Assistant
DX: L13.9 Bullous disorder, unspecified (principal); M79.601 Pain in right arm; R21 Rash and other nonspecific skin eruption; J45.909 Unspecified asthma, uncomplicated; Z79.899 Other long term (current) drug therapy; Z82.49 Family history of ischemic heart disease and other diseases of the circulatory system
CPT/HCPCS: 93971; 96372; 99283; 99284; J2270

== ENCOUNTER 2023-07-13 14:16 | Outpatient (AMB) | payer OTHER, SELFPAY ==
[2023-07-13 14:33] VITALS: BP 150/72; PULSE 100; O2SAT 97; BMI 33.7
--- NOTE | 2023-07-13 14:33 | MHC.PC.OV ---
Vital Signs 07/13/23 14:33 Height 5 ft 1 in Weight 178 lb 6 oz BMI 33.7 BP 150/72 H Blood Pressure Location Lt brachial Position Sitting Pulse 100 Pulse Source Pulse Oximeter Pulse Oximetry (%) 97 Oxygen Delivery Method Room Air Intake Visit Reasons: Annual Exam Intake Note: Patient is here today for a physical and [facility] ED F/U for Bullous rash possible [place] on 07/11/23. 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 Accompanied by: Self / Same As Patient Allergies penicillin V Allergy (Severe, Verified 07/13/23 14:46) throat swelling Penicillins [PCN] Allergy (Verified 07/13/23 14:46) Hives Tetanus Vaccines and Toxoid Allergy (Verified 07/13/23 14:46) Difficulty Breathing Iodinated Contrast Media [Contrast Dye] Adverse Reaction (Verified 07/13/23 14:46) Anaphylaxis Medication List - Last Reconciled 07/13/23 by Elias Swenson PA-C albuterol sulfate 90 mcg/actuation 2 puffs inhalation Q4-6H PRN albuterol sulfate 2.5 mg (3 mL) inhalation Q6H PRN 30 days aspirin 81 mg PO DAILY clobetasol 0.05% 1 appl topical BID 2 weeks cyclobenzaprine 10 mg PO TID PRN 5 days cyclobenzaprine 5 mg PO BID doxycycline hyclate 100 mg PO BID fluticasone furoate-vilanterol 200-25 mcg/dose (Breo Ellipta) 1 inh inhalation RDAILY ibuprofen 400 mg PO Q8H PRN loratadine 10 mg PO DAILY meclizine 12.5 mg PO TID 7 days naproxen 500 mg PO BID PRN 7 days nebulizers (AeroEclipse II Nebulizer) As directed nebulizers (Aeroneb Go Nebulizer) As directed omeprazole 20 mg PO DAILY oxycodone 5 mg PO Q8H PRN prednisone 20 mg PO DAILY Tobacco use date assessed: 03/16/23 Dental Screening Dental Screen Date: 03/16/23 HPI Annual Exam HPI Details Patient is a 58-year-old female here today for routine annual physical ?Patient has a past medical history significant for allergic rhinitis, obesity, GERD, MEE, chronic lumbar and cervical?spine pain. Recently seen at the ER for acute right arm pain with the development of a herpetic versus bolus type rash (see pictures from ER report). Patient was started on steroids, doxycycline and topical steroids. Patient reports she had never had chickenpox which makes this case little more complicated. She reports moderate to severe pain in her right arm that causes her to wake up at night. She does have oxycodone though only works for about 4-6 hours. PLAN: Will treat for herpes zoster and give a urgent dermatology referral for evaluation on the rash. Will supply patient with short-term script of pain medication and start neuromodulator for possible nerve irritation .. CHRONIC MEDICAL CONDITIONS--> Hyperlipidemia: Most recent lipid panel showing elevated total cholesterol and LDL. Was not fasting for recent labs.. Will recheck lipid panel in the next few months. .. Lumbar /cervical spine pain:? Continues have pain in her lumbar spine though has been manageable with as needed Tylenol.? .. Obesity:? Unfortunately has gained some weight since last office visit.. She reports she has been stress eating due to having more stress at home with her 's health. Asthma: Well controlled only using her rescue inhaler on a p.r.n. basis. Colonoscopy: Done in 2017 Dr. Iqbal, repeat 10 years Vaccines: Up-to-date with vaccine and tetanus vaccine. Declines PCV vaccine , decline flu. 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 [facility] Medical History Intermittent palpitations Chest pain Anxiety, generalized Esophageal stricture Normal colonoscopy Asthma Surgical History History of endoscopy History of appendectomy History of bladder surgery History of torn meniscus of right knee History of gallbladder disease History of partial hysterectomy Family History (Updated 07/13/23 @ 14:54 by Elias Swenson PA-C) Father CVD (cardiovascular disease) Past heart attack Mother Skin cancer Brother Heart problem Pacemaker Social History Household Members: Spouse Housing: Apartment Do you presently have visiting nurse or other home services: No Alcohol intake: never Patient Tobacco Use Status: Never used Tobacco e-Cigarette/Vaping Use: Never Used Second Hand Smoke Exposure: No service: No Current occupational status: unemployed Cognitive needs: No Hearing needs: No Vision needs: Yes (Reading glasses) Questionnaire Thrive Questionnaire Date Thrive assessed: 05/26/23 MEE-7 AMB Questionnaire MEE-7 Date MEE - 7 assessed: 03/16/23 Source: Developed by Drs. John Phan, Bebe Valerio, Lito Padron and colleagues, with an educational allison from [employer]. ACT Questionnaire In the past 4 weeks, how much of the time did your asthma keep you from getting as much done at work, school or at home?: Some of the time During the past 4 weeks, how often have you had shortness of breath?: 1-2 times a week During the past 4 weeks, how often did your asthma symptoms wake you up at night or earlier than usual in the morning?: 2-3 nights a week During the past 4 weeks, how often have you had to use your rescue inhaler or nebulizer medication?: 2-3 times a week How would you rate your asthma control during the past 4 weeks?: Somewhat controlled ACT Interpretation: Positive ACT Branch: Follow up visit scheduled Score: 15 Review of Systems Const Denies body aches, Denies chills, Denies excessive sweating, Denies fatigue, Denies fever(s) and Denies headache(s) Eyes Denies blurry vision ENT Denies dysphagia, Denies vertigo, Denies dizziness, Denies headache(s), Denies hearing loss and Denies tinnitus Card Denies chest pain, Denies chest pain with activity, Denies syncope, Denies irregular heart rhythm and Denies dyspnea Resp Denies chest congestion, Denies cough, Denies hemoptysis, Denies dyspnea and Denies wheezing GI Denies abdominal pain, Denies melena, Denies hematochezia, Denies coffee ground emesis, Denies dysphagia, Denies diarrhea, Denies nausea and Denies vomiting Denies urinary frequency, Denies dysuria, Denies urinary hesitancy and Denies urinary urgency Musc Denies arthralgias, Denies limited range of motion, Denies muscle cramps and Denies muscle weakness Skin/Breast Denies rash and Denies skin ulcer Neuro Denies Abnormal speech present, Denies confusion, Denies vertigo, Denies dizziness, Denies syncope, Denies headache(s), Denies memory loss and Denies seizure-like activity Psych Denies anxiety, Denies confusion, Denies depression, Denies memory loss, Denies panic attacks and Denies paranoia Endo Denies excessive sweating, Denies fatigue, Denies flushing, Denies polydipsia and Denies polyuria Aller/Immun Denies wheezing Physical exam (Primary Care) Vital Signs: Last Vital Signs Pulse 100 07/13/23 14:33 BP 150/72 H 07/13/23 14:33 Pulse Ox 97 07/13/23 14:33 Oxygen Delivery Method Room Air 07/13/23 14:33 BMI result Body Mass Index 33.7 Tobacco/Smoking Status: Tobacco use Status Tobacco use date assessed 03/16/23 07/13/23 14:33 Patient Tobacco Use Status Never used Tobacco 07/13/23 14:33 e-Cigarette/Vaping Use Never Used 07/13/23 14:33 Thrive Assessment: Date of Thrive Assessment Date Thrive assessed 05/26/23 07/13/23 14:33 Const General: cooperative, comfortable, no acute distress, alert and awake; No confusion Orientation/consciousness: oriented to person, oriented to place, patient oriented x3 and No confusion HENMT Head: Yes normocephalic Ears: external ears normal and TM's normal bilaterally Face and sinus: No sinus tenderness Mouth: Normal oral and palatal mucosa present and tongue normal Teeth and gingiva: dentition normal and gingiva normal Throat: Yes posterior oropharynx normal, Yes tonsils normal and Yes uvula midline Eyes Conjunctivae: conjunctivae normal Sclerae: sclerae normal Pupils: Equal, round and reactive pupils present EOM: EOMs intact bilaterally Direct Ophthalmoscopy: No no photophobia Neck Neck: Yes no lymphadenopathy, No tender and Yes no JVD Thyroid: Thyroid normal Carotids: no bruits Chest Chest palpation & inspection: no tenderness Resp Effort & Inspection: normal respiratory effort, no audible wheezes, not labored and no stridor Auscultation: no crackles, no rales, no rhonchi and no wheezes Cardio Jugular venous distension: no JVD Rate: regular rate, not bradycardic and not tachycardic Rhythm: regular rhythm Bruits: no carotid bruits Peripheral pulses: Peripheral pulses 2+ throughout GI Inspection: Yes normal to inspection, No abdominal wall ecchymosis and No visible herniation Palpation (GI): Soft to palpation, nontender, no guarding, not rigid and No hepatosplenomegaly present Auscultation: normoactive bowel sounds General: Yes no CVA tenderness Back/Spine/Pelvis Back: no CVA tenderness and No back tenderness Cervical Spine: cervical ROM normal Thoracic/Lumbar Spine: thoracic and lumbar spine normal to inspection, straight leg raise negative bilaterally, No thoraco-lumbar ROM limited and No lumbar spinal tenderness Skin Other: GROUPED VESICULAR/ BOLLUS TYPE RASH OVER RIGHT UPPER ARM. Lesions: no lesions Wounds: no wounds Neuro General: oriented to person, oriented to place, patient oriented x3, CN's II-XI intact bilaterally and No confusion Cranial nerves: Yes Equal, round and reactive pupils present and Yes Normal accommodation reflex present Cognition (Neuro): normal cognition Speech: No Abnormal speech present Gait exam (Neuro): Normal gait present Motor exam (neuro): 5/5 motor strength present throughout Extrem Right upper extremity: full ROM; no cyanosis Left upper extremity: full ROM; no cyanosis Right lower extremity: no edema Left lower extremity: no edema Psych Appearance: grossly normal Mental Status: mental status grossly normal Affect: normal affect Attitude: cooperative Thought process: Normal thought process present Assessment and Plan Assessment & Plan (1) Annual physical exam: Code(s): Z00.00 - Encounter for general adult medical examination without abnormal findings (2) Herpes zoster: Code(s): B02.9 - Zoster without complications Qualifiers: Herpes zoster complications: without complications Qualified Code(s): B02.9 - Zoster without complications Plan: Patient has a right arm rash with the appearance of herpes zoster versus bollus pemphigoid. Will refer to dermatology for evaluation Will supply patient with anti viral and neuro modulator for her pain. She will use oxycodone 5 mg for breakthrough pain. (3) Bullous rash: Code(s): R21 - Rash and other nonspecific skin eruption (4) Borderline high cholesterol: Code(s): E78.9 - Disorder of lipoprotein metabolism, unspecified Plan: Patient has a history of borderline high total cholesterol. Most recent lipid panel was unfortunately done nonfasting and was elevated. Will recheck in the next 3-4 months with goal total cholesterol to be below 200. (5) Asthma: Code(s): J45.909 - Unspecified asthma, uncomplicated Qualifiers: Asthma severity: mild Asthma persistence: intermittent Asthma complication type: uncomplicated Qualified Code(s): J45.20 - Mild intermittent asthma, uncomplicated Plan: Patient reports her asthma has been a bit worse as of late to which she attributes to her recent COVID infections. She continues to use of albuterol inhaler as as needed med. Orders: Orders Varicella IgG Antibody 07/13/23 B02.9 - Zoster without complications Referrals Dermatology Referral R21 - Rash and other nonspecific skin eruption Medications: New gabapentin 300 mg PO BID 60 caps 0RF 30 days B02.9 - Zoster without complications capsaicin 0.025% do not wash area for at least 30 min after application 1 appl topical BID 60 grams 0RF 15 days B02.9 - Zoster without complications valacyclovir (Valtrex) 1,000 mg PO Q8H 21 tabs 0RF 7 days B02.9 - Zoster without complications Refilled oxycodone Partial Fill upon patient request. 5 mg PO Q8H PRN 9 tabs 0RF severe pain (scale score 7-10) B02.9 - Zoster without complications Coding Level of Care Code Est Pt Prev Care 40-64y(63279) Diagnoses Annual physical exam Z00.00 Herpes zoster without complication B02.9 Herpes zoster complications: without complications Bullous rash R21 Borderline high cholesterol E78.9 Mild intermittent asthma without complication J45.20 Asthma severity: mild Asthma persistence: intermittent Asthma complication type: uncomplicated
== END 2023-07-13 15:22 | disposition home or self-care (01) ==
PROVIDERS: PCP Physician Assistant; Visit Provider Physician Assistant
DX: Z00.00 Encounter for general adult medical examination without abnormal findings (principal); B02.9 Zoster without complications; R21 Rash and other nonspecific skin eruption; E78.9 Disorder of lipoprotein metabolism, unspecified; J45.20 Mild intermittent asthma, uncomplicated
CPT/HCPCS: 99396

== ENCOUNTER 2023-07-13 15:28 | Outpatient (REF) | payer OTHER, SELFPAY ==
[2023-07-13 17:08] LABS: Hematocrit 37.1 % (37.0-47.0); Hemoglobin 12.8 g/dl (12.0-16.0); Mean Corpuscular HGB Conc 34.5 g/dl (31.0-35.0); Mean Corpuscular Hemoglobin 31.1 pg (27.0-33.0); Mean Corpuscular Volume 90.3 fL (80.0-98.0); Mean Platelet Volume 10.3 fL (9.4-12.3); Platelet Count 213 X10*3/uL (160-400); Red Blood Count 4.11 X10*6/uL (4.20-5.50); Red Cell Distribution Width 12.5 % (11.0-16.0); White Blood Count 4.8 X10*3/uL (4.8-10.8)
[2023-07-14 13:34] LABS: Varicella IgG Antibody >4000.00 index
== END 2023-07-13 15:29 | disposition home or self-care (01) ==
LOC: HO.LAB 15:28
PROVIDERS: Visit Provider Physician Assistant
DX: I42.9 Cardiomyopathy, unspecified (principal); B02.9 Zoster without complications
CPT/HCPCS: 36415; 85027; 86787

== ENCOUNTER 2023-07-22 08:16 | Outpatient (REF) | payer OTHER, SELFPAY ==
[2023-07-22 08:55] LABS: Hematocrit 40.9 % (37.0-47.0); Hemoglobin 13.8 g/dl (12.0-16.0); Mean Corpuscular HGB Conc 33.7 g/dl (31.0-35.0); Mean Corpuscular Hemoglobin 31.6 pg (27.0-33.0); Mean Corpuscular Volume 93.6 fL (80.0-98.0); Mean Platelet Volume 9.5 fL (9.4-12.3); Platelet Count 298 X10*3/uL (160-400); Red Blood Count 4.37 X10*6/uL (4.20-5.50); Red Cell Distribution Width 12.9 % (11.0-16.0); White Blood Count 6.6 X10*3/uL (4.8-10.8)
[2023-07-22 09:53] LABS: Alanine Aminotransferase 18 U/L (0-31); Albumin Level 4.3 g/dL (3.5-5.0); Alkaline Phosphatase 68 U/L (39-117); Anion Gap 11 (12-20); Aspartate Amino Transferase 13 U/L (5-31); Bilirubin Total 0.7 mg/dL (0.0-1.0); Blood Urea Nitrogen 17 mg/dL (9-16); Carbon Dioxide 28 mmol/L (22-29); Chloride 105 mmol/L (96-108); Cholesterol 247 mg/dL (<200); Estimated Glomerular Filt Rate > 60; Glucose Fasting 88 mg/dL (60-99); HDL Cholesterol 77 mg/dL (>40); LDL Cholesterol Calculated 144 mg/dL (<100); Potassium 4.4 mmol/L (3.3-5.1); Sodium 140 mmol/L (135-145); Total Protein 6.5 g/dL (6.5-8.0); Triglycerides 130 mg/dL (<150)
== END 2023-07-22 08:17 | disposition home or self-care (01) ==
LOC: HO.LAB 08:16
PROVIDERS: PCP Physician Assistant; Visit Provider Physician Assistant
DX: E78.9 Disorder of lipoprotein metabolism, unspecified (principal)
CPT/HCPCS: 36415; 80053; 80061; 85027

== ENCOUNTER 2023-07-28 13:26 | Outpatient (AMB) | payer OTHER, SELFPAY ==
[2023-07-28 13:31] VITALS: BP 148/76; PULSE 89; O2SAT 96; BMI 35.0
--- NOTE | 2023-07-28 13:31 | A.OFFPC_ITS ---
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 by: Self / Same As Patient Allergies penicillin V Allergy (Severe, Verified 07/28/23 13:38) throat swelling Penicillins [PCN] Allergy (Verified 07/28/23 13:38) Hives Tetanus Vaccines and Toxoid Allergy (Verified 07/28/23 13:38) Difficulty Breathing Iodinated Contrast Media [Contrast Dye] Adverse Reaction (Verified 07/28/23 13:38) Anaphylaxis Medication List - Last Reconciled 07/28/23 by Elias Swenson PA-C albuterol sulfate 90 mcg/actuation 2 puffs inhalation Q4-6H PRN albuterol sulfate 2.5 mg (3 mL) inhalation Q6H PRN 30 days aspirin 81 mg PO DAILY capsaicin 0.025% 1 appl topical BID 15 days clobetasol 0.05% 1 appl topical BID 2 weeks cyclobenzaprine 10 mg PO TID PRN 5 days cyclobenzaprine 5 mg PO BID doxycycline hyclate 100 mg PO BID fluticasone furoate-vilanterol 200-25 mcg/dose (Breo Ellipta) 1 inh inhalation RDAILY gabapentin 300 mg PO BID 30 days ibuprofen 400 mg PO Q8H PRN loratadine 10 mg PO DAILY meclizine 12.5 mg PO TID 7 days naproxen 500 mg PO BID PRN 7 days nebulizers (AeroEclipse II Nebulizer) As directed nebulizers (Aeroneb Go Nebulizer) As directed omeprazole 20 mg PO DAILY oxycodone 5 mg PO Q8H PRN prednisone 20 mg PO DAILY valacyclovir (Valtrex) 1,000 mg PO Q8H 7 days Tobacco use date assessed: 03/16/23 Dental Screening Dental Screen Date: 03/16/23 HPI f\u HPI Details Patient is a 58-year-old female here today for follow-up visit ?Patient has a past medical history significant for allergic rhinitis, obesity, GERD, MEE, chronic lumbar and cervical?spine pain. Herpes zoster: Interval history--> Recently seen at the ER for acute right arm pain with the development of a herpetic versus bolus type rash (see pictures from ER report). Patient was started on steroids, doxycycline and topical steroids. Patient reports she had never had chickenpox which makes this case little more complicated. She reports moderate to severe pain in her right arm that causes her to wake up at night. She does have oxycodone though only works for about 4-6 hours. She has been started p.r.n. use of pain medication, Valtrex and neuro modulator. She has been using Silvadene and capsaicin cream which has been helpful Currently doing better, was sent for varicella IgG which was positive. .. Hyperlipidemia: Most recent fasting cholesterol showing improved total cholesterol and LDL though still remains elevated. She will continue dietary modifications over the next 4 months and if still elevated will consider low- dose statin therapy. Laboratory Tests 06/15/23 07/06/23 07/13/23 14:28 09:29 15:42 RBC 4.04 L Hgb 12.5 Creatinine 0.72 Cholesterol 278 H LDL Cholesterol, C alc 168 H VZV IgG Antibody >4000.00 07/22/23 08:23 RBC Hgb Creatinine Cholesterol 247 H LDL Cholesterol, C alc 144 H VZV IgG Antibody [facility] Medical History Intermittent palpitations Chest pain Anxiety, generalized Esophageal stricture Normal colonoscopy Asthma Surgical History History of endoscopy History of appendectomy History of bladder surgery History of torn meniscus of right knee History of gallbladder disease History of partial hysterectomy Family History Father CVD (cardiovascular disease) Past heart attack Mother Skin cancer Brother Heart problem Pacemaker Social History Household Members: Spouse Housing: Apartment Do you presently have visiting nurse or other home services: No Alcohol intake: never Patient Tobacco Use Status: Never used Tobacco e-Cigarette/Vaping Use: Never Used Second Hand Smoke Exposure: No service: No Current occupational status: unemployed Cognitive needs: No Hearing needs: No Vision needs: Yes (Reading glasses) Questionnaire Thrive Questionnaire Date Thrive assessed: 05/26/23 MEE-7 AMB Questionnaire MEE-7 Date MEE - 7 assessed: 03/16/23 Source: Developed by Drs. John Phan, Bebe Valerio, Lito Padron and colleagues, with an educational allison from [employer]. Review of Systems Const Denies headache(s) Eyes Denies loss of vision ENT Denies vertigo, Denies dizziness, Denies headache(s) and Denies sore throat Card Denies chest pain, Denies leg edema and Denies lightheadedness Resp Denies cough, Denies hemoptysis and Denies wheezing GI Denies abdominal pain, Denies melena, Denies constipation, Denies diarrhea and Denies vomiting Denies urinary frequency, Denies dysuria and Denies urinary urgency Musc Denies arthralgias, Denies joint swelling, Denies numbness and Denies tingling Neuro Denies Abnormal speech present, Denies behavioral changes, Denies vertigo, Denies dizziness, Denies headache(s), Denies loss of vision, Denies memory loss, Denies numbness and Denies tingling Psych Denies anxiety, Denies behavioral changes, Denies depression, Denies memory loss and Denies panic attacks Kane/Lymph Denies easy bleeding and Denies easy bruising Aller/Immun Denies wheezing Physical exam (Primary Care) Vital Signs: Last Vital Signs Pulse 89 07/28/23 13:31 BP 148/76 H 07/28/23 13:31 Pulse Ox 96 07/28/23 13:31 Oxygen Delivery Method Room Air 07/28/23 13:31 BMI result Body Mass Index 35.0 Tobacco/Smoking Status: Tobacco use Status Tobacco use date assessed 03/16/23 07/28/23 13:35 Patient Tobacco Use Status Never used Tobacco 07/28/23 13:35 e-Cigarette/Vaping Use Never Used 07/28/23 13:35 Thrive Assessment: Date of Thrive Assessment Date Thrive assessed 05/26/23 07/28/23 13:35 Const General: healthy appearing, no acute distress, alert and awake Nutritional Appearance: well nourished Orientation/consciousness: oriented to person, oriented to place and oriented to time HENMT Ears: TM's normal bilaterally General nose exam: Normal nasal mucous membranes and turbinates present Eyes Conjunctivae: conjunctivae normal Sclerae: sclerae normal Pupils: Equal, round and reactive pupils present Neck Neck: Yes no lymphadenopathy and Yes no JVD Thyroid: Thyroid normal Carotids: no bruits Resp Effort & Inspection: normal respiratory effort and not tachypneic Auscultation: no crackles, no rales, no rhonchi and no wheezes Cardio Rate: regular rate Rhythm: regular rhythm Heart sounds: no murmurs and normal S1 and S2 GI Palpation (GI): Soft to palpation, nontender, no hepatomegaly and no splenomegaly Auscultation: normal bowel sounds Skin General skin exam: no rashes or lesions noted and dry skin Neuro General: oriented to person, oriented to place and oriented to time Cranial nerves: Yes Equal, round and reactive pupils present Speech: No Abnormal speech present Gait exam (Neuro): Normal gait present Motor exam (neuro): no tremor noted Extrem Other: RIGHT UPPER EXTREMITY WITH A FEW AREAS HEALING ULCERATIONS. Right upper extremity: full ROM Left upper extremity: full ROM Right lower extremity: full ROM; no edema Left lower extremity: full ROM; no edema Psych Mental Status: mental status grossly normal Speech and movement: Normal speech and movement present Affect: normal affect Attitude: cooperative Thought process: Normal thought process present Assessment and Plan Assessment & Plan (1) Herpes zoster: Code(s): B02.9 - Zoster without complications Qualifiers: Herpes zoster complications: without complications Qualified Code(s): B02.9 - Zoster without complications Plan: Most recent IgG for herpes zoster showing to be positive. Her skin lesion has been resolving. Still has significant pain and neuropathy pain in her arm. She does use oxycodone 5 mg on as needed basis. She does have gabapentin available to her though has side effect with his medication. Has been using cavitation cream which has been helpful as well. Likely has post herpetic neuralgia. (2) Borderline high cholesterol: Code(s): E78.9 - Disorder of lipoprotein metabolism, unspecified Plan: Patient's most recent labs done fasting showing continued elevated total cholesterol and LDL. She would like to continue a 4 months dietary modification and recheck cholesterol. If elevated at that time will start statin therapy. Goal LDL is to be below 130. Orders: Orders Comprehensive [place]. Panel Fast 4 Months E78.9 - Disorder of lipoprotein metabolism, unspecified Lipid Panel 4 Months E78.9 - Disorder of lipoprotein metabolism, unspecified Medications: New silver sulfadiazine 1% (Silvadene) apply a 1.5 mm thickness 1 appl topical DAILY PRN 50 grams 0RF wound healing 15 days R21 - Rash and other nonspecific skin eruption Changed From oxycodone Partial Fill upon patient request. 5 mg PO Q8H PRN 9 tabs 0RF severe pain (scale score 7-10) B02.9 - Zoster without complications To oxycodone Partial Fill upon patient request. 5 mg PO Q8H PRN 12 tabs 0RF severe pain (scale score 7-10) 4 days B02.9 - Zoster without complications Refilled capsaicin 0.025% do not wash area for at least 30 min after application 1 appl topical BID 60 grams 2RF 15 days B02.9 - Zoster without complications Discontinued doxycycline hyclate Discontinued Reason: Doctor's Order 100 mg PO BID 20 caps 0RF valacyclovir (Valtrex) Discontinued Reason: Doctor's Order 1,000 mg PO Q8H 7 days 21 tabs 0RF B02.9 - Zoster without complications Coding Level of Care Code Est Pt Level 4 (62501) Diagnoses Herpes zoster without complication B02.9 Herpes zoster complications: without complications Borderline high cholesterol E78.9
== END 2023-07-28 13:59 | disposition home or self-care (01) ==
LOC: HO.HMGH 13:26
PROVIDERS: PCP Physician Assistant; Visit Provider Physician Assistant
DX: B02.9 Zoster without complications (principal); E78.9 Disorder of lipoprotein metabolism, unspecified
CPT/HCPCS: 99214

== ENCOUNTER → 2023-07-31 07:40 | Outpatient (REF) | payer OTHER, SELFPAY ==
--- NOTE | 2023-07-31 07:46 | CA_ITS ---
Acquisition Time: 2023-07-31 07:51:08 Total Exercise Time: 00:02:00 Test Indications: Dyspnea CP Medications: SEE H Protocol: LEXISCAN Max HR: 106 BPM 65% of Pred: 161 BPM Max BP: 140/084 mmHG Max Work Load: 1.0 METS Pharmacological stress test with Lexiscan injection, while sitting and kicking her legs, without anginal symptoms, with isolated PACs, with normotensive response to injection, with nondiagnostic EKG for ischemia. In recovery she reported lightheadedness that was treated with Aminophylline 75mg IVP with resolution of symptom. Nuclear images pending. Test reviewed with Dr Moody. Referred By: Becky Grant Overread By: JANINE CISSE
--- NOTE | 2023-07-31 07:46 | HM_ITS ---
Conclusion: 1. Patient was monitored for total period of 3 days and 2 hours 2. Baseline was normal sinus rhythm with average heart rate of 96 beats per minute 3. No significant pauses noted 4. Frequent sinus tachycardia noted with 49% of time heart rate about 100 beats per minute 5. Occasional PACs noted with 3 SVT events, fastest at 196 beats per minute and longest at 14 beats per minute 6. One wide complex 5 beat rhythm at 152 beats per consistent with nonsustained VT 7. No patient reported events MTDD
== END ==
LOC: HO.CARD 07:40
PROVIDERS: PCP Physician Assistant; Visit Provider Nurse Practitioner
DX: R07.9 Chest pain, unspecified (principal); R00.2 Palpitations; I42.9 Cardiomyopathy, unspecified
CPT/HCPCS: 93017; 93242; J0280; J2785

== ENCOUNTER → 2023-07-31 07:46 | Outpatient (BNV) | payer OTHER, SELFPAY | PROVIDERS: PCP Physician Assistant; Visit Provider Nurse Practitioner Family | DX: I42.9 Cardiomyopathy, unspecified (principal); R00.0 Tachycardia, unspecified | CPT/HCPCS: 78452; 93016; 93018; 93244 ==

== ENCOUNTER → 2023-07-31 | Outpatient (REF) | payer OTHER, SELFPAY ==
--- NOTE | ~2023-07-31 | NM_ITS ---
Myocardial perfusion study Indication: Cardiomyopathy to evaluate for myocardial ischemia Technique: The patient was brought in for a Lexiscan perfusion study on 07/31/2023. Patient performed low-level exercise and was injected 0.4 mg of Lexiscan intravenously. Within a minute of injection, 30 mCi of sestamibi was given intravenously. Images were obtained using the SPECT gamma camera interlaced with the gating device. Images were obtained in supine position. Resting perfusion study was performed on 08/03/2023. Patient was administered 30 mCi of sestamibi intravenously at rest. Images were then obtained in supine position. Images obtained with and without CT attenuation. Total DLP 141 mGy-cm. Images were processed with the software and compared side to side in short axis, horizontal long axis and vertical long axis views. Findings: The stress perfusion study showed non attenuated images show mildly reduced uptake in the basal and the inferior, distal anterior as well as mildly reduced uptake in the lateral wall of the LV myocardium. Remainder of the LV myocardium is normally perfused. Attenuation corrected images show mildly reduced uptake in the distal lateral and distal anterior wall as well as apex of the LV myocardium.. The gated study shows normal LV systolic function with calculated LVEF of 64%. LV cavity is normal in size. The gated study shows normal systolic wall thickening and contraction of segments. Resting study shows non attenuated images show improvement in uptake in all segments of LV myocardium. Attenuation corrected images shows improvement in the uptake in the distal anterior as well as the distal lateral wall of the LV myocardium.. Gating at rest reveals normal systolic wall motion with ejection fraction at 61%. The findings are consistent with finding suggestive of possible ischemia in the distal lateral and distal anterior wall in the LAD territory.. NM/NM cardiolite stress test Impression: 1. Myocardial perfusion imaging study shows equivocal for distal LAD territory ischemia 2. Gated LVEF is 64% 3. Transient ischemic dilatation present EKG is nondiagnostic for ischemia
== END ==
LOC: HO.CARD
PROVIDERS: PCP Physician Assistant; Visit Provider Nurse Practitioner
DX: R00.2 Palpitations (principal); I42.9 Cardiomyopathy, unspecified
CPT/HCPCS: 78452; A9500

== ENCOUNTER 2023-09-09 13:18 | Outpatient (AMB) | payer OTHER, SELFPAY ==
[2023-09-09 13:23] VITALS: BP 118/62; PULSE 86; BMI 33.7
--- NOTE | 2023-09-09 13:23 | MHC.OFFVIS ---
Vital Signs 09/09/23 13:23 Height 5 ft 1 in Weight 178 lb 9.191 oz BMI 33.7 BP 118/62 Blood Pressure Location Lt brachial Position Sitting Pulse 86 Pulse Source Pulse Oximeter Intake Visit Reasons: 2m follow up/ Desirae scan(rs) Allergies penicillin V Allergy (Severe, Verified 07/28/23 13:38) throat swelling Penicillins [PCN] Allergy (Verified 07/28/23 13:38) Hives Tetanus Vaccines and Toxoid Allergy (Verified 07/28/23 13:38) Difficulty Breathing Iodinated Contrast Media [Contrast Dye] Adverse Reaction (Verified 07/28/23 13:38) Anaphylaxis HPI Comments Details: 58-year-old female presents for a follow-up visit. She reports she still gets chest heaviness and shortness of breath on exertion but it has improved. She reports she also gets a fast heart rate then feels a skipped beat and then her heart rate returns to normal. She reports no cardiac history for herself but she reports family history of pacemaker placement, CABG, and CAD. She had a stress test, holter, and echocardiogram. She had recently had COVID twice and shingles. [facility] Medical History (Updated 09/11/23 @ 08:42 by Becky Grant NP) Equivocal myocardial perfusion imaging Abnormal stress test Hyperlipidemia Intermittent palpitations Chest pain Anxiety, generalized Esophageal stricture Normal colonoscopy Asthma Surgical History History of endoscopy History of appendectomy History of bladder surgery History of torn meniscus of right knee History of gallbladder disease History of partial hysterectomy Family History Father CVD (cardiovascular disease) Past heart attack Mother Skin cancer Brother Heart problem Pacemaker Social History Household Members: Spouse Housing: Apartment Do you presently have visiting nurse or other home services: No Alcohol intake: never Patient Tobacco Use Status: Never used Tobacco e-Cigarette/Vaping Use: Never Used Second Hand Smoke Exposure: No service: No Current occupational status: unemployed Cognitive needs: No Hearing needs: No Vision needs: Yes (Reading glasses) Review of Systems Const Denies weakness ENT Denies dizziness Card Denies chest pain, Denies chest pain with activity, Denies syncope, Denies rapid heart rate, Denies pedal edema, Denies edema, Denies leg edema, Denies lightheadedness, Denies palpitations, Denies dyspnea, Denies dyspnea on exertion and Denies orthopnea Resp Denies cough, Denies dyspnea and Denies dyspnea on exertion GI Denies hematochezia and Denies change in stool character Musc Denies abnormal gait, Denies muscle cramps, Denies muscle weakness, Denies numbness, Denies radiating pain into limb and Denies tingling Neuro Denies abnormal gait, Denies dizziness, Denies syncope, Denies numbness, Denies tingling and Denies weakness Endo Denies palpitations Physical Exam Vital Signs: Last Vital Signs Pulse 86 09/09/23 13:23 BP 118/62 09/09/23 13:23 BMI result Body Mass Index 33.7 Const General: healthy appearing and no acute distress Orientation/consciousness: patient oriented x3 HEENT Head: Yes normal to inspection Eyes General: appearance normal, both eyes and all related structures Neck Neck: Yes normal visual inspection Chest Chest palpation & inspection: normal inspection of the chest Resp Effort & Inspection: normal respiratory effort Auscultation: clear to auscultation bilaterally Cardio Jugular venous distension: no JVD Palpation: normal PMI Rate: regular rate Rhythm: regular rhythm Heart sounds: S1 normal heart sound present, S2 normal heart sound present, no click, no gallops, no murmurs and no rubs GI Inspection: Yes normal to inspection Palpation (GI): Soft to palpation Skin General skin exam: no rashes or lesions noted Neuro General: patient oriented x3 Extrem General: Yes normal to inspection Psych Appearance: grossly normal Results Reviewed Results Reviewed: Holter Conclusion: 1. Patient was monitored for total period of 3 days and 2 hours 2. Baseline was normal sinus rhythm with average heart rate of 96 beats per minute 3. No significant pauses noted 4. Frequent sinus tachycardia noted with 49% of time heart rate about 100 beats per minute 5. Occasional PACs noted with 3 SVT events, fastest at 196 beats per minute and longest at 14 beats per minute 6. One wide complex 5 beat rhythm at 152 beats per consistent with nonsustained VT 7. No patient reported events Echo Conclusions: - 1. Hyperdynamic LV EF of greater than 70% with grade 1 diastolic dysfunction with possible basal inferior inferoseptal hypokinesis 2. Cardiac valvular Doppler within normal limits 3. Upper limits of normal ascending aortic size 4. Normal RV systolic pressure 5. No pericardial effusion NM/NM cardiolite stress test Impression: 1. Myocardial perfusion imaging study shows equivocal for distal LAD territory ischemia 2. Gated LVEF is 64% 3. Transient ischemic dilatation present Assessment & Plan Assessment & Plan (1) Equivocal myocardial perfusion imaging: Code(s): R93.1 - Abnormal findings on diagnostic imaging of heart and coronary circulation Category: Medical Plan: Equivocal myocardial perfusion imaging for distal LAD territory ischemia. Recommended a CTA but patient has IV contrast allergy which put her in ICU for a week. Discussed pre-medicating but she is apprehensive. Discussed cardiac catherization is also an option but there is exposure to IV contrast dye also. Patient would like to think about this. Sent ASA 81mg, beta dani, and statin. Last LDL on 07/22/2023 was 144. Lipid panel repeat in 2 months. Patient advised to call with any questions and if she has made a choice. (2) Intermittent palpitations: Code(s): R00.2 - Palpitations Category: Medical Plan: Patient had episodes of PACs with 3 SVT episodes - fastest was 196 bpm and longest was 14 beats. One wide complex of 5 beat rhythm at 152 beats - NSVT. Frequent sinus tachycardiac for 49% of wear time. Sent beta dani. Avoidance of stimulants discussed. (3) Hyperlipidemia: Code(s): E78.5 - Hyperlipidemia, unspecified Category: Medical Plan: Last LDL on 07/22/2023 was 144. Lipid panel repeat in 2 months. Statin sent. Heart healthy diet discussed. (4) Chest pain: Code(s): R07.9 - Chest pain, unspecified Category: Medical Plan: as above Plan Patient to follow-up in 3 months. Sooner if needed. Call if any questions or concerns. Orders: Orders Lipid Panel 2 Months E78.5 - Hyperlipidemia, unspecified, R94.39 - Abnormal result of other cardiovascular function study Basic Metabolic Panel 2 Months E78.5 - Hyperlipidemia, unspecified, R94.39 - Abnormal result of other cardiovascular function study Medications: New metoprolol succinate ER 25 mg PO DAILY 30 tabs 3RF 30 days atorvastatin 20 mg PO DAILY 30 tabs 3RF 30 days Coding Level of Care Code Est Pt Level 4 (30477) Diagnoses Equivocal myocardial perfusion imaging R93.1 Intermittent palpitations R00.2 Hyperlipidemia E78.5 Chest pain R07.9
== END 2023-09-09 14:05 | disposition home or self-care (01) ==
PROVIDERS: PCP Physician Assistant; Visit Provider Nurse Practitioner
DX: R93.1 Abnormal findings on diagnostic imaging of heart and coronary circulation (principal); R00.2 Palpitations; E78.5 Hyperlipidemia, unspecified; R07.9 Chest pain, unspecified
CPT/HCPCS: 99214

== ENCOUNTER → 2023-09-09 13:18 | Outpatient (BNVA) | payer OTHER, SELFPAY | PROVIDERS: PCP Physician Assistant; Visit Provider Nurse Practitioner | DX: R93.1 Abnormal findings on diagnostic imaging of heart and coronary circulation (principal); R00.2 Palpitations; E78.5 Hyperlipidemia, unspecified; R07.9 Chest pain, unspecified | CPT/HCPCS: 99212 ==

== ENCOUNTER 2023-09-29 10:07 | Day surgery (SDC) | payer OTHER, SELFPAY ==
--- NOTE | 2023-09-28 12:49 | HO.ANESPROP2 ---
Documented by User: Vicky Evangelista NP 09/28/23 12:54 HPI - Anesthesia Eval Consult details Narrative: 58yo F for Upper Endoscopy and Colonoscopy Recent cardiac w/u for chest pain with [facility] cardiology. Optimized for endo procedures (Started beta dani for NSVT, tachy on holter. Equivacol MIBI but pt with severe IV contrast allergy and unable to have CTA/cath) [facility] Active Problems Active Problems: All Active Problems Equivocal myocardial perfusion imaging (Acute) Abnormal stress test (Acute) Hyperlipidemia (Acute) Bullous rash (Acute) Herpes zoster (Acute) Intermittent palpitations (Acute) Chest pain (Acute) Thrush (Acute) Vertigo (Acute) Cardiomyopathy (Acute) Pleuritic chest pain (Acute) Acute asthma exacerbation (Acute) Asthma (Acute) COVID-19 virus infection (Acute) COVID (Acute) Acute frontal sinusitis (Acute) Pruritic rash (Acute) GERD (gastroesophageal reflux disease) (Acute) Esophageal stricture (Acute) Abnormal barium swallow (Acute) Osteoarthritis (Acute) Leg edema (Acute) Dysphagia (Acute) Abdominal wall mass of left upper quadrant (Acute) Abdominal wall lump (Acute) Breast cancer screening (Acute) Annual physical exam (Acute) Radiculopathy of cervical spine (Acute) Cough (Acute) Throat pain in adult (Acute) MEE (generalized anxiety disorder) (Acute) Lumbar spine pain (Acute) Pelvic pain (Acute) Lump of skin of back (Acute) Annual physical exam (Acute) Asthma (Acute) Screening for diabetes mellitus (DM) (Acute) Borderline high cholesterol (Acute) Obese (Acute) Allergic rhinitis (Acute) Lumbar disc disease (Acute) Past Medical History Medical History Equivocal myocardial perfusion imaging Abnormal stress test Hyperlipidemia Intermittent palpitations Chest pain Anxiety, generalized Esophageal stricture Normal colonoscopy Asthma Family History Family History Father CVD (cardiovascular disease) Past heart attack Mother Skin cancer Brother Heart problem Pacemaker Family history of problems with anesthesia: No Surgical History Surgical History History of endoscopy History of appendectomy History of bladder surgery History of torn meniscus of right knee History of gallbladder disease History of partial hysterectomy History of Problems with Anesthesia: No Social History Social History Household Members: Spouse Housing: Apartment Do you presently have visiting nurse or other home services: No Alcohol intake: never Patient Tobacco Use Status: Never used Tobacco e-Cigarette/Vaping Use: Never Used Second Hand Smoke Exposure: No Use of substances other than those prescribed or required for medical reasons: No Are you DNR?: No Advance Directives: No Advance Directives Information Provided: Yes service: No Current occupational status: unemployed Cognitive needs: No Hearing needs: No Vision needs: Yes (Reading glasses) Meds Allergies Allergy/AdvReac Type Severity Reaction Status Date / Time penicillin V Allergy Severe throat Verified 07/28/23 13:38 swelling Penicillins [PCN] Allergy Hives Verified 07/28/23 13:38 Tetanus Vaccines and Toxoid Allergy Difficulty Verified 07/28/23 13:38 Breathing Iodinated Contrast Media AdvReac Anaphylaxis Verified 07/28/23 13:38 [Contrast Dye] Home Medications ?Medication ?Instructions ?Recorded ?Confirmed ?Last Taken ?Type aspirin 81 mg tablet,delayed 81 mg PO DAILY 07/02/23 07/28/23 Unknown History release omeprazole 20 mg capsule,delayed 20 mg PO QAM 09/28/23 09/28/23 Unknown History release Exam Pertinent Lab Results Pertinent Lab Results: Laboratory Tests 07/22/23 08:23 WBC 6.6 Hgb 13.8 Hct 40.9 Plt Count 298 D Sodium 140 Potassium 4.4 Chloride 105 Carbon Dioxide 28 BUN 17 H Creatinine 0.81 Narrative Narrative: EKG 2023 Vent. Rate : 060 BPM Atrial Rate : 060 BPM P-R Int : 134 ms QRS Dur : 090 ms QT Int : 428 ms P-R-T Axes : 043 015 042 degrees QTc Int : 428 ms Normal sinus rhythm Normal ECG When compared with ECG of 26-MAY-2023 01:05, No significant change was found Holter 2023 1. Patient was monitored for total period of 3 days and 2 hours 2. Baseline was normal sinus rhythm with average heart rate of 96 beats per minute 3. No significant pauses noted 4. Frequent sinus tachycardia noted with 49% of time heart rate about 100 beats per minute 5. Occasional PACs noted with 3 SVT events, fastest at 196 beats per minute and longest at 14 beats per minute 6. One wide complex 5 beat rhythm at 152 beats per consistent with nonsustained VT 7. No patient reported events ECHO 2023 Conclusions: - 1. Hyperdynamic LV EF of greater than 70% with grade 1 diastolic dysfunction with possible basal inferior inferoseptal hypokinesis 2. Cardiac valvular Doppler within normal limits 3. Upper limits of normal ascending aortic size 4. Normal RV systolic pressure 5. No pericardial effusion Assessment and Plan Final Anesthetic Review Family History of Problems with Anesthesia: No History of Problems with Anesthesia: No Documented by User: Iwona Rosa MD 09/29/23 11:23 HPI - Anesthesia Eval Consult details Narrative: 58yo F for Upper Endoscopy and Colonoscopy, today severe upper airway congestion, pt states vomitting from prep too. Recent cardiac w/u for chest pain with [facility] cardiology. Optimized for endo procedures (Started beta dani for NSVT, tachy on holter. Equivacol MIBI but pt with severe IV contrast allergy and unable to have CTA/cath) PMFSH Past Medical History Medical History Equivocal myocardial perfusion imaging Abnormal stress test Hyperlipidemia Intermittent palpitations Chest pain Anxiety, generalized Esophageal stricture Normal colonoscopy Asthma Family History Family History Father CVD (cardiovascular disease) Past heart attack Mother Skin cancer Brother Heart problem Pacemaker Surgical History Surgical History History of endoscopy History of appendectomy History of bladder surgery History of torn meniscus of right knee History of gallbladder disease History of partial hysterectomy Social History Social History Household Members: Spouse Housing: Apartment Do you presently have visiting nurse or other home services: No Alcohol intake: never Patient Tobacco Use Status: Never used Tobacco e-Cigarette/Vaping Use: Never Used Second Hand Smoke Exposure: No Use of substances other than those prescribed or required for medical reasons: No Are you DNR?: No Advance Directives: No Advance Directives Information Provided: Yes service: No Current occupational status: unemployed Cognitive needs: No Hearing needs: No Vision needs: Yes (Reading glasses) Meds Allergies Allergy/AdvReac Type Severity Reaction Status Date / Time penicillin V Allergy Severe throat Verified 07/28/23 13:38 swelling Penicillins [PCN] Allergy Hives Verified 07/28/23 13:38 Tetanus Vaccines and Toxoid Allergy Difficulty Verified 07/28/23 13:38 Breathing Iodinated Contrast Media AdvReac Anaphylaxis Verified 07/28/23 13:38 [Contrast Dye] Home Medications ?Medication ?Instructions ?Recorded ?Confirmed ?Last Taken ?Type aspirin 81 mg tablet,delayed 81 mg PO DAILY 07/02/23 07/28/23 Unknown History release omeprazole 20 mg capsule,delayed 20 mg PO QAM 09/28/23 09/28/23 Unknown History release Exam Airway Mallampati Class: II TM Dist: >3cm Neck ROM: Full Heart: rrr Lungs: decreased breath sounds, Assessment and Plan Assessment Anesthesia Assessment: Anesthesia Plan Discussed and Chart Reviewed Final Anesthetic Review NPO: Yes ASA Class: III (will test for covid) Final Preanesthetic Review: No Changes in Pt Med Stat, Meds/Allgs Chart Reviewed, Consent Obtained/Reviewed and Anes Risks/Benef Reviewed Patient Risk: Intermediate Procedure Risk: Low Anesthetic Plan Anesthetic Plan: MAC: (test for covid ordered.) Disposition: Standard PACU (discussed with , if tests negative upper will be rescheduled, will do colon)
[2023-09-29] VITALS (10 sets, daily range): BP systolic 129–156; BP diastolic 51–79; PULSE 52–87; RESP 15–18; TEMP 36.4–36.6; O2SAT 96–99; BMI 35.0
[2023-09-29] MEDS: Lactated Ringers 1,000 ML 100 ML IVCONT ×2 (10:34→13:51)
--- NOTE | 2023-09-29 11:23 | PC.NURSE ---
covid swab ordered and sent to lab after being seen by anesthesia. pt has congestion with nausea and vomiting.
[2023-09-29 11:42] LABS: COVID-19 Test Negative (Negative); IDNOW Serial# 9DB6401D
--- NOTE | 2023-09-29 11:42 | MHC.SHP ---
Pre-Procedural Eval Section A - 24 Hr Update-Section A only Date of Service: 09/29/23 The patient is an INPATIENT: No Changes since office visit: No Cold of Flu in the past 2 weeks, No New Medical Problems, No Changes in Medication and No Patient answered all questions The patient has been examined within 24 hours of the surgical procedure. The History & Physical has been completed within 30 days and I have reviewed it.: Yes Section B - Complete if H&P > 30 days Chief Complaint: Ulcer of esophagus without bleeding Allergies: Allergies Allergy/AdvReac Type Severity Reaction Status Date / Time penicillin V Allergy Severe throat Verified 07/28/23 13:38 swelling Penicillins [PCN] Allergy Hives Verified 07/28/23 13:38 Tetanus Vaccines and Toxoid Allergy Difficulty Verified 07/28/23 13:38 Breathing Iodinated Contrast Media AdvReac Anaphylaxis Verified 07/28/23 13:38 [Contrast Dye] Plan I have reviewed the history and physical and performed a pertinent physical examination on my patient. No changes have occurred unless specified. Time Spent With Patient Time: Total time managing care of this patient today ____ minutes.
--- NOTE | 2023-09-29 14:57 | OP_ITS ---
DATE OF SERVICE: 09/29/2023 SURGEON: Sami Foster MD INDICATIONS: Erosive esophagitis, change in bowel movements, and dysphagia. PREOPERATIVE DIAGNOSIS: POSTOPERATIVE DIAGNOSIS: PROCEDURE PERFORMED: Colonoscopy to the terminal ileum with biopsy, upper endoscopy with biopsy. ESTIMATED BLOOD LOSS: COMPLICATIONS: ANESTHESIA: Monitored anesthesia care. ASSISTANTS: SPECIMENS: DESCRIPTION OF PROCEDURE: A history and physical was performed. The risks and benefits of the procedure were explained to the patient and informed consent was obtained. The patient was placed in the left lateral decubitus position. A digital rectal exam was performed and was found to be normal. The Olympus pediatric video colonoscope was introduced into the rectum and advanced to the cecum. The cecum was identified by transillumination, palpation, and identification of ileocecal valve. Examination was performed and the scope was removed. She tolerated the procedure well and was repositioned for endoscopy. The Olympus video gastroscope was introduced into the esophagus, stomach, and duodenum. Examination was performed and the scope was removed. She tolerated both procedures well and was returned to recovery area in stable condition. FINDINGS: Colonoscopy: The terminal ileum was examined and appeared normal. The visualized colonic mucosa was normal. The quality of the prep was good. Random sigmoid biopsies were obtained to rule out microscopic colitis. There was mild sigmoid diverticulosis. Retroflexed examination showed small internal hemorrhoids. Upper endoscopy, esophagus: The esophagus showed changes of erosive esophagitis with linear erosions in the distal esophagus and some superficial ulceration right at the EG junction. There was a 5 cm hiatal hernia. Biopsies were obtained from the esophagus. Stomach: The stomach was normal. Antral biopsies were obtained to evaluate for H pylori. Duodenum: The bulb and 2nd portion were normal. IMPRESSION: 1. Erosive esophagitis. 2. Normal colonoscopy. RECOMMENDATION: Follow up the biopsy results Ten year colon recall.. MD PRICE Upton/NICOLASA / [id number] MTDShiva
== END 2023-09-29 15:04 | disposition home or self-care (01) ==
PROVIDERS: Anesthesiology; PCP Physician Assistant; Visit Provider Internal Medicine Gastroenterology
PROC: (CPT 45380; principal; 2023-09-29 12:50)
DX: R19.4 Change in bowel habit (principal); K57.30 Diverticulosis of large intestine without perforation or abscess without bleeding; K64.8 Other hemorrhoids; R13.10 Dysphagia, unspecified; K22.10 Ulcer of esophagus without bleeding; K44.9 Diaphragmatic hernia without obstruction or gangrene; J45.909 Unspecified asthma, uncomplicated; E78.5 Hyperlipidemia, unspecified; B02.9 Zoster without complications; F41.1 Generalized anxiety disorder; R93.1 Abnormal findings on diagnostic imaging of heart and coronary circulation; R00.2 Palpitations; Z79.899 Other long term (current) drug therapy; Z88.0 Allergy status to penicillin; Z91.041 Radiographic dye allergy status; Z98.890 Other specified postprocedural states; Z56.0 Unemployment, unspecified
CPT/HCPCS: 45380; 43239; 87635; 88305; 88313; 88342; J1596; J2405; J2704

== ENCOUNTER 2023-11-30 13:28 | Outpatient (AMB) | payer OTHER, SELFPAY ==
[2023-11-30 13:44] VITALS: BP 152/82; PULSE 75; O2SAT 98; BMI 25.1
--- NOTE | 2023-11-30 13:44 | A.OFFPC_ITS ---
Vital Signs 11/30/23 13:44 Height 5 ft 11 in Weight 180 lb BMI 25.1 BP 152/82 H Blood Pressure Location Lt brachial Position Sitting Pulse 75 Pulse Source Pulse Oximeter Pulse Oximetry (%) 98 Oxygen Delivery Method Room Air Intake Visit Reasons: f/u HLD Loan Documentation Specialist Required: No Accompanied by: Self / Same As Patient Allergies penicillin V Allergy (Severe, Verified 11/30/23 13:56) throat swelling Penicillins [PCN] Allergy (Verified 11/30/23 13:56) Hives Tetanus Vaccines and Toxoid Allergy (Verified 11/30/23 13:56) Difficulty Breathing Iodinated Contrast Media [Contrast Dye] Adverse Reaction (Verified 11/30/23 13:56) Anaphylaxis Medication List - Last Reconciled 11/30/23 by Elias Swenson PA-C aspirin 81 mg PO DAILY atorvastatin 20 mg PO DAILY 30 days metoprolol succinate ER 25 mg PO DAILY 30 days nebulizers (AeroEclipse II Nebulizer) As directed nebulizers (Aeroneb Go Nebulizer) As directed omeprazole 20 mg PO QAM Tobacco use date assessed: 03/16/23 Dental Screening Dental Screen Date: 03/16/23 HPI f/u HLD HPI Details Patient is a 58-year-old female here today for follow-up visit ?Patient has a past medical history significant for allergic rhinitis, obesity, GERD, MEE, chronic lumbar and cervical?spine pain. concerns--> report having nasal and sinus congestion over the last 6 weeks. He has taken epul-[id number] allergy medication without any relief. Has not tried any nasal sprays. She did trial an antibiotic and felt temporarily better though symptoms have returned. . .. Elevated blood pressure reading: Today in office noted elevated blood pressure reading. Of note was followed by [facility] whom would like to check patient for coronary artery disease as she has a family history of heart disease. PLAN: Due to the high blood pressure will start lisinopril 10 mg for blood pressure control. She is strongly considering coronary artery imaging with her administrative hearing officer. Of note patient did have anaphylactic reaction to contrast dye last year. .. Hyperlipidemia: Most recent fasting cholesterol showing improved total cholesterol and LDL though still remains elevated. She will continue dietary modifications over the next 4 months and if still elevated will consider low- dose statin therapy. [facility] Medical History Equivocal myocardial perfusion imaging Abnormal stress test Hyperlipidemia Intermittent palpitations Chest pain Anxiety, generalized Esophageal stricture Normal colonoscopy Asthma Surgical History History of endoscopy History of appendectomy History of bladder surgery History of torn meniscus of right knee History of gallbladder disease History of partial hysterectomy Family History Father CVD (cardiovascular disease) Past heart attack Mother Skin cancer Brother Heart problem Pacemaker Social History Household Members: Spouse Housing: Apartment Do you presently have visiting nurse or other home services: No Alcohol intake: never Patient Tobacco Use Status: Never used Tobacco e-Cigarette/Vaping Use: Never Used Second Hand Smoke Exposure: No service: No Current occupational status: unemployed Cognitive needs: No Hearing needs: No Vision needs: Yes (Reading glasses) Questionnaire Thrive Questionnaire Date Thrive assessed: 05/26/23 Are you currently unemployed and looking for a job?: I choose not to answer this question MEE-7 AMB Questionnaire MEE-7 Date MEE - 7 assessed: 03/16/23 Source: Developed by Drs. John Phan, Bebe Valerio, Lito Padron and colleagues, with an educational allison from [employer]. Review of Systems Const Denies headache(s) Eyes Denies loss of vision ENT Denies vertigo, Denies dizziness, Denies headache(s) and Denies sore throat Card Denies chest pain, Denies leg edema and Denies lightheadedness Resp Denies cough, Denies hemoptysis and Denies wheezing GI Denies abdominal pain, Denies melena, Denies constipation, Denies diarrhea and Denies vomiting Denies urinary frequency, Denies dysuria and Denies urinary urgency Musc Denies arthralgias, Denies joint swelling, Denies numbness and Denies tingling Neuro Denies Abnormal speech present, Denies behavioral changes, Denies vertigo, Denies dizziness, Denies headache(s), Denies loss of vision, Denies memory loss, Denies numbness and Denies tingling Psych Denies anxiety, Denies behavioral changes, Denies depression, Denies memory loss and Denies panic attacks Kane/Lymph Denies easy bleeding and Denies easy bruising Aller/Immun Denies wheezing Physical exam (Primary Care) Vital Signs: Last Vital Signs Pulse 75 11/30/23 13:44 BP 152/82 H 11/30/23 13:44 Pulse Ox 98 11/30/23 13:44 Oxygen Delivery Method Room Air 11/30/23 13:44 BMI result Body Mass Index 25.1 Tobacco/Smoking Status: Tobacco use Status Tobacco use date assessed 03/16/23 11/30/23 13:49 Patient Tobacco Use Status Never used Tobacco 11/30/23 13:49 e-Cigarette/Vaping Use Never Used 11/30/23 13:49 Thrive Assessment: Date of Thrive Assessment Date Thrive assessed 05/26/23 11/30/23 13:49 Const General: healthy appearing, no acute distress, alert and awake Nutritional Appearance: well nourished Orientation/consciousness: oriented to person, oriented to place and oriented to time HENMT Ears: TM's normal bilaterally General nose exam: Normal nasal mucous membranes and turbinates present Eyes Conjunctivae: conjunctivae normal Sclerae: sclerae normal Pupils: Equal, round and reactive pupils present Neck Neck: Yes no lymphadenopathy and Yes no JVD Thyroid: Thyroid normal Carotids: no bruits Resp Effort & Inspection: normal respiratory effort and not tachypneic Auscultation: no crackles, no rales, no rhonchi and no wheezes Cardio Rate: regular rate Rhythm: regular rhythm Heart sounds: no murmurs and normal S1 and S2 GI Palpation (GI): Soft to palpation, nontender, no hepatomegaly and no splenomegaly Auscultation: normal bowel sounds Skin General skin exam: no rashes or lesions noted and dry skin Neuro General: oriented to person, oriented to place and oriented to time Cranial nerves: Yes Equal, round and reactive pupils present Speech: No Abnormal speech present Gait exam (Neuro): Normal gait present Motor exam (neuro): no tremor noted Extrem Right upper extremity: full ROM Left upper extremity: full ROM Right lower extremity: full ROM; no edema Left lower extremity: full ROM; no edema Psych Mental Status: mental status grossly normal Speech and movement: Normal speech and movement present Affect: normal affect Attitude: cooperative Thought process: Normal thought process present Coding Level of Care Code Est Pt Level 4 (72835) Diagnoses Borderline high cholesterol E78.9 Allergic rhinitis due to pollen, unspecified seasonality J30.1 Allergic rhinitis trigger: pollen Allergic rhinitis seasonality: unspecified Subacute frontal sinusitis J01.10 Sinusitis location: frontal Chronicity: subacute Primary hypertension I10 Hypertension type: primary hypertension Assessment & Plan Assessment & Plan (1) Borderline high cholesterol: Code(s): E78.9 - Disorder of lipoprotein metabolism, unspecified Category: Medical Plan: Patient most recent lipid panel elevated total cholesterol and LDL. Due to her family history strongly considered low-dose cholesterol medication though patient continues to decline. She will repeat fasting lipid panel with goal LDL to be below 130 (2) Allergic rhinitis: Code(s): J30.9 - Allergic rhinitis, unspecified Category: Medical Qualifiers: Allergic rhinitis trigger: pollen Allergic rhinitis seasonality: unspecified Qualified Code(s): J30.1 - Allergic rhinitis due to pollen Plan: Patient's signs and symptoms consistent with a allergic rhinitis or sinusitis. Will supply patient with a nasal spray and allergy medication. Hold off on another antibiotic for now unless symptoms worsen. (3) Sinusitis: Code(s): J32.9 - Chronic sinusitis, unspecified Category: Medical Qualifiers: Sinusitis location: frontal Chronicity: subacute Qualified Code(s): J01.10 - Acute frontal sinusitis, unspecified Plan: As above (4) HTN (hypertension): Code(s): I10 - Essential (primary) hypertension Category: Medical Qualifiers: Hypertension type: primary hypertension Qualified Code(s): I10 - Essential (primary) hypertension Plan: Continues to have elevated blood pressure readings. Has not been taking metoprolol she has fears of side effects of fatigue. She is currently undergoing workup for coronary artery disease with her administrative hearing officer. She is willing to try lisinopril 10 mg for blood pressure control. Orders: Orders Comprehensive [place]. Panel Fast Today I10 - Essential (primary) hypertension Lipid Panel Today E78.9 - Disorder of lipoprotein metabolism, unspecified Microalbumin, Random (w Creat) Today I10 - Essential (primary) hypertension Complete Blood Count no Diff Today I10 - Essential (primary) hypertension Medications: New lisinopril 10 mg PO DAILY 30 days 30 tabs 1RF I10 - Essential (primary) hypertension miscellaneous medical supply (Blood Pressure Cuff) Take blood pressure once a day as needed 1 ea 0RF I10 - Essential (primary) hypertension fluticasone propionate 50 mcg/actuation (Flonase Allergy Relief) administer into each nostril 1 spray intranasal DAILY 30 days 16 grams 1RF J32.9 - Chronic sinusitis, unspecified cetirizine 10 mg PO DAILY 30 days 30 tabs 1RF allergy symptoms J32.9 - Chronic sinusitis, unspecified Patient Instructions: Goal: Blood pressure be below 140/90 Barrier: Adherence to physical activity and healthy eating habits
== END 2023-11-30 14:24 | disposition home or self-care (01) ==
PROVIDERS: PCP Physician Assistant; Visit Provider Physician Assistant
DX: E78.9 Disorder of lipoprotein metabolism, unspecified (principal); J30.1 Allergic rhinitis due to pollen; J01.10 Acute frontal sinusitis, unspecified; I10 Essential (primary) hypertension

== ENCOUNTER → 2023-11-30 13:28 | Outpatient (BNVA) | payer OTHER, SELFPAY | PROVIDERS: PCP Physician Assistant; Visit Provider Physician Assistant | DX: E78.9 Disorder of lipoprotein metabolism, unspecified (principal); J30.1 Allergic rhinitis due to pollen; J01.10 Acute frontal sinusitis, unspecified; I10 Essential (primary) hypertension | CPT/HCPCS: 99212 ==

== ENCOUNTER 2023-12-01 08:41 | Outpatient (REF) | payer OTHER, SELFPAY ==
[2023-12-01 09:14] LABS: Hematocrit 37.2 % (37.0-47.0); Hemoglobin 12.4 g/dl (12.0-16.0); Mean Corpuscular HGB Conc 33.3 g/dl (31.0-35.0); Mean Corpuscular Volume 89.9 fL (80.0-98.0); Mean Platelet Volume 10.1 fL (9.4-12.3); Platelet Count 217 X10*3/uL (160-400); Red Blood Count 4.14 X10*6/uL (4.20-5.50); Red Cell Distribution Width 11.9 % (11.0-16.0); White Blood Count 4.3 X10*3/uL (4.8-10.8)
[2023-12-01 09:46] LABS: Alanine Aminotransferase 11 U/L (0-31); Albumin Level 4.1 g/dL (3.5-5.0); Alkaline Phosphatase 65 U/L (39-117); Anion Gap 9 (12-20); Aspartate Amino Transferase 13 U/L (5-31); Bilirubin Total 0.6 mg/dL (0.0-1.0); Blood Urea Nitrogen 16 mg/dL (9-16); Calcium 9.2 mg/dL (8.4-10.2); Carbon Dioxide 28 mmol/L (22-29); Chloride 108 mmol/L (96-108); Cholesterol 227 mg/dL (<200); Estimated Glomerular Filt Rate > 60; Glucose Fasting 92 mg/dL (60-99); HDL Cholesterol 65 mg/dL (>40); LDL Cholesterol Calculated 144 mg/dL (<100); Sodium 141 mmol/L (135-145); Total Protein 6.2 g/dL (6.5-8.0); Triglycerides 91 mg/dL (<150)
[2023-12-01 10:12] LABS: Creatinine Urine 109.55 mg/dL; Microalbumin Urine < 5.0 mg/L
== END 2023-12-01 08:42 | disposition home or self-care (01) ==
LOC: HO.LAB 08:41
PROVIDERS: PCP Physician Assistant; Visit Provider Physician Assistant
DX: I10 Essential (primary) hypertension (principal); E78.9 Disorder of lipoprotein metabolism, unspecified
CPT/HCPCS: 36415; 80053; 80061; 82043; 82570; 85027

== ENCOUNTER 2023-12-03 14:20 | Outpatient (AMB) | payer OTHER, SELFPAY ==
[2023-12-03 14:26] VITALS: BP 140/72; PULSE 76; BMI 25.5
--- NOTE | 2023-12-03 14:26 | A.OFFVIS_ITS ---
Vital Signs 12/03/23 14:26 Height 5 ft 11 in Weight 182 lb 15.739 oz BMI 25.5 BP 140/72 H Blood Pressure Location Lt brachial Position Sitting Pulse 76 Pulse Source Pulse Oximeter Intake Visit Reasons: 3 mos followup Allergies penicillin V Allergy (Severe, Verified 11/30/23 13:56) throat swelling Penicillins [PCN] Allergy (Verified 11/30/23 13:56) Hives Tetanus Vaccines and Toxoid Allergy (Verified 11/30/23 13:56) Difficulty Breathing Iodinated Contrast Media [Contrast Dye] Adverse Reaction (Verified 11/30/23 13:56) Anaphylaxis Medication List - Last Reconciled 12/03/23 by Rubio Moody MD cetirizine 10 mg PO DAILY 30 days fluticasone propionate 50 mcg/actuation (Flonase Allergy Relief) 1 spray intranasal DAILY 30 days lisinopril 10 mg PO DAILY 30 days miscellaneous medical supply (Blood Pressure Cuff) Take blood pressure once a day as needed nebulizers (AeroEclipse II Nebulizer) As directed nebulizers (Aeroneb Go Nebulizer) As directed simvastatin 10 mg PO DAILY 90 days HPI Comments Details: Ele comes for follow-up. She has not started the metoprolol and takes Ecotrin only sometimes. She continues to have symptoms of chest pressure, gets it sometimes with exertional sometimes at rest. She has taken simvastatin 10 mg without any LDL reduction. She is worried about her chest pain syndrome. Denies any prolonged palpitations. No heart failure symptoms. [facility] Medical History Equivocal myocardial perfusion imaging Abnormal stress test Hyperlipidemia Intermittent palpitations Chest pain Anxiety, generalized Esophageal stricture Normal colonoscopy Asthma Surgical History History of endoscopy History of appendectomy History of bladder surgery History of torn meniscus of right knee History of gallbladder disease History of partial hysterectomy Family History Father CVD (cardiovascular disease) Past heart attack Mother Skin cancer Brother Heart problem Pacemaker Social History Household Members: Spouse Housing: Apartment Do you presently have visiting nurse or other home services: No Alcohol intake: never Patient Tobacco Use Status: Never used Tobacco e-Cigarette/Vaping Use: Never Used Second Hand Smoke Exposure: No service: No Current occupational status: unemployed Cognitive needs: No Hearing needs: No Vision needs: Yes (Reading glasses) Review of Systems Const Denies weakness ENT Denies dizziness Card Denies chest pain, Denies chest pain with activity, Denies syncope, Denies rapid heart rate, Denies pedal edema, Denies edema, Denies leg edema, Denies lightheadedness, Denies palpitations, Denies dyspnea, Denies dyspnea on exertion and Denies orthopnea Resp Denies cough, Denies dyspnea and Denies dyspnea on exertion GI Denies hematochezia and Denies change in stool character Musc Denies abnormal gait, Denies muscle cramps, Denies muscle weakness, Denies numbness, Denies radiating pain into limb and Denies tingling Neuro Denies abnormal gait, Denies dizziness, Denies syncope, Denies numbness, Denies tingling and Denies weakness Endo Denies palpitations Physical Exam Vital Signs: Last Vital Signs Pulse 76 12/03/23 14:26 BP 140/72 H 12/03/23 14:26 BMI result Body Mass Index 25.5 Const General: healthy appearing and no acute distress Orientation/consciousness: patient oriented x3 HEENT Head: Yes normal to inspection Eyes General: appearance normal, both eyes and all related structures Neck Neck: Yes normal visual inspection Chest Chest palpation & inspection: normal inspection of the chest Resp Effort & Inspection: normal respiratory effort Auscultation: clear to auscultation bilaterally Cardio Jugular venous distension: no JVD Palpation: normal PMI Rate: regular rate Rhythm: regular rhythm Heart sounds: S1 normal heart sound present, S2 normal heart sound present, no click, no gallops, no murmurs and no rubs GI Inspection: Yes normal to inspection Palpation (GI): Soft to palpation Skin General skin exam: no rashes or lesions noted Neuro General: patient oriented x3 Extrem General: Yes normal to inspection Psych Appearance: grossly normal Assessment & Plan Assessment & Plan (1) Chest pain: Code(s): R07.9 - Chest pain, unspecified Category: Medical Plan: Patient was recurrent chest pain syndrome with some atypical features. She had mildly abnormal myocardial perfusion imaging test. This was discussed with her. She was strong history for premature coronary artery disease in the family with risk factors of hypertension hyperlipidemia. I suggest her to pursue anatomic evaluation with coronary angiogram. We discussed 2 approaches including noninvasive coronary CTA and invasive cardiac catheterization. Given her equivocal stress test I will pursue noninvasive coronary CTA at this point time. She is worried about allergic reaction to contrast. We have prescribed her prednisone, Benadryl and Pepcid to counteract allergic reaction to the dye. She is going to proceed with this testing. Further treatment based on the findings. Meanwhile advised her to start metoprolol 50 mg daily and take aspirin daily basis. Also strongly recommend to intensify statin therapy. Have prescribed atorvastatin 40 mg daily and follow-up lipid panel in 2 months time. (2) HTN (hypertension): Code(s): I10 - Essential (primary) hypertension Category: Medical Qualifiers: Hypertension type: primary hypertension Qualified Code(s): I10 - Essential (primary) hypertension Plan: Hypertension with out well optimized at current point time. Continue lisinopril therapy. Also added metoprolol as above. Low-salt diet was discussed. Stress mitigation strategies was discussed. Advised to monitor blood pressure at home maintain a log. Goal blood pressure less than 130/80. (3) Cardiac arrhythmia: Code(s): I49.9 - Cardiac arrhythmia, unspecified Category: Medical Plan: Patient frequent sinus tachycardia but also with frequent PACs and short bursts of SVT. She had had prior symptoms of palpitation. Start Toprol as above. Avoidance of stimulants was discussed. Stress mitigation strategies were discussed. Follow up in the clinic in 3 months time after coronary CTA. Thank you for allowing me to partake in his care Orders: Orders CT Cardiac Coronary Angio 1 Week R07.9 - Chest pain, unspecified Medications: New metoprolol succinate ER (Toprol XL) 50 mg PO DAILY 30 tabs 5RF atorvastatin 40 mg PO DAILY 30 tabs 5RF famotidine (Pepcid) 20 mg PO BID 10 tabs 0RF prednisone 20 mg PO BID 10 tabs 0RF diphenhydramine HCl (Benadryl Allergy) 25 mg PO BID 10 tabs 0RF allergy symptoms Discontinued simvastatin Discontinued Reason: Doctor's Order 10 mg PO DAILY 90 days 90 tabs 1RF E78.5 - Hyperlipidemia, unspecified Coding Level of Care Code Est Pt Level 4 (17139) Complex EM visit Add On G2211 Diagnoses Chest pain R07.9 Primary hypertension I10 Hypertension type: primary hypertension Cardiac arrhythmia I49.9
== END 2023-12-03 14:55 | disposition home or self-care (01) ==
PROVIDERS: PCP Physician Assistant; Visit Provider Internal Medicine Cardiovascular Disease
DX: R07.9 Chest pain, unspecified (principal); I10 Essential (primary) hypertension; I49.9 Cardiac arrhythmia, unspecified
CPT/HCPCS: 99214; G2211

== ENCOUNTER → 2023-12-03 14:20 | Outpatient (BNVA) | payer OTHER, SELFPAY | PROVIDERS: PCP Physician Assistant; Visit Provider Internal Medicine Cardiovascular Disease | DX: R07.9 Chest pain, unspecified (principal); I10 Essential (primary) hypertension; I49.9 Cardiac arrhythmia, unspecified; E78.5 Hyperlipidemia, unspecified; Z79.899 Other long term (current) drug therapy | CPT/HCPCS: 99212 ==

== ENCOUNTER → 2024-04-12 15:04 | Outpatient (BNVA) | payer OTHER, SELFPAY | PROVIDERS: PCP Physician Assistant; Visit Provider Internal Medicine Cardiovascular Disease | DX: I25.10 Atherosclerotic heart disease of native coronary artery without angina pectoris (principal) | CPT/HCPCS: 99212 ==

== ENCOUNTER 2024-04-12 15:05 | Outpatient (AMB) | payer OTHER, SELFPAY ==
[2024-04-12 15:08] VITALS: BP 132/80; PULSE 91; BMI 26.4
--- NOTE | 2024-04-12 15:08 | MHC.OFFVIS ---
Vital Signs 04/12/24 15:08 Height 5 ft 11 in Weight 189 lb 9.561 oz BMI 26.4 BP 132/80 Blood Pressure Location Lt brachial Position Sitting Pulse 91 Intake Visit Reasons: 3m follow up s/p CTA Intake Note: 3 month follow-up after CTA feeling ok Applique Sewer Required: No Allergies penicillin V Allergy (Severe, Verified 11/30/23 13:56) throat swelling Penicillins [PCN] Allergy (Verified 11/30/23 13:56) Hives Tetanus Vaccines and Toxoid Allergy (Verified 11/30/23 13:56) Difficulty Breathing Iodinated Contrast Media [Contrast Dye] Adverse Reaction (Verified 11/30/23 13:56) Anaphylaxis Medication List - Last Reconciled 04/12/24 by Rubio Moody MD atorvastatin 40 mg PO DAILY blood pressure monitor (Blood Pressure Kit) As directed miscellaneous medical supply (Blood Pressure Cuff) Take blood pressure once a day as needed nebulizers (AeroEclipse II Nebulizer) As directed nebulizers (Aeroneb Go Nebulizer) As directed HPI Comments Details: Ele comes for follow-up. She underwent a coronary CTA which she was nonobstructive [id number] disease. However post dye she developed significant anaphylactic reaction to be admitted to ICU. She was pretreated with prednisone as well as Pepcid and Benadryl. She does have symptoms despite that. She comes here little anxious. She says she is very stress test she is taking care for mother with stroke. She was started on atorvastatin after the coronary CTA results which she has probably started taking although this is unclear. She denies any significant chest pain. Denies any prolonged palpitation irregular heartbeat. [facility] Medical History Equivocal myocardial perfusion imaging Abnormal stress test Hyperlipidemia Intermittent palpitations Chest pain Anxiety, generalized Esophageal stricture Normal colonoscopy Asthma Surgical History History of endoscopy History of appendectomy History of bladder surgery History of torn meniscus of right knee History of gallbladder disease History of partial hysterectomy Family History Father CVD (cardiovascular disease) Past heart attack Mother Skin cancer Brother Heart problem Pacemaker Social History Household Members: Spouse Housing: Apartment Do you presently have visiting nurse or other home services: No Alcohol intake: never Patient Tobacco Use Status: Never used Tobacco e-Cigarette/Vaping Use: Never Used Second Hand Smoke Exposure: No service: No Current occupational status: unemployed Cognitive needs: No Hearing needs: No Vision needs: Yes (Reading glasses) Review of Systems Const Denies chills, Denies fatigue, Denies fever(s), Denies frequent falls, Denies weakness, Denies weight gain and Denies weight loss ENT Denies dizziness Card Denies chest pain, Denies leg edema, Denies lightheadedness, Denies palpitations, Denies dyspnea, Denies dyspnea on exertion, Denies orthopnea and Denies other (loss of consciousness) Resp Denies cough, Denies dyspnea and Denies dyspnea on exertion GI Denies hematochezia and Denies change in stool character Musc Denies abnormal gait, Denies muscle weakness, Denies numbness, Denies radiating pain into limb and Denies tingling Neuro Denies abnormal gait, Denies dizziness, Denies frequent falls, Denies numbness, Denies tingling and Denies weakness Endo Denies fatigue and Denies palpitations Physical Exam Vital Signs: Last Vital Signs Pulse 91 04/12/24 15:08 BP 132/80 04/12/24 15:08 BMI result Body Mass Index 26.4 Const General: healthy appearing and no acute distress Orientation/consciousness: patient oriented x3 HEENT Head: Yes normal to inspection Eyes General: appearance normal, both eyes and all related structures Neck Neck: Yes normal visual inspection Chest Chest palpation & inspection: normal inspection of the chest Resp Effort & Inspection: normal respiratory effort Auscultation: clear to auscultation bilaterally Cardio Jugular venous distension: no JVD Palpation: normal PMI Rate: regular rate Rhythm: regular rhythm Heart sounds: S1 normal heart sound present, S2 normal heart sound present, no click, no gallops, no murmurs and no rubs GI Inspection: Yes normal to inspection Palpation (GI): Soft to palpation Skin General skin exam: no rashes or lesions noted Neuro General: patient oriented x3 Extrem General: Yes normal to inspection Psych Appearance: grossly normal Assessment & Plan Assessment & Plan (1) CAD (coronary artery disease): Code(s): I25.10 - Atherosclerotic heart disease of [place] coronary artery without angina pectoris Category: Medical Plan: Coronary artery disease in this lady with multiple risk factors including premature coronary disease father's side of the family as well as hyperlipidemia, obesity, hypertension. Currently she is having no active symptoms. Coronary CTA shows nonobstructive disease [id number] atherosclerosis in all three-vessel. Continue aggressive medical therapy. Pathophysiology of coronary artery disease were discussed in details. Goals of therapy were discussed. Continue high-intensity statin therapy. Follow-up lipid panel in 3 months time. Target goal LDL less than 55 mg/dL. Low-dose aspirin therapy is advised. Also advise metoprolol therapy to treat both blood pressure as well as palpitation and prior cardiac arrhythmias. Management was discussed in details. She understands agrees. Encouraged to continue to participate in regular rhythm lifestyle modification with aggressive exercise. Follow up in the clinic in 1 year's time, sooner p.r.n.. Thank you for allowing me to partake in his care Medications: New aspirin (Ecotrin Low Strength) 81 mg PO DAILY 90 tabs 3RF metoprolol succinate ER (Toprol XL) 25 mg PO DAILY 90 tabs 3RF Refilled atorvastatin 40 mg PO DAILY 90 tabs 3RF Coding Level of Care Code Est Pt Level 4 (33336) Complex EM visit Add On G2211 Diagnoses CAD (coronary artery disease) I25.10
--- OUTSIDE RECORDS SUMMARY | 2024-04-12 16:00 | XMS_ITS ---
Author Organization [facility] Address [address] [place] [address] Care Team Providers Care Blueprint Processor Name Role Phone Elias Swenson Primary Care Provider Unavailab Sami Mancera Jr Unavailable [phone] REASON FOR VISIT pathology/ waiting on pt call back Encounters Encounter Location Date Provider Diagnosis [facility] [address] [place] [address] 10/22/2023 Sami Foster Jr PLAN OF TREATMENT Next Appt Details Provider Name:Sami freeman Jr, 07/07/2024 02:35:00 PM, [address], [address], [place], [address],
--- OUTSIDE RECORDS SUMMARY | 2024-04-12 16:01 | XMS_ITS ---
Author Organization [facility] Address [address] [place] [address] Care Team Providers Care Systems Qa Analyst Name Role Phone Elias Swenson Primary Care Provider Unavailab Sami Mancera Jr Unavailable REASON FOR VISIT Patient presents today for GERD Encounters Encounter Location Date Provider Diagnosis [facility] [address] [place] [address] 04/07/2024 Sami Foster Jr PLAN OF TREATMENT Next Appt Details Provider Name:Sami freeman Jr, 07/07/2024 02:35:00 PM, [address], [address], [place], [address],
--- OUTSIDE RECORDS SUMMARY | 2024-04-12 16:01 | XMS_ITS | Patient Health Record ---
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 Name Role Phone Elias Swenson Primary Care Provider Sami Ugalde Jr Unavailable ALLERGIES Allergen (clinical drug ingredient) Drug/Non Drug Allergy documented on EMR Reaction Allergy Type Onset Date Status tetanus immune globulin Tetanus Immune Globulin Unknown Drug Allergy Active Penicillin Unknown Drug Allergy Active IVP Dye (uncoded) Unknown Allergy Ac tive RESULTS Component Value Reference Range Notes Pathology Reviewed date:10/22/2023 09:57:58 AM Interpretation: Performing Lab:[facility], [address] [place] [phone] Notes/Report: COVID-19 ID NOW (Patel) Reviewed date:09/29/2023 04:56:38 PM Interpretation: Performing Lab:[facility], [address] [place] [phone] Notes/Report: IDNOW Serial# [id number] COVID-19 Test Negative Negative COVID-19 Note See Note Results are for the identification of SARS-CoV2 RNA. The SARS-CoV2 RNA is generally detectable in respiratory samples during the acute phase of infection. Positive results are indicative of the presence of SARS-CoV-2 RNA; clinical correlation with patient history and other diagnostic information is necessary to determine patient infection status. Positive results do not rule out bacterial infection or co-infection with other viruses. Testing facilities within the [facility] and its territories are required to report all positive results to the appropriate public health authorities. Negative results should be treated as presumptive and, if inconsistent with clinical signs and symptoms or necessary for patient management, should be tested with different authorized or cleared molecular tests. Negative results do not preclude SARS-CoV2 RNA infection and should not be used as the sole basis for patient management decisions. Negative results should be considered in the context of a patient's recent exposures, history and the presence of clinical signs and symptoms consistent with COVID-19. This test has been authorized by the FDA under an Emergency Use Authorization (EUA) for use by authorized laboratories. Testing performed on the [facility] ID NOW utilizing NAAT. REASON FOR REFERRAL No Information MEDICATIONS Medication SIG (Take, Route, Frequency, Duration) Notes Start Date End Date Status Aspirin 81 81 MG 1 tablet Orally Once a day for 30 day(s) Active MiraLax (colon prep) 17 GM/SCOOP mixed with Gatorade or Crystal Light Orally begin at 5:00 p.m. the day before the procedure for 1 day 09/16/2023 Active Dulcolax (colon prep) 5 MG take at 3:00 p.m and 7:00p.m. Orally two tablets twice a day for one day for 1 day 09/17/2023 Active MiraLax (colon prep) 8.3 ounce ((238) grams mixed with Gatorade or Crystal Light orally begin at 5:00 p.m. the day before the procedure for 1 day 09/17/2023 Active Omeprazole 40 MG TAKE 1 CAPSULE BY [facility] DAILY 30 MINUTES BEFORE BREAKFAST for 30 Active Ondansetron HCl 4 MG 1 tablet Orally Twi ce a day, as needed for vomiting. 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) Active confirmed 18261456 Problem Esophageal dysphagia (R13.19) Active confirmed 14089797 Problem Abnormal barium swallow (R93.3) Active confirmed 758945660 Problem Dysphagia (R13.10) Active confirmed Dys phagia (13928109) Problem Erosive esophagitis (K22.10) Active confirmed Erosive esophagitis (65081617) Problem Change in bowel movement (R19.8) Active confirmed 09107939 VITAL SIGNS Temperature 97.1 degrees Fahrenheit 09/16/2023 Blood pressure diastolic 00 mm Hg 09/16/2023 Height 61.5 in 09/16/2023 Blood pressure systolic 000 mm Hg 09/16/2023 Weight 182 lb 8 oz lbs 09/16/2023 BMI 33.92 kg/m2 09/16/2023 Encounters Encounter Location Date Provider Diagnosis [facility] [address] [place] [id number] 09/29/2023 Sami Foster Jr Change in bowel movement R19.8 and Erosive esophagitis K22.10 [facility] [address] [place] [phone] 06/04/2023 Sami Foster Jr [facility] [address] [place] [phone] 09/16/2023 Sami Foster Jr Erosive esophagitis K22.10 ; Change in bowel movement R19.8 and Dysphagia R13.10 [facility] [address] [place] [phone] 04/07/2024 Sami Foster Jr [facility] [address] [place] [phone] 06/03/2023 Sami Foster Jr [facility] [address] [place] [phone] 09/16/2023 Sami Foster Jr [facility] [address] [place] [phone] 09/30/2023 Sami Foster Jr [facility] [address] [place] [phone] 10/22/2023 Sami Foster Jr [facility] [address] [place] [phone] 04/07/2024 Sami Foster Jr ASSESSMENTS Encounter Date Diagnosis Assessment Notes Treatment Notes Treatment Clinical Notes 09/29/2023 Erosive esophagitis (ICD-10 - K22.10) 09/29/2023 Change in bowel movement (ICD-10 - R19.8) 09/16/2023 Erosive esophagitis (ICD-10 - K22.10) Endoscopy material was printed 09/16/2023 Change in bowel movement (ICD-10 - R19.8) 09/16/2023 Dysphagia (ICD-10 - R13.10) PLAN OF TREATMENT Future Test Test Name Order Date COLONOSCOPY 02/13/2016 UPPER GI ENDOSCOPY 06/02/2022 UPPER GI ENDOSCOPY ANY OTHER TECHNIQUE 0 09/16/2023 COLONOSCOPY 09/16/2023 Next Appt Details Provider Name:Sami rfeeman Jr, 07/07/2024 02:35:00 PM, [address] [facility], [address], [place], [address], Insurance Providers Payer Name Payer Address Payer Phone Subscriber Number Group Number Insured Name Patient Relationship to Insured Coverage Start Date Coverage End Date [facility] [address] Attn Claims [employer] [id number] JURGEN MONTEZ Self - patient is the insured MEDICAL (GENERAL) HISTORY Medical History History ICD Code asthma Constipation Herpes zoster infection stress urinary incontinence Colonoscopy 03/11, hyperplastic polyp, te n-year followup Abnormal stress test, cardiology evaluat ion ongoing Erosive esophagitis, EGD 08/24 07/15, 2 small erosions just above the EG junction, no Quach's esophagus or H. pylori. Hyperlipidemia Surgical History Surgery Date(Month/Year) hysterectomy cholecystectomy appendectomy bladder stimulator Hospitalization History Reason Date(Month/Year) Hospitalized at [facility] for allergic reaction to contrast 09/14 hospital for 10 days with covid
--- OUTSIDE RECORDS SUMMARY | 2024-04-12 16:01 | XMS_ITS ---
Author Organization [facility] Address [address] [place] [address] Care Team Providers Care Machine Chain Maker Name Role Phone Elias Swenson Primary Care Provider Unavailab Sami Mancera Jr Unavailable REASON FOR VISIT rescheduled todays appt Encounters Encounter Location Date Provider Diagnosis [facility] [address] [place] [address] 04/07/2024 Sami Foster Jr PLAN OF TREATMENT Next Appt Details Provider Name:Sami freeman Jr, 07/07/2024 02:35:00 PM, [address], [address], [place], [address],
== END 2024-04-12 15:33 | disposition home or self-care (01) ==
PROVIDERS: PCP Physician Assistant; Visit Provider Internal Medicine Cardiovascular Disease
DX: I25.10 Atherosclerotic heart disease of native coronary artery without angina pectoris (principal)
CPT/HCPCS: 99214; G2211

== ENCOUNTER 2024-04-30 07:46 | Outpatient (REF) | payer OTHER, SELFPAY ==
[2024-04-30 10:37] LABS: Alanine Aminotransferase 22 U/L (0-31); Albumin Level 4.2 g/dL (3.5-5.0); Alkaline Phosphatase 78 U/L (39-117); Anion Gap 12 (12-20); Aspartate Amino Transferase 19 U/L (5-31); Bilirubin Total 0.7 mg/dL (0.0-1.0); Blood Urea Nitrogen 12 mg/dL (9-16); Calcium 9.2 mg/dL (8.4-10.2); Carbon Dioxide 27 mmol/L (22-29); Chloride 106 mmol/L (96-108); Cholesterol 220 mg/dL (<200); Estimated Glomerular Filt Rate > 60; Glucose Fasting 87 mg/dL (60-99); HDL Cholesterol 66 mg/dL (>40); LDL Cholesterol Calculated 139 mg/dL (<100); Potassium 3.9 mmol/L (3.3-5.1); Sodium 141 mmol/L (135-145); Total Protein 6.8 g/dL (6.5-8.0); Triglycerides 79 mg/dL (<150)
== END 2024-04-30 07:47 | disposition home or self-care (01) ==
LOC: HO.LAB 07:46
PROVIDERS: PCP Physician Assistant; Visit Provider Physician Assistant
DX: I10 Essential (primary) hypertension (principal); E78.9 Disorder of lipoprotein metabolism, unspecified
CPT/HCPCS: 36415; 80053; 80061

== ENCOUNTER 2024-05-02 14:02 | Outpatient (AMB) | payer OTHER, SELFPAY ==
--- NOTE | 2024-05-02 14:08 | A.OFFPC_ITS ---
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 Accompanied by: Self / Same As Patient Allergies penicillin V Allergy (Severe, Verified 05/02/24 14:42) throat swelling Penicillins [PCN] Allergy (Verified 05/02/24 14:42) Hives Tetanus Vaccines and Toxoid Allergy (Verified 05/02/24 14:42) Difficulty Breathing Iodinated Contrast Media [Contrast Dye] Adverse Reaction (Verified 05/02/24 14:42) Anaphylaxis Medication List - Last Reconciled 05/02/24 by Elias Swenson PA-C aspirin (Ecotrin Low Strength) 81 mg PO DAILY atorvastatin 40 mg PO DAILY blood pressure monitor (Blood Pressure Kit) As directed metoprolol succinate ER (Toprol XL) 25 mg PO DAILY miscellaneous medical supply (Blood Pressure Cuff) Take blood pressure once a day as needed nebulizers (AeroEclipse II Nebulizer) As directed nebulizers (Aeroneb Go Nebulizer) As directed Tobacco use date assessed: 05/02/24 Dental Screening Dental Screen Date: 05/02/24 Did you have a dental visit in the last 12 months?: No Did you have a dental problem in the last 6 months where you did not have access to dental care?: No Was dental information given to patient?: Patient has dentist HPI f/u HTN/ HLD 2 HPI0 Details Patient is a 58-year-old female here today for follow-up visit ?Patient has a past medical history significant for allergic rhinitis, obesity, GERD, MEE, chronic lumbar and cervical?spine pain. concerns--> knee injury, occurring six weeks prior due to a fall over a toy, has resulted in persistent medial knee pain and swelling, described as quite painful and causing a notable limp. Current management with a knee brace has not provided sufficient relief. .. Coronary artery disease: Has been noted to have coronary artery disease though does not need stand at this time. She has followed up with cardiology recommends aspirin, beta-dani and statin therapy. Unfortunately she has not been taking these medications in his willing to do so now. .. .. Hyperlipidemia: Most recent fasting cholesterol showing improved total cholesterol and LDL though still remains elevated. She will continue dietary modifications over the next 4 months and if still elevated will consider low- dose statin therapy. [facility] Medical History Equivocal myocardial perfusion imaging Abnormal stress test Hyperlipidemia Intermittent palpitations Chest pain Anxiety, generalized Esophageal stricture Normal colonoscopy Asthma Surgical History History of endoscopy History of appendectomy History of bladder surgery History of torn meniscus of right knee History of gallbladder disease History of partial hysterectomy Family History Father CVD (cardiovascular disease) Past heart attack Mother Skin cancer Brother Heart problem Pacemaker Social History Household Members: Spouse Housing: Apartment Do you presently have visiting nurse or other home services: No Alcohol intake: never Patient Tobacco Use Status: Never used Tobacco e-Cigarette/Vaping Use: Never Used Second Hand Smoke Exposure: No service: No Current occupational status: unemployed Cognitive needs: No Hearing needs: No Vision needs: Yes (Reading glasses) Questionnaire PHQ-9 Over the last 2 weeks, how often have you been bothered by any of the following problems? 1. Little interest or pleasure in doing things: not at all 2. Feeling down, depressed, or hopeless: not at all 3. Trouble falling or staying asleep, or sleeping too much: not at all 4. Feeling tired or having little energy: not at all 5. Poor appetite or overeating: not at all 6. Feeling bad about yourself - or that you are a failure or have let yourself or your family down: not at all 7. Trouble concentrating on things, such as reading the newspaper or watching television: not at all 8. Moving or speaking so slowly that other people could have noticed. Or the opposite - being so fidgety or restless that you have been moving around a lot more than usual: not at all 9. Thoughts that you would be better off or of hurting yourself in some way: not at all Total score: 0 Depression Screening Interpretation: Negative Depression Screening Done: Yes Source: Developed by Drs. John Phan, Bebe Valerio, Lito Padron and colleagues, with an educational allison from [employer]. Thrive Questionnaire Date Thrive assessed: 05/02/24 I am a: Patient What is your living situation today?: I have a steady place to live Within the past 12 months, did the food you bought not last and you didn't have the money to get more?: Never true Within the past 12 months, did you worry whether your food would run out before you got money to buy more?: Never true Do you have trouble paying for medicines?: No Do you have trouble getting transportation to medical appointments?: No Do you have trouble paying your heating and electricity bill?: No Do you have trouble taking care of your child, family member or friend?: No Do you have trouble with day-to-day activities such as bathing, preparing meals, shopping, managing finances, etc.?: No Are you currently unemployed and looking for a job?: No Are you interested in more education?: No Please select the resources that you would like help with: None Currently or been in a relationship where the following occur: No concerns reported THRIVE Score: 0 AUDIT C Alcohol Use Questionnaire (AUDIT-C) 1. How often do you have a drink containing alcohol?: Monthly or less 2. How many drinks containing alcohol do you have on a typical day when you are drinking?: 1 or 2 3. How often do you have six or more drinks on one occasion?: Never Total Score: 1 Score Reviewed/Action Taken: No MEE-7 AMB Questionnaire MEE-7 Date MEE - 7 assessed: 05/02/24 Feeling nervous, anxious, or on edge: 0 = Not at all Not being able to stop or control worryin = Not at all Worrying too much about different things: 0 = Not at all Trouble relaxin = Not at all Being so restless that it is hard to sit still: 0 = Not at all Becoming easily annoyed or irritable: 0 = Not at all Feeling afraid as if something awful might happen: 0 = Not at all Total MEE-7 score (0-4 normal; 5-9 mild; 10-14 moderate; 15-21 severe): 0 Source: Developed by Drs. John Phan, Bebe Valerio, Lito Padron and colleagues, with an educational allison from [employer]. Review of Systems Const Denies headache(s) Eyes Denies loss of vision ENT Denies vertigo, Denies dizziness, Denies headache(s) and Denies sore throat Card Denies chest pain, Denies leg edema and Denies lightheadedness Resp Denies cough, Denies hemoptysis and Denies wheezing GI Denies abdominal pain, Denies melena, Denies constipation, Denies diarrhea and Denies vomiting Denies urinary frequency, Denies dysuria and Denies urinary urgency Musc Denies arthralgias, Denies joint swelling, Denies numbness and Denies tingling Neuro Denies Abnormal speech present, Denies behavioral changes, Denies vertigo, Denies dizziness, Denies headache(s), Denies loss of vision, Denies memory loss, Denies numbness and Denies tingling Psych Denies anxiety, Denies behavioral changes, Denies depression, Denies memory loss and Denies panic attacks Kane/Lymph Denies easy bleeding and Denies easy bruising Aller/Immun Denies wheezing Physical exam (Primary Care) Vital Signs: Last Vital Signs Pulse 88 05/02/24 14:09 BP 132/70 05/02/24 14:09 Pulse Ox 98 05/02/24 14:09 Oxygen Delivery Method Room Air 05/02/24 14:09 BMI result Body Mass Index 26.4 Tobacco/Smoking Status: Tobacco use Status Tobacco use date assessed 05/02/24 05/02/24 14:14 Patient Tobacco Use Status Never used Tobacco 05/02/24 14:14 e-Cigarette/Vaping Use Never Used 05/02/24 14:14 PHQ-9: PHQ-9 Score PHQ-9: Total score 0 05/02/24 14:45 Depression Screening Interpretation: Negative Thrive Assessment: Date of Thrive Assessment Date Thrive assessed 05/02/24 05/02/24 14:14 Currently or been in a relationship where the following occur: No concerns reported Const General: healthy appearing, no acute distress, alert and awake Nutritional Appearance: well nourished Orientation/consciousness: oriented to person, oriented to place and oriented to time HENMT Ears: TM's normal bilaterally General nose exam: Normal nasal mucous membranes and turbinates present Eyes Conjunctivae: conjunctivae normal Sclerae: sclerae normal Pupils: Equal, round and reactive pupils present Neck Neck: Yes no lymphadenopathy and Yes no JVD Thyroid: Thyroid normal Carotids: no bruits Resp Effort & Inspection: normal respiratory effort and not tachypneic Auscultation: no crackles, no rales, no rhonchi and no wheezes Cardio Rate: regular rate Rhythm: regular rhythm Heart sounds: no murmurs and normal S1 and S2 GI Palpation (GI): Soft to palpation, nontender, no hepatomegaly and no splenomegaly Auscultation: normal bowel sounds Skin General skin exam: no rashes or lesions noted and dry skin Neuro General: oriented to person, oriented to place and oriented to time Cranial nerves: Yes Equal, round and reactive pupils present Speech: No Abnormal speech present Gait exam (Neuro): Normal gait present Motor exam (neuro): no tremor noted Extrem Right upper extremity: full ROM Left upper extremity: full ROM Right lower extremity: full ROM; no edema Left lower extremity: full ROM; no edema Knee images: 2 1. PAIN TO PALPATION OVER THE MEDIAL ASPECT OF THE LEFT KNEE AND THE ANTERIOR ASPECT OF THE LEFT KNEE. MILD EDEMA NOTED TO LEFT KNEE NO LIGAMENTOUS LAXITY, HAS FULL RANGE OF MOTION TO FLEXION AND EXTENSION Psych Mental Status: mental status grossly normal Speech and movement: Normal speech and movement present Affect: normal affect Attitude: cooperative Thought process: Normal thought process present Coding Level of Care Code Est Pt Level 4 (85170) Diagnoses Coronary artery disease involving [place] artery of transplanted heart without angina pectoris I25.811 Associated angina: without angina Coronary Disease-Associated Artery/Lesion type: [place] artery [place] vs. transplanted heart: transplanted heart Primary hypertension I10 Hypertension type: primary hypertension Left medial knee pain M25.562 Assessment & Plan Assessment & Plan (1) CAD (coronary artery disease): Code(s): I25.10 - Atherosclerotic heart disease of [place] coronary artery without angina pectoris Category: Medical Qualifiers: Associated angina: without angina Coronary Disease-Associated Artery/Lesion type: [place] artery [place] vs. transplanted heart: transplanted heart Qualified Code(s): I25.811 - Atherosclerosis of [place] coronary artery of transplanted heart without angina pectoris Plan: Continued emphasis on aspirin, metoprolol, and atorvastatin compliance, targeted for advancement post mild to moderate CAD findings and patient hospitalization history. Future monitoring of lipid levels essential. Goal LDL to be optimally below 70 (2) HTN (hypertension): Code(s): I10 - Essential (primary) hypertension Category: Medical Qualifiers: Hypertension type: primary hypertension Qualified Code(s): I10 - Essential (primary) hypertension Plan: Patient's blood pressure acceptable today in office. Has not been taking metoprolol she has fears of side effects of fatigue. She did have coronary artery angiogram that did show coronary artery disease. Again advised to start up aspirin, beta-dani and statin therapy. (3) Left medial knee pain: Code(s): M25.562 - Pain in left knee Category: Medical Plan: Patient's signs symptoms most consistent with a medial ligament injury to the left knee. Will send for x-ray to evaluate. Advised on physical therapy though patient is considering. She will try topical anti arthritis medication Orders: Orders 2 Lipid Panel 05/02/24 I25.811 - Atherosclerosis of [place] coronary artery of transplanted heart without angina pectoris Complete Blood Count no Diff 05/02/24 I25.811 - Atherosclerosis of [place] coronary artery of transplanted heart without angina pectoris Comprehensive [place]. Panel Fast 05/02/24 I25.811 - Atherosclerosis of [place] coronary artery of transplanted heart without angina pectoris XR knee LT 3V 05/02/24 M25.562 - Pain in left knee Medications: New 2 diclofenac sodium 1% apply to single elbow, wrist or hand; for hand includes palm/fingers/back of hand 2 grams topical QID 100 grams 0RF 15 days M19.049 - Primary osteoarthritis, unspecified hand Refilled 2 metoprolol succinate ER (Toprol XL) 25 mg PO DAILY 90 tabs 3RF I25.811 - Atherosclerosis of [place] coronary artery of transplanted heart without angina pectoris aspirin (Ecotrin Low Strength) 81 mg PO DAILY 90 tabs 3RF I25.811 - Atherosclerosis of [place] coronary artery of transplanted heart without angina pectoris atorvastatin 40 mg PO DAILY 90 tabs 3RF I25.811 - Atherosclerosis of [place] coronary artery of transplanted heart without angina pectoris Patient Instructions: Goal: LDL to be below 70, blood pressure to be below 140/90 Barriers: Adherence to physical activity and healthy eating habits
[2024-05-02 14:09] VITALS: BP 132/70; PULSE 88; O2SAT 98; BMI 26.4
--- OUTSIDE RECORDS SUMMARY | 2024-05-02 15:56 | XMS_ITS | Patient Health Record ---
Author Organization [facility] Address [address] [place] [address] Care Team Providers Care Asphalt Spreader Operator Name Role Phone Elias Swenson Primary Care Provider Unavailab Sami Mancera Jr Unavailable Allergies Allergen (clinical drug ingredient) Drug/Non Drug Allergy documented on EMR Reaction Allergy Type Onset Date Status tetanus immune globulin Tetanus Immune Globulin Unknown Drug Allergy Active Penicillin Unknown Drug Allergy Active IVP Dye (uncoded) Unknown Allergy Ac tive Results Component Value Reference Range Notes Pathology Reviewed date:10/22/2023 09:57:58 AM Interpretation: Performing Lab:[facility], [address] [place] [phone] Notes/Report: ----- Name: Jurgen Gupta Age/Sex: 58/F : 1965 Unit#: [id number] Attend Dr: Sami Foster MD Re09/29/23 Status : [facility] Location: [facility] Disch: ----- SPEC : [id number] RECD : 09/29/23 STATUS: JOSÉ MIGUEL TRIPLETT NUM: [id number] GARO: 09/29/231224 [facility] DR: Sami Foster MD ENTERED: 09/29/2312 51 SP TYPE: Surgical OTHR DR: Elias Swenson PA-C ORDERED: HE Stain/9, Gross Micro L4/3, IHC, Special st. 2, H. pylori, AB/PAS Diagnosis A. Colon, sigmoid, biopsy: Colonic mucosa with lymphoid aggregates and no specific change. B. Gastric antrum, biopsy: Gastric antral mucosa with mild reactive changes and focal minimal chronic inac tive inflammation; negative for H pylori, intestinal metaplasia and dysplasia. C. Esophagogastric junction, biopsy: Squamous mucosa with hyperplasia, spongiosis, and focal intraepithelia l neutrophils and eosinophils (up to 2 per high-power field and columnar mucosa with mild-moderate chronic active inflammation and reactive changes, consistent with esophagitis; negative for intestinal metaplasia and dysplasia. Clinical History Pre-Op Dx: Erosive esophagitis, screening Post-Op Dx: Normal c olon, erosive esophagitis, hiatal hernia. Microscopic Description Microscopic sections reviewed. Immunostains for H. pylori on B is negative. AB/PAS on C is negative for intestinal metaplasia. Controls stain appropriately. Material Received A. Sigmoid bx's B. Antral bx's C. EG junction bx's Gross Description Received in three parts. Part A: Received in formalin labeled ?sigmoid bx's? are 2 chavarria-pink irregular tissue fragments each measu ring 0.3 cm, submitted in toto in a cassette labeled A. Part B: Received in formalin labeled ?antral bx's (sic)? is a 0.25 cm chavarria-pink irregular tissue fragment, submitted in toto in a cassette labeled B. Part C: Received in formalin labeled ?EG junction? are 2 chavarria-pink irregular tissue fragments each measu ring 0.25 cm, submitted in toto in a cassette labeled C. CEDS CONTINUED ON NEXT PAGE ----- Name: Jurgen Gupta Age/Sex: 58/F : 1965 Unit#: [id number] Attend Dr: Sami Foster MD Re09/29/23 Status : [facility] Location: [facility] Disch: ----- SPEC : [id number] RECD : 09/29/23 STATUS: JOSÉ MIGUEL TRIPLETT NUM: [id number] GARO: 09/29/23-[address] [facility] [address]: Sami Foster MD ENTERED: 09/29/2312 51 SP TYPE: Surgical OTHR DR: Elias Swenson PA-C ORDERED: HE Stain/9, Gross Micro L4/3, IHC, Special st. 2, H. pylori, AB/PAS Gross Description (Continued) Special studies orde red and performed: Immunostain for H. pylori on B1; AB/PAS stains on C1. Copies To: Sami Foster MD [facility] [address] [place] [address] Elias Swenson PA-C [facility] Primary Care,[address] [place] [address] ----- Signed (signature on file) Joanne Diaz 10/01/23 1146 ----- END OF REPORT COVID-19 ID NOW ([employer] [facility]) Reviewed date:09/29/2023 04:56:38 PM Interpretation: Performing Lab:[facility], [address] [place] [phone] Notes/Report: IDNOW Serial# [id number] COVID-19 Test Negative Negative COVID-19 Note See [...] with other viruses. Testing facilities within the [facility] and its territories are required to report [...] by authorized laboratories. Testing performed on the [employer] ID NOW utilizing [facility]. Reason For Referral No Information Medications Medication SIG (Take, Route, Frequency, Duration) Notes [...] Omeprazole 40 MG TAKE 1 CAPSULE BY [facility] DAILY 30 MINUTES BEFORE BREAKFAST for 30 Active Ondansetron HCl 4 MG 1 tablet Orally Twi ce a day, as needed for vomiting. for 10 days 09/30/2023 Active Immunizations Vaccine Route Administration Date Status Comme nts Influenza Unknown 06/02/2022 Refused Problems Problem Type SNOMED Code ICD Code Onset Dates Problem Status W/U Status Risk Notes Problem 8076877 Diverticulitis o f large intestine without perforation or abscess without bleeding (K57.32) Active confirmed Problem Dysphagia (90346284) Dysphagia (R13.10) Active confirmed Problem Erosive esophagitis (59551382) Erosive esophagitis (K22.10) Active confirmed Problem 436997196 Abnormal barium swallow (R93.3) Active confirmed Problem 98113197 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) Active confirmed Problem 908331249 Family history o f liver disease (Z83.79) Active confirmed Problem 96811213 Change in bowel movement (R19.8) Active confirmed Problem 71193691 Esophageal dysphagia (R13.19) Active confirmed Vital Signs Temperature 97.1 degrees Fahrenheit 09/16/2023 Blood pressure diastolic 00 mm Hg 09/16/2023 Height 61.5 in 09/16/2023 Blood pressure systolic 000 mm Hg 09/16/2023 Weight 182 lb 8 oz lbs 09/16/2023 BMI 33.92 kg/m2 09/16/2023 Encounters Encounter Location Date Provider Diagnosis [facility] [address] [place] [id number] 09/29/2023 Sami Foster Jr Change in bowel movement R19.8 and Erosive esophagitis K22.10 [facility] [address] [place] [address] 09/16/2023 Sami Foster Jr Erosive esophagitis K22.10 ; Change in bowel movement R19.8 and Dysphagia R13.10 [facility] [address] [place] [address] 06/03/2023 Sami Foster Jr [facility] [address] [place] [address] 09/16/2023 Sami Foster Jr [facility] [address] [place] [address], [place] [address] 09/30/2023 Sami Foster Jr [facility] [address] [place] [address] 10/22/2023 Sami Foster Jr [facility] [address] [place] [address] 04/07/2024 Sami Foster Jr Assessments Encounter Date Diagnosis (ICD Code) Assessment Notes Treatment Notes Treatment Clinical Notes Section Notes 09/29/2023 Erosive esophagitis (ICD-10 - K22.10) 09/29/2023 Change in bowel movement (ICD-10 - R19.8) 09/16/2023 Erosive esophagitis (ICD-10 - K22.10) Endoscopy material was printed We discussed her symptoms today we recommended she continue omeprazole 40 mg daily. She will have upper endoscopy for further evaluation of her dysphagia and erosive esophagitis. If necessary balloon dilation can be arranged at that time. Because of her change in bowel habits she will be scheduled for colonoscopy as well. She is aware of risks and benefits of both procedures and agrees to proceed. She will need cardiac clearance. She is advised to stop aspirin one week before the procedures. 09/16/2023 Change in bowel movement (ICD-10 - R19.8) We discussed her symptoms today we recommended she continue omeprazole 40 mg daily. She will have upper endoscopy for further evaluation of her dysphagia and erosive esophagitis. If necessary balloon dilation can be arranged at that time. Because of her change in bowel habits she will be scheduled for colonoscopy as well. She is aware of risks and benefits of both procedures and agrees to proceed. She will need cardiac clearance. She is advised to stop aspirin one week before the procedures. 09/16/2023 Dysphagia (ICD-10 - R13.10) We discussed her symptoms today we recommended she continue omeprazole 40 mg daily. She will have upper endoscopy for further evaluation of her dysphagia and erosive esophagitis. If necessary balloon dilation can be arranged at that time. Because of her change in bowel habits she will be scheduled for colonoscopy as well. She is aware of risks and benefits of both procedures and agrees to proceed. She will need cardiac clearance. She is advised to stop aspirin one week before the procedures. Plan Of Treatment Future Test Test Name Order Date COLONOSCOPY 02/13/2016 UPPER GI ENDOSCOPY 06/02/2022 UPPER GI ENDOSCOPY ANY OTHER TECHNIQUE 0 09/16/2023 COLONOSCOPY 09/16/2023 Next Appt Details Provider Name:Sami freeman , 07/07/2024 02:35:00 PM, [address] [facility], [address], [place], [address], Insurance Providers Payer Name Payer Address Payer Phone Subscriber Number Group Number Insured Name Patient Relationship to Insured Coverage Start Date Coverage End Date [facility] [address] [place] [address] [id number] JURGEN GUPTA Self - patient is the insured Medical (General) History Medical History History ICD Code asthma Constipation Herpes zoster infection stress urinary incontinence Colonoscopy 03/11, hyperplastic polyp, te n-year followup Abnormal stress test, cardiology evaluat ion ongoing Erosive esophagitis, EGD 08/24 07/15, 2 small erosions just above the EG junction, no Quach's esophagus or H. pylori. Hyperlipidemia Surgical History Surgery Date(Month/Year) hysterectomy cholecystectomy appendectomy bladder stimulator Hospitalization History Reason Date(Month/Year) Hospitalized at [facility] for allergic reaction to contrast 09/14 hospital for 10 days with che
--- OUTSIDE RECORDS SUMMARY | 2024-05-02 15:56 | XMS_ITS ---
Author Organization [facility] Address [address] [place] [address] Care Team Providers Care Bonding Machine Tender Name Role Phone Elias Swenson Primary Care Provider Unavailab Sami Mancera Jr Unavailable [phone] REASON FOR VISIT rescheduled todays appt Encounters Encounter Location Date Provider Diagnosis [facility] [address] [place] [address] 04/07/2024 Sami Foster Jr Plan Of Treatment Next Appt Details Provider Name:Sami freeman Jr, 07/07/2024 02:35:00 PM, [address], [address], [place], [address], Progress Notes * JURGEN MONTEZDOB:1965 (58 yo F)Acc No.[id number]:04/07/2024 Patient:?JURGEN MONTEZ :1965???Age:58 Y???Sex:Female Address:[address] [facility] [place] [address] * true * Date:? Generated for Printi donald/Fasethg/eTransmitting on:?05/02/2024 03:55 PM EDT
--- OUTSIDE RECORDS SUMMARY | 2024-05-02 15:56 | XMS_ITS ---
Author Organization [facility] Address [address] [place] [address] Care Team Providers Care Granulator Name Role Phone Elias Swenson Primary Care Provider Unavailab Sami Mancera Jr Unavailable [phone] REASON FOR VISIT pathology/ waiting on pt call back Encounters Encounter Location Date Provider Diagnosis [facility] [address] [place] [address] 10/22/2023 Sami Foster Jr Plan Of Treatment Next Appt Details Provider Name:Sami freeman Jr, 07/07/2024 02:35:00 PM, [address], [address], [place], [address], Progress Notes * JURGEN MONTEZDOB:1965 (58 yo F)Acc No.[id number]:10/22/2023 Patient:?JURGEN MONTEZ :1965???Age:58 Y???Sex:Female Address:[address] [facility] [address] * true * Date:? Generated for Printi ng/Fasethg/eTransmitting on:?05/02/2024 03:55 PM EDT
--- OUTSIDE RECORDS SUMMARY | 2024-05-02 15:56 | XMS_ITS ---
Author Organization [facility] Address [address] [place] [address] Care Team Providers Care Station Installer And Repairer Name Role Phone Elias Swenson Primary Care Provider Unavailab Sami Mancera Jr Unavailable REASON FOR VISIT Patient presents today for GERD Encounters Encounter Location Date Provider Diagnosis [facility] [address] [place] [address] 04/07/2024 Sami Foster Jr Plan Of Treatment Next Appt Details Provider Name:Sami freeman Jr, 07/07/2024 02:35:00 PM, [address], [address], [place], [address], Progress Notes * JURGEN MONTEZDOB:1965 (58 yo F)Acc No.[id number]:04/07/2024 Progress Notes Patient:?JURGEN MONTEZ Provider:?Sami Foster MD :1965???Age:58 Y???Sex:Female D ate:04/07/2024 Address:[address] [facility] [place] Pcp:Elias Swenson Subjective: * Chief Complaints: * ???1. Patient presents today for GERD. * Medical History:? Objective: * Vitals:? Assessment: Plan: * Treatment: * * The named appointment provid er may or may not be the originator of this progress note, and it is not deemed complete until electronically signed by the appointment provider. Sign off status: Pending * Provider:?Sami Foster MD Date:?0 04/07/2024 Generated for Lexis bennett/Zarina/Michelleitting on:?05/02/2024 03:55 PM EDT
== END 2024-05-02 15:06 | disposition home or self-care (01) ==
PROVIDERS: PCP Physician Assistant; Visit Provider Physician Assistant
DX: I25.811 Atherosclerosis of native coronary artery of transplanted heart without angina pectoris (principal); I10 Essential (primary) hypertension; M25.562 Pain in left knee

== ENCOUNTER → 2024-05-02 14:02 | Outpatient (BNVA) | payer OTHER, SELFPAY | PROVIDERS: PCP Physician Assistant; Visit Provider Physician Assistant | DX: I25.811 Atherosclerosis of native coronary artery of transplanted heart without angina pectoris (principal); I10 Essential (primary) hypertension; M25.562 Pain in left knee | CPT/HCPCS: 99212 ==

== ENCOUNTER 2024-05-25 09:18 | Outpatient (REF) | payer OTHER, SELFPAY ==
--- NOTE | ~2024-05-25 | XR_ITS ---
EXAMINATION: XR CHEST 2 VIEWS HISTORY: R05.9 - Cough, unspecified COMPARISON: Comparison is made with the prior examination dated 05/28/2023. FINDINGS: PA and lateral views of the chest are submitted. The lungs are expanded and clear. There is no pleural effusion, pneumothorax, or pulmonary vascular congestion. The heart is normal in size. There is degenerative disc disease of the spine. XR/XR chest 2V IMPRESSION: No acute cardiopulmonary abnormality. Electronically signed by: John David MD 05/25/2024 11:24 AM EDT
[2024-05-25 14:45] LABS: Influenza A PCR NEGATIVE (Negative); Influenza B PCR NEGATIVE (Negative); Resp Syncy Virus RNA Qual PCR NEGATIVE (Negative); SARS COV2 PCR INHOUSE NEGATIVE (Negative)
== END 2024-05-25 09:19 | disposition home or self-care (01) ==
LOC: HO.HMGCX 09:18
PROVIDERS: PCP Physician Assistant; Visit Provider Physician Assistant
DX: B34.9 Viral infection, unspecified (principal); R05.9 Cough, unspecified; R09.89 Other specified symptoms and signs involving the circulatory and respiratory systems; R50.9 Fever, unspecified
CPT/HCPCS: 0241U; 71046; 99212

== ENCOUNTER 2024-05-25 09:18 | Outpatient (AMB) | payer OTHER, SELFPAY ==
--- NOTE | 2024-05-25 09:29 | MHC.OFFWIV ---
Intake Vital Signs 05/25/24 09:57 Weight 193 lb BP 140/90 H Blood Pressure Location Lt brachial Position Sitting Pulse 96 Pulse Source Pulse Oximeter Temp 98.4 F Temp Source Oral Pulse Oximetry (%) 98 Oxygen Delivery Method Room Air Intake Visit Reasons: EP Bronchitis? Intake Note: Patient here for chest congestion, fevers, cough that has been present for a couple of days. Patient Tobacco Use Status: Never used Tobacco Allergies penicillin V Allergy (Severe, Verified 05/25/24 09:58) throat swelling Penicillins [PCN] Allergy (Verified 05/25/24 09:58) Hives Tetanus Vaccines and Toxoid Allergy (Verified 05/25/24 09:58) Difficulty Breathing Iodinated Contrast Media [Contrast Dye] Adverse Reaction (Verified 05/25/24 09:58) Anaphylaxis Do you need a note to return to daycare/school/sports/work: Yes HPI HPI Comments History of Present Illness Details History The patient is a 58-year-old female presenting with influenza-like symptoms, including respiratory distress and congestion. Her condition began two weeks prior with vomiting and diarrhea, which resolved on their own. Approximately one week later, she experienced cold-like symptoms, congestion, fatigue, and fluctuating temperature sensations. Shortness of breath and wheezing commenced yesterday. She has a history of asthma managed with an albuterol inhaler, now nearly empty. Previous attempts to alleviate symptoms with aake-cyo-huvudch medications have been ineffective. Physical Exam General: Cooperative, healthy appearing, comfortable and no acute distress Orientation/consciousness: Patient oriented x3 Limitations: No limitations Head: Normal to inspection Ears: Hearing grossly normal bilaterally, external ears normal and TM's normal bilaterally, but some fluid present Nose: Normal external nose present, Normal nares present and clear liquid nasal discharge present Face and sinus: Normal facial exam and Yes sinuses nontender Mouth: Normal oral and palatal mucosa present and moist mucous membranes Throat: Yes tonsils normal, Yes uvula midline. Posterior oropharynx erythema Eyes: Appearance normal, both eyes and all related structures Neck: Normal visual inspection Respiratory: Clear to auscultation bilaterally. Normal respiratory effort, able to speak in complete sentences, Actively coughing, no respiratory distress, not tachypneic, no tripod positioning and no use of accessory muscles Cardiovascular: Regular rate and rhythm. Normal S1 and S2 Skin: No rashes or lesions noted Neuro: Patient oriented x3 Extremities: Normal to inspection and Yes no clubbing, cyanosis or edema PFSH Medical History Equivocal myocardial perfusion imaging Abnormal stress test Hyperlipidemia Intermittent palpitations Chest pain Anxiety, generalized Esophageal stricture Normal colonoscopy Asthma Surgical History History of endoscopy History of appendectomy History of bladder surgery History of torn meniscus of right knee History of gallbladder disease History of partial hysterectomy Family History Father CVD (cardiovascular disease) Past heart attack Mother Skin cancer Brother Heart problem Pacemaker Social History Household Members: Spouse Housing: Apartment Do you presently have visiting nurse or other home services: No Alcohol intake: never Patient Tobacco Use Status: Never used Tobacco e-Cigarette/Vaping Use: Never Used Second Hand Smoke Exposure: No service: No Current occupational status: unemployed Cognitive needs: No Hearing needs: No Vision needs: Yes (Reading glasses) Review of Systems Const All systems reviewed & are unremarkable except as noted in HPI and below Physical Exam Vital Signs: Last Vital Signs Temp 98.4 F 05/25/24 09:57 Pulse 96 05/25/24 09:57 BP 140/90 H 05/25/24 09:57 Pulse Ox 98 05/25/24 09:57 Oxygen Delivery Method Room Air 05/25/24 09:57 Assessment & Plan Assessment & Plan (1) Acute viral syndrome: Code(s): B34.9 - Viral infection, unspecified Plan: VSS, pt fatigued appearing and PE unremarkable. Considering the patient's influenza-like presentation and respiratory distress, I have arranged for a chest x-ray to exclude pneumonia and have initiated testing for influenza, COVID, and RSV. An albuterol inhaler has been prescribed due to her history of asthma, alongside Flonase for nasal congestion. The patient will use benzonatate to manage her nighttime cough, while daytime cough clearance is preferred to remove mucus. If influenza is confirmed, Oseltamivir may be discussed for potential symptom reduction, keeping in mind possible side effects. I suggested OTC options such as Mucinex and antihistamines for symptom management. Results from the x-ray and tests will guide further management and will be communicated directly to the patient. Patient was informed and verbally consented to the use of an ambient scribe for clinic note documentation during this visit Orders: Orders SARS-CoV2/FLU/RSV Today R09.89 - Other specified symptoms and signs involving the circulatory and respiratory systems XR chest 2V Today R05.9 - Cough, unspecified Medications: New albuterol sulfate 90 mcg/actuation 2 puffs inhalation Q6H PRN 8.5 grams 0RF shortness of breath or wheezing or cough benzonatate 200 mg PO BEDTIME PRN 10 caps 0RF cough Coding Level of Care Code Est Pt Level 4 (13278) Diagnoses Acute viral syndrome B34.9
[2024-05-25 09:57] VITALS: BP 140/90; PULSE 96; TEMP 36.9; O2SAT 98
--- OUTSIDE RECORDS SUMMARY | 2024-05-25 10:15 | XMS_ITS ---
Author Organization [facility] Address [address] [place] [address] Care Team Providers Care Corrections Specialist Name Role Phone Elias Swenson Primary Care Provider Unavailab Sami Mancera Jr Unavailable REASON FOR VISIT Patient presents today for GERD Encounters Encounter Location Date Provider Diagnosis [facility] [address] [place] [address] 04/07/2024 Sami Foster Jr Plan Of Treatment Next Appt Details Provider Name:Sami freeman Jr, 07/07/2024 02:35:00 PM, [address], [address], [place], [address], Progress Notes * JURGEN MONTEZDOB:1965 (58 yo F)Acc No.[id number]:04/07/2024 Progress Notes Patient:?JURGEN MONTEZ Provider:?Sami Foster MD :1965???Age:58 Y???Sex:Female D ate:04/07/2024 Address:[address] [facility] [place] Pcp:Elias Swenson Subjective: * Chief Complaints: * [...] MD Date:?0 04/07/2024 Generated for Lexis bennett/Zarina/Michelleitting on:?05/25/2024 10:15 AM EDT
--- OUTSIDE RECORDS SUMMARY | 2024-05-25 10:15 | XMS_ITS ---
Author Organization [facility] Address [address] [place] [address] Care Team Providers Care Launching Pad Mechanic Name Role Phone Elias Swenson Primary Care Provider Unavailab Sami Mancera Jr Unavailable REASON FOR VISIT rescheduled todays appt Encounters Encounter Location Date Provider Diagnosis [facility] [address] [place] [address] 04/07/2024 Sami Foster Jr Plan Of Treatment Next Appt Details Provider Name:Sami freeman Jr, 07/07/2024 02:35:00 PM, [address], [address], [place], [address], Progress Notes * JURGEN MONTEZDOB:1965 (58 yo F)Acc No.[id number]:04/07/2024 Patient:?JURGEN MONTEZ :1965???Age:58 Y???Sex:Female Address:[address] [facility] [address] * true * Date:? Generated for Printi donald/Zarina/eTransmitting on:?05/25/2024 10:15 AM EDT
--- OUTSIDE RECORDS SUMMARY | 2024-05-25 10:15 | XMS_ITS | Patient Health Record ---
Author Organization [facility] Address [address] [place] [address] Care Team Providers Care Identity Management Developer Name Role Phone Elias Swenson Primary Care [...] Pathology Reviewed date:10/22/2023 09:57:58 AM Interpretation: Performing Lab:[facility], [address] [place] [phone] Notes/Report: ----- Name: Jurgen Gupta Age/Sex: 58/F : 1965 Unit#: [id number] Attend Dr: Sami Foster MD Re09/29/23 Status : [facility] Location: [facility] Disch: ----- SPEC : [id number] RECD : 09/29/23 STATUS: JOSÉ MIGUEL TRIPLETT NUM: [id number] GARO: 09/29/231224 [facility] DR: Sami Foster MD ENTERED: 09/29/2312 51 [...] Jurgen Gupta Age/Sex: 58/F : 1965 Unit#: [id number] Attend Dr: Sami Foster MD Re09/29/23 Status : [facility] Location: [facility] Disch: ----- SPEC : [id number] RECD : 09/29/23 STATUS: JOSÉ MIGUEL TRIPLETT NUM: [id number] GARO: 09/29/23-1224 [facility] DR: Sami Foster MD ENTERED: 09/29/2312 51 SP TYPE: Surgical OTHR DR: Elias Swenson PA-C ORDERED: HE Stain/9, Gross Micro L4/3, IHC, Special st. 2, H. pylori, AB/PAS Gross Description (Continued) Special studies orde red and performed: Immunostain for H. pylori on B1; AB/PAS stains on C1. Copies To: Sami Foster MD [facility] [address] [place] [address] Elias Swenson PA-C [facility] Primary Care,[address] [place] [address] ----- Signed (signature on file) Joanne Diaz 10/01/23 1146 ----- END OF REPORT COVID-19 ID NOW ([facility]) Reviewed date:09/29/2023 04:56:38 PM Interpretation: Performing Lab:[facility], [address] [place] [phone] Notes/Report: IDNOW Serial# [id number] COVID-19 Test Negative Negative COVID-19 Note See [...] with other viruses. Testing facilities within the [facility] and its territories are required to report [...] by authorized laboratories. Testing performed on the [facility] ID NOW utilizing NAAT. Reason For Referral [...] Omeprazole 40 MG TAKE 1 CAPSULE BY [facility] DAILY 30 MINUTES BEFORE BREAKFAST for 30 Active Ondansetron HCl 4 MG 1 tablet Orally Twi ce a day, as needed for vomiting. for 10 days 09/30/2023 Active Immunizations Vaccine Route Administration Date Status Comme nts Influenza Unknown 06/02/2022 Refused Problems Problem Type SNOMED Code ICD Code Onset Dates Problem Status W/U Status Risk Notes Problem 8560369 Diverticulitis o f large intestine without perforation or abscess without bleeding (K57.32) Active confirmed Problem Dysphagia (74809532) Dysphagia (R13.10) Active confirmed Problem Erosive esophagitis (60509282) Erosive esophagitis (K22.10) Active confirmed Problem 393015808 Abnormal barium swallow (R93.3) Active confirmed Problem 01276810 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) Active confirmed Problem 727380077 Family history o f liver disease (Z83.79) Active confirmed Problem 17444750 Change in bowel movement (R19.8) Active confirmed Problem 82870540 Esophageal dysphagia (R13.19) Active confirmed Vital Signs Temperature 97.1 degrees Fahrenheit 09/16/2023 Blood pressure diastolic 00 mm Hg 09/16/2023 Height 61.5 in 09/16/2023 Blood pressure systolic 000 mm Hg 09/16/2023 Weight 182 lb 8 oz lbs 09/16/2023 BMI 33.92 kg/m2 09/16/2023 Encounters Encounter Location Date Provider Diagnosis [facility] [address] [place] [phone] 09/29/2023 Sami Foster Jr Change in bowel movement R19.8 and Erosive esophagitis K22.10 [facility] [address] [place] [address] 09/16/2023 Sami Foster Jr Erosive esophagitis K22.10 ; Change in bowel movement R19.8 and Dysphagia R13.10 [facility] [address] [place] [address] 06/03/2023 Sami Foster Jr [facility] [address] [place] [address] 09/16/2023 Sami Foster Jr [facility] [address] [place] [address], [place] [address] 09/30/2023 Sami Foster Jr [facility] [address] [place] [address] 10/22/2023 Sami Foster Jr [facility] [address] [place] [address] 04/07/2024 Sami Foster Jr Assessments Encounter Date [...] Name:Sami freeman , 07/07/2024 02:35:00 PM, [address] [facility], [address], [place], [address], Insurance Providers Payer Name Payer Address Payer Phone Subscriber Number Group Number Insured Name Patient Relationship to Insured Coverage Start Date Coverage End Date [facility] [address] [place] [address] [id number] JURGEN GUPTA Self - patient is the [...] stimulator Hospitalization History Reason Date(Month/Year) Hospitalized at [facility] for allergic reaction to contrast 09/14 hospital for 10 days with che
--- OUTSIDE RECORDS SUMMARY | 2024-05-25 10:15 | XMS_ITS ---
Author Organization [facility] Address [address] [place] [address] Care Team Providers Care Sanitation Truck Driver Name Role Phone Elias Swenson Primary Care Provider Unavailab Sami Mancera Jr Unavailable REASON FOR VISIT pathology/ waiting on pt call back Encounters Encounter Location Date Provider Diagnosis [facility] [address] [place] [address] 10/22/2023 Sami Foster Jr Plan Of Treatment Next Appt Details Provider Name:Sami freeman Jr, 07/07/2024 02:35:00 PM, [address], [address], [place], [address], Progress Notes * JURGEN MONTEZDOB:1965 (58 yo F)Acc No.[id number]:10/22/2023 Patient:?JURGEN MONTEZ :1965???Age:58 Y???Sex:Female Address:[address] [facility] [address] * true * Date:? Generated for Printi ng/Fasethg/eTransmitting on:?05/25/2024 10:14 AM EDT
== END 2024-05-25 10:29 | disposition home or self-care (01) ==
PROVIDERS: PCP Physician Assistant; Visit Provider Physician Assistant
DX: B34.9 Viral infection, unspecified (principal)

== ENCOUNTER → 2024-05-25 10:26 | Outpatient (BNV) | payer OTHER, SELFPAY | PROVIDERS: PCP Physician Assistant; Visit Provider Radiology Diagnostic Radiology | DX: R05.9 Cough, unspecified (principal) | CPT/HCPCS: 71046 ==

== ENCOUNTER 2024-07-20 12:06 | Outpatient (REF) | payer OTHER, SELFPAY ==
[2024-07-20 13:47] LABS: Eos%MD 7.4 %; Hematocrit 38.8 % (37.0-47.0); Hemoglobin 13.4 g/dl (12.0-16.0); IG%MD 0.2 %; Lymph%MD 37.1 %; Mean Corpuscular HGB Conc 34.5 g/dl (31.0-35.0); Mean Corpuscular Hemoglobin 30.7 pg (27.0-33.0); Mean Corpuscular Volume 88.8 fL (80.0-98.0); Mean Platelet Volume 10.8 fL (9.4-12.3); Neut%MD 48.3 %; Platelet Count 239 X10*3/uL (160-400); Red Blood Count 4.37 X10*6/uL (4.20-5.50); Red Cell Distribution Width 11.9 % (11.0-16.0)
[2024-07-20 14:19] LABS: Alanine Aminotransferase 29 U/L (0-31); Albumin Level 4.4 g/dL (3.5-5.0); Alkaline Phosphatase 73 U/L (39-117); Aspartate Amino Transferase 27 U/L (5-31); Bilirubin Direct 0.2 mg/dL (0.0-0.5); Bilirubin Total 0.9 mg/dL (0.0-1.0); Lipase 25 U/L (8-78); Total Protein 6.5 g/dL (6.5-8.0)
[2024-07-20 14:45] LABS: Band Neutrophils Percent 1 % (3-5); Basophils Abs Manual 0.2 X10*3/uL (0.0-0.2); Basophils Percent Manual 3 % (0-2); Eosinophils Absolute Manual 0.4 X10*3/uL (0.0-0.4); Eosinophils Percent Manual 7 % (0-4); Lymphocytes Absolute Manual 1.1 X10*3/uL (1.2-4.9); Lymphocytes Percent Manual 21 % (20-40); Monocytes Absolute Manual 0.4 X10*3/uL (0.1-1.2); Monocytes Percent Manual 8 % (2-11); Neutrophils Absolute Manual 3.1 X10*3/uL (2.0-8.3); Neutrophils Percent Manual 60 % (45-73); Platelet Estimate NORMAL (NORMAL); Platelet Morphology Comment NORMAL; RBC Morphology NORMAL
== END 2024-07-20 12:07 | disposition home or self-care (01) ==
LOC: HO.LAB 12:06
PROVIDERS: PCP Physician Assistant; Visit Provider Internal Medicine Gastroenterology
DX: Z13.89 Encounter for screening for other disorder (principal)
CPT/HCPCS: 36415; 80076; 83690; 85007; 85027

== ENCOUNTER 2024-07-20 12:27 | Day surgery (SDC) | payer OTHER, SELFPAY ==
--- OUTSIDE RECORDS SUMMARY | 2024-07-12 13:30 | XMS_ITS ---
Author Organization [facility] Address [address] [place] [address] Care Team Providers Care Intelligence Senior Sergeant Name Role Phone Elias Swenson Primary Care Provider Unavailab Sami Mancera Jr Unavailable Allergies Allergen (clinical drug ingredient) Drug/Non Drug Allergy documented on EMR Reaction Allergy Type Onset Date Status tetanus immune globulin Tetanus Immune Globulin Unknown Drug Allergy Active Penicillin Unknown Drug Allergy Active IVP Dye (uncoded) Unknown Allergy Ac tive REASON FOR VISIT patient presents today for GERD Medications Medication SIG (Take, Route, Frequency, Duration) Notes Start Date End Date Status Omeprazole 40 MG TAKE 1 CAPSULE BY [facility] DAILY 30 MINUTES BEFORE BREAKFAST for 30 Active Aspirin 81 81 MG 1 tablet Orally Once a day for 30 day(s) Active Pantoprazole Sodium 40 MG 1 tablet 1/2 t o 1 hour before morning meal Orally Once a day for 30 days 07/07/2024 Active Problems Problem Type SNOMED Code ICD Code Onset Dates Problem Status W/U Status Risk Notes Problem GERD (gastroesopha geal reflux disease) (K21.9) Active confirmed Vital Signs Blood pressure systolic 111 mm Hg 07/08/19 25 Blood pressure diastolic 77 mm Hg 025 Height 61.5 in 07/07/2024 Weight 181 lbs 07/07/2024 BMI 33.64 kg/m2 07/07/2024 Encounters Encounter Location Date Provider Diagnosis [facility] [address] [place] [address] 07/07/2024 Sami Foster Jr Dysphagia R13.10 and GERD (gastroesophageal reflux disease) K21.9 Assessments Encounter Date Diagnosis (ICD Code) Assessment Notes Treatment Notes Treatment Clinical Notes Section Notes 07/07/2024 Dysphagia (ICD-10 - R13.10) 07/07/2024 GERD (gastroesophage al reflux disease) (ICD-10 - K21.9) Plan Of Treatment Medication Medication Name Sig Start Date Stop Date Notes Pantoprazole Sodium 40 MG 1 tablet 1/2 t o 1 hour before morning meal Orally Once a day for 30 days 07/07/2024 Pending Test Test Name Order Date LIVER PROFILE 07/07/2024 LIPASE 07/07/2024 CBC & MANUAL DIFFERENTIAL 07/07/2024 Future Test Test Name Order Date UPPER GI ENDOSCOPY BALLOOON DILATION OF ESOPH 07/07/2024 Next Appt Details Provider Name:Sami freeman , 07/20/2024 01:50:00 PM, [address] [place] [address] , [place], [phone], Progress Notes * JURGEN MONTEZDOB:1965 (59 yo F)Acc No.[id number]:07/07/2024 Progress Notes Patient:?JURGEN MONTEZ Provider:?Sami Foster MD :1965???Age:59 Y???Sex:Female D ate:07/07/2024 Address:[address] [place] [address] , [place] [facility] Pcp:Elias Swenson Subjective: * Chief Complaints: * ???1. patient presents today for GERD. * Medical History:?Asthma, Con stipation, Herpes zoster infection, Stress urinary incontinence, Colonoscopy 03/11, hyperplastic polyp, ten-year followup, Abnormal stress test, cardiology evaluation ongoing, Erosive esophagitis, EGD 09/16/22, 2 small erosions just above the EG junction, no Quach's esophagus or H. pylori., Hyperlipidemia, Shingles year 2023. * Surgical History:?hysterecto my , cholecystectomy , appendectomy , bladder stimulator . * Hospitalization/Major Diagno stic Procedure:?Hospitalized at [facility] for allergic reaction to contrast 09/14, hospital for 10 days with covid . * Family History:?Father: dece ased, diagnosed with HTN (hypertension), Heart disease, Diabetes.?Mother: alive, stroke.?Siblings: alive, elevated liver,was diagnosed with Primary Biliary Cirrhosis at age 56.? The patient has a negative family history for Crohn's disease or colon cancer. No family history of liver cancer. Brother has liver issue but not cancer. * Social History:?Tobacco Use:?Tobacco Use/Smoking?Patient is a: nonsmoker.?Drugs/Alcohol:?Alcohol Screen?Points: 0, Interpretation: Negative.?Miscellaneous:?Marital status: . Occupation: unemployed. * Medications:?Taking Aspirin 81 81 MG Tablet Delayed Release 1 tablet Orally Once a day , Taking Omeprazole 40 MG Capsule Delayed Release TAKE 1 CAPSULE BY MOUTH DAILY 30 MINUTES BEFORE BREAKFAST , Discontinued MiraLax (colon prep) 17 GM/SCOOP Powder mixed with Gatorade or Crystal Light Orally begin at 5:00 p.m. the day before the procedure , Discontinued MiraLax (colon prep) 8.3 ounce ((238) grams mixed with Gatorade or Crystal Light orally begin at 5:00 p.m. the day before the procedure , Discontinued Dulcolax (colon prep) 5 MG Tablet Delayed Release take at 3:00 p.m and 7:00p.m. Orally two tablets twice a day for one day , Discontinued Ondansetron HCl 4 MG Tablet 1 tablet Orally Twice a day, as needed for vomiting. , Medication List reviewed and reconciled with the patient * Allergies:?Penicillin, IVP D ye, Tetanus Immune Globulin. Objective: * Vitals:?Wt:181lbs, Ht: 61.5 in, BMI:33.64Index, BP:111/77mm Hg, Wt-k.1. Assessment: * Assessment: 1.?Dysphagia - R13.10 (Prima ry)???2.?GERD (gastroesophageal reflux disease) - K21.9??? Plan: * Treatment: 2.?GERD (gastroesophageal reflux disease)? Start Pantoprazole Sodium Tablet Delayed Release, 40 MG, 1 tablet 1/2 to 1 hour before morning meal, Orally, Once a day, 30 days, 30, Refills 5.?LAB: LIVER PROFILE ?LAB: LIPASE ?LAB: CBC & MANUAL DIFFERENTIAL ?Procedure: UPPER GI ENDOSCOPY BALLOOON DILATION OF ESOPH (Ordered for 07/07/2024)* sched for 07/20/24 at 1:50 pm mac * Preventive Medicine:? ??Counseling:?Care goal follow-up plan:?Above Normal BMI Follow-up?Giving encouragement to exercise,?BMI management provided?Yes.? * * The named appointment provid er may or may not be the originator of this progress note, and it is not deemed complete until electronically signed by the appointment provider. Sign off status: Pending * Provider:?Sami Foster MD Date:?0 07/07/2024 Generated for Lexis bennett/Zarina/Michelleitting on:?07/12/2024 01:30 PM EDT
--- OUTSIDE RECORDS SUMMARY | 2024-07-12 13:30 | XMS_ITS ---
Author Organization [facility] Address [address] [place] [address] Care Team Providers Care Outside Sales Account Executive Name Role Phone Elias Swenson Primary Care Provider Unavailab Sami Mancera Jr Unavailable REASON FOR VISIT Patient presents today for GERD Encounters Encounter Location Date Provider Diagnosis [facility] [address] [place] [address] 04/07/2024 Sami Foster Jr Plan Of Treatment Next Appt Details Provider Name:Sami freeman Jr, 07/20/2024 01:50:00 PM, [address] [place] [address] , [place], [place], [phone], Progress Notes * JURGEN MONTEZDOB:1965 (59 yo F)Acc No.[id number]:04/07/2024 Progress Notes Patient:?JURGEN MONTEZ Provider:?Sami Foster MD :1965???Age:58 Y???Sex:Female D ate:04/07/2024 Address:[address] [facility] [place] Pcp:Elias Swenson Subjective: * Chief Complaints: * [...] Foster MD Date:?0 04/07/2024 Generated for Lexis bennett/Zarina/Leena on:?07/12/2024 01:30 PM EDT
--- OUTSIDE RECORDS SUMMARY | 2024-07-12 13:31 | XMS_ITS | Patient Health Record ---
Author Organization [facility] Address [address] [place] [address] Care Team Providers Care Screening Specialist Name Role Phone Elias Swenson Primary [...] Pathology Reviewed date:10/22/2023 09:57:58 AM Interpretation: Performing Lab:[facility], [address] [place] [phone] Notes/Report: ----- Name: Jurgen Gupta Age/Sex: 58/F : 1965 Unit#: [id number] Attend Dr: Sami Foster MD Re09/29/23 Status : [facility] Location: [facility] Disch: ----- SPEC : [id number] RECD : 09/29/23 STATUS: JOSÉ MIGUEL TRIPLETT NUM: [id number] GARO: 09/29/231224 [facility] DR: Sami Foster MD ENTERED: 09/29/2312 [...] Jurgen Gupta Age/Sex: 58/F : 1965 Unit#: [id number] Attend Dr: Sami Foster MD Re09/29/23 Status : [facility] Location: [facility] Disch: ----- SPEC : [id number] RECD : 09/29/23 STATUS: JOSÉ MIGUEL TRIPLETT NUM: [id number] GARO: 09/29/23-[address] [facility] [address]: Sami Foster MD ENTERED: 09/29/2312 51 SP TYPE: Surgical OTHR DR: Elias Swenson PA-C ORDERED: HE Stain/9, Gross Micro L4/3, IHC, Special st. 2, H. pylori, AB/PAS Gross Description (Continued) Special studies orde red and performed: Immunostain for H. pylori on B1; AB/PAS stains on C1. Copies To: Sami Foster MD [facility] [address] [place] [address] Elias Swenson PA-C [facility] Primary Care,[address] [place] [address] ----- Signed (signature on file) Joanne Diaz 10/01/23 1146 ----- END OF REPORT COVID-19 ID NOW ([employer] Reviewed date:09/29/2023 04:56:38 PM Interpretation: Performing Lab:[facility], [address] [place] [phone] Notes/Report: IDNOW Serial# [id number] COVID-19 Test Negative Negative COVID-19 Note See [...] with other viruses. Testing facilities within the [facility] and its territories are required to report [...] by authorized laboratories. Testing performed on the [employer] ID NOW utilizing NAAT. Reason For Referral No Information Medications Medication SIG (Take, Route, Frequency, Duration) Notes Start Date End Date Status Omeprazole 40 MG TAKE 1 CAPSULE BY [facility] DAILY 30 MINUTES BEFORE BREAKFAST for 30 Active Aspirin 81 81 MG 1 tablet Orally Once a day for 30 day(s) Active Pantoprazole Sodium 40 MG 1 tablet 1/2 t o 1 hour before morning meal Orally Once a day for 30 days 07/07/2024 Active Immunizations Vaccine Route Administration Date Status Comme nts Influenza Unknown 06/02/2022 Refused Problems Problem Type SNOMED Code ICD Code Onset Dates Problem Status W/U Status Risk Notes Problem 2026842 Diverticulitis o f large intestine without perforation or abscess without bleeding (K57.32) Active confirmed Problem Dysphagia (19979000) Dysphagia (R13.10) Active confirmed Problem Erosive esophagitis (49962816) Erosive esophagitis (K22.10) Active confirmed Problem Gastroesophageal reflux disease (413407802) GERD (gastroesophageal reflux disease) (K21.9) Active confirmed Problem 675851274 Abnormal barium swallow (R93.3) Active confirmed Problem 77973104 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) Active confirmed Problem 747837811 Family history o f liver disease (Z83.79) Active confirmed Problem 48840523 Change in bowel movement (R19.8) Active confirmed Problem 79799396 Esophageal dysphagia (R13.19) Active confirmed Vital Signs Temperature 97.1 degrees Fahrenheit 09/16/2023 Blood pressure diastolic 77 mm Hg 07/07/2024 Height 61.5 in 07/07/2024 Blood pressure systolic 111 mm Hg 07/07/2024 Weight 181 lbs 07/07/2024 BMI 33.64 kg/m2 07/07/2024 Encounters Encounter Location Date Provider Diagnosis [facility] [address] [place] [phone] 09/29/2023 Sami Foster Jr Change in bowel movement R19.8 and Erosive esophagitis K22.10 [facility] [address] [place] [address] 07/07/2024 Sami Foster Jr Dysphagia R13.10 and GERD (gastroesophageal reflux disease) K21.9 [facility] [address] [place] [address] 09/16/2023 Sami Foster Jr Erosive esophagitis K22.10 ; Change in bowel movement R19.8 and Dysphagia R13.10 [facility] [address] [place] [address] 09/16/2023 Sami Foster Jr [facility] [address] [place] [address] 09/30/2023 Sami Foster Jr [facility] [address] [place] [address] 10/22/2023 Sami Foster Jr [facility] [address] [place] [address] 04/07/2024 Sami Foster Jr Assessments Encounter Date Diagnosis (ICD Code) Assessment Notes Treatment Notes Treatment Clinical Notes Section Notes 09/29/2023 Erosive esophagitis (ICD-10 - K22.10) 09/29/2023 Change in bowel movement (ICD-10 - R19.8) 07/07/2024 Dysphagia (ICD-10 - R13.10) 07/07/2024 GERD (gastroesophagea l reflux disease) (ICD-10 - K21.9) 09/16/2023 Erosive esophagitis (ICD-10 - K22.10) Endoscopy [...] week before the procedures. Plan Of Treatment Pending Test Test Name Order Date LIVER PROFILE 07/07/2024 LIPASE 07/07/2024 CBC & MANUAL DIFFERENTIAL 07/07/2024 Future Test Test Name Order Date COLONOSCOPY 02/13/2016 UPPER GI ENDOSCOPY 06/02/2022 UPPER GI ENDOSCOPY ANY OTHER TECHNIQUE 0 09/16/2023 COLONOSCOPY 09/16/2023 UPPER GI ENDOSCOPY BALLOOON DILATION OF ESOPH 07/07/2024 Next Appt Details Provider Name:Samicolumba freeman , 07/20/2024 01:50:00 PM, [address] [place] [address], [phone], Insurance Providers Payer Name Payer Address Payer Phone Subscriber Number Group Number Insured Name Patient Relationship to Insured Coverage Start Date Coverage End Date [facility] [address] Attn Claims [employer] [id number] JURGEN GUPTA Self - patient is the insured Medical (General) History Medical History History ICD Code asthma Constipation Herpes zoster infection stress urinary incontinence Colonoscopy 03/11, hyperplastic polyp, te n-year followup Abnormal stress test, cardiology evaluat ion ongoing Erosive esophagitis, EGD 08/24 07/15, 2 small erosions just above the EG junction, no Quach's esophagus or H. pylori. Hyperlipidemia shingles year 2023 Surgical History Surgery Date(Month/Year) bladder stimulator appendectomy cholecystectomy hysterectomy Hospitalization History Reason Date(Month/Year) hospital for 10 days with covtheodora Hospitalized at [facility] for allergic reaction to contrast 09/14
--- OUTSIDE RECORDS SUMMARY | 2024-07-12 13:31 | XMS_ITS ---
Author Organization [facility] Address [address] [place] [address] Care Team Providers Care Reports Analysis Manager Name Role Phone Elias Swenson Primary Care Provider Unavailab Sami Mancera Jr Unavailable REASON FOR VISIT rescheduled todays appt Encounters Encounter Location Date Provider Diagnosis [facility] [address] [place] [address] 04/07/2024 Sami Foster Jr Plan Of Treatment Next Appt Details Provider Name:Sami freeman Jr, 07/20/2024 01:50:00 PM, [address] [place] [address] , [place], [place], [phone], Progress Notes * JURGEN MONTEZDOB:1965 (58 yo F)Acc No.[id number]:04/07/2024 Patient:?JURGEN MONTEZ :1965???Age:58 Y???Sex:Female Address:[address] [facility] [address] * true * Date:? Generated for Printi ng/Fasethg/eTransmitting on:?07/12/2024 01:30 PM EDT
[2024-07-15 15:26] VITALS: BMI 26.4
--- NOTE | 2024-07-19 09:41 | HO.ANESPROP2 ---
Documented by User: Vicky Evangelista NP 07/19/24 09:45 HPI - Anesthesia Eval Consult details Narrative: 59yo F for Upper Endoscopy with Balloon Dilitation Follows [facility] for abnormal/equivicol stress. 02/2024 coronary CTA which she was nonobstructive [id number] disease (pt with ICU admit post-op for anaphylactic reaction to contrast dye) Stable, asymptomatic at 03/2024 office visit PMF Active Problems Active Problems: All Active Problems Acute viral syndrome (Acute) Left medial knee pain (Acute) Hand arthritis (Acute) CAD (coronary artery disease) (Acute) Cardiac arrhythmia (Acute) HTN (hypertension) (Acute) Sinusitis (Acute) Equivocal myocardial perfusion imaging (Acute) Abnormal stress test (Acute) Hyperlipidemia (Acute) Bullous rash (Acute) Herpes zoster (Acute) Intermittent palpitations (Acute) Chest pain (Acute) Thrush (Acute) Vertigo (Acute) Cardiomyopathy (Acute) Pleuritic chest pain (Acute) Acute asthma exacerbation (Acute) Asthma (Acute) COVID-19 virus infection (Acute) COVID (Acute) Acute frontal sinusitis (Acute) Pruritic rash (Acute) GERD (gastroesophageal reflux disease) (Acute) Esophageal stricture (Acute) Abnormal barium swallow (Acute) Osteoarthritis (Acute) Leg edema (Acute) Dysphagia (Acute) Abdominal wall mass of left upper quadrant (Acute) Breast cancer screening (Acute) Annual physical exam (Acute) Radiculopathy of cervical spine (Acute) Cough (Acute) Throat pain in adult (Acute) MEE (generalized anxiety disorder) (Acute) Lumbar spine pain (Acute) Pelvic pain (Acute) Lump of skin of back (Acute) Annual physical exam (Acute) Asthma (Acute) Screening for diabetes mellitus (DM) (Acute) Borderline high cholesterol (Acute) Obese (Acute) Allergic rhinitis (Acute) Lumbar disc disease (Acute) Past Medical History Medical History Equivocal myocardial perfusion imaging Abnormal stress test Hyperlipidemia Intermittent palpitations Chest pain Anxiety, generalized Esophageal stricture Normal colonoscopy Asthma Family History Family History Father CVD (cardiovascular disease) Past heart attack Mother Skin cancer Brother Heart problem Pacemaker Family history of problems with anesthesia: No Surgical History Surgical History History of endoscopy History of appendectomy History of bladder surgery History of torn meniscus of right knee History of gallbladder disease History of partial hysterectomy History of Problems with Anesthesia: No Social History Social History Household Members: Spouse Housing: Apartment Do you presently have visiting nurse or other home services: No Alcohol intake: never Patient Tobacco Use Status: Never used Tobacco e-Cigarette/Vaping Use: Never Used Second Hand Smoke Exposure: No Use of substances other than those prescribed or required for medical reasons: No Have you been hit, kicked, punched, or otherwise hurt by someone within the past year? If so, by whom?: No Advance Directives: No Advance Directives Information Provided: Yes service: No Current occupational status: unemployed Cognitive needs: No Hearing needs: No Vision needs: Yes (Reading glasses) Meds Allergies Allergy/AdvReac Type Severity Reaction Status Date / Time penicillin V Allergy Severe throat Verified 07/20/24 12:40 swelling Penicillins [PCN] Allergy Hives Verified 07/20/24 12:40 Tetanus Vaccines and Toxoid Allergy Difficulty Verified 07/20/24 12:40 Breathing Iodinated Contrast Media AdvReac Anaphylaxis Verified 07/20/24 12:40 [Contrast Dye] Exam Height,Weight and Vital Signs: Height 5 ft 11 in Weight 85.729 kg Pertinent Lab Results Pertinent Lab Results: Laboratory Tests 12/01/23 04/30/24 09:03 08:29 WBC 4.3 L Hgb 12.4 Hct 37.2 Plt Count 217 D Sodium 141 Potassium 3.9 Chloride 106 Carbon Dioxide 27 BUN 12 Creatinine 0.76 Narrative Narrative: See HPI Assessment and Plan Assessment Anesthesia Assessment: Chart Reviewed Final Anesthetic Review Family History of Problems with Anesthesia: No History of Problems with Anesthesia: No Documented by User: Raj Stuart MD 07/20/24 13:40 PMF Past Medical History Medical History Equivocal myocardial perfusion imaging Abnormal stress test Hyperlipidemia Intermittent palpitations Chest pain Anxiety, generalized Esophageal stricture Normal colonoscopy Asthma Family History Family History Father CVD (cardiovascular disease) Past heart attack Mother Skin cancer Brother Heart problem Pacemaker Surgical History Surgical History History of endoscopy History of appendectomy History of bladder surgery History of torn meniscus of right knee History of gallbladder disease History of partial hysterectomy Social History Social History Household Members: Spouse Housing: Apartment Do you presently have visiting nurse or other home services: No Alcohol intake: never Patient Tobacco Use Status: Never used Tobacco e-Cigarette/Vaping Use: Never Used Second Hand Smoke Exposure: No Use of substances other than those prescribed or required for medical reasons: No Have you been hit, kicked, punched, or otherwise hurt by someone within the past year? If so, by whom?: No Advance Directives: No Advance Directives Information Provided: Yes service: No Current occupational status: unemployed Cognitive needs: No Hearing needs: No Vision needs: Yes (Reading glasses) Meds Allergies Allergy/AdvReac Type Severity Reaction Status Date / Time penicillin V Allergy Severe throat Verified 07/20/24 12:40 swelling Penicillins [PCN] Allergy Hives Verified 07/20/24 12:40 Tetanus Vaccines and Toxoid Allergy Difficulty Verified 07/20/24 12:40 Breathing Iodinated Contrast Media AdvReac Anaphylaxis Verified 07/20/24 12:40 [Contrast Dye] Exam Airway Mallampati Class: II TM Dist: <=3cm Neck ROM: Full Partial: Upper Loose/Missing/Broken Teeth: No Heart: ok. Lungs: ok. Assessment and Plan Assessment Anesthesia Assessment: Anesthesia Plan Discussed Final Anesthetic Review NPO: Yes ASA Class: III Final Preanesthetic Review: No Changes in Pt Med Stat, Meds/Allgs Chart Reviewed, Consent Obtained/Reviewed and Anes Risks/Benef Reviewed Patient Risk: Intermediate Procedure Risk: Intermediate Anesthetic Plan Anesthetic Plan: Agree w/ Assess. and Plan and TIVA Disposition: Standard PACU
--- NOTE | 2024-07-20 12:26 | PC.NURSE ---
Pt did not show for procedure. She was called with no response. Voicemail left on machine. Dr. Foster's office called and was made aware.
[2024-07-20 12:44] VITALS: BMI 36.6
--- NOTE | 2024-07-20 12:48 | PC.NURSE ---
Patient arrived at 12:30pm. Dr. Foster's office called and notified. Pt denies history of HLD, HTN, and CAD. States she was very sick with COVID and developed these issues but these issues resolved.
[2024-07-20 13:00] VITALS: BP 130/64; PULSE 77; RESP 17; TEMP 36.9; O2SAT 98
[2024-07-20] MEDS: Lactated Ringers 1,000 ML 100 ML IVCONT (13:03)
--- NOTE | 2024-07-20 13:12 | MHC.SHP ---
Pre-Procedural Eval Section A - 24 Hr Update-Section A only Date of Service: 07/20/24 The patient is an INPATIENT: No Changes since office visit: No Cold of Flu in the past 2 weeks, No New Medical Problems, No Changes in Medication and No Patient answered all questions The patient has been examined within 24 hours of the surgical procedure. The History & Physical has been completed within 30 days and I have reviewed it.: Yes Section B - Complete if H&P > 30 days Chief Complaint: gerd Allergies: Allergies Allergy/AdvReac Type Severity Reaction Status Date / Time penicillin V Allergy Severe throat Verified 07/20/24 12:40 swelling Penicillins [PCN] Allergy Hives Verified 07/20/24 12:40 Tetanus Vaccines and Toxoid Allergy Difficulty Verified 07/20/24 12:40 Breathing Iodinated Contrast Media AdvReac Anaphylaxis Verified 07/20/24 12:40 [Contrast Dye] Plan I have reviewed the history and physical and performed a pertinent physical examination on my patient. No changes have occurred unless specified. Time Spent With Patient Time: Total time managing care of this patient today ____ minutes.
[2024-07-20 14:00] VITALS: BP 120/50; PULSE 78; RESP 16; TEMP 36.8; O2SAT 98
[2024-07-20 14:15] VITALS: PULSE 68; RESP 16; O2SAT 98
--- NOTE | 2024-07-20 14:20 | OP_ITS ---
DATE OF SERVICE: 07/20/2024 SURGEON: Sami Foster MD INDICATIONS: Erosive esophagitis and dysphagia. PREOPERATIVE DIAGNOSIS: POSTOPERATIVE DIAGNOSIS: PROCEDURE PERFORMED: Upper endoscopy with balloon dilation. ESTIMATED BLOOD LOSS: COMPLICATIONS: ANESTHESIA: Monitored anesthesia care. ASSISTANTS: SPECIMENS: DESCRIPTION OF PROCEDURE: A history and physical was performed. The risks and benefits of the procedure were explained to the patient, and informed consent was obtained. The patient was placed in the left lateral decubitus position. The Olympus video gastroscope was introduced into the esophagus, stomach, and duodenum. Examination was performed. The scope was removed. She tolerated the procedure well and was taken to the recovery area in stable condition. FINDINGS: Esophagus: There was erosive esophagitis involving the last 3 cm of the esophagus. No bleeding was identified. No stricture was seen. Balloon dilation of the EG junction was performed for 60 seconds at 18 mm with no complications. Stomach: The stomach was normal. Duodenum: The bulb and 2nd portion were normal. IMPRESSION: Erosive esophagitis. RECOMMENDATION: 1. Follow up in the office. 2. High-dose proton pump inhibitor. MD PRICE Upton/NICOLASA / [id number]
[2024-07-20 14:30] VITALS: BP 130/71; PULSE 69; RESP 16; O2SAT 96
[2024-07-20 14:45] VITALS: BP 118/54; PULSE 71; RESP 16; O2SAT 99
[2024-07-20 15:15] VITALS: BP 131/66; PULSE 67; RESP 16; TEMP 36.9; O2SAT 98
== END 2024-07-20 15:35 | disposition home or self-care (01) ==
PROVIDERS: PCP Physician Assistant; Visit Provider Internal Medicine Gastroenterology
PROC: (CPT 43249; principal; 2024-07-20 13:00)
DX: K21.9 Gastro-esophageal reflux disease without esophagitis (principal); R13.10 Dysphagia, unspecified; R11.10 Vomiting, unspecified; J45.909 Unspecified asthma, uncomplicated; K59.00 Constipation, unspecified; E78.5 Hyperlipidemia, unspecified; N39.3 Stress incontinence (female) (male); R93.1 Abnormal findings on diagnostic imaging of heart and coronary circulation; R00.2 Palpitations; R07.9 Chest pain, unspecified; F41.1 Generalized anxiety disorder; Z79.82 Long term (current) use of aspirin; Z79.899 Other long term (current) drug therapy; Z88.0 Allergy status to penicillin; Z91.040 Latex allergy status; Z88.7 Allergy status to serum and vaccine; Z90.49 Acquired absence of other specified parts of digestive tract; Z98.890 Other specified postprocedural states; Z56.0 Unemployment, unspecified
CPT/HCPCS: 43249; 36415; 80076; 83690; 85007; 85027; C1726; J2003; J2704; J3010

== ENCOUNTER 2024-10-24 17:23 | Emergency (ER) | payer OTHER, SELFPAY ==
--- OUTSIDE RECORDS SUMMARY | 2023-09-29 08:50 | XMS_ITS ---
Author Organization [facility] Address [address] [place] [address] Care Team Providers Care Wallpaper Inspector Name Role Phone Elias Swenson Primary Care Provider Unavailab Sami Mancera Jr Unavailable REASON FOR VISIT erosive esophagitis, change in bowels Encounters Encounter Location Date Provider Diagnosis [facility] [place] Out[place] [address] [place], [place] [phone] 09/29/2023 Sami Foster Jr Change in bowel movement R19.8 and Erosive esophagitis K22.10 Assessments Encounter Date Diagnosis (ICD Code) Assessment Notes Treatment Notes Treatment Clinical Notes Section Notes 09/29/2023 Change in bowel movement (ICD-10 - R19.8) 09/29/2023 Erosive esophagitis (ICD-10 - K22.10) Plan Of Treatment Next Appt Details Provider Name:Sami freeman Jr, 11/03/2024 02:15:00 PM, [address], [address], [place], [address], Progress Notes * JURGEN MONTEZDOB:1965 (59 yo F)Acc No.[id number]:09/29/2023 EGD and COL/MAC Patient: JURGEN LIU Provider: Kassidy Fsoter MD :1965 A ge:58 Y S ex:Female Date:09/29/2023 Address:[address] [id number] Pcp:Elias Swenson Subjective: * Chief Complaints: * 1 . Erosive esophagitis, change in bowels. * Medical History: Objective: * Vitals: Assessment: * Assessment: 1. C hange in bowel movement - R19.8 (Primary) 2 . E rosive esophagitis - K22.10 Plan: * Treatment: * Procedure Codes: 4 5378 DIAGNOSTIC COLONOSCOPY, 55875 UPPER GI ENDOSCOPY, BIOPSY * * The named appointment provid er may or may not be the originator of this progress note, and it is not deemed complete until electronically signed by the appointment provider. Sign off status: Pending * Provider: Kassidy Foster MD Date: 0 09/29/2023 Generated for Lexis bennett/Zarina/Anasmitting on: 0 10/24/2024 06:18 PM EDT
--- OUTSIDE RECORDS SUMMARY | 2024-04-07 11:35 | XMS_ITS ---
Author Organization [facility] Address [address] [place] [address] Care Team Providers Care Pull Over Machine Operator Name Role Phone Elias Swenson Primary Care Provider Unavailab Sami Mancera Jr Unavailable REASON FOR VISIT Patient presents today for GERD Encounters Encounter Location Date Provider Diagnosis [facility] [address] [place] [address] 04/07/2024 Sami Foster Jr Plan Of Treatment Next Appt Details Provider Name:Sami freeman Jr, 11/03/2024 02:15:00 PM, [address], [address], [place], [address], Progress Notes * JURGEN MONTEZDOB:1965 (59 yo F)Acc No.[id number]:04/07/2024 Progress Notes Patient: JURGEN ILU Provider: Kassidy Foster MD :1965 A ge:58 Y S ex:Female Date:04/07/2024 Address:[address] [facility] [id number] Pcp:Elias Swenson Subjective: * Chief Complaints: * [...] 04/07/2024 Generated for Lexis bennett/Zarina/Leena on: 0 10/24/2024 06:18 PM EDT
--- OUTSIDE RECORDS SUMMARY | 2024-07-20 09:00 | XMS_ITS ---
Author Organization [facility] Address [address] [facility] [address] [place] [address] Care Team Providers Care Restaurant Culinary Manager Name Role Phone Elias Swenson Primary Care Provider Unavailab Sami Mancera Jr Unavailable REASON FOR VISIT gerd,dysphagia Encounters Encounter Location Date Provider Diagnosis [facility] [place] Out[facility] [address] [place] [id number] 07/20/2024 Sami Foster Jr Plan Of Treatment Next Appt Details Provider Name:Sami freeman Jr, 11/03/2024 02:15:00 PM, [address] [facility], [address], [place], [address], Progress Notes * JURGEN MONTEZDOB:1965 (59 yo F)Acc No.[id number]:07/20/2024 EGD/MAC Patient: JURGEN LIU Provider: Kassidy Foster MD :1965 A ge:59 Y S ex:Female Date:07/20/2024 Address:[address] [facility] [id number] Pcp:Elias Swenson Subjective: * Chief Complaints: * [...] 07/20/2024 Generated for Leandroi donald/Zarina/eTransmitting on: 0 10/24/2024 06:17 PM EDT
--- NOTE | 2024-10-24 | ECG_ITS ---
Test Reason : CHEST PAIN Blood Pressure : */* mmHG Vent. Rate : 84 BPM Atrial Rate : 84 BPM P-R Int : 154 ms QRS Dur : 88 ms QT Int : 378 ms P-R-T Axes : 61 6 53 degrees QTcB Int : 446 ms Normal sinus rhythm Normal ECG When compared with ECG of 28-May-2023 06:55, T wave amplitude has decreased in Anterior leads Referred By: Generic ED Physician Electronically Signed By: Narendra Robbins
--- NOTE | ~2024-10-24 | XR_ITS ---
CLINICAL HISTORY: SOB 1 view chest x-ray Comparison: Chest x-ray from 05/25/2024 Findings: No consolidation, pneumothorax, or pleural effusion. Mild emphysematous changes suggested by radiographs. Imaged mediastinum appears unchanged. Degenerative changes include imaged right AC joint. IMPRESSION: No consolidation This document has been electronically signed by: Ulises Wood MD on 10/24/2024 19:21:54
[2024-10-24 17:37] VITALS: BP 145/70; PULSE 89; RESP 20; TEMP 37; O2SAT 98; BMI 19.6
--- NOTE | 2024-10-24 17:58 | ED_ITS ---
HPI - General Adult General Chief complaint: Dyspnea Stated complaint: chest oain, difficulty breathing Time Seen by Provider: 10/24/24 19:31 Source: patient Mode of arrival: ambulatory Limitations: no limitations History of Present Illness ED Provider: Dr. Scarlet Osuna HPI narrative: Patient comes to the emergency room complaining of 3 days of sinus pressure, cough. Patient states that she has ?a little asthma . Denies any sick contacts. Patient states that she took DayQuil. Denies any syncopal episodes, a bit lightheaded described as feeling on even, no palpitations, no calf pain Related Data Previous Rx's ?Medication ?Instructions ?Recorded nebulizers (AeroEclipse II #1 ea 06/02/23 Nebulizer) nebulizers (Aeroneb Go Nebulizer) #1 ea 06/04/23 miscellaneous medical supply #1 ea 11/30/23 (Blood Pressure Cuff) blood pressure monitor (Blood #1 ea 02/22/24 Pressure Kit) albuterol sulfate 90 mcg/actuation 2 puff inhalation Q 6H PRN 05/25/24 aerosol inhaler shortness of breath or wheez ing or cough #8.5 grams benzonatate 100 mg capsule 100 mg PO TID PRN cough #12 caps 10/24/24 ibuprofen 600 mg tablet 600 mg PO Q8H PRN fever or p ain 10/24/24 #20 tabs ondansetron HCl 4 mg tablet 4 mg PO Q8H PRN nausea and 10/24/24 vomiting #7 tabs Allergies Allergy/AdvReac Type Severity Reaction Status Date / Time penicillin V Allergy Severe throat Verified 10/24/24 17:38 swelling Penicillins (PCN) Allergy Hives Verified 10/24/24 17:38 Tetanus Vaccines and Toxoid Allergy Difficulty Verified 10/24/24 17:38 Breathing Iodinated Contrast Media AdvReac Anaphylaxis Verified 10/24/24 17:38 (Contrast Dye) Review of Systems 2 Review of Systems: Constitutional : No Weight loss, No Fever, No Chills, No Night Sweats, No Fatigue, No Malaise ENT/Mouth : No Hearing loss, No Ear Pain, No Nasal Congestion, No Sinus Pain, No Hoarseness, No sore throat, No Rhinorrhea, No Swallowing Difficulty Eyes: No Eye Pain, No Swelling, No Redness, No Foreign Body, No Discharge, No Vision Changes Cardiovascular : , No SOB, No Dyspnea on Exertion, No Orthopnea, No Edema, No Palpitations Respiratory : Complaining of cough and sinus pressure Gastrointestinal : No Nausea, No Vomiting, No Diarrhea, No Constipation, No abdominal Pain, No Hematochezia, No Melena Genitourinary : no irregular bleeding, No Dysuria, No Urinary Frequency, No Hematuria, No Urinary Incontinence, No Urgency, No Flank Pain, No Urinary Flow Changes, No Hesitancy Musculoskeletal : No joint pain, No Myalgias, No Joint Swelling Skin : No Skin Lesions, No rash Neuro : No Weakness, No Numbness, No Paresthesias, No Loss of Consciousness, No Dizziness, No Headache Psych : No Anxiety/Panic, No Depression, No SI/HI/AH/VH, No Social Issues, Heme/Lymph: No Bruising, No Bleeding,No Lymphadenopathy Endocrine : No Polyuria, No Polydipsia, No Temperature Intolerance [facility] Past Medical History Medical History Equivocal myocardial perfusion imaging Abnormal stress test Hyperlipidemia Intermittent palpitations Chest pain Anxiety, generalized Esophageal stricture Normal colonoscopy Asthma Surgical History History of endoscopy History of appendectomy History of bladder surgery History of torn meniscus of right knee History of gallbladder disease History of partial hysterectomy Family History Family History Father CVD (cardiovascular disease) Past heart attack Mother Skin cancer Brother Heart problem Pacemaker Social History Social History Household Members: Spouse Housing: Apartment Do you presently have visiting nurse or other home services: No Alcohol intake: never Patient Tobacco Use Status: Never used Tobacco Smoked in Last 30 Days: No e-Cigarette/Vaping Use: Never Used Second Hand Smoke Exposure: No Use of substances other than those prescribed or required for medical reasons: No Advance Directives: No Advance Directives Information Provided: No service: No Current occupational status: unemployed Cognitive needs: No Hearing needs: No Vision needs: Yes (Reading glasses) Physical Exam ED Exam Exam: Appearance: Alert. Oriented X3. No acute distress. Well-appearing Eyes: Pupils equal, round and reactive to light. ENT: Pharynx normal. Neck: Normal inspection. Neck supple. No lymph nodes noted. No crepitus CVS: Normal heart rate and rhythm. Pulses normal. Normal S1 and S2 Respiratory: No respiratory distress. Breath sounds normal. No Wheezing. No rales oxygen saturation 98% on room air Abdomen: Soft and nontender. No rigidity. No distention. Skin: Skin warm and dry. Normal skin color. Normal skin turgor. Extremities: No lower extremity edema. No Lacerations. No Rash Neuro: Oriented X 3. No motor deficit. No sensory deficit. Moving all extremities. No slurred speech. CN 2 through 12 grossly intact Psych: calm, cooperative, normal affect Vital Signs: Vital Signs - 24 hr 10/24/24 17:37 10/24/24 19:33 Temperature 98.6 F Pulse Rate 89 Respiratory Rate 20 Blood Pressure 145/70 H Pulse Oximetry 98 95 Oxygen Delivery Method Room Air Room Air BMI result Body Mass Index 19.6 Course Course Course Narrative: RME: 59-year-old female presents to ED for URI symptoms. Patient states sinus pressure and pain. Also dizziness lightheadedness sternal chest pain. Labs EKG chest x-ray ordered Medications Administered Discontinued Medications Generic Name Dose Route Start Last Admin Trade Name Freq PRN Reason Stop Dose Admin Benzonatate 100 mg 10/24/24 19:37 10/24/24 19:48 Benzonatate 100 Mg Capsule PO 10/24/24 19:38 100 mg ONCE ONE Administration Ibuprofen 600 mg 10/24/24 19:37 10/24/24 19:48 Ibuprofen 600 Mg Tablet PO 10/24/24 19:38 600 mg ONCE ONE Administration Ondansetron HCl 4 mg 10/24/24 19:52 10/24/24 19:54 Ondansetron Odt 4 Mg Tab.Rapdis TRANSLINGU 10/24/24 19:53 4 mg ONCE ONE Administration Medical Decision Making Medical Decision Making [facility] Narrative: My interpretation of labs: Patient's hematology shows a white blood cell count of 4.3, previously reduced. No other significant acute abnormalities. Chemistry within normal limits, troponin negative, BNP negative. Serology negative for influenza, positive for COVID Patient's oxygen saturation remains 98% even with ambulation in the room. Patient was given ibuprofen here in the emergency room. Patient requesting the next few days off of work. Patient's vitals stable, oxygen saturation 98% with ambulation, no O2 desaturations. No need for oxygen. Patient is Ambulatory. Hospitalization not indicated Differential Diagnosis Differential Diagnoses: The differential diagnosis associated with the presentation includes (COVID, influenza, RSV, viral pneumonia) Lab Data [facility] Lab Attestation statement: I reviewed the patient's lab results. 10/24/24 18:04 10/24/24 18:04 Labs: Lab Results 10/24/24 10/24/24 10/24/24 Range/Units 18:03 18:04 18:05 WBC 4.3 L (4.8-10.8) X10*3/uL RBC 3.87 L (4.20-5.50) X10*6/uL Hgb 11.7 L (12.0-16.0) g/dl Hct 34.0 L (37.0-47.0) % MCV 87.9 (80.0-98.0) fL MCH 30.2 (27.0-33.0) pg MCHC 34.4 (31.0-35.0) g/dl RDW 12.3 (11.0-16.0) % Plt Count 187 (160-400) X10*3/uL MPV 10.3 (9.4-12.3) fL Immature Gran % (Auto) 0.9 H (0.0-0.4) % Neut % (Auto) 62.5 (45-73) % Lymph % (Auto) 22.4 (20-40) % [place] % (Auto) 7.9 (2-11) % Eos % (Auto) 5.4 H (0-4) % Baso % (Auto) 0.9 (0-2) % Lymph # (Auto) 1.0 L (1.2-4.9) X10*3/uL [place] # (Auto) 0.3 (0.1-1.2) X10*3/uL Eos # (Auto) 0.2 (0.0-0.4) X10*3/uL Baso # (Auto) 0.0 (0.0-0.2) X10*3/uL Abs Immat Gran (auto) 0.04 H (0.00-0.03) X10*3/uL Absolute Neuts (auto) 2.7 (2.0-8.3) x10*3/uL Absolute Nucleated RBC 0.000 (0.0-0.012) X10*3/uL Nucleated RBC % (auto) 0.0 (0.0-0.2) /100WBC Sodium 141 (135-145) mmol/L Potassium 4.2 (3.3-5.1) mmol/L Chloride 106 (96-108) mmol/L Carbon Dioxide 26 (22-29) mmol/L Anion Gap 13 (12-20) BUN 21 H (9-16) mg/dL Creatinine 0.73 (0.5-1.4) mg/dL Estim Creat Clear Calc 75.7 Estimated GFR > 60 Random Glucose 95 (60-115) mg/dL Calcium 8.7 (8.4-10.2) mg/dL Magnesium 1.9 (1.6-2.6) mg/dL Total Bilirubin 0.7 (0.0-1.0) mg/dL AST 24 (5-31) U/L ALT 27 (0-31) U/L Alkaline Phosphatase 70 (39-117) U/L Troponin I High Sens < 2.7 (<3.5-17.0) ng/L B-Natriuretic Peptide 34 (<100) pg/mL Total Protein 6.1 L (6.5-8.0) g/dL Albumin 4.2 (3.5-5.0) g/dL COVID-19 (HESHAM) Positive A (Negative) COVID-19 Clin Com See Note Influenza Type A (BRENDA) Negative (Negative) Influenza Type B (BRENDA) Negative (Negative) Influenza A & B Note See Note Independent Interpretation I performed an independent interpretation of an: EKG and Plain X-Ray Interpretation: My interpretation of EKG: Normal sinus rhythm, heart rate 84, no ST segment depression or elevation, no T-wave inversion, QTC 446 Radiology Impression Discussion of test interpretation with radiology: I have reviewed the radiologist's reading. Radiologist Impression: No consolidation, pneumothorax, or pleural effusion. Mild emphysematous changes suggested by radiographs. Imaged mediastinum appears unchanged. Degenerative changes include imaged right AC join Discharge Plan Discharge Clinical Impression: COVID-19, Nausea Patient Disposition: Home, Self-Care Instructions: COVID-19 (Coronavirus Disease 2019) (ED) Additional Instructions: Please follow-up with your primary care physician tomorrow. If you have any worsening or new symptoms, please return to the emergency room or call 911 Prescriptions: New ibuprofen 600 mg tablet 600 mg PO Q8H PRN (Reason: fever or pain) Qty: 20 0RF benzonatate 100 mg capsule 100 mg PO TID PRN (Reason: cough) Qty: 12 0RF ondansetron HCl 4 mg tablet 4 mg PO Q8H PRN (Reason: nausea and vomiting) Qty: 7 0RF No Action (DME) nebulizers [AeroEclipse II Nebulizer] Misc See Rx Instructions .Route Qty: 1 0RF Rx Instructions: As directed (DME) nebulizers [Aeroneb Go Nebulizer] Misc See Rx Instructions .Route Qty: 1 0RF Rx Instructions: As directed (DME) blood pressure monitor [Blood Pressure Kit] Kit See Rx Instructions .Route Qty: 1 0RF Rx Instructions: As directed (DME) Blood Pressure Cuff Misc See Rx Instructions .ROUTE .MEDSUPPLY Qty: 1 0RF Rx Instructions: Take blood pressure once a day as needed albuterol sulfate 90 mcg/actuation HFA aerosol inhaler 2 puff inhalation Q6H PRN (Reason: shortness of breath or wheezing or cough) Qty: 8.5 0RF Stand Alone Forms: Work/School Release Interventions: ED Discharge Assessment Last Done: 10/24/24 20:39 Discharge Date/Time: 10/24/24 20:00 Print Language: Chadian
[2024-10-24 18:13] LABS: MANUAL DIFF FLAG NO
--- OUTSIDE RECORDS SUMMARY | 2024-10-24 18:18 | XMS_ITS | Patient Health Record ---
Author Organization [facility] Address [address] [place] [address] Care Team Providers Care Inspector And Clipper Name Role Phone Elias Swenson Primary Care Provider Unavailab Sami Mancera Jr Unavailable Allergies Allergen (clinical drug ingredient) Drug/Non Drug Allergy documented on EMR Reaction Allergy Type Onset Date Status tetanus immune globulin Tetanus Immune Globulin Unknown Drug Allergy Active Penicillin Unknown Drug Allergy Active IVP Dye (uncoded) Unknown Allergy Ac tive Results Component Value Reference Range Notes Complete Blood Count Man Dif Reviewed date:07/20/2024 04:40:28 PM Interpretation: Performing Lab:[facility], [address] [place] [phone] Notes/Report: White Blood Count 5.0 4.8-10.8 X10*3/uL Red Blood Count 4.37 4.20-5.50 X10*6/uL Hemoglobin 13.4 12.0-16.0 g/dl Hematocrit 38.8 37.0-47.0 % Mean Corpuscular Volume 88.8 80.0-98.0 fL Mean Corpuscular Hemoglobin 30.7 27.0-33.0 pg Mean Corpuscular HGB Conc 34.5 31.0-35.0 g/dl Red Cell Distribution Width 11.9 11.0-16.0 % Platelet Count 239 160-400 X10*3/uL Mean Platelet Volume 10.8 9.4-12.3 fL NRBC Pct Auto 0.0 0.0-0.2 /100WBC NRBC Abs Auto 0.000 0.0-0.012 X10*3/uL Neutrophils Percent Manual 60 45-73 % Band Neutrophils Percent 1 3-5 % Lymphocytes Percent Manual 21 20-40 % Monocytes Percent Manual 8 2-11 % Eosinophils Percent Manual 7 0-4 % Basophils Percent Manual 3 0-2 % Neutrophils Absolute Manual 3.1 2.0-8.3 X10*3 /uL Lymphocytes Absolute Manual 1.1 1.2-4.9 X10*3 /uL Monocytes Absolute Manual 0.4 0.1-1.2 X10*3/u L Eosinophils Absolute Manual 0.4 0.0-0.4 X10*3 /uL Basophils Abs Manual 0.2 0.0-0.2 X10*3/uL Platelet Estimate NORMAL NORMAL Platelet Morphology Comment NORMAL RBC Morphology NORMAL Liver Panel Reviewed date:07/20/2024 04:40:37 PM Interpretation: Performing Lab:[address] [id number] Notes/Report: Bilirubin Total 0.9 0.0-1.0 mg/dL Bilirubin Direct 0.2 0.0-0.5 mg/dL Aspartate Amino Transferase 27 5-31 U/L Alanine Aminotransferase 29 0-31 U/L Total Protein 6.5 6.5-8.0 g/dL Albumin Level 4.4 3.5-5.0 g/dL Alkaline Phosphatase 73 39-117 U/L Lipase Reviewed date:07/20/2024 04:40:11 PM Interpretation: Performing Lab:[address] [id number] Notes/Report: Lipase 25 8-78 U/L Reason For Referral No Information Medications Medication SIG (Take, Route, Frequency, Duration) Notes Start Date End Date Status Pantoprazole Sodium 40 MG 1 Orally Twice a day for 30 days 07/07/2024 Active Omeprazole 40 MG TAKE [address] [facility] DAILY 30 MINUTES BEFORE BREAKFAST for 30 Active Aspirin 81 81 MG 1 tablet Orally Once a day for 30 day(s) Active Immunizations Vaccine Route Administration Date Status Comme nts Influenza Unknown 06/02/2022 Refused Problems Problem Type SNOMED Code ICD Code Onset Dates Problem Status W/U Status Risk Notes Problem 8863238 Diverticulitis o f large intestine without perforation or abscess without bleeding (K57.32) Active confirmed Problem Dysphagia (11391514) Dysphagia (R13.10) Active confirmed Problem Erosive esophagitis (85722060) Erosive esophagitis (K22.10) Active confirmed Problem Gastroesophageal reflux disease (495612792) GERD (gastroesophageal reflux disease) (K21.9) Active confirmed Problem 807132333 Abnormal barium swallow (R93.3) Active confirmed Problem 56564881 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) Active confirmed Problem 489898845 Family history o f liver disease (Z83.79) Active confirmed Problem 04574624 Change in bowel movement (R19.8) Active confirmed Problem 40784635 Esophageal dysphagia (R13.19) Active confirmed Vital Signs Blood pressure diastolic 77 mm Hg 07/07/2024 Height 61.5 in 07/07/2024 Blood pressure systolic 111 mm Hg 07/07/2024 Weight 181 lbs 07/07/2024 BMI 33.64 kg/m2 07/07/2024 Encounters Encounter Location Date Provider Diagnosis [facility] Outpatient [address] [place] [phone] 07/20/2024 Sami Foster Jr [facility] [address] [place] [phone] 07/07/2024 Sami Foster Jr Dysphagia R13.10 and GERD (gastroesophageal reflux disease) K21.9 [facility] [address] [place] [phone] 04/07/2024 Sami Foster Jr [facility] [address] [place] [phone] 07/19/2024 Sami Foster Jr [facility] [address] [place] [phone] 07/20/2024 Sami Foster Jr GERD (gastroesophageal reflux disease) K21.9 Assessments Encounter Date Diagnosis (ICD Code) Assessment Notes Treatment Notes Treatment Clinical Notes Section Notes 07/07/2024 Dysphagia (ICD-10 - R13.10) Undue we discuss ed her symptoms today. We discussed gastroesophageal reflux disease. A trial of pantoprazole may be more effective at controlling these. This will be arranged. Because of her persistent symptoms and failure to respond to high-dose omeprazole, she will undergo upper endoscopy with possible balloon dilation. We discussed risks and benefits of the procedure today. She is advised to stop aspirin 1 week before the procedure. Today's visit was 30 minutes. 07/07/2024 GERD (gastroesopha geal reflux disease) (ICD-10 - K21.9) Undue we discuss ed her symptoms today. We discussed gastroesophageal reflux disease. A trial of pantoprazole may be more effective at controlling these. This will be arranged. Because of her persistent symptoms and failure to respond to high-dose omeprazole, she will undergo upper endoscopy with possible balloon dilation. We discussed risks and benefits of the procedure today. She is advised to stop aspirin 1 week before the procedure. Today's visit was 30 minutes. 07/20/2024 GERD (gastroesopha geal reflux disease) (ICD-10 - K21.9) Plan Of Treatment Pending Test Test Name Order Date LIVER PROFILE 07/07/2024 LIPASE 07/07/2024 CBC & MANUAL DIFFERENTIAL 07/07/2024 Future Test Test Name Order Date COLONOSCOPY 02/13/2016 UPPER GI ENDOSCOPY 06/02/2022 UPPER GI ENDOSCOPY ANY OTHER TECHNIQUE 0 09/16/2023 COLONOSCOPY 09/16/2023 UPPER GI ENDOSCOPY BALLOOON DILATION OF ESOPH 07/07/2024 Next Appt Details Provider Name:Sami freeman , 11/03/2024 02:15:00 PM, [address] [place] [address], [address], [place], [address], Insurance Providers Payer Name Payer Address Payer Phone Subscriber Number Group Number Insured Name Patient Relationship to Insured Coverage Start Date Coverage End Date [facility] [address] Attn Claims [employer] [id number] JURGEN MONTEZ Self - patient is the insured Medical (General) History Medical History History ICD Code asthma Constipation stress urinary incontinence Colonoscopy 10/16, no colitis, 10-year fo llow-up Gastroesophageal reflux dise ase, EGD 10/16, no H. pylori, GERD changes noted on biopsy, no Quach's esophagus Hyperlipidemia HSV infection with shingles 2023 Surgical History Surgery Date(Month/Year) bladder stimulator appendectomy cholecystectomy hysterectomy Hospitalization History Reason Date(Month/Year) hospital for 10 days with covid Hospitalized at [facility] for allergic reaction to contrast 09/14
[2024-10-24 18:30] LABS: Alanine Aminotransferase 27 U/L (0-31); Albumin Level 4.2 g/dL (3.5-5.0); Alkaline Phosphatase 70 U/L (39-117); Anion Gap 13 (12-20); Aspartate Amino Transferase 24 U/L (5-31); Blood Urea Nitrogen 21 mg/dL (9-16); Calcium 8.7 mg/dL (8.4-10.2); Carbon Dioxide 26 mmol/L (22-29); Chloride 106 mmol/L (96-108); Creatinine Clr Calc Pharmacy 75.7; Estimated Glomerular Filt Rate > 60; Magnesium 1.9 mg/dL (1.6-2.6); Potassium 4.2 mmol/L (3.3-5.1); Sodium 141 mmol/L (135-145); Total Protein 6.1 g/dL (6.5-8.0)
[2024-10-24 18:34] LABS: COVID-19 Test Positive (Negative); IDNOW Serial# 55D5AD1C; IDNOW Serial# 58CA691E; Influenza B2 Negative (Negative)
[2024-10-24 18:43] LABS: Troponin-I High Sensitivity < 2.7 ng/L (<3.5-17.0)
[2024-10-24 18:45] LABS: Hematocrit 34.0 % (37.0-47.0); Hemoglobin 11.7 g/dl (12.0-16.0); Imm Gran Abs Auto 0.04 X10*3/uL (0.00-0.03); Imm Gran Pct Auto 0.9 % (0.0-0.4); Lymphocytes Absolute Auto 1.0 X10*3/uL (1.2-4.9); Mean Corpuscular HGB Conc 34.4 g/dl (31.0-35.0); Mean Corpuscular Hemoglobin 30.2 pg (27.0-33.0); Mean Corpuscular Volume 87.9 fL (80.0-98.0); NRBC Abs Auto 0.000 X10*3/uL (0.0-0.012); NRBC Pct Auto 0.0 /100WBC (0.0-0.2); Platelet Count 187 X10*3/uL (160-400); Red Blood Count 3.87 X10*6/uL (4.20-5.50); White Blood Count 4.3 X10*3/uL (4.8-10.8)
[2024-10-24 19:17] LABS: B Type Natriuretic Peptide 34 pg/mL (<100)
[2024-10-24 19:33] VITALS: O2SAT 95
[2024-10-24 19:36] VITALS: BP 170/74; PULSE 72
[2024-10-24 20:39] VITALS: BP 170/74; PULSE 72; RESP 20; TEMP 37; O2SAT 95
== END 2024-10-24 20:00 | disposition home or self-care (01) ==
PROVIDERS: Physician Assistant; Emergency Provider Emergency Medicine; PCP Physician Assistant
DX: U07.1 COVID-19 (principal); R11.0 Nausea; R07.9 Chest pain, unspecified; R05.9 Cough, unspecified
CPT/HCPCS: 36415; 71045; 80053; 83735; 83880; 84484; 85025; 87502; 87635; 93005; 99283; 99284

== ENCOUNTER → 2024-10-24 17:32 | Outpatient (BNV) | payer OTHER, SELFPAY | PROVIDERS: Emergency Provider Emergency Medicine; PCP Physician Assistant; Visit Provider Internal Medicine Cardiovascular Disease | DX: R07.2 Precordial pain (principal) | CPT/HCPCS: 93010 ==

== ENCOUNTER → 2024-10-24 18:00 | Outpatient (BNV) | payer OTHER, SELFPAY | PROVIDERS: Emergency Provider Emergency Medicine; PCP Physician Assistant; Visit Provider Radiology Neuroradiology | DX: R06.02 Shortness of breath (principal) | CPT/HCPCS: 71045 ==

== ENCOUNTER 2024-10-31 14:43 | Outpatient (AMB) | payer OTHER, SELFPAY ==
--- OUTSIDE RECORDS SUMMARY | 2023-09-29 08:50 | XMS_ITS ---
Author Organization [facility] Address [address] [place] [address] Care Team Providers Care Job Trainer Name Role Phone Elias Swenson Primary Care Provider Unavailab Sami Mancera Jr Unavailable REASON FOR VISIT erosive esophagitis, change in bowels Encounters Encounter Location Date Provider Diagnosis [facility] [place] [address] [place], [place] [phone] 09/29/2023 Sami Foster Jr Change in bowel movement R19.8 and Erosive esophagitis K22.10 Assessments Encounter Date Diagnosis (ICD Code) Assessment Notes Treatment Notes Treatment Clinical Notes Section Notes 09/29/2023 Change in bowel movement (ICD-10 - R19.8) 09/29/2023 Erosive esophagitis (ICD-10 - K22.10) Plan Of Treatment Next Appt Details Provider Name:Sami freeman Jr, 11/03/2024 02:15:00 PM, [address], [address], [place], [address], Progress Notes * JURGEN MONTEZDOB:1965 (59 yo F)Acc No.[id number]:09/29/2023 EGD and COL/MAC Patient: JURGEN LIU Provider: Kassidy Foster MD :1965 A ge:58 Y S ex:Female Date:09/29/2023 Address:[address] [id number] Pcp:Elias Swenson Subjective: * Chief Complaints: * 1 . Erosive esophagitis, change in bowels. * Medical History: Objective: * Vitals: Assessment: * Assessment: 1. C hange in bowel movement - R19.8 (Primary) 2 . E rosive esophagitis - K22.10 Plan: * Treatment: * Procedure Codes: 4 5378 DIAGNOSTIC COLONOSCOPY, 66444 UPPER GI ENDOSCOPY, BIOPSY * * The named appointment provid er may or may not be the originator of this progress note, and it is not deemed complete until electronically signed by the appointment provider. Sign off status: Pending * Provider: Kassidy Foster MD Date: 0 09/29/2023 Generated for Lexis bennett/Zarina/Anasmitting on: 0 10/31/2024 05:04 PM EDT
--- OUTSIDE RECORDS SUMMARY | 2024-04-07 11:35 | XMS_ITS ---
Author Organization [facility] Address [address] [place] [address] Care Team Providers Care Voice Data Communications Engineer Name Role Phone Elias Swenson Primary Care Provider Unavailab Sami Mancera Jr Unavailable REASON FOR VISIT Patient presents today for GERD Encounters Encounter Location Date Provider Diagnosis [facility] [address] [place] [address] 04/07/2024 Sami Foster Jr Plan Of Treatment Next Appt Details Provider Name:Sami freeman Jr, 11/03/2024 02:15:00 PM, [address], [address], [place], [address], Progress Notes * JURGEN MONTEZDOB:1965 (59 yo F)Acc No.[id number]:04/07/2024 Progress Notes Patient: JURGEN LIU Provider: Kassidy Foster MD :1965 A ge:58 Y S ex:Female Date:04/07/2024 Address:[address] [facility] [id number] Pcp:Elias Swenson Subjective: * Chief Complaints: * [...] 04/07/2024 Generated for Lexis bennett/Zarina/Leena on: 0 10/31/2024 05:04 PM EDT
--- OUTSIDE RECORDS SUMMARY | 2024-07-20 09:00 | XMS_ITS ---
Author Organization [facility] Address [address] [facility] [address] [place] [address] Care Team Providers Care Dish Person Name Role Phone Elias Swenson Primary Care Provider Unavailab Sami Mancera Jr Unavailable [phone] REASON FOR VISIT gerd,dysphagia Encounters Encounter Location Date Provider Diagnosis [facility] [place] Out[facility] [address] [place] [id number] 07/20/2024 Sami Foster Jr Plan Of Treatment Next Appt Details Provider Name:Sami freeman Jr, 11/03/2024 02:15:00 PM, [address] [facility], [address], [place], [address], Progress Notes * JURGEN MONTEZDOB:1965 (59 yo F)Acc No.[id number]:07/20/2024 EGD/MAC Patient: JURGEN LIU Provider: Kassidy Foster MD :1965 A ge:59 Y S ex:Female Date:07/20/2024 Address:[address] [facility] [place] Pcp:Elias Swenson Subjective: * Chief Complaints: * 1 . Gerd,dysphagia. * Medical History: Objective: * Vitals: Assessment: Plan: * Treatment: * * The named appointment provid er may or may not be the originator of this progress note, and it is not deemed complete until electronically signed by the appointment provider. Sign off status: Pending * Provider: Kassidy Foster MD Date: 0 07/20/2024 Generated for Leandroi donald/Zarina/eTransmitting on: 0 10/31/2024 05:04 PM EDT
--- NOTE | 2024-10-31 14:45 | MHC.PC.OV ---
Vital Signs 10/31/24 14:47 Height 5 ft 8 in Weight 191 lb BMI 29.0 BP 130/66 Blood Pressure Location Lt brachial Position Sitting Pulse 85 Pulse Source Pulse Oximeter Temp 97.3 F Temp Source Temporal Artery Scan Pulse Oximetry (%) 97 Oxygen Delivery Method Room Air Intake Visit Reasons: 6 Month F/U Intake Note: Patient is here to follow up on CAD, HTN. Pt request retest for Covid Sleep Manager Required: No Assembly Person: Present Accompanied by: Grand Child Allergies penicillin V Allergy (Severe, Verified 10/31/24 14:54) throat swelling Penicillins (PCN) Allergy (Verified 10/31/24 14:54) Hives Tetanus Vaccines and Toxoid Allergy (Verified 10/31/24 14:54) Difficulty Breathing Iodinated Contrast Media (Contrast Dye) Adverse Reaction (Verified 10/31/24 14:54) Anaphylaxis Medication List - Last Reconciled 10/31/24 by Elias Swenson PA-C albuterol sulfate 90 mcg/actuation 2 puffs inhalation Q6H PRN blood pressure monitor (Blood Pressure Kit) As directed ibuprofen 600 mg PO Q8H PRN miscellaneous medical supply (Blood Pressure Cuff) Take blood pressure once a day as needed nebulizers (AeroEclipse II Nebulizer) As directed nebulizers (Aeroneb Go Nebulizer) As directed Tobacco use date assessed: 10/31/24 Dental Screening Dental Screen Date: 05/02/24 HPI 6 Month F/U HPI Details Patient is a 59-year-old female here today for follow-up visit ?Patient has a past medical history significant for allergic rhinitis, obesity, GERD, MEE, chronic lumbar and cervical?spine pain. concerns--> recently seen at [facility] for acute upper respiratory viral symptoms. Tested positive for COVID. The patient also reports sinus pressure and pain, described as a hard and painful sensation in the cheondoism area, likely related to sinusitis. She has been experiencing a persistent cough, which may be related to an upper respiratory tract infection. Additionally, the patient reports symptoms suggestive of dehydration, including frequent urination with minimal output and a sensation of needing to urinate shortly after voiding. She denies any burning sensation during urination. .. Coronary artery disease/ hyperlipidemia: Has been noted to have coronary artery disease though does not need stand at this time. She has followed up with cardiology recommends aspirin, beta-dani and statin therapy. Unfortunately she has not been taking statin therapy and working on dietary modifications. . [facility] Medical History Equivocal myocardial perfusion imaging Abnormal stress test Hyperlipidemia Intermittent palpitations Chest pain Anxiety, generalized Esophageal stricture Normal colonoscopy Asthma Surgical History History of endoscopy History of appendectomy History of bladder surgery History of torn meniscus of right knee History of gallbladder disease History of partial hysterectomy Family History Father CVD (cardiovascular disease) Past heart attack Mother Skin cancer Brother Heart problem Pacemaker Social History Household Members: Spouse Housing: Apartment Do you presently have visiting nurse or other home services: No Alcohol intake: never Patient Tobacco Use Status: Never used Tobacco e-Cigarette/Vaping Use: Never Used Second Hand Smoke Exposure: No service: No Current occupational status: unemployed Cognitive needs: No Hearing needs: No Vision needs: Yes (Reading glasses) Questionnaire Thrive Questionnaire Date Thrive assessed: 05/02/24 MEE-7 AMB Questionnaire MEE-7 Date MEE - 7 assessed: 05/02/24 Source: Developed by Drs. John Phan, Bebe Valerio, Lito Padron and colleagues, with an educational allison from [employer]. Review of Systems Const Reports headache(s) Eyes Denies loss of vision ENT Denies vertigo, Denies dizziness, Reports headache(s) and Denies sore throat Card Denies chest pain, Denies leg edema and Denies lightheadedness Resp Denies cough, Denies hemoptysis and Denies wheezing GI Denies abdominal pain, Denies melena, Denies constipation, Denies diarrhea and Denies vomiting Denies urinary frequency, Denies dysuria and Denies urinary urgency Musc Denies arthralgias, Denies joint swelling, Denies numbness and Denies tingling Neuro Denies Abnormal speech present, Denies behavioral changes, Denies vertigo, Denies dizziness, Reports headache(s), Denies loss of vision, Denies memory loss, Denies numbness and Denies tingling Psych Denies anxiety, Denies behavioral changes, Denies depression, Denies memory loss and Denies panic attacks Kane/Lymph Denies easy bleeding and Denies easy bruising Aller/Immun Denies wheezing Physical exam (Primary Care) Vital Signs: Last Vital Signs Temp 97.3 F 10/31/24 14:47 Pulse 85 10/31/24 14:47 BP 130/66 10/31/24 14:47 Pulse Ox 97 10/31/24 14:47 Oxygen Delivery Method Room Air 10/31/24 14:47 BMI result Body Mass Index 29.0 Tobacco/Smoking Status: Tobacco use Status Tobacco use date assessed 10/31/24 10/31/24 14:48 Patient Tobacco Use Status Never used Tobacco 10/31/24 14:48 e-Cigarette/Vaping Use Never Used 10/31/24 14:48 Thrive Assessment: Date of Thrive Assessment Date Thrive assessed 05/02/24 10/31/24 14:48 Const General: healthy appearing, no acute distress, alert and awake Nutritional Appearance: well nourished Orientation/consciousness: oriented to person, oriented to place and oriented to time HENMT Ears: TM's normal bilaterally General nose exam: Normal nasal mucous membranes and turbinates present Eyes Conjunctivae: conjunctivae normal Sclerae: sclerae normal Pupils: Equal, round and reactive pupils present Neck Neck: Yes no lymphadenopathy and Yes no JVD Thyroid: Thyroid normal Carotids: no bruits Resp Effort & Inspection: normal respiratory effort and not tachypneic Auscultation: no crackles, no rales, no rhonchi and no wheezes Cardio Rate: regular rate Rhythm: regular rhythm Heart sounds: no murmurs and normal S1 and S2 GI Palpation (GI): Soft to palpation, nontender, no hepatomegaly and no splenomegaly Auscultation: normal bowel sounds Skin General skin exam: no rashes or lesions noted and dry skin Neuro General: oriented to person, oriented to place and oriented to time Cranial nerves: Yes Equal, round and reactive pupils present Speech: No Abnormal speech present Gait exam (Neuro): Normal gait present Motor exam (neuro): no tremor noted Extrem Right upper extremity: full ROM Left upper extremity: full ROM Right lower extremity: full ROM; no edema Left lower extremity: full ROM; no edema Psych Mental Status: mental status grossly normal Speech and movement: Normal speech and movement present Affect: normal affect Attitude: cooperative Thought process: Normal thought process present Coding Level of Care Code Est Pt Level 4 (97550) Diagnoses Viral upper respiratory tract infection J06.9 URI type: unspecified viral URI Dysuria R30.0 Coronary artery disease involving [place] artery of transplanted heart without angina pectoris I25.811 Associated angina: without angina Coronary Disease-Associated Artery/Lesion type: [place] artery [place] vs. transplanted heart: transplanted heart Primary hypertension I10 Hypertension type: primary hypertension Assessment & Plan Assessment & Plan (1) URI (upper respiratory infection): Code(s): J06.9 - Acute upper respiratory infection, unspecified Category: Medical Qualifiers: URI type: unspecified viral URI Qualified Code(s): J06.9 - Acute upper respiratory infection, unspecified Plan: The patient is advised to continue resting and maintaining hydration to aid recovery from COVID-19. A prednisone taper is prescribed to manage inflammation and cough associated with the infection. The patient is also provided with an albuterol inhaler to assist with any respiratory symptoms. (2) Dysuria: Code(s): R30.0 - Dysuria Category: Medical Plan: A urinalysis is ordered to evaluate for a possible urinary tract infection. (3) CAD (coronary artery disease): Code(s): I25.10 - Atherosclerotic heart disease of [place] coronary artery without angina pectoris Category: Medical Qualifiers: Associated angina: without angina Coronary Disease-Associated Artery/Lesion type: [place] artery [place] vs. transplanted heart: transplanted heart Qualified Code(s): I25.811 - Atherosclerosis of [place] coronary artery of transplanted heart without angina pectoris Plan: Was supposed to be on aspirin, metoprolol, and atorvastatin though has not been taking these medications as she has been working on lifestyle and dietary modifications. She has mild to moderate CAD findings and patient hospitalization history. Future monitoring of lipid levels essential. Goal LDL to be optimally below 70 (4) HTN (hypertension): Code(s): I10 - Essential (primary) hypertension Category: Medical Qualifiers: Hypertension type: primary hypertension Qualified Code(s): I10 - Essential (primary) hypertension Plan: Patient's blood pressure acceptable today in office. Has not been taking metoprolol she has fears of side effects of fatigue. She did have coronary artery angiogram that did show coronary artery disease. Again advised to start up aspirin, beta-dani and statin therapy. Orders: Orders XR chest 2V 10/31/24 J06.9 - Acute upper respiratory infection, unspecified UA CC w/rflx Micro + Cult 10/31/24 R30.0 - Dysuria Medications: New prednisone Take 3 tablets x2 days, 2 tablets x2 days, 1 tablet x2 days 10 mg PO DIRECTED 12 tabs 0RF 6 days J06.9 - Acute upper respiratory infection, unspecified Changed From albuterol sulfate 90 mcg/actuation 2 puffs inhalation Q6H PRN 8.5 grams 0RF shortness of breath or wheezing or cough J06.9 - Acute upper respiratory infection, unspecified To albuterol sulfate 90 mcg/actuation 2 puffs inhalation Q6H 8.5 grams 3RF shortness of breath or wheezing or cough 30 days J06.9 - Acute upper respiratory infection, unspecified
[2024-10-31 14:47] VITALS: BP 130/66; PULSE 85; TEMP 36.3; O2SAT 97; BMI 29.0
--- OUTSIDE RECORDS SUMMARY | 2024-10-31 17:04 | XMS_ITS | Patient Health Record ---
Author Organization [facility] Address [address] [place] [address] Care Team Providers Care Dowel Setting Machine Operator Name Role Phone Elias Swenson [...] Dif Reviewed date:07/20/2024 04:40:28 PM Interpretation: Performing Lab:[facility], [address] [place] [id number] Notes/Report: White Blood Count 5.0 4.8-10.8 X10*3/uL [...] Panel Reviewed date:07/20/2024 04:40:37 PM Interpretation: Performing Lab:[address] [phone] Notes/Report: Bilirubin Total 0.9 0.0-1.0 mg/dL Bilirubin Direct 0.2 0.0-0.5 mg/dL Aspartate Amino Transferase 27 5-31 U/L Alanine Aminotransferase 29 0-31 U/L Total Protein 6.5 6.5-8.0 g/dL Albumin Level 4.4 3.5-5.0 g/dL Alkaline Phosphatase 73 39-117 U/L Lipase Reviewed date:07/20/2024 04:40:11 PM Interpretation: Performing Lab:[address] [phone] Notes/Report: Lipase 25 8-78 U/L Reason For Referral No Information Medications Medication SIG (Take, Route, Frequency, Duration) Notes Start Date End Date Status Pantoprazole Sodium 40 MG 1 Orally Twice a day for 30 days 07/07/2024 Active Omeprazole 40 MG TAKE 1 CAPSULE BY [facility] DAILY 30 MINUTES BEFORE BREAKFAST for 30 Active Aspirin 81 81 MG 1 tablet Orally Once a day for 30 day(s) Active Immunizations Vaccine Route Administration Date Status Comme nts Influenza Unknown 06/02/2022 Refused Problems Problem Type SNOMED Code ICD Code Onset Dates Problem Status W/U Status Risk Notes Problem 2873486 Diverticulitis o f large intestine without perforation or abscess without bleeding (K57.32) Active confirmed Problem Dysphagia (59176708) Dysphagia (R13.10) Active confirmed Problem Erosive esophagitis (22667835) Erosive esophagitis (K22.10) Active confirmed Problem Gastroesophageal reflux disease (025576513) GERD (gastroesophageal reflux disease) (K21.9) Active confirmed Problem 050875961 Abnormal barium swallow (R93.3) Active confirmed Problem 28040188 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) Active confirmed Problem 634119685 Family history o f liver disease (Z83.79) Active confirmed Problem 62900728 Change in bowel movement (R19.8) Active confirmed Problem 63631310 Esophageal dysphagia (R13.19) Active confirmed Vital Signs Blood pressure diastolic 77 mm Hg 07/07/2024 Height 61.5 in 07/07/2024 Blood pressure systolic 111 mm Hg 07/07/2024 Weight 181 lbs 07/07/2024 BMI 33.64 kg/m2 07/07/2024 Encounters Encounter Location Date Provider Diagnosis [facility] [address] [place] [id number] 07/20/2024 Sami Foster Jr [facility] [address] [place] [phone] 07/07/2024 Sami Foster Jr Dysphagia R13.10 and GERD (gastroesophageal reflux disease) K21.9 [facility] [address] [place] [phone] 04/07/2024 Sami Foster Jr [facility] [address] [place] [phone] 07/19/2024 Sami Foster Jr [facility] [address] [place] [phone] 07/20/2024 Sami Foster Jr GERD (gastroesophageal reflux [...] Provider Name:Sami freeman , 11/03/2024 02:15:00 PM, [address] [place] [address], [address], [place], [address], Insurance Providers Payer Name Payer Address Payer Phone Subscriber Number Group Number Insured Name Patient Relationship to Insured Coverage Start Date Coverage End Date [facility] [address] Attn Claims [employer] [id number] JURGEN MONTEZ Self - patient is the [...] for 10 days with covid Hospitalized at [facility] for allergic reaction to contrast 09/14
== END 2024-10-31 15:11 | disposition home or self-care (01) ==
LOC: HO.HMCH 14:44
PROVIDERS: PCP Physician Assistant; Visit Provider Physician Assistant
DX: J06.9 Acute upper respiratory infection, unspecified (principal); R30.0 Dysuria; I25.811 Atherosclerosis of native coronary artery of transplanted heart without angina pectoris; I10 Essential (primary) hypertension

== ENCOUNTER → 2024-10-31 14:43 | Outpatient (BNVA) | payer OTHER, SELFPAY | PROVIDERS: PCP Physician Assistant; Visit Provider Physician Assistant | DX: I25.811 Atherosclerosis of native coronary artery of transplanted heart without angina pectoris (principal); I10 Essential (primary) hypertension; J30.9 Allergic rhinitis, unspecified; E78.5 Hyperlipidemia, unspecified; J06.9 Acute upper respiratory infection, unspecified; R30.0 Dysuria | CPT/HCPCS: 99212 ==

== ENCOUNTER 2024-11-08 10:32 | Observation (INO) | payer OTHER, SELFPAY ==
--- OUTSIDE RECORDS SUMMARY | 2023-09-29 08:50 | XMS_ITS ---
Author Organization [facility] Address [address] [place] [address] Care Team Providers Care Documentation Manager Name Role Phone Elias Swenson Primary Care Provider Unavailab Sami Mancera Jr Unavailable REASON FOR VISIT erosive esophagitis, change in bowels Encounters Encounter Location Date Provider [place] [facility] [place] [address] [place], [place] [phone] 09/29/2023 Sami Foster Jr Change in bowel movement R19.8 and Erosive esophagitis K22.10 Assessments Encounter Date Diagnosis (ICD Code) Assessment Notes Treatment Notes Treatment Clinical Notes Section Notes 09/29/2023 Change in bowel movement (ICD-10 - R19.8) 09/29/2023 Erosive esophagitis (ICD-10 - K22.10) Plan Of Treatment Next Appt Details Provider Name:Sami freeman Jr, 11/09/2025 02:15:00 PM, [address], [address], [place], [address], Progress Notes * JURGEN MONTEZDOB:1965 (59 yo F)Acc No.[id number]:09/29/2023 EGD and COL/MAC Patient: JURGEN LIU Provider: Kassidy Foster MD :1965 A ge:58 Y S ex:Female Date:09/29/2023 Address:[address] [id number] Pcp:Elias Swenson Subjective: * Chief Complaints: * 1 . Erosive esophagitis, change in bowels. * Medical History: Objective: * Vitals: Assessment: * Assessment: 1. C hange in bowel movement - R19.8 (Primary) 2 . E rosive esophagitis - K22.10 Plan: * Treatment: * Procedure Codes: 4 5378 DIAGNOSTIC COLONOSCOPY, 27750 UPPER GI ENDOSCOPY, BIOPSY * * The named appointment provid er may or may not be the originator of this progress note, and it is not deemed complete until electronically signed by the appointment provider. Sign off status: Pending * Provider: Kassidy Foster MD Date: 0 09/29/2023 Generated for Lexis bennett/Zarina/Anasmitting on: 0 11/08/2024 03:31 PM EDT
--- OUTSIDE RECORDS SUMMARY | 2024-04-07 11:35 | XMS_ITS ---
Author Organization [facility] Address [address] [place] [address] Care Team Providers Care Mixer Helper Name Role Phone Elias Swenson Primary Care Provider Unavailab Sami Mancera Jr Unavailable REASON FOR VISIT Patient presents today for GERD Encounters Encounter Location Date Provider Diagnosis [facility] [address] [place] [address] 04/07/2024 Sami Foster Jr Plan Of Treatment Next Appt Details Provider Name:Sami freeman Jr, 11/09/2025 02:15:00 PM, [address], [address], [place], [address], Progress Notes * JURGEN MONTEZDOB:1965 (59 yo F)Acc No.[id number]:04/07/2024 Progress Notes Patient: JURGEN LIU Provider: Kassidy Foster MD :1965 A ge:58 Y S ex:Female Date:04/07/2024 Address:[address] [facility] [id number] Pcp:Elias Swenson Subjective: * Chief Complaints: * 1 . Patient presents today for GERD. * Medical History: Objective: * Vitals: Assessment: Plan: * Treatment: * * The named appointment provid er may or may not be the originator of this progress note, and it is not deemed complete until electronically signed by the appointment provider. Sign off status: Pending * Provider: Kassidy Foster MD Date: 0 04/07/2024 Generated for Lexis bennett/Zarina/Leena on: 0 11/08/2024 03:31 PM EDT
--- OUTSIDE RECORDS SUMMARY | 2024-07-20 09:00 | XMS_ITS ---
Author Organization [facility] Address [address] [facility] [address] [place] [address] Care Team Providers Care Court Attendant Name Role Phone Elias Swenson Primary Care Provider Unavailab Sami Mancera Jr Unavailable [phone] REASON FOR VISIT gerd,dysphagia Encounters Encounter Location Date Provider Diagnosis [facility] [place] [address] [place] [id number] 07/20/2024 Sami Foster Jr Plan Of Treatment Next Appt Details Provider Name:Sami freeman Jr, 11/09/2025 02:15:00 PM, [address] [facility], [address], [place], [address], Progress Notes * JURGEN MONTEZDOB:1965 (59 yo F)Acc No.[id number]:07/20/2024 EGD/MAC Patient: JURGEN LIU Provider: Kassidy Foster MD :1965 A ge:59 Y S ex:Female Date:07/20/2024 Address:[address] [facility] [place] Pcp:Elias Swenson Subjective: * Chief Complaints: * [...] 07/20/2024 Generated for Leandroi donald/Zarina/eTransmitting on: 0 11/08/2024 03:30 PM EDT
--- OUTSIDE RECORDS SUMMARY | 2024-11-03 10:15 | XMS_ITS ---
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 DAILY 30 MINUTES BEFORE BREAKFAST for [...] 11/03/2024 Encounters Encounter Location Date Provider Diagnosis [facility] [address] [place] [phone] 11/03/2024 Sami Foster Jr Erosive esophagitis K22.10 [...] Provider Name:Sami freeman , 11/09/2025 02:15:00 PM, [address] [place] [address], [address], [place], [address], Progress Notes * JURGEN MONTEZDOB:1965 (59 yo F)Acc No.[id number]:11/03/2024 Progress Notes Patient: JURGEN LIU Provider: Kassidy Foster MD :1965 A ge:59 Y S ex:Female Date:11/03/2024 Address:[address] [place] [address] , [id number] Pcp:Elias Swenson Subjective: * Chief Complaints: * [...] Hospitalization/Major Diagno stic Procedure: H ospitalized at [facility] for allergic reaction to contrast 09/14, [...] Pending * Provider: Kassidy Foster MD Date: 11/03/2024 Generated for Lexis bennett/Zarina/Michelleitting on: 11/08/2024 03:30 PM EDT
[2024-11-08] VITALS (12 sets, daily range): BP systolic 122–157; BP diastolic 58–90; PULSE 72–93; RESP 18–26; TEMP 36.1–36.9; O2SAT 90–99; BMI 31.0; BMI 31.1
--- NOTE | 2024-11-08 | ECG_ITS ---
Test Reason : chest pain Blood Pressure : */* mmHG Vent. Rate : 88 BPM Atrial Rate : 88 BPM P-R Int : 152 ms QRS Dur : 88 ms QT Int : 386 ms P-R-T Axes : 50 6 37 degrees QTcB Int : 467 ms Sinus rhythm with Premature supraventricular complexes Otherwise normal ECG When compared with ECG of 08-Nov-2024 12:05, No significant change was found Referred By: Anastasiia Villa Electronically Signed By: JERAMY KENNEY
--- NOTE | ~2024-11-08 | XR_ITS ---
EXAMINATION: XR CHEST CLINICAL INFORMATION: SOB COMPARISON: October 24, 2024 TECHNIQUE: Frontal view of the chest was obtained. FINDINGS: Poor inspiration. Mild prominence of the interstitial markings versus pulmonary reticular pattern. No consolidation, pleural effusion or pneumothorax. Cardiomediastinal silhouette size is normal. Calcified plaque thoracic aortic arch. Multilevel spondylosis. Degenerative changes in the acromioclavicular joints. Vascular clips right upper quadrant abdomen XR/XR chest 1V IMPRESSION: Acute small airway inflammatory process should be considered in the correct clinical settings. Electronically signed by: Aubrey Hurtado MD 11/08/2024 11:22 AM EDT
--- NOTE | 2024-11-08 10:40 | ED.GENADULT ---
HPI - General Adult General Chief complaint: Asthma Stated complaint: Asthma, SOB Time Seen by Provider: 11/08/24 10:44 Source: patient and old records reviewed Mode of arrival: ambulatory Limitations: no limitations History of Present Illness ED Provider: ALICIA COBURN narrative: 59 yo female with PMH of asthma only uses rescue inhaler, HTN, CAD, anxiety, who was just seen here and dx with COVID on 10/24 since then she has continued asthma exacerbation she was seen by PCP on 11/01 and treated with prednisone for 6 days. She note today since 8am it was worse she has no chest pain, fevers but her inhaler is not helping. She denies leg swelling. She is vaccinated against COVID. She has no nebulizer at home MD complaint: asthma Onset (ago): week(s) (1+) Location: chest Radiation: non-radiation Severity: moderate Relieving factors: none Exacerbating factors: movement Associated symptoms: cough, malaise and shortness of breath Treatments prior to arrival: other Related Data Previous Rx's ?Medication ?Instructions ?Recorded nebulizers (AeroEclipse II #1 ea 06/02/23 Nebulizer) nebulizers (Aeroneb Go Nebulizer) #1 ea 06/04/23 miscellaneous medical supply #1 ea 11/30/23 (Blood Pressure Cuff) blood pressure monitor (Blood #1 ea 02/22/24 Pressure Kit) ibuprofen 600 mg tablet 600 mg PO Q8H PRN fever or pain 10/24/24 #20 tabs albuterol sulfate 90 mcg/actuation 2 puff inhalation Q6H shortness of 10/31/24 aerosol inhaler breath or wheezing or cough 30 days #8.5 grams prednisone 10 mg tablet 10 mg PO DIRECTED 6 days #12 10/31/24 tabs Allergies Allergy/AdvReac Type Severity Reaction Status Date / Time penicillin V Allergy Severe throat Verified 11/08/24 10:42 swelling Penicillins (PCN) Allergy Hives Verified 11/08/24 10:42 Tetanus Vaccines and Toxoid Allergy Difficulty Verified 11/08/24 10:42 Breathing Iodinated Contrast Media AdvReac Anaphylaxis Verified 11/08/24 10:42 (Contrast Dye) Review of Systems Review of Systems: Constitutional : No Fever, No Chills ENT/Mouth : No Hoarseness, No sore throat, No Rhinorrhea Eyes: No Redness, No Discharge, No Vision Changes Cardiovascular : No Chest Pain, positive SOB, positive Dyspnea on Exertion, No Edema Respiratory : positive Cough, No Sputum, positive Wheezing, Gastrointestinal : No Nausea, No Vomiting, No Diarrhea, No abdominal Pain Genitourinary : No Dysuria, No Hematuria Musculoskeletal : No joint pain, No Myalgias Skin : No rash Neuro : No Weakness, No Numbness, No Headache Psych : No anxiety, depression Heme/Lymph: No Bruising, No Bleeding Endocrine : No Polyuria, No Polydipsia All other systems reviewed and are negative Yes all other systems are reviewed and are negative [facility] Past Medical History Attestation statement: The following information was validated with the patient. Source: old records reviewed Medical History Equivocal myocardial perfusion imaging Abnormal stress test Hyperlipidemia Intermittent palpitations Chest pain Anxiety, generalized Esophageal stricture Normal colonoscopy Asthma Surgical History History of endoscopy History of appendectomy History of bladder surgery History of torn meniscus of right knee History of gallbladder disease History of partial hysterectomy Family History Family History Father CVD (cardiovascular disease) Past heart attack Mother Skin cancer Brother Heart problem Pacemaker Social History Social History Household Members: Spouse Housing: Apartment Do you presently have visiting nurse or other home services: No Alcohol intake: never Patient Tobacco Use Status: Never used Tobacco e-Cigarette/Vaping Use: Never Used Second Hand Smoke Exposure: No Advance Directives: No Advance Directives Information Provided: No service: No Current occupational status: unemployed Cognitive needs: No Hearing needs: No Vision needs: Yes (Reading glasses) Physical Exam ED Vital Signs: Vital Signs - 24 hr 11/08/24 10:41 11/08/24 10:54 11/08/24 11:38 Temperature 97.5 F Pulse Rate 73 79 72 Respiratory Rate 26 H 26 H 22 H Blood Pressure 130/90 H Pulse Oximetry 99 Oxygen Delivery Method Room Air 11/08/24 11:59 Temperature 96.9 F Pulse Rate 82 Respiratory Rate 23 H Blood Pressure 135/60 Pulse Oximetry 99 Oxygen Delivery Method Room Air BMI result Body Mass Index 31.0 Appearance: Alert. Oriented X3. Mild acute distress. Eyes: Pupils equal, round and reactive to light. ENT: Pharynx normal. Neck: Normal inspection. Neck supple. CVS: tachycardic heart rate and rhythm. Pulses normal. Respiratory: Mild respiratory distress tachypnea and labored. Breath sounds diminished throughout Abdomen: Soft and nontender. Skin: Skin warm and dry. Normal skin color. Normal skin turgor. Extremities: No lower extremity edema. No calf ttp Neuro: Oriented X 3. No motor deficit. No sensory deficit. CN2-12 intact Course Course Course Narrative: This is an RME: Additional HPI, ROS, PE not included below will be deferred to primary provider. RME assessment and note performed by: Rebekah Elmore PA-C This is a 59-year-old female, with a past medical history of hypertension, hyperlipidemia, cardiomyopathy, GERD, who presents emergency department with concerns of shortness for breath which started this morning. Patient with inspiratory and expiratory wheezes noted throughout all lung parker, unable to speaking full sentences due to shortness for breath. Plan: Labs, chest x-ray, viral swabs, ED bronch protocol Medications Administered Discontinued Medications Generic Name Dose Route Start Last Admin Trade Name Freq PRN Reason Stop Dose Admin Albuterol Sulfate 5 mg/ 0 mg 11/08/24 10:50 11/08/24 10:54 Albuterol/Ipratropium 3 ml INHALE 11/08/24 10:51 1 each ONCE ONE Administration Albuterol Sulfate 2.5 mg/ 0 mg 11/08/24 11:36 11/08/24 11:37 Albuterol/Ipratropium 3 ml INHALE 11/08/24 11:37 1 dose ONCE ONE Administration Guaifenesin/Codeine Phosphate 5 ml 11/08/24 11:49 11/08/24 11:57 Guaifen/Codeine Sf 200/20/10ml 10 Ml Liquid PO 11/08/24 11:50 5 ml ONCE ONE Administration Magnesium Sulfate 2 gm in 50 mls @ 150 mls/hr 11/08/24 10:44 11/08/24 11:20 Magnesium Sulfate/H2o IV 11/08/24 11:03 Infused ONCE ONE Infusion Methylprednisolone Sodium Succinate 60 mg 11/08/24 10:44 11/08/24 10:59 Methylprednisolone Sod Succ 125 Mg/2 Ml Vial IVPUSH 11/08/24 10:45 60 mg ONCE ONE Administration Medical Decision Making Medical Decision Making [facility] Narrative: 59 yo female with PMH of asthma here with persistent wheezing and asthma exacerbations on and off since COVID on 10/24. She has no chest pain to suggest VTE she is audibly wheezing. Will obtain CXR, labs, nebs and IV steroids/magnesium ordered. Suspect she will need admission Differential Diagnosis Differential Diagnoses: The differential diagnosis associated with the presentation includes covid pneumonia, status asthmaticus Admission/Observation Consideration of admission/observation: Escalation of care including admission/observation considered admit for asthma management Consult Healthcare Provider Management of the patient was discussed with: Hospitalist (will admit) Lab Data [facility] Lab Attestation statement: I reviewed the patient's lab results. 11/08/24 10:55 11/08/24 10:55 Labs: Lab Results 11/08/24 11/08/24 11/08/24 Range/Units 10:54 10:55 11:01 WBC 5.0 (4.8-10.8) X10*3/uL RBC 4.12 L (4.20-5.50) X10*6/uL Hgb 12.4 (12.0-16.0) g/dl Hct 35.4 L (37.0-47.0) % MCV 85.9 (80.0-98.0) fL MCH 30.1 (27.0-33.0) pg MCHC 35.0 (31.0-35.0) g/dl RDW 12.3 (11.0-16.0) % Plt Count 228 (160-400) X10*3/uL MPV 9.9 (9.4-12.3) fL Immature Gran % (Auto) 0.4 (0.0-0.4) % Neut % (Auto) 54.0 (45-73) % Lymph % (Auto) 31.9 (20-40) % [place] % (Auto) 8.3 (2-11) % Eos % (Auto) 4.8 H (0-4) % Baso % (Auto) 0.6 (0-2) % Lymph # (Auto) 1.6 (1.2-4.9) X10*3/uL [place] # (Auto) 0.4 (0.1-1.2) X10*3/uL Eos # (Auto) 0.2 (0.0-0.4) X10*3/uL Baso # (Auto) 0.0 (0.0-0.2) X10*3/uL Abs Immat Gran (auto) 0.02 (0.00-0.03) X10*3/uL Absolute Neuts (auto) 2.7 (2.0-8.3) x10*3/uL Absolute Nucleated RBC 0.000 (0.0-0.012) X10*3/uL Nucleated RBC % (auto) 0.0 (0.0-0.2) /100WBC VBG pH 7.53 H (7.32-7.43) VBG pCO2 32 mmHg VBG pO2 35 mmHg VBG HCO3 27 H (22-26) mmol/L VBG O2 Saturation 60.0 % VBG Base Excess 4.8 mmol/L Sodium 139 (135-145) mmol/L Potassium 3.9 (3.3-5.1) mmol/L Chloride 106 (96-108) mmol/L Carbon Dioxide 23 (22-29) mmol/L Anion Gap 14 (12-20) BUN 13 (9-16) mg/dL Creatinine 0.73 (0.5-1.4) mg/dL Estim Creat Clear Calc 91.0 Estimated GFR > 60 Random Glucose 89 (60-115) mg/dL Calcium 9.0 (8.4-10.2) mg/dL Magnesium 2.2 (1.6-2.6) mg/dL Total Bilirubin 1.0 (0.0-1.0) mg/dL Direct Bilirubin 0.2 (0.0-0.5) mg/dL AST 30 (5-31) U/L ALT 24 (0-31) U/L Alkaline Phosphatase 81 (39-117) U/L Troponin I High Sens < 2.7 (<3.5-17.0) ng/L Total Protein 6.7 (6.5-8.0) g/dL Albumin 4.3 (3.5-5.0) g/dL COVID-19 (HESHAM) Negative (Negative) COVID-19 Clin Com See Note Influenza Type A (BRENDA) Negative (Negative) Influenza Type B (BRENDA) Negative (Negative) Influenza A & B Note See Note Independent Interpretation I performed an independent interpretation of an: EKG and Plain X-Ray (no pneumonia) Interpretation: Rate: 77 Rhythm: NSR [place]: left Normal P waves. Normal GERRI. Normal QRS complex. ST T wave : no KIANNA qTC: 482 prior studies: no acute ischemia The study has been interpreted contemporaneously by me. . Radiology Impression Discussion of test interpretation with radiology: I have reviewed the radiologist's reading. External Record Review External record reviewed: Outpatient record Critical Care Time Critical Care Time Critical Care Time: Yes Total Critical Care Time: 40 Attestation: Time is exclusive of separately billable procedures. Time includes: direct patient care, patient reassessment, coordination of patient care, interpretation of data (laboratory data, pulse oximetry venous blood gases and chest xrays), review of patient's medical records, medical consultation and documentation of patient care. Repeat nebs, IV magnesium. Procedures excluded from critical care time: electrocardiography. I attest to this time spent taking care of the patient Discharge Plan Discharge Clinical Impression: Asthma Patient Disposition: Admitted As Inpatient Print Language: Macedonian
[2024-11-08] MEDS: Albuterol Sulfate 5 MG, Albuterol/Iprat 2.5/0.5MG 3 ML 3 ML INHALE (10:54)
[2024-11-08] MEDS: Magnesium Sulfate/H2O 2 GM/50 ML PIGGYBACK IV (10:58)
[2024-11-08 11:02] LABS: Hematocrit 35.4 % (37.0-47.0); Hemoglobin 12.4 g/dl (12.0-16.0); Imm Gran Abs Auto 0.02 X10*3/uL (0.00-0.03); Imm Gran Pct Auto 0.4 % (0.0-0.4); Lymphocytes Absolute Auto 1.6 X10*3/uL (1.2-4.9); MANUAL DIFF FLAG NO; Mean Corpuscular HGB Conc 35.0 g/dl (31.0-35.0); Mean Corpuscular Hemoglobin 30.1 pg (27.0-33.0); Mean Corpuscular Volume 85.9 fL (80.0-98.0); NRBC Abs Auto 0.000 X10*3/uL (0.0-0.012); NRBC Pct Auto 0.0 /100WBC (0.0-0.2); Platelet Count 228 X10*3/uL (160-400); Red Blood Count 4.12 X10*6/uL (4.20-5.50); White Blood Count 5.0 X10*3/uL (4.8-10.8)
[2024-11-08 11:04] LABS: VBG HCO3 27 mmol/L (22-26); VBG O2 % Saturation 60.0 %
[2024-11-08 11:05] LABS: Venous Blood Gas Refer to POC result
[2024-11-08] MEDS: Albuterol Sulfate 2.5 MG, Albuterol/Iprat 2.5/0.5MG 3 ML 3 ML INHALE (11:37)
--- NOTE | 2024-11-08 11:49 | ECG_ITS ---
Test Reason : SOB Blood Pressure : */* mmHG Vent. Rate : 77 BPM Atrial Rate : 77 BPM P-R Int : 150 ms QRS Dur : 90 ms QT Int : 426 ms P-R-T Axes : 36 -6 42 degrees QTcB Int : 482 ms Sinus rhythm with Premature atrial complexes Prolonged QT Abnormal ECG When compared with ECG of 24-Oct-2024 17:32, Premature atrial complexes are now Present Referred By: iN Jewell Electronically Signed By: JERAMY KENNEY
[2024-11-08 11:56] LABS: Troponin-I High Sensitivity < 2.7 ng/L (<3.5-17.0)
[2024-11-08] MEDS: guaiFEN/Codeine SF 200/20/10ML 10 ML LIQUID 5 ML PO (11:57)
[2024-11-08 11:58] LABS: COVID-19 Test Negative (Negative); IDNOW Serial# 58CA691E
[2024-11-08 11:59] LABS: IDNOW Serial# 08D9AD1C; Influenza B2 Negative (Negative)
[2024-11-08 12:00] LABS: Alanine Aminotransferase 24 U/L (0-31); Albumin Level 4.3 g/dL (3.5-5.0); Alkaline Phosphatase 81 U/L (39-117); Anion Gap 14 (12-20); Aspartate Amino Transferase 30 U/L (5-31); Blood Urea Nitrogen 13 mg/dL (9-16); Calcium 9.0 mg/dL (8.4-10.2); Carbon Dioxide 23 mmol/L (22-29); Chloride 106 mmol/L (96-108); Creatinine Clr Calc Pharmacy 91.0; Estimated Glomerular Filt Rate > 60; Magnesium 2.2 mg/dL (1.6-2.6); Potassium 3.9 mmol/L (3.3-5.1); Sodium 139 mmol/L (135-145); Total Protein 6.7 g/dL (6.5-8.0)
--- NOTE | 2024-11-08 12:32 | PM.IMHP ---
History of Present Illness Date of Service: 11/08/24 Chief Complaint: Wheezing 59 year old women presenting with increased shortness of breath. Patient reported that she had COVID for over 2 weeks. She went to see her primary care provider last Thursday and she was given an inhaler and steroids. She reports since then she feels like she has been getting worse. She felt very wheezy and short of breath. Chest x-ray in the ER showed acute small airway inflammation. No fever or leukocytosis noted. No hypoxia.Cxr negative for consolidation or effusion. She is not hypoxic, she has fever or leukocytosis. In the ER she was given a dose of IV Solu-Medrol, magnesium, albuterol, Robitussin. She will be placed on observation for acute asthma exacerbation with no hypoxia. Review of Systems Review of Systems: Denies any recent fever chills or decrease in appetite respiratory see HPI cardiovascular Denied chest pain gastrointestinal denies any dysphagia abdominal pain nausea vomiting or diarrhea genitourinary denies any dysuria frequency or hematuria musculoskeletal denies any joint pain or swelling neuropsych denies any weakness or seizures all other systems reviewed are negative [facility] Medical History Equivocal myocardial perfusion imaging Abnormal stress test Hyperlipidemia Intermittent palpitations Chest pain Anxiety, generalized Esophageal stricture Normal colonoscopy Asthma Family History Father CVD (cardiovascular disease) Past heart attack Mother Skin cancer Brother Heart problem Pacemaker Surgical History History of endoscopy History of appendectomy History of bladder surgery History of torn meniscus of right knee History of gallbladder disease History of partial hysterectomy Social History Household Members: Spouse Housing: Apartment Do you presently have visiting nurse or other home services: No Alcohol intake: never Patient Tobacco Use Status: Never used Tobacco e-Cigarette/Vaping Use: Never Used Second Hand Smoke Exposure: No service: No Current occupational status: unemployed Cognitive needs: No Hearing needs: No Vision needs: Yes (Reading glasses) Meds Allergies Allergy/AdvReac Type Severity Reaction Status Date / Time penicillin V Allergy Severe throat Verified 11/08/24 10:42 swelling Penicillins (PCN) Allergy Hives Verified 11/08/24 10:42 Tetanus Vaccines and Toxoid Allergy Difficulty Verified 11/08/24 10:42 Breathing Iodinated Contrast Media AdvReac Anaphylaxis Verified 11/08/24 10:42 (Contrast Dye) Home Medications ?Medication ?Instructions ?Recorded ?Confirmed ?Last Taken ?Type clonazepam 0.5 mg tablet (Klonopin) 0.5 mg PO BEDTIME PRN Anxiety 11/08/24 Unknown History pantoprazole 40 mg tablet,delayed 40 mg PO BID 11/08/24 Unknown History release sertraline 50 mg tablet 50 mg PO DAILY 11/08/24 Unknown History Physical Exam Vital Signs and Narrative: Vital Signs: Last Vital Signs Temp 96.9 F 11/08/24 11:59 Pulse 82 11/08/24 11:59 Resp 23 H 11/08/24 11:59 BP 135/60 11/08/24 11:59 Pulse Ox 99 11/08/24 11:59 O2 Del Method Room Air 11/08/24 11:59 BMI result Body Mass Index 31.0 Appearing in no acute distress head is normocephalic atraumatic eyes pupils are PERRLA sclera is anicteric mouth throat mucous membranes are intact and moist neck is supple no lymphadenopathy, no JVD noted lung sounds expiratory wheezing heart regular rate rhythm, clear S1, S2 positive bowel sounds, abdomen is soft, nontender neuro patient is alert x3, no focal deficits Results Labs 11/08/24 10:55 11/08/24 10:55 Labs: Laboratory Results - last 24 hr 11/08/24 11/08/24 11/08/24 10:54 10:55 11:01 MCV 85.9 MCH 30.1 MCHC 35.0 RDW 12.3 Plt Count 228 MPV 9.9 Immature Gran % (Auto) 0.4 Neut % (Auto) 54.0 Lymph % (Auto) 31.9 [place] % (Auto) 8.3 Eos % (Auto) 4.8 H Baso % (Auto) 0.6 Lymph # (Auto) 1.6 [place] # (Auto) 0.4 Eos # (Auto) 0.2 Baso # (Auto) 0.0 Abs Immat Gran (auto) 0.02 Absolute Neuts (auto) 2.7 Absolute Nucleated RBC 0.000 Nucleated RBC % (auto) 0.0 VBG pH 7.53 H VBG pCO2 32 VBG pO2 35 VBG HCO3 27 H VBG O2 Saturation 60.0 VBG Base Excess 4.8 Anion Gap 14 Estim Creat Clear Calc 91.0 Estimated GFR > 60 Random Glucose 89 Calcium 9.0 Magnesium 2.2 Total Bilirubin 1.0 Direct Bilirubin 0.2 AST 30 ALT 24 Alkaline Phosphatase 81 Troponin I High Sens < 2.7 Total Protein 6.7 Albumin 4.3 COVID-19 (HESHAM) Negative COVID-19 Clin Com See Note Influenza Type A (BRENDA) Negative Influenza Type B (BRENDA) Negative Influenza A & B Note See Note Imaging Radiologist's Impressions: Impressions Chest X-Ray 11/08/24 11:10 IMPRESSION: Acute small airway inflammatory process should be considered in the correct clinical settings. Electronically signed by: Aubrey Hurtado MD 11/08/2024 11:22 AM EDT RP Assessment and Plan (1) Acute asthma exacerbation: Qualifiers: Asthma severity: unspecified severity Asthma persistence: persistent Qualified Code(s): J45.901 - Unspecified asthma with (acute) exacerbation Status: Acute Plan 59 year old women admitted with acute asthma exacerbation Acute asthma exacerbation without hypoxia No PNA noted on CXR Solumedrol, duonebs oxygen as needed to keep o2 sats> 91% Obesity class I. BMI 31.0 Discussed importance of weight management as this may be contributing to worsening of other comorbidities Acute anxiety Likely secondary to asthma exacerbation with wheezing tight chest Lorazepam low dose p.r.n. DVT prophylaxis with Lovenox Full code Quality Stroke Does the patient have a stroke diagnosis?: No VTE Prior VTE?: No VTE Risk Level:: Medical - moderate - high VTE Device Contraindication: Treatment Not Indicated VTE Drug Contraindication: N/A - Med Ordered
--- NOTE | 2024-11-08 14:15 | PHA.MEDREC ---
Addendum entered by Tay Humphrey PharmD 11/08/24 14:23: reviewed Original Note: Pharmacy Consult ? Medication Reconciliation Pharmacy has completed the medication reconciliation. patient states she is only taking Albuterl HFA inhaler. Patient states she is not taking Clonazepam 0.5 mg, Ibuprofen 600 mg, Prednisone 10 mg, and Sertraline 50 mg even though they were recently filled.
--- OUTSIDE RECORDS SUMMARY | 2024-11-08 15:31 | XMS_ITS | Patient Health Record ---
Author Organization [facility] Address [address] [place] [address] Care Team Providers Care Photolithographic Stripper Name Role Phone Elias Swenson Primary Care [...] Dif Reviewed date:07/20/2024 04:40:28 PM Interpretation: Performing Lab:[facility], [address] [place] [id number] Notes/Report: White Blood Count 5.0 4.8-10.8 X10*3/uL [...] Panel Reviewed date:07/20/2024 04:40:37 PM Interpretation: Performing Lab:[address] [id number] Notes/Report: Bilirubin Total 0.9 0.0-1.0 mg/dL Bilirubin Direct 0.2 0.0-0.5 mg/dL Aspartate Amino Transferase 27 5-31 U/L Alanine Aminotransferase 29 0-31 U/L Total Protein 6.5 6.5-8.0 g/dL Albumin Level 4.4 3.5-5.0 g/dL Alkaline Phosphatase 73 39-117 U/L Lipase Reviewed date:07/20/2024 04:40:11 PM Interpretation: Performing Lab:[facility], [address] [place] [phone] Notes/Report: Lipase 25 8-78 U/L Reason For Referral No Information Medications Medication SIG (Take, Route, Frequency, Duration) Notes Start Date End Date Status Pantoprazole Sodium 40 MG 1 Orally twice daily for 30 days 11/03/2024 Active Aspirin 81 81 MG 1 tablet Orally Once a day for 30 day(s) Not-Taking Omeprazole 40 MG TAKE 1 CAPSULE BY [facility] DAILY 30 MINUTES BEFORE BREAKFAST for 30 Not-Taking Pantoprazole Sodium 40 MG 1 Orally Twice a day for 30 days 07/07/2024 Active Immunizations Vaccine Route Administration Date Status Comme nts Influenza Unknown 06/02/2022 Refused Problems Problem Type SNOMED Code ICD Code Onset Dates Problem Status W/U Status Risk Notes Problem 2606216 Diverticulitis o f large intestine without perforation or abscess without bleeding (K57.32) Active confirmed Problem Dysphagia (23503997) Dysphagia (R13.10) Active confirmed Problem Erosive esophagitis (06345137) Erosive esophagitis (K22.10) Active confirmed Problem Gastroesophageal reflux disease (124869916) GERD (gastroesophageal reflux disease) (K21.9) Active confirmed Problem 177498127 Abnormal barium swallow (R93.3) Active confirmed Problem 17481797 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) Active confirmed Problem 024214399 Family history o f liver disease (Z83.79) Active confirmed Problem 98566759 Change in bowel movement (R19.8) Active confirmed Problem 79389155 Esophageal dysphagia (R13.19) Active confirmed Vital Signs Temperature 96.9 degrees Fahrenheit 11/03/2024 Blood pressure diastolic 01 mm Hg 11/03/2024 Height 61.5 in 11/03/2024 Blood pressure systolic 001 mm Hg 11/03/2024 Weight 193.8 lbs 11/03/2024 BMI 36.02 kg/m2 11/03/2024 Encounters Encounter Location Date Provider Diagnosis [facility] [address] [place] [id number] 07/20/2024 Sami Foster Jr [facility] [address] [place] [phone] 11/03/2024 Sami Foster Jr Erosive esophagitis K22.10 and Diarrhea R19.7 [facility] [address] [place] [phone] 07/07/2024 Sami Foster Jr Dysphagia R13.10 and GERD (gastroesophageal reflux disease) K21.9 [facility] [address] [place] [address] Drive [address] [place] [phone] 04/07/2024 Sami Foster Jr [facility] [address] [place] [address] Drive [address] [place] [phone] 07/19/2024 Sami Foster Jr [facility] [address] [place] [phone] 07/20/2024 Sami Foster Jr GERD (gastroesophageal reflux disease) K21.9 Assessments Encounter Date Diagnosis (ICD Code) Assessment Notes Treatment Notes Treatment Clinical Notes Section Notes 11/03/2024 Diarrhea (ICD-10 - R19.7) 11/03/2024 Erosive esophagitis (ICD-10 - K22.10) 07/07/2024 Dysphagia (ICD-10 - R13.10) Undue we [...] Today's visit was 30 minutes. 07/07/2024 GERD (gastroesophage al reflux disease) (ICD-10 - K21.9) Undue we [...] Today's visit was 30 minutes. 07/20/2024 GERD (gastroesophage al reflux disease) (ICD-10 - K21.9) Plan Of Treatment Pending Test Test Name Order Date LIVER PROFILE 07/07/2024 LIPASE 07/07/2024 STOOL WBC 11/03/2024 OVA & PARASITES (O&P) 11/03/2024 CBC & MANUAL DIFFERENTIAL 07/07/2024 GI PANEL 11/03/2024 Future Test Test Name Order Date COLONOSCOPY 02/13/2016 UPPER GI ENDOSCOPY 06/02/2022 UPPER GI ENDOSCOPY ANY OTHER TECHNIQUE 0 09/16/2023 COLONOSCOPY 09/16/2023 UPPER GI ENDOSCOPY BALLOOON DILATION OF ESOPH 07/07/2024 Next Appt Details Provider Name:Sami freeman Jr, 11/09/2025 02:15:00 PM, [address] [facility], [address], [place], [address], Insurance Providers Payer Name Payer Address Payer Phone Subscriber Number Group Number Insured Name Patient Relationship to Insured Coverage Start Date Coverage End Date [facility] [address] Attn Claims [employer] [id number] JURGEN MONTEZ Self - patient is the insured Medical (General) History Medical History History ICD Code asthma stress urinary incontinence Colonoscopy 10/16, no colitis, 10-year fo llow-up Gastroesophageal reflux dise ase, EGD 10/16, no H. pylori, GERD changes noted on biopsy, no Quach's esophagus Hyperlipidemia HSV infection with shingles 2023 Surgical History Surgery Date(Month/Year) bladder stimulator this was removed in 2 022 appendectomy cholecystectomy hysterectomy Hospitalization History Reason Date(Month/Year) hospital for 10 days with che Hospitalized at [facility] for allergic reaction to contrast 09/14
[2024-11-08] MEDS: guaiFENesin DM 100/10/5 ML 5 ML SYRUP PO ×2 (15:52→21:53)
[2024-11-08] MEDS: 0.9 % Sodium Chloride Flush 3 ML SYRINGE IVFLUSH (22:30)
[2024-11-09] VITALS (12 sets, daily range): BP systolic 110–142; BP diastolic 56–68; PULSE 77–97; RESP 18–20; TEMP 36.1–36.8; O2SAT 92–97
[2024-11-09 00:27] LABS: Troponin-I High Sensitivity < 2.7 ng/L (<3.5-17.0)
[2024-11-09] MEDS: guaiFENesin DM 100/10/5 ML 5 ML SYRUP PO ×3 (04:32→22:08)
[2024-11-09 07:02] LABS: MANUAL DIFF FLAG NO
[2024-11-09 07:10] LABS: Hematocrit 33.1 % (37.0-47.0); Hemoglobin 11.3 g/dl (12.0-16.0); Imm Gran Abs Auto 0.06 X10*3/uL (0.00-0.03); Imm Gran Pct Auto 1.0 % (0.0-0.4); Lymphocytes Absolute Auto 0.5 X10*3/uL (1.2-4.9); Mean Corpuscular HGB Conc 34.1 g/dl (31.0-35.0); Mean Corpuscular Hemoglobin 30.2 pg (27.0-33.0); Mean Corpuscular Volume 88.5 fL (80.0-98.0); NRBC Abs Auto 0.000 X10*3/uL (0.0-0.012); NRBC Pct Auto 0.0 /100WBC (0.0-0.2); Platelet Count 228 X10*3/uL (160-400); Red Blood Count 3.74 X10*6/uL (4.20-5.50); White Blood Count 6.1 X10*3/uL (4.8-10.8)
[2024-11-09 07:29] LABS: Anion Gap 11 (12-20); Blood Urea Nitrogen 15 mg/dL (9-16); Calcium 8.7 mg/dL (8.4-10.2); Carbon Dioxide 23 mmol/L (22-29); Chloride 107 mmol/L (96-108); Creatinine Clr Calc Pharmacy 98.0; Estimated Glomerular Filt Rate > 60; Potassium 3.7 mmol/L (3.3-5.1); Sodium 137 mmol/L (135-145)
[2024-11-09 07:30] LABS: Cholesterol 203 mg/dL (<200); HDL Cholesterol 63 mg/dL (>40); Triglycerides 81 mg/dL (<150)
--- NOTE | 2024-11-09 08:42 | HO.PM.IMPN ---
Subjective Subjective Date of Service: 11/09/24 Interval History: Patient appears to be pretty anxious But reduced to endorse SOB/WEATHERS despite no objective evidence-saturating 99 % on room air, able to speak in complete sentences We will switch her antibiotics We will check rapid respiratory panel, MRSA nasal screen We will transition her to p.o. prednisone given optimal therapy Review of Systems Review of Systems: Yes all other systems are reviewed and are negative Physical Exam Exam: Exam: General: AOx3, Resp: Bilateral expiratory wheezing noted, not in any acute respiratory distress, CVS: S1, S2, RRR GI: +BS, NT, no distention Psych: Anxious Vital Signs: Vital Signs: Last Vital Signs Temp 97.0 F 11/09/24 07:33 Pulse 77 11/09/24 07:59 Resp 18 11/09/24 07:59 BP 131/60 11/09/24 07:33 Pulse Ox 94 11/09/24 07:33 O2 Del Method Room Air 11/09/24 07:33 BMI result Body Mass Index 31.1 Objective Data Active Medications Acetaminophen (Acetaminophen 325 Mg Tablet) 650 mg PO Q6H PRN PRN Reason: Pain, Mild 1-3,fever,headache Last Admin: 11/09/24 04:56 Dose: 650 mg Documented By: SHADY Calcium Carbonate (Calcium Carbonate 750 Mg Tab.Chew) 750 mg PO Q4H PRN PRN Reason: Heartburn Enoxaparin Sodium (Enoxaparin Sodium 40 Mg/0.4 Ml Syringe) 40 mg SUBCUT Q24H [facility] Last Admin: 11/08/24 18:21 Dose: 40 mg Documented By: BRAULIO Guaifenesin/Dextromethorphan (Guaifenesin Dm 100/10/5 Ml 5 Ml Syrup) 5 ml PO Q4H PRN PRN Reason: Cough Last Admin: 11/09/24 04:32 Dose: 5 ml Documented By: SHADY Levalbuterol HCl (Levalbuterol Hcl 1.25 Mg/3 Ml Vial.Neb) 1.25 mg INHALE Q2H PRN PRN Reason: Dyspnea Lorazepam (Lorazepam 0.5 Mg Tablet) 0.25 mg PO Q8H PRN PRN Reason: Anxiety Last Admin: 11/08/24 21:50 Dose: 0.25 mg Documented By: SHADY Magnesium Hydroxide (Milk Of Magnesia 30 Ml Oral.Susp) 30 ml PO DAILY PRN PRN Reason: Constipation Melatonin (Melatonin 3 Mg Tablet) 6 mg PO BEDTIME PRN PRN Reason: Insomnia Ondansetron HCl (Ondansetron Hcl 4 Mg/2 Ml Vial) 4 mg IVPUSH Q8H PRN PRN Reason: Nausea and Vomiting Sodium Chloride (0.9 % Sodium Chloride Flush 3 Ml Syringe) 3 ml IVFLUSH QSHIFT [facility] Last Admin: 11/08/24 22:30 Dose: 3 ml Documented By: SHADY Labs 11/09/24 06:16 11/09/24 06:16 Labs: Laboratory Results - last 24 hr 11/08/24 11/08/24 11/08/24 10:54 10:55 11:01 MCV 85.9 MCH 30.1 MCHC 35.0 RDW 12.3 Plt Count 228 MPV 9.9 Immature Gran % (Auto) 0.4 Neut % (Auto) 54.0 Lymph % (Auto) 31.9 Grainger % (Auto) 8.3 Eos % (Auto) 4.8 H Baso % (Auto) 0.6 Lymph # (Auto) 1.6 Grainger # (Auto) 0.4 Eos # (Auto) 0.2 Baso # (Auto) 0.0 Abs Immat Gran (auto) 0.02 Absolute Neuts (auto) 2.7 Absolute Nucleated RBC 0.000 Nucleated RBC % (auto) 0.0 VBG pH 7.53 H VBG pCO2 32 VBG pO2 35 VBG HCO3 27 H VBG O2 Saturation 60.0 VBG Base Excess 4.8 Anion Gap 14 Estim Creat Clear Calc 91.0 Estimated GFR > 60 Random Glucose 89 Calcium 9.0 Magnesium 2.2 Total Bilirubin 1.0 Direct Bilirubin 0.2 AST 30 ALT 24 Alkaline Phosphatase 81 Troponin I High Sens < 2.7 Total Protein 6.7 Albumin 4.3 Triglycerides Cholesterol LDL Cholesterol, Calc HDL Cholesterol COVID-19 (HESHAM) Negative COVID-19 Clin Com See Note Influenza Type A (BRENDA) Negative Influenza Type B (BRENDA) Negative Influenza A & B Note See Note 11/08/24 11/09/24 23:52 06:16 MCV 88.5 MCH 30.2 MCHC 34.1 RDW 12.5 Plt Count 228 MPV 10.2 Immature Gran % (Auto) 1.0 H Neut % (Auto) 87.4 H Lymph % (Auto) 8.1 L Grainger % (Auto) 3.3 Eos % (Auto) 0.0 Baso % (Auto) 0.2 Lymph # (Auto) 0.5 L Grainger # (Auto) 0.2 Eos # (Auto) 0.0 Baso # (Auto) 0.0 Abs Immat Gran (auto) 0.06 H Absolute Neuts (auto) 5.3 Absolute Nucleated RBC 0.000 Nucleated RBC % (auto) 0.0 VBG pH VBG pCO2 VBG pO2 VBG HCO3 VBG O2 Saturation VBG Base Excess Anion Gap 11 L Estim Creat Clear Calc 98.0 Estimated GFR > 60 Random Glucose 192 H Calcium 8.7 Magnesium Total Bilirubin Direct Bilirubin AST ALT Alkaline Phosphatase Troponin I High Sens < 2.7 Total Protein Albumin Triglycerides 81 Cholesterol 203 H LDL Cholesterol, Calc 124 H HDL Cholesterol 63 COVID-19 (HESHAM) COVID-19 Clin Com Influenza Type A (BRENDA) Influenza Type B (BRENDA) Influenza A & B Note Assessment and Plan (1) URI (upper respiratory infection): Status: Acute Plan 59 yo female with PMH of asthma on p.r.n. rescue inhaler, allergic rhinitis, GERD, chronic lumbar and cervical spine arthropathy, HTN, CAD, anxiety, morbid obesity who was just seen here and dx with COVID on 10/24 who appears to have acute hypoxic respiratory failure requiring escalating doses of p.r.n. inhaler being admitted for acute exacerbation of asthma in the setting of post COVID sequelae acute hypoxic respiratory failure requiring escalating doses of p.r.n. inhaler being admitted for acute exacerbation of asthma in the setting of post COVID sequelae Patient reports having had multiple prior chronic episodes of COVID requiring intubation nearly 2 years ago Patient likely has post COVID sequelae requiring inpatient treatment for asthma exacerbation Patient has been initiated on pilar Laba and steroid inhalers We will deescalate IV steroids to p.o. given optimal response Patient appears objectively/significantly much better despite endorsing SOB/WEATHERS with minimal movement However she does have expiratory wheezing Given that the patient is nearly 2 weeks out of prior COVID, does not warrant COVID management PPI to prevent stress induced ulcers Musculoskeletal pain from repeated bouts of cough-we will treat with guanfacine, lozenges, Robaxin, lidocaine, scheduled Tylenol CAD HTN Atherosclerotic heart disease of [place] coronary artery without angina pectoris Patient is on telemetry, troponin negative We will continue to monitor Ideally needs to be on aspirin, metoprolol, atorvastatin-per PCP just a week ago, apparently patient has been working on lifestyle and dietary modifications and hence deferred initiating these meds. We will defer to outpatient management DVT prophylaxis with Lovenox while inpatient This note is constructed using voice recognition software. While every effort has been made to ensure accuracy, pneumatic jacketer errors may have been included. Quality Stroke Does the patient have a stroke diagnosis?: No VTE Prior VTE?: No VTE Risk Level:: Medical - moderate - high VTE Device Contraindication: Treatment Not Indicated VTE Drug Contraindication: N/A - Med Ordered
[2024-11-09] MEDS: 0.9 % Sodium Chloride Flush 3 ML SYRINGE IVFLUSH ×2 (10:45→22:10)
--- NOTE | 2024-11-09 10:57 | MHC.CM.PN ---
Mary Jo 11/09/24, Pt. lives alone, PCP is Elias Swenson, she declined to complete HCP. She does not use home health services or DME. She can arrange a ride home at [place], DCP; home, self care. CM to follow for DC needs.
[2024-11-09] MEDS: Morphine Sulfate ER 15 MG TABLET.ER PO (13:35)
[2024-11-09] MEDS: Albuterol Sulfate (0.083%) 2.5 MG/3 ML VIAL.NEB INHALE (17:31)
[2024-11-10] VITALS (9 sets, daily range): BP systolic 110–134; BP diastolic 53–60; PULSE 60–91; RESP 18–20; TEMP 36.2–36.5; O2SAT 95–98
[2024-11-10] MEDS: guaiFENesin DM 100/10/5 ML 5 ML SYRUP PO ×4 (03:37→18:12)
[2024-11-10] MEDS: Albuterol/Iprat 2.5/0.5MG 3 ML AMPUL.NEB INHALE ×4 (07:57→18:47)
[2024-11-10] MEDS: Fluticasone/Vilanterol 100/25 BLST.W.DEV 1 PUFF INHALE (07:57)
--- NOTE | 2024-11-10 08:01 | HO.PM.IMPN ---
Subjective Subjective Date of Service: 11/10/24 Physical Exam Vital Signs: Vital Signs: Last Vital Signs Temp 97.6 F 11/10/24 07:40 Pulse 74 11/10/24 07:59 Resp 18 11/10/24 07:59 BP 124/60 11/10/24 07:40 Pulse Ox 95 11/10/24 07:40 O2 Del Method Room Air 11/10/24 07:40 BMI result Body Mass Index 31.1 Objective Data Active Medications Acetaminophen (Acetaminophen 325 Mg Tablet) 975 mg PO Q6H [facility] Last Admin: 11/10/24 06:17 Dose: 975 mg Documented By: ALLI Albuterol Sulfate (Albuterol Sulfate (0.083%) 2.5 Mg/3 Ml Vial.Neb) 2.5 mg INHALE Q2H PRN PRN Reason: Shortness of Breath/Wheezing Last Admin: 11/09/24 17:31 Dose: 2.5 mg Documented By: SCOVILH Albuterol/Ipratropium (Albuterol/Iprat 2.5/0.5mg 3 Ml Ampul.Neb) 3 ml INHALE RQ4H WHILE AWAKE [facility] [place] Last Admin: 11/10/24 07:57 Dose: 3 ml Documented By: BRESNE Benzocaine (Throat Lozenge, Medicated Lozenge) 1 lozenge MUCOUS MEM Q2H PRN PRN Reason: Sore Throat Bisacodyl (Bisacodyl 10 Mg Supp.Rect) 10 mg OH ONCE PRN PRN Reason: constipation Calcium Carbonate (Calcium Carbonate 750 Mg Tab.Chew) 750 mg PO Q4H PRN PRN Reason: Heartburn Doxycycline Monohydrate (Doxycycline Monohydrate 100 Mg Capsule) 100 mg PO Q12H [facility] [place] Stop: 11/14/24 18:59 Last Admin: 11/10/24 06:18 Dose: 100 mg Documented By: ALLI Enoxaparin Sodium (Enoxaparin Sodium 40 Mg/0.4 Ml Syringe) 40 mg SUBCUT Q24H [facility] [place] Last Admin: 11/09/24 17:46 Dose: 40 mg Documented By: FOSTEKR Fluticasone/Vilanterol (Fluticasone/Vilanterol 100/25 Blst.W.Dev) 1 puff INHALE RDAILY [facility] [place] Last Admin: 11/10/24 07:57 Dose: 1 puff Documented By: JAH Guaifenesin/Dextromethorphan (Guaifenesin Dm 100/10/5 Ml 5 Ml Syrup) 5 ml PO Q4H PRN PRN Reason: Cough Last Admin: 11/10/24 03:37 Dose: 5 ml Documented By: ALLI Levalbuterol HCl (Levalbuterol Hcl 1.25 Mg/3 Ml Vial.Neb) 1.25 mg INHALE Q2H PRN PRN Reason: Dyspnea Last Admin: 11/10/24 04:19 Dose: 1.25 mg Documented By: JT Magnesium Hydroxide (Milk Of Magnesia 30 Ml Oral.Susp) 30 ml PO DAILY PRN PRN Reason: Constipation Melatonin (Melatonin 3 Mg Tablet) 6 mg PO BEDTIME PRN PRN Reason: Insomnia Methocarbamol (Methocarbamol 500 Mg Tablet) 500 mg PO QID [facility] [place] Last Admin: 11/09/24 22:08 Dose: 500 mg Documented By: RAHEL Nicotine Polacrilex (Nicotine Polacrilex Lozenge 2 Mg Lozenge) 2 mg BUCCAL Q2H PRN PRN Reason: Nicotine Cravings Ondansetron HCl (Ondansetron Hcl 4 Mg/2 Ml Vial) 4 mg IVPUSH Q8H PRN PRN Reason: Nausea and Vomiting Last Admin: 11/10/24 05:46 Dose: 4 mg Documented By: ALLI Oxycodone HCl (Oxycodone Hcl Immed Release 5 Mg Tablet) 5 mg PO Q6H PRN PRN Reason: Pain, Moderate(Pain Scale 4-6) Pantoprazole Sodium (Pantoprazole Sodium 40 Mg/10 Ml Vial) 40 mg IVPUSH DAILY@0630 [facility] [place] Last Admin: 11/10/24 05:00 Dose: 40 mg Documented By: ALLI Prednisone (Prednisone 20 Mg Tablet) 40 mg PO DAILY [facility] [place] Last Admin: 11/10/24 04:59 Dose: 40 mg Documented By: ALLI Comments: Per Dr Childs, give 0900 dose now Sodium Biphosphate/Sodium Phosphate (Sodium Phosphate,Smyth-Dibasic 133 Ml Enema) 133 ml OH ONCE PRN PRN Reason: Constipation Sodium Chloride (0.9 % Sodium Chloride Flush 3 Ml Syringe) 3 ml IVFLUSH QSHIFT [facility] [place] Last Admin: 11/09/24 22:10 Dose: 3 ml Documented By: RAHEL Labs 11/09/24 06:16 11/09/24 06:16 Quality Stroke Does the patient have a stroke diagnosis?: No VTE Prior VTE?: No VTE Risk Level:: Medical - moderate - high VTE Device Contraindication: Treatment Not Indicated VTE Drug Contraindication: N/A - Med Ordered
[2024-11-10] MEDS: oxyCODONE HCl Immed Release 5 MG TABLET PO ×2 (09:21→15:44)
[2024-11-10] MEDS: 0.9 % Sodium Chloride Flush 3 ML SYRINGE IVFLUSH ×2 (09:26→16:59)
[2024-11-10 09:34] LABS: MRSA Nasal PCR NEGATIVE (Negative); SA Nasal PCR POSITIVE (Negative)
--- NOTE | 2024-11-10 14:52 | PM.DS ---
DS: Providers Provider Date of Service: 11/10/24 Date of admission: 11/08/24 12:29 Date of discharge: 11/10/24 Primary care physician: Elias Swenson PA-C DS: Diagnosis Discharge Diagnosis (1) Post-COVID chronic cough: Status: Acute DS: Summary Hospital Course Hospital Course: acute hypoxic respiratory distress( hypoxia, expiratory wheezing, work of breathing) requiring escalating doses of p.r.n. inhaler being admitted for acute exacerbation of asthma in the setting of post COVID sequelae Moderate severe asthma secondary to post COVID sequelae 59 yo female with PMH of asthma on p.r.n. rescue inhaler, allergic rhinitis, GERD, chronic lumbar and cervical spine arthropathy, HTN, CAD, anxiety, morbid obesity , COVID on 10/24 who appears to have acute respiratory distress requiring escalating doses of p.r.n. inhaler being admitted for acute exacerbation of asthma in the setting of possible post COVID sequelae. Patient was given IV steroids magnesium and inhalation with optimal response, however patient continued to endorse severe SOB/WEATHERS without objective evidence and patient has been initiated on CHARBEL, LABA, Steroid inhalers. This is likely in the setting of both COVID sequelae, with severe musculoskeletal pain limiting her ability to cough. Patient has been advised to use albuterol, laba steroid inhalers And follow-up with PCP, pulmonology for her. Patient also has been advised to come back to the ED if she notices worsening symptoms of asthma. Given that the patient is nearly 2 weeks out of prior COVID, does not warrant COVID management PPI to prevent stress induced ulcers Musculoskeletal chest pain Musculoskeletal pain from repeated bouts of cough for nearly 2 weeks, insurance issues-we will treat her with Robaxin, lozenges to be bought outpatient, lidocaine and scheduled Tylenol CAD HTN Atherosclerotic heart disease of [place] coronary artery without angina pectoris Troponin, telemetry were unremarkable this admission. Ideally needs to be on aspirin, metoprolol, atorvastatin-per PCP just a week ago, apparently patient has been working on lifestyle and dietary modifications and hence deferred initiating these meds. We will defer to outpatient management DVT prophylaxis with Lovenox while inpatient This note is constructed using voice recognition software. While every effort has been made to ensure accuracy, screen room operator errors may have been included. Time spent discussing smoking cessation with patient: more than 10 minutes Time Attestation Discharge Coordination Time (in mins): 35 Quality: Safe Use of Opioids Does Pt have an Active Cancer Diagnosis on the Problem List?: No Quality: Stroke Does the patient have a stroke diagnosis?: No Physical Exam Vital Signs: Vital Signs: Last Vital Signs Temp 97.7 F 11/10/24 11:50 Pulse 89 11/10/24 11:50 Resp 20 11/10/24 11:50 BP 134/60 11/10/24 11:50 Pulse Ox 95 11/10/24 11:50 O2 Del Method Room Air 11/10/24 11:50 BMI result Body Mass Index 31.1 DS: Data Data Completed and Pending Labs on day of discharge: Laboratory Results - last 24 hr 11/09/24 18:22 Nasal Screen MRSA (PCR) NEGATIVE Nasal S. aureus Screen POSITIVE A Nasal MRSA/S.aureus Interp SEE NOTE Discharge Plan Discharge Patient Disposition: Home, Self-Care Referrals: Elias Swenson PA-C [Primary Care Provider, Internal Medicine] - 1 Week Discharge Medications: New doxycycline monohydrate 100 mg Capsule 100 mg PO Q12H 4 Days Qty: 8 0RF fluticasone furoate-vilanterol [Breo Ellipta] 100-25 mcg/dose Blister With Device 1 inh inhalation RDAILY Qty: 60 0RF acetaminophen 325 mg Tablet 975 mg PO Q6H 10 Days Qty: 120 0RF prednisone 20 mg Tablet 40 mg PO DAILY 5 Days Qty: 10 0RF dextromethorphan-guaifenesin 10-100 mg/5 mL Syrup 5 ml PO Q4H PRN (Reason: Cough) 10 Days Qty: 10 0RF cyclobenzaprine 5 mg tablet 5 mg PO TID PRN (Reason: muscle spasm) Qty: 14 0RF Continued (DME) nebulizers [AeroEclipse II Nebulizer] Misc See Rx Instructions .Route Qty: 1 0RF Rx Instructions: As directed (DME) nebulizers [Aeroneb Go Nebulizer] Misc See Rx Instructions .Route Qty: 1 0RF Rx Instructions: As directed (DME) blood pressure monitor [Blood Pressure Kit] Kit See Rx Instructions .Route Qty: 1 0RF Rx Instructions: As directed (DME) Blood Pressure Cuff Misc See Rx Instructions .ROUTE .MEDSUPPLY Qty: 1 0RF Rx Instructions: Take blood pressure once a day as needed albuterol sulfate 90 mcg/actuation HFA aerosol inhaler 2 puff inhalation Q6H 30 Days Qty: 8.5 3RF Discharge Orders: Discharge Order (Routine); Ordered 11/10/24 Ordered By: Ariana Oliver Diet: Low salt diet Activity on Discharge: As tolerated Stand Alone Forms: Patient Portal Discharge page, Work/School Release Print Language: Salvadorean Care Plan Goals: Asthma remission Anxiety remission Health Concerns: See above Plan of Treatment: See above Assessment: See above
--- NOTE | 2024-11-10 15:26 | MHC.CM.PN ---
Pt has been medically cleared to [place], she will go home via private transport, plan is self care.
== END 2024-11-10 18:58 | disposition home or self-care (01) ==
LOC: HO.ED 12:36 → HO.EDOVER 12:52 → HO.IMC 16:52
PROVIDERS: Internal Medicine; Physician Assistant Medical; Admitting Provider Nurse Practitioner Acute Care; Emergency Provider Emergency Medicine; PCP Physician Assistant; Visit Provider Student in an Organized Health Care Education/Training Program
DX: R05.3 Chronic cough (principal); U09.9 Post COVID-19 condition, unspecified; R07.9 Chest pain, unspecified; I10 Essential (primary) hypertension; I25.10 Atherosclerotic heart disease of native coronary artery without angina pectoris; J45.901 Unspecified asthma with (acute) exacerbation; R06.02 Shortness of breath; Z79.899 Other long term (current) drug therapy
CPT/HCPCS: 36415; 71045; 80048; 80061; 80076; 82803; 83735; 84484; 85025; 87502; 87633; 87635; 87640; 87641; 93005; 94640; 96365; 96372; 96375; 96376; 99222; 99285; J1650; J2270; J2405; J2470; J2919; J3475

== ENCOUNTER → 2024-11-08 10:43 | Outpatient (BNV) | payer OTHER, SELFPAY | PROVIDERS: Emergency Provider Emergency Medicine; PCP Physician Assistant; Visit Provider Radiology Diagnostic Radiology | DX: R06.02 Shortness of breath (principal) | CPT/HCPCS: 71045 ==

== ENCOUNTER → 2024-11-08 11:49 | Outpatient (BNV) | payer OTHER, SELFPAY | PROVIDERS: Admitting Provider Nurse Practitioner Acute Care; Emergency Provider Emergency Medicine; PCP Physician Assistant; Visit Provider Internal Medicine | DX: I49.1 Atrial premature depolarization (principal) | CPT/HCPCS: 93010 ==

== ENCOUNTER → 2024-11-08 12:29 | Outpatient (BNV) | payer OTHER, SELFPAY | PROVIDERS: Admitting Provider Nurse Practitioner Acute Care; Emergency Provider Emergency Medicine; PCP Physician Assistant; Visit Provider Student in an Organized Health Care Education/Training Program | DX: R05.3 Chronic cough (principal); U09.9 Post COVID-19 condition, unspecified; J45.901 Unspecified asthma with (acute) exacerbation | CPT/HCPCS: 99223; 99232; 99239 ==

== ENCOUNTER 2024-11-16 14:22 | Outpatient (REF) | payer OTHER, SELFPAY ==
[2024-11-16 16:39] LABS: Hematocrit 36.8 % (37.0-47.0); Hemoglobin 12.3 g/dl (12.0-16.0); Mean Corpuscular HGB Conc 33.4 g/dl (31.0-35.0); Mean Corpuscular Hemoglobin 30.0 pg (27.0-33.0); Mean Corpuscular Volume 89.8 fL (80.0-98.0); NRBC Abs Auto 0.000 X10*3/uL (0.0-0.012); NRBC Pct Auto 0.0 /100WBC (0.0-0.2); Platelet Count 256 X10*3/uL (160-400); Red Blood Count 4.10 X10*6/uL (4.20-5.50); White Blood Count 7.7 X10*3/uL (4.8-10.8)
== END 2024-11-16 14:23 | disposition home or self-care (01) ==
LOC: HO.LAB 14:22
PROVIDERS: PCP Physician Assistant; Visit Provider Physician Assistant
DX: Z09 Encounter for follow-up examination after completed treatment for conditions other than malignant neoplasm (principal); I25.811 Atherosclerosis of native coronary artery of transplanted heart without angina pectoris; J45.901 Unspecified asthma with (acute) exacerbation; R30.0 Dysuria; Z79.899 Other long term (current) drug therapy
CPT/HCPCS: 36415; 85027; 96127; 99495

== ENCOUNTER 2024-11-16 14:22 | Outpatient (AMB) | payer OTHER, SELFPAY ==
--- OUTSIDE RECORDS SUMMARY | 2023-09-29 08:50 | XMS_ITS ---
Author Organization [facility] Address [address] [place] [address] Care Team Providers Care Software Solutions Architect Name Role Phone Elias Swenson Primary Care Provider Unavailab Sami Mancera Jr Unavailable REASON FOR VISIT erosive esophagitis, change in bowels Encounters Encounter Location Date Provider Diagnosis [facility] [place] Outpatient [address] [place], [place] [phone] 09/29/2023 Sami Foster Jr Change in bowel movement R19.8 and Erosive esophagitis K22.10 Assessments Encounter Date Diagnosis (ICD Code) Assessment Notes Treatment Notes Treatment Clinical Notes Section Notes 09/29/2023 Change in bowel movement (ICD-10 - R19.8) 09/29/2023 Erosive esophagitis (ICD-10 - K22.10) Plan Of Treatment Next Appt Details Provider Name:Sami freeman Jr, 11/09/2025 02:15:00 PM, [address], [address], [place], [address], Progress Notes * JURGEN MONTEZDOB:1965 (59 yo F)Acc No.[id number]:09/29/2023 EGD and COL/MAC Patient: JURGEN LIU Provider: Kassidy Foster MD :1965 A ge:58 Y S ex:Female Date:09/29/2023 Address:[address] [id number] Pcp:Elias Swenson Subjective: * Chief Complaints: * 1 . Erosive esophagitis, change in bowels. * Medical History: Objective: * Vitals: Assessment: * Assessment: 1. C hange in bowel movement - R19.8 (Primary) 2 . E rosive esophagitis - K22.10 Plan: * Treatment: * Procedure Codes: 4 5378 DIAGNOSTIC COLONOSCOPY, 89705 UPPER GI ENDOSCOPY, BIOPSY * * The named appointment provid er may or may not be the originator of this progress note, and it is not deemed complete until electronically signed by the appointment provider. Sign off status: Pending * Provider: Kassidy Foster MD Date: 0 09/29/2023 Generated for Lexis bennett/Zarina/Anasmitting on: 0 11/16/2024 05:04 PM EDT
--- OUTSIDE RECORDS SUMMARY | 2024-04-07 11:35 | XMS_ITS ---
Author Organization [facility] Address [address] [place] [address] Care Team Providers Care Truck Trailer Final Inspector Name Role Phone Elias Swenson Primary Care Provider Unavailab Sami Mancera Jr Unavailable [phone] REASON FOR VISIT Patient presents today for GERD Encounters Encounter Location Date Provider Diagnosis [facility] [address] [place] [address] 04/07/2024 Sami Foster Jr Plan Of Treatment Next Appt Details Provider Name:Sami freeman Jr, 11/09/2025 02:15:00 PM, [address], [address], [place], [address], Progress Notes * JURGEN MONTEZDOB:1965 (59 yo F)Acc No.[id number]:04/07/2024 Progress Notes Patient: JURGEN LIU Provider: Kassidy Foster MD :1965 A ge:58 Y S ex:Female Date:04/07/2024 Address:[address] [facility] [id number] Pcp:Elias Swenson Subjective: * Chief Complaints: * [...] 04/07/2024 Generated for Lexis bennett/Zarina/Leena on: 0 11/16/2024 05:04 PM EDT
--- OUTSIDE RECORDS SUMMARY | 2024-07-20 09:00 | XMS_ITS ---
Author Organization [facility] Address [address] [facility] [address] [place] [address] Care Team Providers Care Landscape Maintenance Internship Name Role Phone Elias Swenson Primary Care Provider Unavailab Sami Mancera Jr Unavailable REASON FOR VISIT gerd,dysphagia Encounters Encounter Location Date Provider Diagnosis [facility] [place] Out[place] [address] [place] [id number] 07/20/2024 Sami Foster Jr Plan Of Treatment Next Appt Details Provider Name:Sami freeman Jr, 11/09/2025 02:15:00 PM, [address] [facility], [address], [place], [address], Progress Notes * JURGEN MONTEZDOB:1965 (59 yo F)Acc No.[id number]:07/20/2024 EGD/MAC Patient: JURGEN LIU Provider: Kassidy Foster MD :1965 A ge:59 Y S ex:Female Date:07/20/2024 Address:[address] [facility] [id number] Pcp:Elias Swenson Subjective: * Chief Complaints: * [...] 07/20/2024 Generated for Leandroi donald/Zarina/eTransmitting on: 0 11/16/2024 05:04 PM EDT
--- OUTSIDE RECORDS SUMMARY | 2024-11-03 10:15 | XMS_ITS ---
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 Name Role Phone Elias Swenson Primary Care Provider Unavailab Sami Mancera Jr Unavailable [phone] Allergies Allergen (clinical drug ingredient) Drug/Non Drug Allergy documented on EMR Reaction Allergy Type Onset Date Status tetanus immune globulin Tetanus Immune Globulin Unknown Drug Allergy Active Penicillin Unknown Drug Allergy Active IVP Dye (uncoded) Unknown Allergy Ac tive REASON FOR VISIT Patient presents today for errosive esophagitis Medications Medication SIG (Take, Route, Frequency, Duration) Notes Start Date End Date Status Pantoprazole Sodium 40 MG 1 Orally twice daily for 30 days 11/03/2024 Active Aspirin 81 81 MG 1 tablet Orally Once a day for 30 day(s) Not-Taking Omeprazole 40 MG TAKE 1 CAPSULE BY [facility] DAILY 30 MINUTES BEFORE BREAKFAST for 30 Not-Taking Pantoprazole Sodium 40 MG 1 Orally Twice a day for 30 days 07/07/2024 Active Vital Signs Temperature 96.9 degrees Fahrenheit 11/04/19 25 Blood pressure systolic 001 mm Hg 11/04/19 25 Blood pressure diastolic 01 mm Hg 025 Height 61.5 in 11/03/2024 Weight 193.8 lbs 11/03/2024 BMI 36.02 kg/m2 11/03/2024 Encounters Encounter Location Date Provider Diagnosis [facility] [address] [place] [phone] 11/03/2024 Sami Foster Jr Erosive esophagitis K22.10 and Diarrhea R19.7 Assessments Encounter Date Diagnosis (ICD Code) Assessment Notes Treatment Notes Treatment Clinical Notes Section Notes 11/03/2024 Erosive esophagitis (ICD-10 - K22.10) 11/03/2024 Diarrhea (ICD-10 - R19.7) Plan Of Treatment Medication Medication Name Sig Start Date Stop Date Notes Pantoprazole Sodium 40 MG 1 Orally twice daily for 30 days 11/03/2024 Pending Test Test Name Order Date STOOL WBC 11/03/2024 OVA & PARASITES (O&P) 11/03/2024 GI PANEL 11/03/2024 Next Appt Details Provider Name:Sami freeman , 11/09/2025 02:15:00 PM, [address] [place] [address], [address], [place], [address], Progress Notes * JURGEN MONTEZDOB:1965 (59 yo F)Acc No.[id number]:11/03/2024 Progress Notes Patient: JURGEN LIU Provider: Kassidy Foster MD :1965 A ge:59 Y S ex:Female Date:11/03/2024 Address:[address] [place] [address] , [id number] Pcp:Elias Swenson Subjective: * Chief Complaints: * 1 . Patient presents today for errosive esophagitis. * Medical History: A sthma, Stress urinary incontinence, Colonoscopy 10/16, no colitis, 10-year follow-up, Gastroesophageal reflux disease, EGD 10/16, no H. pylori, GERD changes noted on biopsy, no Quach's esophagus, Hyperlipidemia, HSV infection with shingles 2023. * Surgical History: h ysterectomy , cholecystectomy , appendectomy , bladder stimulator this was removed in 2021 . * Hospitalization/Major Diagno stic Procedure: H ospitalized at [facility] for allergic reaction to contrast 09/14, hospital for 10 days with covid . * Family History: F ather: , diagnosed with HTN (hypertension), Heart disease, Diabetes. M other: alive, stroke. S iblings: alive, elevated liver,was diagnosed with Primary Biliary Cirrhosis at age 55. The patient has a negative family history for Crohn's disease or colon cancer. No family history of liver cancer. Brother has liver issue but not cancer. * Medications: T aking Pantoprazole Sodium 40 MG Tablet Delayed Release 1 Orally Twice a day , Not-Taking/PRN Aspirin 81 81 MG Tablet Delayed Release 1 tablet Orally Once a day , Not-Taking/PRN Omeprazole 40 MG Capsule Delayed Release TAKE 1 CAPSULE BY MOUTH DAILY 30 MINUTES BEFORE BREAKFAST , Medication List reviewed and reconciled with the patient * Allergies: P enicillin, IVP Dye, Tetanus Immune Globulin. Objective: * Vitals: W t:193.8lbs, Ht: 61.5 in, BMI:36.02Index, BP:001/01mm Hg, Temp:96.9, Wt-k.91. Assessment: * Assessment: 1. E rosive esophagitis - K22.10 (Primary) 2 . D iarrhea - R19.7 Plan: * Treatment: 2. D iarrhea L AB: STOOL WBC L AB: OVA & PARASITES (O&P) L AB: GI PANEL * Preventive Medicine: Counseling: C are goal follow-up plan: A vanessa Normal BMI Follow-up G iving encouragement to exercise. Urinary Incontinence: U rinary Incontinence A ssessment: P resent, P elizabeth of care documented: N o, reason not specified. Screenings: F all Risk Screening F all Risk Assessment: N o falls in the past year, S creening: N o falls in the past year, P elizabeth of Care: N ot documented, no reason specified. * * The named appointment provid er may or may not be the originator of this progress note, and it is not deemed complete until electronically signed by the appointment provider. Sign off status: Pending * Provider: Kassdiy Foster MD Date: 11/03/2024 Generated for Lexis bennett/Zarina/Michelleitting on: 11/16/2024 05:04 PM EDT
--- NOTE | 2024-11-16 14:45 | MHC.PC.OV ---
Vital Signs 11/16/24 14:47 Height 5 ft 6 in Weight 201 lb 2 oz BMI 32.5 BP 140/70 H Blood Pressure Location Lt brachial Position Sitting Pulse 94 Pulse Source Pulse Oximeter Temp 97.1 F Temp Source Temporal Artery Scan Pulse Oximetry (%) 97 Oxygen Delivery Method Room Air Intake Visit Reasons: [facility] 11/10 Intake Note: Patient is here for hospital discharge follow up. Patient was discharged from [facility] on 11/10/24. Curing Finisher Required: No Ginner Helper: Not Required per policy Accompanied by: Self / Same As Patient Allergies penicillin V Allergy (Severe, Verified 11/16/24 15:13) throat swelling Penicillins (PCN) Allergy (Verified 11/16/24 15:13) Hives Tetanus Vaccines and Toxoid Allergy (Verified 11/16/24 15:13) Difficulty Breathing Iodinated Contrast Media (Contrast Dye) Adverse Reaction (Verified 11/16/24 15:13) Anaphylaxis Medication List - Last Reconciled 11/16/24 by Elias Swenson PA-C acetaminophen 975 mg (3 x 325 mg) PO Q6H 10 days albuterol sulfate 90 mcg/actuation 2 puffs inhalation Q6H 30 days blood pressure monitor (Blood Pressure Kit) As directed cyclobenzaprine 5 mg PO TID PRN dextromethorphan-guaifenesin 10-100 mg/5 mL 5 mL PO Q4H PRN 10 days fluticasone furoate-vilanterol 100-25 mcg/dose (Breo Ellipta) 1 inh inhalation RDAILY miscellaneous medical supply (Blood Pressure Cuff) Take blood pressure once a day as needed nebulizers (AeroEclipse II Nebulizer) As directed nebulizers (Aeroneb Go Nebulizer) As directed Tobacco use date assessed: 11/16/24 Dental Screening Dental Screen Date: 05/02/24 HPI [facility] 11/10 HPI Details Patient is 59-year-old female here today for hospital discharge follow. Patient rehospitalized on the and discharged . Patient recently admitted to [facility] for a few days for an acute asthma exacerbation. She did have COVID for few weeks before her presentation though seems to have continue with the cough and shortness of breath and presented to the ER. She was noted to be in hypoxic respiratory distress which required escalating doses of p.r.n. inhaler medication. While hospitalized she received IV magnesium. She was discharged with prednisone, maintenance inhaler Breo and cough syrup. TCM TCM Information Date of Discharge 11/10/24 Discharged From [facility] Medical History Equivocal myocardial perfusion imaging Abnormal stress test Hyperlipidemia Intermittent palpitations Chest pain Anxiety, generalized Esophageal stricture Normal colonoscopy Asthma (Unknown) Surgical History History of endoscopy History of appendectomy History of bladder surgery History of torn meniscus of right knee History of gallbladder disease History of partial hysterectomy Family History Father CVD (cardiovascular disease) Past heart attack Mother Skin cancer Brother Heart problem Pacemaker Social History Household Members: Spouse Housing: Apartment Do you presently have visiting nurse or other home services: No Alcohol intake: never Patient Tobacco Use Status: Never used Tobacco e-Cigarette/Vaping Use: Never Used Second Hand Smoke Exposure: No service: No Current occupational status: unemployed Cognitive needs: No Hearing needs: No Vision needs: Yes (Reading glasses) Questionnaire PHQ-9 Over the last 2 weeks, how often have you been bothered by any of the following problems? 1. Little interest or pleasure in doing things: not at all 2. Feeling down, depressed, or hopeless: not at all 3. Trouble falling or staying asleep, or sleeping too much: not at all 4. Feeling tired or having little energy: nearly every day 5. Poor appetite or overeating: not at all 6. Feeling bad about yourself - or that you are a failure or have let yourself or your family down: not at all 7. Trouble concentrating on things, such as reading the newspaper or watching television: several days 8. Moving or speaking so slowly that other people could have noticed. Or the opposite - being so fidgety or restless that you have been moving around a lot more than usual: not at all 9. Thoughts that you would be better off or of hurting yourself in some way: not at all Total score: 4 Depression Screening Interpretation: Positive Depression Screening Done: Yes 64375 - PHQ-9 Billing: Yes Source: Developed by Drs. John Phan, Bebe Valerio, Lito Padron and colleagues, with an educational allison from [employer]. Thrive Questionnaire Date Thrive assessed: 11/09/24 I am a: Patient What is your living situation today?: I have a steady place to live Within the past 12 months, did the food you bought not last and you didn't have the money to get more?: Sometimes True Within the past 12 months, did you worry whether your food would run out before you got money to buy more?: Sometimes True Do you have trouble paying for medicines?: No Do you have trouble getting transportation to medical appointments?: Yes Do you have trouble paying your heating and electricity bill?: Yes Do you have trouble taking care of your child, family member or friend?: No Do you have trouble with day-to-day activities such as bathing, preparing meals, shopping, managing finances, etc.?: No Are you currently unemployed and looking for a job?: I choose not to answer this question Are you interested in more education?: No Please select the resources that you would like help with: Transportation Currently or been in a relationship where the following occur: I choose not to answer THRIVE Score: 4 AUDIT C Alcohol Use Questionnaire (AUDIT-C) 1. How often do you have a drink containing alcohol?: Never Total Score: 0 MEE-7 AMB Questionnaire MEE-7 Date MEE - 7 assessed: 05/02/24 Feeling nervous, anxious, or on edge: 0 = Not at all Not being able to stop or control worryin = Not at all Worrying too much about different things: 0 = Not at all Trouble relaxin = Not at all Being so restless that it is hard to sit still: 0 = Not at all Becoming easily annoyed or irritable: 0 = Not at all Feeling afraid as if something awful might happen: 0 = Not at all Total MEE-7 score (0-4 normal; 5-9 mild; 10-14 moderate; 15-21 severe): 0 Source: Developed by Bebe Fragoso Kurt Kroenke and colleagues, with an educational allison from [employer]. Review of Systems Const Reports fatigue and Reports headache(s) Eyes Denies loss of vision ENT Denies vertigo, Denies dizziness, Reports headache(s) and Denies sore throat Card Denies chest pain, Denies leg edema, Denies lightheadedness and Reports dyspnea on exertion Resp Reports cough, Denies hemoptysis, Reports dyspnea on exertion and Reports wheezing GI Denies abdominal pain, Denies melena, Denies constipation, Denies diarrhea and Denies vomiting Denies urinary frequency, Denies dysuria and Denies urinary urgency Musc Denies arthralgias, Denies joint swelling, Denies numbness and Denies tingling Neuro Denies Abnormal speech present, Denies behavioral changes, Denies vertigo, Denies dizziness, Reports headache(s), Denies loss of vision, Denies memory loss, Denies numbness and Denies tingling Psych Denies anxiety, Denies behavioral changes, Denies depression, Denies memory loss and Denies panic attacks Endo Reports fatigue Kane/Lymph Denies easy bleeding and Denies easy bruising Aller/Immun Reports wheezing Physical exam (Primary Care) Vital Signs: Last Vital Signs Temp 97.1 F 11/16/24 14:47 Pulse 94 11/16/24 14:47 BP 140/70 H 11/16/24 14:47 Pulse Ox 97 11/16/24 14:47 Oxygen Delivery Method Room Air 11/16/24 14:47 BMI result Body Mass Index 32.5 Tobacco/Smoking Status: Tobacco use Status Tobacco use date assessed 11/16/24 11/16/24 14:53 Patient Tobacco Use Status Never used Tobacco 11/16/24 14:53 e-Cigarette/Vaping Use Never Used 11/16/24 14:53 PHQ-9: PHQ-9 Score PHQ-9: Total score 4 11/16/24 14:53 Depression Screening Interpretation: Positive Thrive Assessment: Date of Thrive Assessment Date Thrive assessed 11/09/24 11/16/24 14:53 Currently or been in a relationship where the following occur: I choose not to answer Const General: healthy appearing, no acute distress, alert and awake Nutritional Appearance: well nourished Orientation/consciousness: oriented to person, oriented to place and oriented to time HENMT Ears: TM's normal bilaterally General nose exam: Normal nasal mucous membranes and turbinates present Eyes Conjunctivae: conjunctivae normal Sclerae: sclerae normal Pupils: Equal, round and reactive pupils present Neck Neck: Yes no lymphadenopathy and Yes no JVD Thyroid: Thyroid normal Carotids: no bruits Resp Other: Occasional cough during exam Effort & Inspection: normal respiratory effort and not tachypneic Auscultation: no crackles, no rales, rhonchi and wheezes Cardio Rate: regular rate Rhythm: regular rhythm Heart sounds: no murmurs and normal S1 and S2 GI Palpation (GI): Soft to palpation, nontender, no hepatomegaly and no splenomegaly Auscultation: normal bowel sounds Skin General skin exam: no rashes or lesions noted and dry skin Neuro General: oriented to person, oriented to place and oriented to time Cranial nerves: Yes Equal, round and reactive pupils present Speech: No Abnormal speech present Gait exam (Neuro): Normal gait present Motor exam (neuro): no tremor noted Extrem Right upper extremity: full ROM Left upper extremity: full ROM Right lower extremity: full ROM; no edema Left lower extremity: full ROM; no edema Psych Mental Status: mental status grossly normal Speech and movement: Normal speech and movement present Affect: normal affect Attitude: cooperative Thought process: Normal thought process present Coding Level of Care Code TCM Mod MDM <= 7 Days Diagnoses Hospital discharge follow-up Z09 Persistent asthma with acute exacerbation, unspecified asthma severity J45.901 Asthma severity: unspecified severity Asthma persistence: persistent Additional Codes PHQ-9 - 69662 - PHQ-9 Billing: Yes ([id number]) Assessment & Plan Assessment & Plan (1) Hospital discharge follow-up: Code(s): Z09 - Encounter for follow-up examination after completed treatment for conditions other than malignant neoplasm Category: Medical Plan: As per HPI (2) Acute asthma exacerbation: Code(s): J45.901 - Unspecified asthma with (acute) exacerbation Category: Medical Qualifiers: Asthma severity: unspecified severity Asthma persistence: persistent Qualified Code(s): J45.901 - Unspecified asthma with (acute) exacerbation Plan: Patient's signs and symptoms most consistent with a asthma exacerbation. Has not had much clinical improvement on medication thus far. Will supply longer prednisone taper and switch antibiotic to azithromycin for possible pneumonia. Patient will start Mucinex for mucolytic expectorant effect. Will supply patient with cough syrup for nighttime use. Advised patient to start using her asthma nebulizer Orders: Orders Viral Culture Today B34.9 - Viral infection, unspecified Medications: New azithromycin For 250 mg dose pack: take 500 mg today (day 1), then 250 mg for 4 days (days 2-5) PO 6 tabs 0RF J45.901 - Unspecified asthma with (acute) exacerbation prednisone take 3 tab x 2 days, 2 tablets x3 days, 1 tablet x3 days 10 mg PO DIRECTED 9 days 18 tabs 0RF J45.901 - Unspecified asthma with (acute) exacerbation codeine-guaifenesin 10-100 mg/5 mL 5 mL PO Q6H PRN 120 mL 0RF cough 5 days prednisone take 3 tab x 3 days, 2 tablets x3 days, 1 tablet x3 days 10 mg PO DIRECTED 18 tabs 0RF 9 days J45.901 - Unspecified asthma with (acute) exacerbation Changed From cyclobenzaprine 5 mg PO TID PRN 14 tabs 0RF muscle spasm To cyclobenzaprine 5 mg PO ONCE 14 tabs 0RF muscle spasm 14 days Discontinued dextromethorphan-guaifenesin 10-100 mg/5 mL Discontinued Reason: Doctor's Order 5 mL PO Q4H 10 days PRN 10 mL 0RF Cough
[2024-11-16 14:47] VITALS: BP 140/70; PULSE 94; TEMP 36.2; O2SAT 97; BMI 32.5
--- OUTSIDE RECORDS SUMMARY | 2024-11-16 17:05 | XMS_ITS | Patient Health Record ---
Author Organization [facility] Address [address] [place] [address] Care Team Providers Care Digital Strategy Specialist Name Role Phone Elias Swenson Primary Care Provider Unavailab Sami Mancera Jr Unavailable [phone] Allergies Allergen (clinical drug ingredient) Drug/Non Drug Allergy documented on EMR Reaction Allergy Type Onset Date Status tetanus immune globulin Tetanus Immune Globulin Unknown Drug Allergy Active Penicillin Unknown Drug Allergy Active IVP Dye (uncoded) Unknown Allergy Ac tive Results Component Value Reference Range Notes Complete Blood Count Man Dif Reviewed date:07/20/2024 04:40:28 PM Interpretation: Performing Lab:[facility], [address] [place] [id number] Notes/Report: White Blood Count 5.0 4.8-10.8 X10*3/uL [...] Panel Reviewed date:07/20/2024 04:40:37 PM Interpretation: Performing Lab:[address] [id number] Notes/Report: Bilirubin Total 0.9 0.0-1.0 mg/dL Bilirubin Direct 0.2 0.0-0.5 mg/dL Aspartate Amino Transferase 27 5-31 U/L Alanine Aminotransferase 29 0-31 U/L Total Protein 6.5 6.5-8.0 g/dL Albumin Level 4.4 3.5-5.0 g/dL Alkaline Phosphatase 73 39-117 U/L Lipase Reviewed date:07/20/2024 04:40:11 PM Interpretation: Performing Lab:[facility], [address] [place] [phone] Notes/Report: Lipase 25 8-78 U/L Reason For [...] Problem Status W/U Status Risk Notes Problem 1817629 Diverticulitis o f large intestine without perforation or abscess without bleeding (K57.32) Active confirmed Problem Dysphagia (82827231) Dysphagia (R13.10) Active confirmed Problem Erosive esophagitis (68930710) Erosive esophagitis (K22.10) Active confirmed Problem Gastroesophageal reflux disease (964776448) GERD (gastroesophageal reflux disease) (K21.9) Active confirmed Problem 107133374 Abnormal barium swallow (R93.3) Active confirmed Problem 85240511 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) Active confirmed Problem 263138046 Family history o f liver disease (Z83.79) Active confirmed Problem 63440309 Change in bowel movement (R19.8) Active confirmed Problem 61181747 Esophageal dysphagia (R13.19) Active confirmed Vital Signs Temperature 96.9 degrees Fahrenheit 11/03/2024 Blood pressure diastolic 01 mm Hg 11/03/2024 Height 61.5 in 11/03/2024 Blood pressure systolic 001 mm Hg 11/03/2024 Weight 193.8 lbs 11/03/2024 BMI 36.02 kg/m2 11/03/2024 Encounters Encounter Location Date Provider Diagnosis [facility] Outpatient [address] [place] [id number] 07/20/2024 Sami Foster Jr [facility] [address] [place] [phone] 11/03/2024 Sami Foster Jr Erosive esophagitis K22.10 and Diarrhea R19.7 [facility] [address] [place] [phone] 07/07/2024 Sami Foster Jr Dysphagia R13.10 and GERD (gastroesophageal reflux disease) K21.9 [facility] [address] [place] [address] Drive [address] [place] [phone] 04/07/2024 Sami Foster Jr [facility] [address] [place] [address] Drive [address] [place] [phone] 07/19/2024 Sami Foster Jr [facility] [address] [place] [phone] 07/20/2024 Sami Foster Jr GERD (gastroesophageal reflux [...] Name:Sami freeman Jr, 11/09/2025 02:15:00 PM, [address] [facility], [address], [place], [address], Insurance Providers Payer Name Payer Address Payer Phone Subscriber Number Group Number Insured Name Patient Relationship to Insured Coverage Start Date Coverage End Date [facility] [address] Attn Claims [employer] [id number] JURGEN MONTEZ Self - patient is the [...] for 10 days with che Hospitalized at [facility] for allergic reaction to contrast 09/14
== END 2024-11-16 15:38 | disposition home or self-care (01) ==
LOC: HO.HMCH 14:23
PROVIDERS: PCP Physician Assistant; Visit Provider Physician Assistant
DX: J45.901 Unspecified asthma with (acute) exacerbation (principal); Z09 Encounter for follow-up examination after completed treatment for conditions other than malignant neoplasm

== ENCOUNTER 2024-11-30 14:06 | Outpatient (AMB) | payer OTHER, SELFPAY ==
--- NOTE | 2024-11-30 14:16 | A.OFFPC_ITS ---
Vital Signs 11/30/24 14:17 Height 5 ft 6 in Weight 201 lb BMI 32.4 BP 120/66 Blood Pressure Location Lt brachial Position Sitting Pulse 88 Pulse Source Pulse Oximeter Temp 97.1 F Temp Source Temporal Artery Scan Pulse Oximetry (%) 98 Oxygen Delivery Method Room Air Intake Visit Reasons: f/u (has been exacerbation okay to double bk Juan Jose) Intake Note: Patient is here to follow up on Exacerbation. Complaint of nasal and chest congestion Inside Sales Advisor Required: No Database Modeler: Not Required per policy Accompanied by: Self / Same As Patient Allergies penicillin V Allergy (Severe, Verified 11/30/24 14:32) throat swelling Penicillins (PCN) Allergy (Verified 11/30/24 14:32) Hives Tetanus Vaccines and Toxoid Allergy (Verified 11/30/24 14:32) Difficulty Breathing Iodinated Contrast Media (Contrast Dye) Adverse Reaction (Verified 11/30/24 14:32) Anaphylaxis Medication List - Last Reconciled 11/30/24 by Elias Swenson PA-C acetaminophen 975 mg (3 x 325 mg) PO Q6H 10 days albuterol sulfate 90 mcg/actuation 2 puffs inhalation Q6H 30 days blood pressure monitor (Blood Pressure Kit) As directed fluticasone furoate-vilanterol 100-25 mcg/dose (Breo Ellipta) 1 inh inhalation RDAILY miscellaneous medical supply (Blood Pressure Cuff) Take blood pressure once a day as needed nebulizers (AeroEclipse II Nebulizer) As directed nebulizers (Aeroneb Go Nebulizer) As directed Tobacco use date assessed: 11/30/24 Dental Screening Dental Screen Date: 05/02/24 HPI f/u (has been exacerbation okay to double bk Juan Jose) HPI Details Patient is a 59-year-old female here today for a follow-up visit. Patient had COVID a few weeks ago and has been having chest congestion, nasal congestion headache and fatigue. Has been on antibiotics, prednisone and medicated cough syrup with some relief. Clinically she is doing much better though still complains of some fatigue and sinus/nasal congestion. Her nasal congestion recently just started. In further investigation discussion she has been using a nasal decongestant for quite some time and likely has a rebound nasal congestion. Advised on completely stopping the nasal decongestant and will try an alternative nasal spray. Class 1 obesity: Has a unfortunately gained nearly 20 lb over the last few months and attributes most of this to recent prednisone use for her asthma exacerbations. She is interested in using a GLP 1 to help her lose weight. Of note she does have obesity related comorbidities such as obstructive sleep apnea and coronary artery disease and hypertension. [facility] Medical History Equivocal myocardial perfusion imaging Abnormal stress test Hyperlipidemia Intermittent palpitations Chest pain Anxiety, generalized Esophageal stricture Normal colonoscopy Asthma (Unknown) Surgical History History of endoscopy History of appendectomy History of bladder surgery History of torn meniscus of right knee History of gallbladder disease History of partial hysterectomy Family History Father CVD (cardiovascular disease) Past heart attack Mother Skin cancer Brother Heart problem Pacemaker Social History Household Members: Spouse Housing: Apartment Do you presently have visiting nurse or other home services: No Alcohol intake: never Patient Tobacco Use Status: Never used Tobacco e-Cigarette/Vaping Use: Never Used Second Hand Smoke Exposure: No service: No Current occupational status: unemployed Cognitive needs: No Hearing needs: No Vision needs: Yes (Reading glasses) Questionnaire Thrive Questionnaire Date Thrive assessed: 11/16/24 I am a: Patient What is your living situation today?: I have a steady place to live Within the past 12 months, did the food you bought not last and you didn't have the money to get more?: Sometimes True Within the past 12 months, did you worry whether your food would run out before you got money to buy more?: Sometimes True Do you have trouble paying for medicines?: No Do you have trouble getting transportation to medical appointments?: Yes Do you have trouble paying your heating and electricity bill?: Yes Do you have trouble taking care of your child, family member or friend?: No Do you have trouble with day-to-day activities such as bathing, preparing meals, shopping, managing finances, etc.?: No Are you currently unemployed and looking for a job?: I choose not to answer this question Are you interested in more education?: No Please select the resources that you would like help with: Transportation Currently or been in a relationship where the following occur: I choose not to answer THRIVE Score: 4 MEE-7 AMB Questionnaire MEE-7 Date MEE - 7 assessed: 05/02/24 Source: Developed by Drs. John Phan, Bebe Valerio, Lito Padron and colleagues, with an educational allison from [employer]. Review of Systems Const Denies headache(s) Eyes Denies loss of vision ENT Denies vertigo, Denies dizziness, Denies headache(s), Reports nasal congestion, Reports post nasal drip and Reports sinus pressure Card Denies chest pain, Denies leg edema and Denies lightheadedness Resp Denies cough, Denies hemoptysis and Denies wheezing GI Denies abdominal pain, Denies melena, Denies constipation, Denies diarrhea and Denies vomiting Denies urinary frequency, Denies dysuria and Denies urinary urgency Musc Denies arthralgias, Denies joint swelling, Denies numbness and Denies tingling Neuro Denies Abnormal speech present, Denies behavioral changes, Denies vertigo, Denies dizziness, Denies headache(s), Denies loss of vision, Denies memory loss, Denies numbness and Denies tingling Psych Denies anxiety, Denies behavioral changes, Denies depression, Denies memory loss and Denies panic attacks [place]/Lymph Denies easy bleeding and Denies easy bruising Aller/Immun Denies wheezing Physical exam (Primary Care) Vital Signs: Last Vital Signs Temp 97.1 F 11/30/24 14:17 Pulse 88 11/30/24 14:17 BP 120/66 11/30/24 14:17 Pulse Ox 98 11/30/24 14:17 Oxygen Delivery Method Room Air 11/30/24 14:17 BMI result Body Mass Index 32.4 Tobacco/Smoking Status: Tobacco use Status Tobacco use date assessed 11/30/24 11/30/24 14:22 Patient Tobacco Use Status Never used Tobacco 11/30/24 14:22 e-Cigarette/Vaping Use Never Used 11/30/24 14:22 Thrive Assessment: Date of Thrive Assessment Date Thrive assessed 11/16/24 11/30/24 14:22 Currently or been in a relationship where the following occur: I choose not to answer Const General: healthy appearing, no acute distress, alert and awake Nutritional Appearance: well nourished Orientation/consciousness: oriented to person, oriented to place and oriented to time HENMT Ears: TM's normal bilaterally General nose exam: Normal nasal mucous membranes and turbinates present Eyes Conjunctivae: conjunctivae normal Sclerae: sclerae normal Pupils: Equal, round and reactive pupils present Neck Neck: Yes no lymphadenopathy and Yes no JVD Thyroid: Thyroid normal Carotids: no bruits Resp Effort & Inspection: normal respiratory effort and not tachypneic Auscultation: no crackles, no rales, no rhonchi and no wheezes Cardio Rate: regular rate Rhythm: regular rhythm Heart sounds: no murmurs and normal S1 and S2 GI Palpation (GI): Soft to palpation, nontender, no hepatomegaly and no splenomegaly Auscultation: normal bowel sounds Skin General skin exam: no rashes or lesions noted and dry skin Neuro General: oriented to person, oriented to place and oriented to time Cranial nerves: Yes Equal, round and reactive pupils present Speech: No Abnormal speech present Gait exam (Neuro): Normal gait present Motor exam (neuro): no tremor noted Extrem Right upper extremity: full ROM Left upper extremity: full ROM Right lower extremity: full ROM; no edema Left lower extremity: full ROM; no edema Psych Mental Status: mental status grossly normal Speech and movement: Normal speech and movement present Affect: normal affect Attitude: cooperative Thought process: Normal thought process present Coding Level of Care Code Est Pt Level 4 (34285) Diagnoses Allergic rhinitis due to pollen, unspecified seasonality J30.1 Allergic rhinitis trigger: pollen Allergic rhinitis seasonality: unspecified Class 1 obesity E66.811 SARAH (obstructive sleep apnea) G47.33 Assessment & Plan Assessment & Plan (1) Allergic rhinitis: Code(s): J30.9 - Allergic rhinitis, unspecified Category: Medical Qualifiers: Allergic rhinitis trigger: pollen Allergic rhinitis seasonality: unspecified Qualified Code(s): J30.1 - Allergic rhinitis due to pollen Plan: Patient's rebound congestion likely a secondary effect to chronic needs to defecate decongestant use. Advised on taking allergy medication and doing a alternative nasal spray (2) Class 1 obesity: Code(s): E66.811 - Obesity, class 1 Category: Medical Plan: Patient has gained weight over the last few months to which likely related to all of the prednisone use over the last month from her illnesses. Will start out with GLP 1 to help her lose weight as she does have comorbidities related to obesity such as obstructive sleep apnea, coronary artery disease and hypertension. (3) SARAH (obstructive sleep apnea): Code(s): G47.33 - Obstructive sleep apnea (adult) (pediatric) Category: Medical Plan: As above Orders: Orders Lipid Panel Today E78.5 - Hyperlipidemia, unspecified Comprehensive [place]. Panel Fast Today E78.5 - Hyperlipidemia, unspecified Complete Blood Count no Diff Today E78.5 - Hyperlipidemia, unspecified Medications: New tirzepatide (weight loss) (Zepbound) for 4 weeks 2.5 mg (0.5 mL) subcut QWEEK 2 mL 0RF 4 weeks E66.811 - Obesity, class 1, G47.33 - Obstructive sleep apnea (adult) (pediatric), I10 - Essential (primary) hypertension, I25.811 - Atherosclerosis of [place] coronary artery of transplanted heart without angina pectoris azelastine administer into each nostril 1 spray intranasal BID 1 units 1RF 30 days J01.10 - Acute frontal sinusitis, unspecified, J30.9 - Allergic rhinitis, unspecified
[2024-11-30 14:17] VITALS: BP 120/66; PULSE 88; TEMP 36.2; O2SAT 98; BMI 32.4
== END 2024-11-30 14:55 | disposition home or self-care (01) ==
LOC: HO.HMCH 14:07
PROVIDERS: PCP Physician Assistant; Visit Provider Physician Assistant
DX: J30.1 Allergic rhinitis due to pollen (principal); E66.811 Obesity, class 1; G47.33 Obstructive sleep apnea (adult) (pediatric); Z68.32 Body mass index [BMI] 32.0-32.9, adult

== ENCOUNTER → 2024-11-30 14:06 | Outpatient (BNVA) | payer OTHER, SELFPAY | PROVIDERS: PCP Physician Assistant; Visit Provider Physician Assistant | DX: J30.1 Allergic rhinitis due to pollen (principal); E66.811 Obesity, class 1; Z68.32 Body mass index [BMI] 32.0-32.9, adult; G47.33 Obstructive sleep apnea (adult) (pediatric) | CPT/HCPCS: 99212 ==

== ENCOUNTER 2024-12-19 09:06 | Outpatient (REF) | payer OTHER, SELFPAY ==
[2024-12-19 10:31] LABS: Hematocrit 37.1 % (37.0-47.0); Hemoglobin 12.3 g/dl (12.0-16.0); Mean Corpuscular HGB Conc 33.2 g/dl (31.0-35.0); Mean Corpuscular Hemoglobin 29.9 pg (27.0-33.0); Mean Corpuscular Volume 90.3 fL (80.0-98.0); NRBC Abs Auto 0.000 X10*3/uL (0.0-0.012); NRBC Pct Auto 0.0 /100WBC (0.0-0.2); Platelet Count 223 X10*3/uL (160-400); Red Blood Count 4.11 X10*6/uL (4.20-5.50); White Blood Count 4.3 X10*3/uL (4.8-10.8)
[2024-12-19 11:16] LABS: Alanine Aminotransferase 27 U/L (0-31); Albumin Level 4.5 g/dL (3.5-5.0); Alkaline Phosphatase 70 U/L (39-117); Anion Gap 10 (12-20); Aspartate Amino Transferase 25 U/L (5-31); Blood Urea Nitrogen 13 mg/dL (9-16); Calcium 9.0 mg/dL (8.4-10.2); Carbon Dioxide 28 mmol/L (22-29); Chloride 107 mmol/L (96-108); Cholesterol 227 mg/dL (<200); Estimated Glomerular Filt Rate > 60; HDL Cholesterol 61 mg/dL (>40); Potassium 4.2 mmol/L (3.3-5.1); Sodium 141 mmol/L (135-145); Total Protein 6.5 g/dL (6.5-8.0); Triglycerides 94 mg/dL (<150)
== END 2024-12-19 09:07 | disposition home or self-care (01) ==
LOC: HO.LAB 09:06
PROVIDERS: PCP Physician Assistant; Visit Provider Physician Assistant
DX: I25.811 Atherosclerosis of native coronary artery of transplanted heart without angina pectoris (principal); E78.5 Hyperlipidemia, unspecified
CPT/HCPCS: 36415; 80053; 80061; 85027

== ENCOUNTER 2025-01-23 14:26 | Emergency (ER) | payer OTHER, SELFPAY ==
--- NOTE | 2025-01-23 14:28 | ECG_ITS ---
Test Reason : CP Blood Pressure : */* mmHG Vent. Rate : 80 BPM Atrial Rate : 80 BPM P-R Int : 158 ms QRS Dur : 86 ms QT Int : 390 ms P-R-T Axes : 54 4 44 degrees QTcB Int : 449 ms Normal sinus rhythm Normal ECG When compared with ECG of 08-Nov-2024 22:15, Premature supraventricular complexes are no longer Present Referred By: Cindy Schmitt Electronically Signed By: JERAMY KENNEY
[2025-01-23 14:48] VITALS: BP 150/71; PULSE 79; RESP 16; TEMP 36.6; O2SAT 99; BMI 34.0
--- NOTE | 2025-01-23 15:45 | ED.CHESTPAIN ---
HPI - Chest Pain General Chief Complaint: Chest Pain Stated Complaint: Sharp cp, bilateral arm tingling Related Data Previous Rx's ?Medication ?Instructions ?Recorded nebulizers (AeroEclipse II #1 ea 06/02/23 Nebulizer) nebulizers (Aeroneb Go Nebulizer) #1 ea 06/04/23 miscellaneous medical supply #1 ea 11/30/23 (Blood Pressure Cuff) blood pressure monitor (Blood #1 ea 02/22/24 Pressure Kit) albuterol sulfate 90 mcg/actuation 2 puff inhalation Q6H shortness of 10/31/24 aerosol inhaler breath or wheezing or cough 30 days #8.5 grams acetaminophen 325 mg tablet 975 mg (3 x 325 mg) PO Q6H 10 days 11/10/24 #120 tabs fluticasone furoate 100 1 inh inhalation RDAILY #60 ea 11/10/24 mcg-vilanterol 25 mcg/dose inhalation powder (Breo Ellipta) azelastine 137 mcg (0.1 %) nasal 1 spray intranasal BID 30 days #1 11/30/24 spray units tirzepatide (weight loss) 2.5 2.5 mg (0.5 mL) subcut QWEEK 4 11/30/24 mg/0.5 mL subcutaneous pen weeks #2 mL injector (Zepbound) atorvastatin 20 mg tablet (Lipitor) 20 mg PO DAILY 90 days #90 tabs 12/26/24 silver sulfadiazine 1 % topical 1 appl topical DAILY 4 weeks #85 01/16/25 cream (Silvadene) grams Allergies Allergy/AdvReac Type Severity Reaction Status Date / Time penicillin V Allergy Severe throat Verified 01/23/25 14:51 swelling Penicillins (PCN) Allergy Hives Verified 01/23/25 14:51 Tetanus Vaccines and Toxoid Allergy Difficulty Verified 01/23/25 14:51 Breathing Iodinated Contrast Media AdvReac Anaphylaxis Verified 01/23/25 14:51 (Contrast Dye) [facility] Past Medical History Medical History Equivocal myocardial perfusion imaging Abnormal stress test Hyperlipidemia Intermittent palpitations Chest pain Anxiety, generalized Esophageal stricture Normal colonoscopy Asthma (Unknown) Surgical History History of endoscopy History of appendectomy History of bladder surgery History of torn meniscus of right knee History of gallbladder disease History of partial hysterectomy Family History Family History Father CVD (cardiovascular disease) Past heart attack Mother Skin cancer Brother Heart problem Pacemaker Social History Social History Household Members: Spouse Housing: Apartment Do you presently have visiting nurse or other home services: No Alcohol intake: never Patient Tobacco Use Status: Never used Tobacco e-Cigarette/Vaping Use: Never Used Second Hand Smoke Exposure: No Advance Directives: No Advance Directives Information Provided: No Do you have a plan to hurt others: No Plan service: No Current occupational status: unemployed Cognitive needs: No Hearing needs: No Vision needs: Yes (Reading glasses) Physical Exam Vital Signs: Vital Signs: Last Vital Signs Temp 98 F 01/23/25 15:46 Pulse 88 01/23/25 15:46 Resp 18 01/23/25 15:46 BP 146/65 H 01/23/25 15:46 Pulse Ox 98 01/23/25 15:46 O2 Del Method Room Air 01/23/25 15:46 BMI result Body Mass Index 34.0 Course Course Course Narrative: This is a rapid medical exam performed by Keshawn Schmitt NP: Additional HPI, ROS, PE not included below will be deferred to primary provider. Patient is a 59y/o F presenting with complaint of sudden onset sharp chest pain which began while she was at work today. Recently started atorvastatin. Plan: EKG, labs, CXR Patient left the emergency department before myself or any of the other clinicians could review or explain physical exam findings, test results, need or lack there of for additional testing, treatment options, or a treatment plan. Medical Decision Making Lab Data 01/23/25 16:12 01/23/25 16:12 Labs: Lab Results 01/23/25 Range/Units 16:12 WBC 5.5 (4.8-10.8) X10*3/uL RBC 4.27 (4.20-5.50) X10*6/uL Hgb 12.8 (12.0-16.0) g/dl Hct 38.6 (37.0-47.0) % MCV 90.4 (80.0-98.0) fL MCH 30.0 (27.0-33.0) pg MCHC 33.2 (31.0-35.0) g/dl RDW 12.3 (11.0-16.0) % Plt Count 247 (160-400) X10*3/uL MPV 10.1 (9.4-12.3) fL Immature Gran % (Auto) 0.2 (0.0-0.4) % Neut % (Auto) 57.9 (45-73) % Lymph % (Auto) 32.5 (20-40) % [place] % (Auto) 4.7 (2-11) % Eos % (Auto) 4.2 H (0-4) % Baso % (Auto) 0.5 (0-2) % Lymph # (Auto) 1.8 (1.2-4.9) X10*3/uL [place] # (Auto) 0.3 (0.1-1.2) X10*3/uL Eos # (Auto) 0.2 (0.0-0.4) X10*3/uL Baso # (Auto) 0.0 (0.0-0.2) X10*3/uL Abs Immat Gran (auto) 0.01 (0.00-0.03) X10*3/uL Absolute Neuts (auto) 3.2 (2.0-8.3) x10*3/uL Absolute Nucleated RBC 0.000 (0.0-0.012) X10*3/uL Nucleated RBC % (auto) 0.0 (0.0-0.2) /100WBC Sodium 141 (135-145) mmol/L Potassium 3.8 (3.3-5.1) mmol/L Chloride 108 (96-108) mmol/L Carbon Dioxide 27 (22-29) mmol/L Anion Gap 10 L (12-20) BUN 16 (9-16) mg/dL Creatinine 0.75 (0.5-1.4) mg/dL Estim Creat Clear Calc 77.3 Estimated GFR > 60 Random Glucose 80 (60-115) mg/dL Calcium 9.0 (8.4-10.2) mg/dL Magnesium 2.1 (1.6-2.6) mg/dL Total Bilirubin 0.9 (0.0-1.0) mg/dL AST 32 H (5-31) U/L ALT 35 H (0-31) U/L Alkaline Phosphatase 74 (39-117) U/L Troponin I High Sens < 2.7 (<3.5-17.0) ng/L Total Protein 6.9 (6.5-8.0) g/dL Albumin 4.8 (3.5-5.0) g/dL Lipase 31 (8-78) U/L Discharge Plan Discharge Clinical Impression: Chest pain Patient Disposition: Left W/O Completing Treatment Prescriptions: No Action (DME) nebulizers [AeroEclipse II Nebulizer] Misc See Rx Instructions .Route Qty: 1 0RF Rx Instructions: As directed (DME) nebulizers [Aeroneb Go Nebulizer] Misc See Rx Instructions .Route Qty: 1 0RF Rx Instructions: As directed (DME) blood pressure monitor [Blood Pressure Kit] Kit See Rx Instructions .Route Qty: 1 0RF Rx Instructions: As directed atorvastatin [Lipitor] 20 mg tablet 20 mg PO DAILY 90 Days Qty: 90 1RF silver sulfadiazine [Silvadene] 1 % cream 1 appl topical DAILY 28 Days Qty: 85 0RF Rx Instructions: apply a 1.5 mm thickness fluticasone furoate-vilanterol [Breo Ellipta] 100-25 mcg/dose Blister With Device 1 inh inhalation RDAILY Qty: 60 0RF acetaminophen 325 mg Tablet 975 mg PO Q6H 10 Days Qty: 120 0RF (DME) Blood Pressure Cuff Misc See Rx Instructions .ROUTE .MEDSUPPLY Qty: 1 0RF Rx Instructions: Take blood pressure once a day as needed albuterol sulfate 90 mcg/actuation HFA aerosol inhaler 2 puff inhalation Q6H 30 Days Qty: 8.5 3RF azelastine 137 mcg (0.1 %) spray,non-aerosol 1 spray intranasal BID 30 Days Qty: 1 1RF Rx Instructions: administer into each nostril Zepbound 2.5 mg/0.5 mL pen injector 2.5 mg subcut QWEEK 28 Days Qty: 2 0RF Rx Instructions: for 4 weeks Interventions: LWBS Worksheet Last Done: 01/23/25 15:40 Discharge Date/Time: 01/23/25 17:19
[2025-01-23 15:46] VITALS: BP 146/65; PULSE 88; RESP 18; TEMP 36.6; O2SAT 98
[2025-01-23 16:48] LABS: MANUAL DIFF FLAG NO
[2025-01-23 16:50] LABS: Hematocrit 38.6 % (37.0-47.0); Hemoglobin 12.8 g/dl (12.0-16.0); Imm Gran Abs Auto 0.01 X10*3/uL (0.00-0.03); Imm Gran Pct Auto 0.2 % (0.0-0.4); Lymphocytes Absolute Auto 1.8 X10*3/uL (1.2-4.9); Mean Corpuscular HGB Conc 33.2 g/dl (31.0-35.0); Mean Corpuscular Hemoglobin 30.0 pg (27.0-33.0); Mean Corpuscular Volume 90.4 fL (80.0-98.0); NRBC Abs Auto 0.000 X10*3/uL (0.0-0.012); NRBC Pct Auto 0.0 /100WBC (0.0-0.2); Platelet Count 247 X10*3/uL (160-400); Red Blood Count 4.27 X10*6/uL (4.20-5.50); White Blood Count 5.5 X10*3/uL (4.8-10.8)
[2025-01-23 17:12] LABS: Alanine Aminotransferase 35 U/L (0-31); Albumin Level 4.8 g/dL (3.5-5.0); Alkaline Phosphatase 74 U/L (39-117); Anion Gap 10 (12-20); Aspartate Amino Transferase 32 U/L (5-31); Blood Urea Nitrogen 16 mg/dL (9-16); Calcium 9.0 mg/dL (8.4-10.2); Carbon Dioxide 27 mmol/L (22-29); Chloride 108 mmol/L (96-108); Creatinine Clr Calc Pharmacy 77.3; Estimated Glomerular Filt Rate > 60; Lipase 31 U/L (8-78); Magnesium 2.1 mg/dL (1.6-2.6); Potassium 3.8 mmol/L (3.3-5.1); Sodium 141 mmol/L (135-145); Total Protein 6.9 g/dL (6.5-8.0)
[2025-01-23 17:25] LABS: Troponin-I High Sensitivity < 2.7 ng/L (<3.5-17.0)
== END 2025-01-23 17:19 | disposition left against medical advice (07) ==
PROVIDERS: Emergency Provider Emergency Medicine Emergency Medical Services; PCP Physician Assistant
DX: R07.89 Other chest pain (principal); R20.2 Paresthesia of skin; Z79.899 Other long term (current) drug therapy
CPT/HCPCS: 36415; 80053; 83690; 83735; 84484; 85025; 93005; 99283

== ENCOUNTER → 2025-01-23 14:28 | Outpatient (BNV) | payer OTHER, SELFPAY | PROVIDERS: Emergency Provider Emergency Medicine Emergency Medical Services; PCP Physician Assistant; Visit Provider Internal Medicine | DX: R07.9 Chest pain, unspecified (principal) | CPT/HCPCS: 93010 ==

== ENCOUNTER 2025-02-07 11:49 | Outpatient (REF) | payer OTHER, SELFPAY ==
[2025-02-07 17:58] LABS: Resp Syncy Virus RNA Qual PCR NEGATIVE (Negative); SARS COV2 PCR INHOUSE NEGATIVE (Negative)
== END 2025-02-07 11:50 | disposition home or self-care (01) ==
LOC: HO.LAB 11:49
PROVIDERS: Physician Assistant; PCP Physician Assistant
DX: J31.0 Chronic rhinitis (principal); B97.89 Other viral agents as the cause of diseases classified elsewhere; S80.02XA Contusion of left knee, initial encounter; T48.5X5A Adverse effect of other anti-common-cold drugs, initial encounter; R09.89 Other specified symptoms and signs involving the circulatory and respiratory systems; J06.9 Acute upper respiratory infection, unspecified; W18.2XXA Fall in (into) shower or empty bathtub, initial encounter; Y92.002 Bathroom of unspecified non-institutional (private) residence as the place of occurrence of the external cause; Y93.9 Activity, unspecified; Y99.9 Unspecified external cause status
CPT/HCPCS: 87637; 99212

== ENCOUNTER 2025-02-07 11:49 | Outpatient (AMB) | payer OTHER, SELFPAY ==
--- OUTSIDE RECORDS SUMMARY | 2023-09-29 07:50 | XMS_ITS ---
Author Organization [facility] Address [address] [place] [address] Care Team Providers Care Dispatch Coordinator Name Role Phone Elias Swenson Primary Care Provider Unavailab Sami Mancera Jr Unavailable REASON FOR VISIT erosive esophagitis, change in bowels Encounters Encounter Location Date Provider Diagnosis [facility] [place] [address], [place] [id number] 09/29/2023 Sami Foster Jr Change in bowel movement R19.8 and Erosive esophagitis K22.10 Assessments Encounter Date Diagnosis (ICD Code) Assessment Notes Treatment Notes Treatment Clinical Notes Section Notes 09/29/2023 Change in bowel movement (ICD-10 - R19.8) 09/29/2023 Erosive esophagitis (ICD-10 - K22.10) Plan Of Treatment Next Appt Details Provider Name:Sami freeman Jr, 11/09/2025 02:15:00 PM, [address], [address], [place], [address], Progress Notes * JURGEN MONTEZDOB:1965 (59 yo F)Acc No.[id number]:09/29/2023 EGD and COL/MAC Patient: JURGEN LIU Provider: Kassidy Foster MD :1965 A ge:58 Y S ex:Female Date:09/29/2023 Address:[address] [id number] Pcp:Elias Swenson Subjective: * Chief Complaints: * E rosive esophagitis, change in bowels Assessment: * Assessment: 1. C hange in bowel movement - R19.8 (Primary) 2 . E rosive esophagitis - K22.10 Plan: * Procedure Codes: 4 5378 DIAGNOSTIC [id number] UPPER GI ENDOSCOPY, BIOPSY Billing Information: * Procedure Codes: 69243 DIAGNOSTIC COLONOSCOPY. 64868 UPPER GI ENDOSCOPY, BIOPSY. * The named appointment provid er may or may not be the originator of this progress note, and it is not deemed complete until electronically signed by the appointment provider. Sign off status: Pending * Provider: Kassidy Foster MD Date: 0 09/29/2023 Generated for Lexis bennett/Zarina/Carlaransmitting on: 1 04/10/2024 03:39 PM EST
--- OUTSIDE RECORDS SUMMARY | 2024-04-07 10:35 | XMS_ITS ---
Author Organization [facility] Address [address] [place] [address] Care Team Providers Care Manager Inside Name Role Phone Elias Swenson Primary Care Provider Unavailab Sami Mancera Jr Unavailable REASON FOR VISIT Patient presents today for GERD Encounters Encounter Location Date Provider Diagnosis [facility] [address] [place] [address] 04/07/2024 Sami Foster Jr Plan Of Treatment Next Appt Details Provider Name:Sami freeman Jr, 11/09/2025 02:15:00 PM, [address], [address], [place], [address], Progress Notes * JURGEN MONTEZDOB:1965 (59 yo F)Acc No.[id number]:04/07/2024 Progress Notes Patient: JURGEN LIU Provider: Kassidy Foster MD :1965 A ge:58 Y S ex:Female Date:04/07/2024 Address:[address] [facility] [id number] Pcp:Elias Swenson Subjective: * Chief Complaints: * P atient presents today for GERD * The named appointment provid er may or may not be the originator of this progress note, and it is not deemed complete until electronically signed by the appointment provider. Sign off status: Pending * Provider: Kassidy Foster MD Date: 0 04/07/2024 Generated for Lexis bennett/Zarina/eTransmitting on: 1 04/10/2024 03:39 PM EST
--- OUTSIDE RECORDS SUMMARY | 2024-07-20 08:00 | XMS_ITS ---
Author Organization [facility] Address [address] [place] [address] Care Team Providers Care Community Specialist Name Role Phone Elias Swenson Primary Care Provider Unavailab Sami Mancera Jr Unavailable REASON FOR VISIT gerd,dysphagia Encounters Encounter Location Date Provider Diagnosis [facility] [place] [address] [place] [id number] 07/20/2024 Sami Foster Jr Plan Of Treatment Next Appt Details Provider Name:Sami freeman Jr, 11/09/2025 02:15:00 PM, [address] [facility], [address], [place], [address], Progress Notes * JURGEN MONTEZDOB:1965 (59 yo F)Acc No.[id number]:07/20/2024 EGD/MAC Patient: JURGEN LIU Provider: Kassidy Foster MD :1965 A ge:59 Y S ex:Female Date:07/20/2024 Address:[address] [facility] [id number] Pcp:Elias Swenson Subjective: * Chief Complaints: * G erd,dysphagia * The named appointment provid er may or may not be the originator of this progress note, and it is not deemed complete until electronically signed by the appointment provider. Sign off status: Pending * Provider: Kassidy Foster MD Date: 0 07/20/2024 Generated for Printi ng/Faxing/eTransmitting on: 1 04/10/2024 03:39 PM EST
[2025-02-07 11:59] VITALS: BP 138/60; PULSE 98; TEMP 37.1; O2SAT 98; BMI 38.4
--- NOTE | 2025-02-07 11:59 | MHC.OFFWIV ---
Intake Vital Signs 02/07/25 11:59 Height 5 ft 1 in Weight 203 lb BMI 38.4 BP 138/60 Blood Pressure Location Rt brachial Position Sitting Pulse 98 Pulse Source Pulse Oximeter Temp 98.7 F Temp Source Oral Pulse Oximetry (%) 98 Oxygen Delivery Method Room Air Intake Visit Reasons: EP Runny nose, difficulty breathing, headache Intake Note: pt presents with sinus congestion, body aches, difficulty breathing and headaches for 3 days Patient Tobacco Use Status: Never used Tobacco Allergies Penicillins (PCN) Allergy (Verified 02/07/25 12:01) Hives, throat swelling Tetanus Vaccines and Toxoid Allergy (Verified 02/07/25 12:01) Difficulty Breathing Iodinated Contrast Media (Contrast Dye) Adverse Reaction (Verified 02/07/25 12:01) Anaphylaxis Do you need a note to return to daycare/school/sports/work: Yes HPI HPI Comments History of Present Illness Details History - The patient is a 59 year old female presenting with symptoms of a viral illness and a left knee injury. - She reports symptoms including body aches, nausea which started yesterday, nasal congestion, and upper back pain. - She had headaches for two days which have since resolved and denies any fevers or chills. - Past medical history is significant for asthma, for which she needs a new inhaler and is not currently using her Breo Ellipta. - She has a history of having COVID, influenza, pneumonia, and shingles recently. - She reports frequent use of an Afrin-like nasal spray. - The patient injured her left knee when her foot slipped in a high bathtub, causing her to hit the side of her knee on the tub. - The patient reports taking a low-dose aspirin daily. Review of Systems - General: Reports body aches. Denies fever and chills. - Neurological: Reports a headache that lasted for two days and has since resolved. - HEENT: Reports nasal congestion and post-nasal drip. - Respiratory: Reports shortness of breath and a cough. - Gastrointestinal: Reports nausea. - Musculoskeletal: Reports pain in the left knee after a fall and upper back pain. - Psychiatric: Reports increased anxiety. All systems reviewed and are unremarkable except as noted in HPI Physical Exam General: Cooperative, healthy appearing, comfortable and no acute distress Orientation/consciousness: Patient oriented x3 Limitations: No limitations Head: Normal to inspection Ears: Fluid present in the left ear, right ear normal Nose: Nasal congestion present Face and sinus: Tender bilateral maxillary sinuses, normal facial exam Mouth: Normal oral and palatal mucosa present and moist mucous membranes Throat: tonsils normal, no exudates, uvula midline, posterior oropharynx erythema Eyes: Appearance normal, both eyes and all related structures Neck: Normal visual inspection, full ROM Respiratory: Clear to auscultation bilaterally. Normal respiratory effort, able to speak in complete sentences, actively coughing, no respiratory distress, not tachypneic, no tripod positioning and no use of accessory muscles Cardiovascular: Regular rate and rhythm. Normal S1 and S2 Skin: No rashes or lesions noted Neuro: Patient oriented x3 Extremities: 7cm x 5cm area of ecchymosis, edema and tenderness on the left medial knee, no clubbing, cyanosis or edema [facility] Medical History (Updated 02/07/25 @ 12:36 by Anita Romero PA-C) Acute viral sinusitis Equivocal myocardial perfusion imaging Abnormal stress test Hyperlipidemia Intermittent palpitations Chest pain Anxiety, generalized Esophageal stricture Normal colonoscopy Asthma (Unknown) Surgical History History of endoscopy History of appendectomy History of bladder surgery History of torn meniscus of right knee History of gallbladder disease History of partial hysterectomy Family History Father CVD (cardiovascular disease) Past heart attack Mother Skin cancer Brother Heart problem Pacemaker Social History Household Members: Spouse Housing: Apartment Do you presently have visiting nurse or other home services: No Alcohol intake: never Patient Tobacco Use Status: Never used Tobacco e-Cigarette/Vaping Use: Never Used Second Hand Smoke Exposure: No service: No Current occupational status: unemployed Cognitive needs: No Hearing needs: No Vision needs: Yes (Reading glasses) Physical Exam Vital Signs: Last Vital Signs Temp 98.7 F 02/07/25 11:59 Pulse 98 02/07/25 11:59 BP 138/60 02/07/25 11:59 Pulse Ox 98 02/07/25 11:59 Oxygen Delivery Method Room Air 02/07/25 11:59 BMI result Body Mass Index 38.4 Assessment & Plan Assessment & Plan (1) Acute viral sinusitis: Code(s): J01.90 - Acute sinusitis, unspecified; B97.89 - Other viral agents as the cause of diseases classified elsewhere Plan: Plan Patient was informed and verbally consented to the use of an ambient scribe for clinic note documentation during this visit. - VSS, pt well appearing and PE remarkable for sinus tenderness. - Symptoms of body aches, nausea, nasal congestion, and sinus tenderness are consistent with an acute viral upper respiratory infection, likely sinusitis. - A test for COVID-19, influenza, and RSV was performed. - Per patient request, an antiviral medication (Paxlovid for COVID-19 or Tamiflu for influenza) will be sent to the pharmacy automatically if the test is positive. - Advised to use Flonase twice a day and a saline nasal spray or irrigation system with distilled water. - Prescribed Naproxen 500 mg, one tablet every 12 hours, for myalgia. - The patient has a history of asthma and is currently without a rescue inhaler. - She was advised to resume her daily Breo Ellipta maintenance inhaler. - A new rescue inhaler will be prescribed. (2) Contusion of left knee and lower leg: Code(s): S80.02XA - Contusion of left knee, initial encounter; S80.12XA - Contusion of left lower leg, initial encounter Qualifiers: Encounter type: initial encounter Qualified Code(s): S80.02XA - Contusion of left knee, initial encounter; S80.12XA - Contusion of left lower leg, initial encounter Plan: Contusion Of Left Knee - The patient sustained a direct blow to the medial left knee, resulting in a contusion with significant bruising, swelling, and tenderness, though with preserved range of motion. - Recommended treatment with ice and Aleve (Naproxen) for pain and inflammation. - The patient was educated that the bruising and swelling may migrate down the leg due to gravity, which is a normal finding. - Advised to return for re-evaluation in one to two weeks if her symptoms are not improving. - Could take several weeks to subside (3) Rhinitis medicamentosa: Code(s): J31.0 - Chronic rhinitis; T48.5X5A - Adverse effect of other mqfr-sopcwt-jwuf drugs, initial encounter Plan: - Strongly advised to discontinue the use of the Afrin-like spray immediately. Orders: Orders SARS-CoV2/FLU/RSV Today R09.89 - Other specified symptoms and signs involving the circulatory and respiratory systems Medications: New naproxen 500 mg PO Q12H PRN 20 tabs 0RF pain fluticasone propionate 50 mcg/actuation administer into each nostril 1 spray intranasal Q24H 48 grams 0RF 90 days Refilled albuterol sulfate 90 mcg/actuation 2 puffs inhalation Q6H 8.5 grams 3RF shortness of breath or wheezing or cough 30 days J06.9 - Acute upper respiratory infection, unspecified Coding Level of Care Code Est Pt Level 4 (63880) Diagnoses Acute viral sinusitis J01.90; B97.89 Contusion of left knee and lower leg, initial encounter S80.02XA; S80.12XA Encounter type: initial encounter Rhinitis medicamentosa J31.0; T48.5X5A
--- OUTSIDE RECORDS SUMMARY | 2025-02-07 15:40 | XMS_ITS | Patient Health Record ---
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 Role Phone Elias Swenson Primary Care Provider UnavailSami Rowe Jr Unavailable [phone] Allergies Allergen (clinical drug ingredient) Drug/Non Drug Allergy documented on EMR Reaction Allergy Type Onset Date Status IVP Dye (uncoded) Unknown Allergy Ac tive Penicillin Unknown Drug Allergy Active tetanus immune globulin Tetanus Immune Globulin Unknown Drug Allergy Active Results Component Value Reference Range Flag Notes Complete Blood Count Man Dif Reviewed date:07/20/2024 04:40:28 PM Interpretation: Performing Lab:[facility], [address] [place] [id number] Notes/Report: White Blood Count 5.0 4.8-10.8 X10*3/uL N Red Blood Count 4.37 4.20-5.50 X10*6/uL N Hemoglobin 13.4 12.0-16.0 g/dl N Hematocrit 38.8 37.0-47.0 % N Mean Corpuscular Volume 88.8 80.0-98.0 fL N Mean Corpuscular Hemoglobin 30.7 27.0-33.0 pg N Mean Corpuscular HGB Conc 34.5 31.0-35.0 g/dl N Red Cell Distribution Width 11.9 11.0-16.0 % N Platelet Count 239 160-400 X10*3/uL N Mean Platelet Volume 10.8 9.4-12.3 fL N NRBC Pct Auto 0.0 0.0-0.2 /100WBC N NRBC Abs Auto 0.000 0.0-0.012 X10*3/uL N Neutrophils Percent Manual 60 45-73 % N Band Neutrophils Percent 1 3-5 % L Lymphocytes Percent Manual 21 20-40 % N Monocytes Percent Manual 8 2-11 % N Eosinophils Percent Manual 7 0-4 % H Basophils Percent Manual 3 0-2 % H Neutrophils Absolute Manual 3.1 2.0-8.3 X10*3/uL N Lymphocytes Absolute Manual 1.1 1.2-4.9 X10*3/uL L Monocytes Absolute Manual 0.4 0.1-1.2 X10*3/uL N Eosinophils Absolute Manual 0.4 0.0-0.4 X10*3/uL N Basophils Abs Manual 0.2 0.0-0.2 X10*3/uL N Platelet Estimate NORMAL NORMAL Platelet Morphology Comment NORMAL RBC Morphology NORMAL Liver Panel Reviewed date:07/20/2024 04:40:37 PM Interpretation: Performing Lab:[facility], [address] [place] [phone] Notes/Report: Bilirubin Total 0.9 0.0-1.0 mg/dL N Bilirubin Direct 0.2 0.0-0.5 mg/dL N Aspartate Amino Transferase 27 5-31 U/L N Alanine Aminotransferase 29 0-31 U/L N Total Protein 6.5 6.5-8.0 g/dL N Albumin Level 4.4 3.5-5.0 g/dL N Alkaline Phosphatase 73 39-117 U/L N Lipase Reviewed date:07/20/2024 04:40:11 PM Interpretation: Performing Lab:[facility], [address] [place] [phone] Notes/Report: Lipase 25 8-78 U/L N Reason For Referral No Information Medications Medication SIG (Take, Route, Frequency, Duration) Notes Start Date End Date Status Pantoprazole Sodium 40 MG Tablet Delayed Release 1 Orally twice daily; Duration: 30 days 11/03/2024 Active Aspirin 81 81 MG Tablet Delayed Release 1 tablet Orally Once a day; Duration: 30 day(s) Not-Taking/PRN Omeprazole 40 MG Capsule Delayed Release TAKE 1 CAPSULE BY MOUTH DAILY 30 MINUTES BEFORE BREAKFAST; Duration: 30 Not-Taking/PRN Pantoprazole Sodium 40 MG Tablet Delayed Release 1 Orally Twice a day; Duration: 30 days 07/07/2024 Active Immunizations Vaccine Route Administration Date Status Comme nts Influenza Unknown 06/02/2022 Refused Social History Social History Additional Details Category Social Info Options Details Miscellaneous: Marital status: Occupation: unemployed Problems Problem Type SNOMED Code ICD Code Onset Dates Problem Status W/U Status Risk Notes Problem Diverticulitis of colon (254854221) Diverticulitis of large intestine without perforation or abscess without bleeding (K57.32) Active confirmed Problem Dysphagia (70505749) Dysphagia (R13.10) Active confirmed Problem Erosive esophagitis (07496874) Erosive esophagitis (K22.10) Active confirmed Problem Gastroesophageal reflux disease (125660632) GERD (gastroesophageal reflux disease) (K21.9) Active confirmed Problem Barium swallow abnormal (562885108) Abnormal barium swallow (R93.3) Active confirmed Problem 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) Active confirmed Problem Family history: Liver disease (situation) (457047079) Family history of liver disease (Z83.79) Active confirmed Problem Altered bowel function (66246104) Change in bowel movement (R19.8) Active confirmed Problem Esophageal dysphagia (05462203) Esophageal dysphagia (R13.19) Active confirmed Vital Signs Temperature 96.9 degrees Fahrenheit 11/03/2024 Blood pressure diastolic 01 mm Hg 11/03/2024 Height 61.5 in 11/03/2024 Blood pressure systolic 001 mm Hg 11/03/2024 Weight 193.8 lbs 11/03/2024 BMI 36.02 kg/m2 11/03/2024 Encounters Encounter Location Date Provider Diagnosis [facility] [address] [place] [id number] 07/20/2024 Sami Foster Jr [facility] [address] [place] [phone] 07/07/2024 Sami Foster Jr Dysphagia R13.10 and GERD (gastroesophageal reflux disease) K21.9 [facility] [address] [place] [phone] 11/03/2024 Sami Foster Jr Erosive esophagitis K22.10 and Diarrhea R19.7 [facility] [address] [place] [phone] 04/07/2024 Sami Foster Jr [facility] [address] [place] [address], [place] [address] 07/19/2024 Sami Foster Jr [facility] [address] [place] [address] 07/20/2024 Sami Foster Jr GERD (gastroesophageal reflux [...] the procedure. Today's visit was 30 minutes. 11/03/2024 Diarrhea (ICD-10 - R19.7) We discussed her symptoms today. We recommend she increase pantoprazole to 40 mg twice daily for a month and let us know how she is doing. We discussed diet, lifestyle modifications, and weight management regarding the treatment of reflux. She will continue these measures. Stool testing will be obtained because of her complaints of diarrhea. Follow-up will be in 6 to 12 months pending these results. 11/03/2024 Erosive esophagitis (ICD-10 - K22.10) We discussed her symptoms today. We recommend she increase pantoprazole to 40 mg twice daily for a month and let us know how she is doing. We discussed diet, lifestyle modifications, and weight management regarding the treatment of reflux. She will continue these measures. Stool testing will be obtained because of her complaints of diarrhea. Follow-up will be in 6 to 12 months pending these results. 07/20/2024 GERD (gastroesophage al reflux disease) (ICD-10 [...] Provider Name:Sami freeman Jr, 11/09/2025 02:15:00 PM, [address] [place] [address], [address], [place], [address], Insurance Providers Payer Name Payer Address Payer Phone Subscriber Number Group Number Insured Name Patient Relationship to Insured Coverage Start Date Coverage End Date [facility] [address] Attn Claims [employer] [id number] JURGEN MONTEZ Self - patient is the insured Medical (General) History Medical History History ICD Code asthma stress urinary incontinence Colonoscopy 10/16, no colitis, 10-year fo llow-up Gastroesophageal reflux dise ase, EGD 10/16, no H. pylori, GERD changes noted on biopsy, no Quach's esophagus Hyperlipidemia HSV infection with shingles 2023 Surgical History Surgery Date(Month/Year) hysterectomy cholecystectomy appendectomy bladder stimulator this was removed in 2 022 Hospitalization History Reason Date(Month/Year) hospital for 10 days with covid Hospitalized at [facility] for allergic reaction to contrast 09/14
== END 2025-02-07 12:43 | disposition home or self-care (01) ==
PROVIDERS: PCP Physician Assistant; Visit Provider Physician Assistant
DX: J01.90 Acute sinusitis, unspecified (principal); B97.89 Other viral agents as the cause of diseases classified elsewhere; S80.02XA Contusion of left knee, initial encounter; S80.12XA Contusion of left lower leg, initial encounter; J31.0 Chronic rhinitis; T48.5X5A Adverse effect of other anti-common-cold drugs, initial encounter

== ENCOUNTER 2025-02-13 13:25 | Outpatient (AMB) | payer OTHER, SELFPAY ==
--- OUTSIDE RECORDS SUMMARY | 2023-09-29 07:50 | XMS_ITS ---
Author Organization [facility] Address [address] [place] [address] Care Team Providers Care Air Traffic Control Supervisor Name Role Phone Elias Swenson Primary Care Provider Unavailab aSmi Mancera Jr Unavailable [phone] REASON FOR VISIT erosive esophagitis, change in bowels Encounters Encounter Location Date Provider Diagnosis [facility] [address], [place] [id number] 09/29/2023 Sami Foster Jr Change in bowel movement R19.8 and Erosive esophagitis K22.10 Assessments Encounter Date Diagnosis (ICD Code) Assessment Notes Treatment Notes Treatment Clinical Notes Section Notes 09/29/2023 Change in bowel movement (ICD-10 - R19.8) 09/29/2023 Erosive esophagitis (ICD-10 - K22.10) Plan Of Treatment Next Appt Details Provider Name:Sami freeman Jr, 11/09/2025 02:15:00 PM, [address], [address], [place], [address], Progress Notes * JURGEN MONTEZDOB:1965 (59 yo F)Acc No.[id number]:09/29/2023 EGD and COL/MAC Patient: JURGEN LIU Provider: Kassidy Foster MD :1965 A ge:58 Y S ex:Female Date:09/29/2023 Address:[address] [id number] Pcp:Elias Swenson Subjective: * Chief Complaints: * E rosive esophagitis, change in bowels Assessment: * Assessment: 1. C hange in bowel movement - R19.8 (Primary) 2 . E rosive esophagitis - K22.10 Plan: * Procedure Codes: 4 5378 DIAGNOSTIC [id number] UPPER GI ENDOSCOPY, BIOPSY Billing Information: * Procedure Codes: 91694 DIAGNOSTIC COLONOSCOPY. 71798 UPPER GI ENDOSCOPY, BIOPSY. * The named appointment provid er may or may not be the originator of this progress note, and it is not deemed complete until electronically signed by the appointment provider. Sign off status: Pending * Provider: Kassidy Foster MD Date: 0 09/29/2023 Generated for Lexis bennett/Zarina/Carlaransmitting on: 1 04/16/2024 04:49 PM EST
--- OUTSIDE RECORDS SUMMARY | 2024-04-07 10:35 | XMS_ITS ---
Author Organization [facility] Address [address] [place] [address] Care Team Providers Care Health Facilities Surveyor Name Role Phone Elias Swenson Primary Care Provider Unavailab Sami Mancera Jr Unavailable [phone] REASON FOR VISIT Patient presents today for GERD Encounters Encounter Location Date Provider Diagnosis [facility] [address] [place] [address] 04/07/2024 Sami Foster Jr Plan Of Treatment Next Appt Details Provider Name:Sami freeman Jr, 11/09/2025 02:15:00 PM, [address], [address], [place], [address], Progress Notes * JURGEN MONTEZDOB:1965 (59 yo F)Acc No.[id number]:04/07/2024 Progress Notes Patient: JURGEN LIU Provider: Kassidy Foster MD :1965 A ge:58 Y S ex:Female Date:04/07/2024 Address:[address] [facility] [id number] Pcp:Elias Swenson Subjective: * Chief Complaints: * P atient presents today for GERD * The named appointment provid er may or may not be the originator of this progress note, and it is not deemed complete until electronically signed by the appointment provider. Sign off status: Pending * Provider: Kassidy Foster MD Date: 0 04/07/2024 Generated for Lexis bennett/Zarina/eTransmitting on: 04/16/2024 04:49 PM EST
--- OUTSIDE RECORDS SUMMARY | 2024-07-20 08:00 | XMS_ITS ---
Author Organization [facility] Address [address] [place] [address] Care Team Providers Care Panel Edge Sealer Name Role Phone Elias Swenson Primary Care Provider Unavailab Sami Mancera Jr Unavailable [phone] REASON FOR VISIT gerd,dysphagia Encounters Encounter Location Date Provider Diagnosis [facility] [place] Out[place] [address] [place] [id number] 07/20/2024 Sami Foster Jr Plan Of Treatment Next Appt Details Provider Name:Sami freeman Jr, 11/09/2025 02:15:00 PM, [address] [facility], [address], [place], [address], Progress Notes * JURGEN MONTEZDOB:1965 (59 yo F)Acc No.[id number]:07/20/2024 EGD/MAC Patient: JURGEN LIU Provider: Kassidy Foster MD :1965 A ge:59 Y S ex:Female Date:07/20/2024 Address:[address] [facility] [id number] Pcp:Elias Swneson Subjective: * Chief Complaints: * G erd,dysphagia * The named appointment provid er may or may not be the originator of this progress note, and it is not deemed complete until electronically signed by the appointment provider. Sign off status: Pending * Provider: Kassidy Foster MD Date: 0 07/20/2024 Generated for Printi ng/Faxing/eTransmitting on: 1 04/16/2024 04:49 PM EST
--- NOTE | 2025-02-13 13:33 | MHC.OFFWIV ---
Intake Vital Signs 02/13/25 13:34 Height 5 ft 1 in Weight 203 lb BMI 38.4 BP 138/68 Blood Pressure Location Lt brachial Position Sitting Pulse 87 Pulse Source Pulse Oximeter Temp 98.4 F Temp Source Oral Pulse Oximetry (%) 96 Oxygen Delivery Method Room Air Intake Visit Reasons: EP Cough, sob/can't catch breath Intake Note: pt presents with worsening coughing and SOB- unable to catch her breath, coughing causing near vomiting, decreased appetite- states has been taking OTC cough medicine, rescue inhaler (today x3) and nebulizer tx (last tx late last night) Patient Tobacco Use Status: Never used Tobacco Allergies Penicillins (PCN) Allergy (Verified 02/13/25 13:36) Hives, throat swelling Tetanus Vaccines and Toxoid Allergy (Verified 02/13/25 13:36) Difficulty Breathing Iodinated Contrast Media (Contrast Dye) Adverse Reaction (Verified 02/13/25 13:36) Anaphylaxis Do you need a note to return to daycare/school/sports/work: Yes HPI HPI Comments History of Present Illness Details History - The patient is a 59 year old female presenting with shortness of breath. - She was seen last week, diagnosed with influenza A on 02/07, and took Tamiflu as prescribed. - Her symptoms never resolved and she now presents with wheezing in her chest. - The patient has a history of asthma and uses an inhaler and nebulizer. - She used her inhaler twice today but did not use her nebulizer as she was at work, with the last treatment being the previous night. - She reports continued dyspnea and coughing even after using the nebulizer. - Associated symptoms include a dry cough and a sensation of choking when eating or drinking. - She denies any fever. - She has a history of bronchitis and pneumonia, stating her current symptoms feel similar to when she had pneumonia. - She did not receive prednisone during her visit last week. - She denies fever, chills, abd pain, n/v/d. Physical Exam General: Cooperative, healthy appearing, comfortable and no acute distress Orientation/consciousness: Patient oriented x3 Limitations: No limitations Head: Normal to inspection Ears: Hearing grossly normal bilaterally, external ears normal and TM's normal bilaterally Nose: Normal external nose present, normal nares present, and no nasal discharge present. Face and sinus: Sinuses nontender to palpation. Mouth: Normal oral and palatal mucosa present and moist mucous membranes noted. Throat: Tonsils normal. Uvula is midline. Posterior oropharynx with erythema and no exudates. Eyes: Appearance normal, both eyes and all related structures Neck: Normal visual inspection, full ROM. No lymphadenopathy noted. Respiratory: Wheezes noted throughout. Normal respiratory effort, able to speak in complete sentences. No respiratory distress, not tachypneic, no tripod positioning and no use of accessory muscles. No w/r/r noted. Cardiovascular: Regular rate and rhythm. Normal S1 and S2. No m/r/g noted. Skin: No rashes or lesions noted Patient was informed and verbally consented to the use of an ambient scribe for clinic note documentation during this visit [facility] Medical History (Updated 02/07/25 @ 12:36 by Anita Romero PA-C) Acute viral sinusitis Equivocal myocardial perfusion imaging Abnormal stress test Hyperlipidemia Intermittent palpitations Chest pain Anxiety, generalized Esophageal stricture Normal colonoscopy Asthma (Unknown) Surgical History History of endoscopy History of appendectomy History of bladder surgery History of torn meniscus of right knee History of gallbladder disease History of partial hysterectomy Family History Father CVD (cardiovascular disease) Past heart attack Mother Skin cancer Brother Heart problem Pacemaker Social History Household Members: Spouse Housing: Apartment Do you presently have visiting nurse or other home services: No Alcohol intake: never Patient Tobacco Use Status: Never used Tobacco e-Cigarette/Vaping Use: Never Used Second Hand Smoke Exposure: No service: No Current occupational status: unemployed Cognitive needs: No Hearing needs: No Vision needs: Yes (Reading glasses) Review of Systems Const All systems reviewed & are unremarkable except as noted in HPI and below Physical Exam Vital Signs: Last Vital Signs Temp 98.4 F 02/13/25 13:34 Pulse 87 02/13/25 13:34 BP 138/68 02/13/25 13:34 Pulse Ox 96 02/13/25 13:34 Oxygen Delivery Method Room Air 02/13/25 13:34 BMI result Body Mass Index 38.4 Office Procedures Nebulizer Treatment Nebulizer Treatment [id number]/MDI RX initial, or Nebulizer Subsequent Treatment Office Meds ipratropium 0.5 mg-albuterol 3 mg (2.5 mg base)/3 mL nebulization aydenn Performing Provider: Rebekah Madsen PA-C Performing Location[place] [facility] Administered by: Rebekah Madsen PA-C on 02/13/25 14:09 Dose Route Admin Location Dispensed Lot Number Expiration Date [facility] Ocular Care Technician 3 mL inhalation 3 mL [id number] 09/22/25 76601-523-20 [employer] Results Reviewed Results Reviewed: will review the xray in the office Assessment & Plan Assessment & Plan (1) SOB (shortness of breath): Code(s): R06.02 - Shortness of breath (2) Influenza A: Code(s): J10.1 - Influenza due to other identified influenza virus with other respiratory manifestations Plan Most likely Asthma Exacerbation due to flu a plan - The patient's asthma is likely being exacerbated by her recent influenza infection. - A chest x-ray will be ordered to rule out pneumonia, which the patient is concerned about based on her symptoms and past history. - An in-office nebulizer treatment with a combination medication will be administered while the patient is waiting. - prednisone burst for 5 days - tessalon perles for cough - continue with inhalers and nebulizer - follow up with PCP - Advised to go to the ER for worsening SOB Orders: Orders XR chest 2V Today R05.9 - Cough, unspecified AMB Nebulizer Treatment Today R06.02 - Shortness of breath Medications: New prednisone 40 mg (2 x 20 mg) PO DAILY 10 tabs 0RF 5 days Coding Level of Care Code Est Pt Level 4 (34695) Diagnoses SOB (shortness of breath) R06.02 Influenza A J10.1 CPT Codes Nebulizer Treatment - Nebulizer Treatment, initial or subsequent: [id number] RX initial, or Nebulizer Subsequent Treatment ([id number])
[2025-02-13 13:34] VITALS: BP 138/68; PULSE 87; TEMP 36.9; O2SAT 96; BMI 38.4
--- OUTSIDE RECORDS SUMMARY | 2025-02-13 16:49 | XMS_ITS | Patient Health Record ---
Author Organization [facility] Address [address] [place] [address] Care Team Providers Care Cloth Finishing Range Tender Name Role Phone Elias Swenson Primary Care Provider UnavailSami Rowe Jr Unavailable [phone] Allergies Allergen (clinical drug ingredient) Drug/Non Drug Allergy documented on EMR Reaction Allergy Type Onset Date Status IVP Dye (uncoded) Unknown Allergy Ac tive Penicillin Unknown Drug Allergy Active tetanus immune globulin Tetanus Immune Globulin Unknown Drug Allergy Active Results Component Value Reference Range Flag Notes Lipase Reviewed date:07/20/2024 04:40:11 PM Interpretation: Performing Lab:[facility], [address] [place] [phone] Notes/Report: Lipase 25 8-78 U/L N Liver Panel Reviewed date:07/20/2024 04:40:37 PM Interpretation: Performing Lab:[facility], [address] [place] [phone] Notes/Report: Bilirubin Total 0.9 0.0-1.0 mg/dL N Bilirubin Direct 0.2 0.0-0.5 mg/dL N Aspartate Amino Transferase 27 5-31 U/L N Alanine Aminotransferase 29 0-31 U/L N Total Protein 6.5 6.5-8.0 g/dL N Albumin Level 4.4 3.5-5.0 g/dL N Alkaline Phosphatase 73 39-117 U/L N Complete Blood Count Man Dif Reviewed date:07/20/2024 04:40:28 PM Interpretation: Performing Lab:[facility], [address] [place] [phone] Notes/Report: White Blood Count 5.0 4.8-10.8 X10*3/uL [...] Platelet Morphology Comment NORMAL RBC Morphology NORMAL Reason For Referral No Information Medications Medication [...] Status Risk Notes Problem Diverticulitis of colon (937155275) Diverticulitis of large intestine without perforation or abscess without bleeding (K57.32) Active confirmed Problem Dysphagia (88336726) Dysphagia (R13.10) Active confirmed Problem Erosive esophagitis (06384204) Erosive esophagitis (K22.10) Active confirmed Problem Gastroesophageal reflux disease (270773103) GERD (gastroesophageal reflux disease) (K21.9) Active confirmed Problem Barium swallow abnormal (733483976) Abnormal barium swallow (R93.3) Active confirmed Problem 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) Active confirmed Problem Family history: Liver disease (situation) (304830451) Family history of liver disease (Z83.79) Active confirmed Problem Altered bowel function (69938871) Change in bowel movement (R19.8) Active confirmed Problem Esophageal dysphagia (33400144) Esophageal dysphagia (R13.19) Active confirmed Vital Signs Temperature 96.9 degrees Fahrenheit 11/03/2024 Blood pressure diastolic 01 mm Hg 11/03/2024 Height 61.5 in 11/03/2024 Blood pressure systolic 001 mm Hg 11/03/2024 Weight 193.8 lbs 11/03/2024 BMI 36.02 kg/m2 11/03/2024 Encounters Encounter Location Date Provider Diagnosis [facility] Outpatient [address] [place] [id number] 07/20/2024 Sami Foster Jr [facility] [address] [place] [phone] 07/07/2024 Sami Foster Jr Dysphagia R13.10 and GERD (gastroesophageal reflux disease) K21.9 [facility] [address] [place] [phone] 11/03/2024 Sami Foster Jr Erosive esophagitis K22.10 and Diarrhea R19.7 [facility] [address] [place] [phone] 04/07/2024 Sami Foster Jr [facility] [address] [place] [address], [place] [address] 07/19/2024 Sami Foster Jr [facility] [address] [place] [address] 07/20/2024 Sami Foster Jr GERD (gastroesophageal reflux [...] Provider Name:Sami freeman Jr, 11/09/2025 02:15:00 PM, [address] [place] [address], [address], [place], [address], Insurance Providers Payer Name Payer Address Payer Phone Subscriber Number Group Number Insured Name Patient Relationship to Insured Coverage Start Date Coverage End Date [facility] [address] Attn Claims B[employer]NIE Steel [id number] JURGEN MONTEZ Self - patient is the [...] for 10 days with covid Hospitalized at [facility] for allergic reaction to contrast 09/14
== END 2025-02-13 14:32 | disposition home or self-care (01) ==
PROVIDERS: PCP Physician Assistant; Visit Provider Physician Assistant Medical
DX: R06.02 Shortness of breath (principal); J10.1 Influenza due to other identified influenza virus with other respiratory manifestations

== ENCOUNTER 2025-02-13 14:51 | Emergency (ER) | payer OTHER, SELFPAY ==
--- NOTE | ~2025-02-13 | XR_ITS ---
EXAMINATION: XR CHEST CLINICAL INFORMATION: sob COMPARISON: X-ray 11/08/2024 TECHNIQUE: Frontal view of the chest was obtained. FINDINGS: Cardiomediastinal silhouette is normal, stable. Peribronchial thickening in the right lower lung, similar to previous. No confluent consolidation. No effusion, edema. No pneumothorax is seen. No acute osseous findings XR/XR chest 1V IMPRESSION: Bronchial wall thickening in the right lower lung, can be seen with infectious/inflammatory process. Electronically signed by: Anthony Clark MD 02/13/2025 04:08 PM [facility]
[2025-02-13 14:58] VITALS: BP 157/60; BP 179/145; PULSE 54; PULSE 76; RESP 20; TEMP 36.6; O2SAT 94; O2SAT 96; BMI 40.4
--- NOTE | 2025-02-13 15:34 | ECG_ITS ---
Test Reason : sob Blood Pressure : */* mmHG Vent. Rate : 88 BPM Atrial Rate : 88 BPM P-R Int : 156 ms QRS Dur : 90 ms QT Int : 392 ms P-R-T Axes : 50 -2 34 degrees QTcB Int : 474 ms Normal sinus rhythm Normal ECG When compared with ECG of 23-Jan-2025 14:38, No significant change was found Referred By: Kelle Vallecillo Electronically Signed By: MARQUES JOVEL MD
[2025-02-13] MEDS: Albuterol Sulfate 5 MG, Albuterol/Iprat 2.5/0.5MG 3 ML 3 ML INHALE (16:04)
[2025-02-13 16:05] VITALS: PULSE 96; RESP 22; O2SAT 98
--- NOTE | 2025-02-13 16:23 | ED_ITS ---
HPI - SOB/Dyspnea General Chief Complaint: Dyspnea Stated Complaint: SOB,FLU FROM URGENT CARE,DUONEB GIVEN Time Seen by Provider: 02/13/25 15:28 Source: patient, RN notes reviewed and old records reviewed Mode of arrival: ambulatory History of Present Illness ED Provider: Kelle Vallecillo PA-C HPI Narrative: 59-year-old female with a past medical history HLD, anxiety, asthma, influenza positive on 02/07/2025, presenting to the ED via EMS from urgent care complaining of flu-like symptoms, cough, SOB, and throat closing sensation worsening over the past few days. Admits to using rescue inhaler and nebulizer at home without relief. Patient was given 0.3 mg of epinephrine IM, DuoNeb, Solu-Medrol, and magnesium by EMS [employer]. Denies fever, travel, sick contacts, pedal edema. Related Data Previous Rx's ?Medication ?Instructions ?Recorded nebulizers (AeroEclipse II #1 ea 06/02/23 Nebulizer) nebulizers (Aeroneb Go Nebulizer) #1 ea 06/04/23 miscellaneous medical supply #1 ea 11/30/23 (Blood Pressure Cuff) blood pressure monitor (Blood #1 ea 02/22/24 Pressure Kit) acetaminophen 325 mg tablet 975 mg (3 x 325 mg) PO Q6H 10 days 11/10/24 #120 tabs fluticasone furoate 100 1 inh inhalation RDAILY #60 ea 11/10/24 mcg-vilanterol 25 mcg/dose inhalation powder (Breo Ellipta) azelastine 137 mcg (0.1 %) nasal 1 spray intranasal BI D 30 days #1 11/30/24 spray units tirzepatide (weight loss) 2.5 2.5 mg (0.5 mL) subcut Q WEEK 4 11/30/24 mg/0.5 mL subcutaneous pen weeks #2 mL injector (Zepbound) atorvastatin 20 mg tablet (Lipitor) 20 mg PO DAILY 90 days #90 tabs 12/26/24 silver sulfadiazine 1 % topical 1 appl topical DAILY 4 weeks #85 01/16/25 cream (Silvadene) grams albuterol sulfate 90 mcg/actuation 2 puff inhalation Q 6H shortness of 02/07/25 aerosol inhaler breath or wheezing or cough 30 days #8.5 grams fluticasone propionate 50 1 spray intranasal Q24H 90 d ays 02/07/25 mcg/actuation nasal #48 grams spray,suspension naproxen 500 mg tablet 500 mg PO Q12H PRN pain #20 tabs 02/07/25 azithromycin 250 mg tablet See Rx Instructions PO .COM PLEX #6 02/13/25 tabs benzonatate 100 mg capsule 100 mg PO TID PRN cough #14 caps 02/13/25 codeine 10 mg-guaifenesin 200 mg/5 10 ml PO Q4-6H PRN cough #473 mL 02/13/25 mL oral liquid doxycycline hyclate 100 mg tablet 100 mg PO BID #14 ta bs 02/13/25 prednisone 20 mg tablet 40 mg (2 x 20 mg) PO DAILY 4 days 02/13/25 #8 tabs prednisone 20 mg tablet 40 mg (2 x 20 mg) PO DAILY 5 days 02/13/25 #10 tabs Allergies Allergy/AdvReac Type Severity Reaction Status Date / Time Penicillins (PCN) Allergy Hives, Verified 02/13/25 15:03 throat swelling Tetanus Vaccines and Toxoid Allergy Difficulty Verified 02/13/25 15:03 Breathing Iodinated Contrast Media AdvReac Anaphylaxis Verified 02/13/25 15:03 (Contrast Dye) Review of Systems 2 Review of Systems: Yes all other systems are reviewed and are negative Constitutional: Constitutional: Reports as per [facility] Past Medical History Attestation statement: The following information was validated with the patient. Source: old records reviewed Medical History Acute viral sinusitis Equivocal myocardial perfusion imaging Abnormal stress test Hyperlipidemia Intermittent palpitations Chest pain Anxiety, generalized Esophageal stricture Normal colonoscopy Asthma (Unknown) Surgical History History of endoscopy History of appendectomy History of bladder surgery History of torn meniscus of right knee History of gallbladder disease History of partial hysterectomy Family History Family History Father CVD (cardiovascular disease) Past heart attack Mother Skin cancer Brother Heart problem Pacemaker Social History Social History Household Members: Spouse Housing: Apartment Do you presently have visiting nurse or other home services: No Alcohol intake: never Patient Tobacco Use Status: Never used Tobacco e-Cigarette/Vaping Use: Never Used Second Hand Smoke Exposure: No Use of substances other than those prescribed or required for medical reasons: No Advance Directives: No Advance Directives Information Provided: No Do you have a plan to hurt others: No Plan service: No Current occupational status: unemployed Cognitive needs: No Hearing needs: No Vision needs: Yes (Reading glasses) Physical Exam 2 Vital Signs: Vital Signs: Last Vital Signs Temp 97.8 F 02/13/25 14:58 Pulse 98 02/13/25 18:00 Resp 18 02/13/25 18:00 BP 157/60 H 02/13/25 14:58 Pulse Ox 95 02/13/25 18:00 O2 Del Method Room Air 02/13/25 18:00 BMI result Body Mass Index 40.4 Const: General: cooperative, healthy appearing, no acute distress and anxious Orientation/consciousness: patient oriented x3 Limitations: no limitations HEENT: Head: Yes normal to inspection and Yes atraumatic Ears: hearing grossly normal bilaterally General nose exam: Normal external nose present Face and sinus: Yes normal facial exam Mouth: Normal oral and palatal mucosa present and no drooling Throat: Yes posterior oropharynx normal, Yes tonsils normal, Yes uvula midline, No peritonsillar mass, No uvula laterally displaced and No uvular edema Eyes: General: appearance normal, both eyes and all related structures EOM: EOMs intact bilaterally Neck: Neck: Yes normal visual inspection and Yes no meningeal signs Resp: Effort & Inspection: normal respiratory effort, Actively coughing Quality: actively coughing, no respiratory distress, no stridor and tachypneic Auscultation: clear to auscultation bilaterally and no wheezes Cardio: Rate: regular rate Heart sounds: S1 normal heart sound present and S2 normal heart sound present GI: Inspection: Yes normal to inspection Palpation (GI): Soft to palpation, nontender, no guarding and not rigid Skin: Rashes: no rashes Wounds: no wounds Neuro: General: patient oriented x3, tone normal and no meningeal signs C ranial nerves: Yes CN's II-XII intact bilaterally Gait exam (Neuro): Normal gait present Extrem: General: Yes normal to inspection and Yes no calf tenderness Course Course Course Narrative: XR chest 1V IMPRESSION: Bronchial wall thickening in the right lower lung, can be seen with infectious/inflammatory process. > Suspect from known influenza. Lower suspicion for acute bacterial infection 4:50 PM 02/13/2025 (Kelle Vallecillo PA-C): ED care transferred to B[facility] Flood pending labs and re-evaluation Reevaluation(s) Reevaluation #1: Patient received in his sign-out at change of shift pending labs, re-evaluation. The patient's chest x-ray shows right bronchial thickening in the right lower lobe only. This could be a developing pneumonia as it was expected a more diffuse bronchial thickening if this was related to evaluate. We will cover with azithromycin and doxycycline due to penicillin allergy. Care I did discuss these results with the patient, we performed an ambulatory oxygen saturation and she maintained above 92% on room air. She does not meet criteria for admission. Return precautions were given. She is requesting guaifenesin with codeine for her cough as her insurance has not covered benzonatate. We will give her a short course of this. Time: 17:59 Medications Administered Discontinued Medications Generic Name Dose Route Start Last Admin Trade Name Freq PRN Reason Stop Dose Admin Benzonatate 100 mg 02/13/25 15:34 02/13/25 15:44 Benzonatate 100 Mg Capsule PO 02/13/25 15:35 100 mg ONCE ONE Administration Albuterol Sulfate 5 mg/ 0 mg 02/13/25 16:01 02/13/25 16:04 Albuterol/Ipratropium 3 ml INHALE 02/13/25 16:02 1 each ONCE ONE Administration Fentanyl 50 mcg 02/13/25 15:37 02/13/25 15:44 Fentanyl Citrate/Pf 100 Mcg/2 Ml Vial IVPUSH 02/13/25 15:38 50 mcg ONCE ONE Administration Protocol Sodium Chloride 1,000 mls @ 999 mls/hr 02/13/25 15:45 02/13/25 17:05 Ns IV 02/13/25 16:45 Infused .Q1H1M DELORIS Infusion Medical Decision Making Medical Decision Making MDM Narrative: 59-year-old female with a past medical history HLD, anxiety, asthma, influenza positive on 02/07/2025, presenting to the ED via EMS from urgent care complaining of flu-like symptoms, cough, SOB, and throat closing sensation worsening over the past few days. Patient was given 0.3 mg of epinephrine IM, DuoNeb, Solu-Medrol, and magnesium by EMS [employer]. On exam vital signs stable, NAD, anxious, actively coughing during evaluation. No evidence of intraoral swelling, uvula midline. No stridor. Lungs CTA. Concern for bronchospasm asthma exacerbation vs viral illness. Lower suspicion for pneumonia, ACS. No evidence of [employer]/retroperitoneal abscess. No evidence of anaphylaxis Plan: EKG, labs, CXR, viral testing, ED bronchodilator protocol Please refer to course for remaining clinical decision making, interpretation of labs/imaging results, and discussions with consultants and/or family members. Differential Diagnosis Differential Diagnoses: The differential diagnosis associated with the presentation includes As above Admission/Observation Consideration of admission/observation: Escalation of care including admission/observation considered Lab Data MDM Lab Attestation statement: I reviewed the patient's lab results. 02/13/25 16:35 02/13/25 16:35 Labs: Lab Results 02/13/25 Range/Units 16:35 WBC 5.8 (4.8-10.8) X10*3/uL RBC 4.12 L (4.20-5.50) X10*6/uL Hgb 12.5 (12.0-16.0) g/dl Hct 36.4 L (37.0-47.0) % MCV 88.3 (80.0-98.0) fL MCH 30.3 (27.0-33.0) pg MCHC 34.3 (31.0-35.0) g/dl RDW 12.0 (11.0-16.0) % Plt Count 228 (160-400) X10*3/uL MPV 10.0 (9.4-12.3) fL Immature Gran % (Auto) 1.0 H (0.0-0.4) % Neut % (Auto) 74.6 H (45-73) % Lymph % (Auto) 22.3 (20-40) % Alfalfa % (Auto) 1.5 L (2-11) % Eos % (Auto) 0.3 (0-4) % Baso % (Auto) 0.3 (0-2) % Lymph # (Auto) 1.3 (1.2-4.9) X10*3/uL Alfalfa # (Auto) 0.1 (0.1-1.2) X10*3/uL Eos # (Auto) 0.0 (0.0-0.4) X10*3/uL Baso # (Auto) 0.0 (0.0-0.2) X10*3/uL Abs Immat Gran (auto) 0.06 H (0.00-0.03) X10*3/uL Absolute Neuts (auto) 4.3 (2.0-8.3) x10*3/uL Absolute Nucleated RBC 0.000 (0.0-0.012) X10*3/uL Nucleated RBC % (auto) 0.0 (0.0-0.2) /100WBC Sodium 142 (135-145) mmol/L Potassium 3.3 (3.3-5.1) mmol/L Chloride 106 (96-108) mmol/L Carbon Dioxide 23 (22-29) mmol/L Anion Gap 16 (12-20) BUN 17 H (9-16) mg/dL Creatinine 0.69 (0.5-1.4) mg/dL Estim Creat Clear Calc 92.2 Estimated GFR > 60 Random Glucose 165 H (60-115) mg/dL Calcium 8.7 (8.4-10.2) mg/dL Magnesium 2.6 (1.6-2.6) mg/dL Total Bilirubin 1.0 (0.0-1.0) mg/dL Direct Bilirubin 0.3 (0.0-0.5) mg/dL AST 26 (5-31) U/L ALT 24 (0-31) U/L Alkaline Phosphatase 72 (39-117) U/L Troponin I High Sens < 2.7 (<3.5-17.0) ng/L Total Protein 6.4 L (6.5-8.0) g/dL Albumin 4.5 (3.5-5.0) g/dL Independent Interpretation I performed an independent interpretation of an: EKG ( my interpretation: EKG normal sinus rhythm rate of 88. KS interval 156. QTC 474. No STEMI.) and Plain X-Ray Radiology Impression Discussion of test interpretation with radiology: I have reviewed the radiologist's reading. Independent Historian Clinical information obtained from an independent historian. History obtained from or confirmed by: EMS External Record Review External record reviewed: Inpatient record, Office record, Outpatient record, Prior outpatient labs, Prior outpatient radiology, Primary care record and Outside ED record Tests considered The following testing was considered but not selected: As above Prescription Management I considered prescription management with: Pain Medication and Antibiotic Chronic Conditions Patient?s care impacted by: Other (asthma) Social Determinants Patient?s care significantly limited by Social Determinants of Health including: Other Social Determinant of Health Discharge Plan Discharge Clinical Impression: Acute bronchospasm, Acute viral syndrome Patient Disposition: Home, Self-Care Instructions: Bronchospasm (ED) Additional Instructions: your chest x-ray shows inflammatory process consistent with known influenza prednisone is a steroid please take as prescribed You may use the guaifenesin with codeine pain Take both antibiotics as prescribed please have close follow-up with your primary care doctor. If symptoms persist or worsen return to the emergency department Prescriptions: New benzonatate 100 mg capsule 100 mg PO TID PRN (Reason: cough) Qty: 14 0RF prednisone 20 mg tablet 40 mg PO DAILY 4 Days Qty: 8 0RF azithromycin 250 mg tablet See Rx Instructions .ROUTE .COMPLEX Qty: 6 0RF Rx Instructions: For 250 mg dose pack: take 500 mg today (day 1), then 250 mg for 4 days (days 2-5) doxycycline hyclate 100 mg tablet 100 mg PO BID Qty: 14 0RF codeine-guaifenesin 10-200 mg/5 mL liquid 10 ml PO Q4-6H PRN (Reason: cough) Qty: 473 0RF No Action (DME) nebulizers [AeroEclipse II Nebulizer] Misc See Rx Instructions .Route Qty: 1 0RF Rx Instructions: As directed (DME) nebulizers [Aeroneb Go Nebulizer] Misc See Rx Instructions .Route Qty: 1 0RF Rx Instructions: As directed (DME) blood pressure monitor [Blood Pressure Kit] Kit See Rx Instructions .Route Qty: 1 0RF Rx Instructions: As directed atorvastatin [Lipitor] 20 mg tablet 20 mg PO DAILY 90 Days Qty: 90 1RF silver sulfadiazine [Silvadene] 1 % cream 1 appl topical DAILY 28 Days Qty: 85 0RF Rx Instructions: apply a 1.5 mm thickness fluticasone furoate-vilanterol [Breo Ellipta] 100-25 mcg/dose Blister With Device 1 inh inhalation RDAILY Qty: 60 0RF acetaminophen 325 mg Tablet 975 mg PO Q6H 10 Days Qty: 120 0RF (DME) Blood Pressure Cuff Misc See Rx Instructions .ROUTE .MEDSUPPLY Qty: 1 0RF Rx Instructions: Take blood pressure once a day as needed prednisone 20 mg tablet 40 mg PO DAILY 5 Days Qty: 10 0RF azelastine 137 mcg (0.1 %) spray,non-aerosol 1 spray intranasal BID 30 Days Qty: 1 1RF Rx Instructions: administer into each nostril Zepbound 2.5 mg/0.5 mL pen injector 2.5 mg subcut QWEEK 28 Days Qty: 2 0RF Rx Instructions: for 4 weeks albuterol sulfate 90 mcg/actuation HFA aerosol inhaler 2 puff inhalation Q6H 30 Days Qty: 8.5 3RF naproxen 500 mg tablet 500 mg PO Q12H PRN (Reason: pain) Qty: 20 0RF fluticasone propionate 50 mcg/actuation spray,suspension 1 spray intranasal Q24H 90 Days Qty: 48 0RF Rx Instructions: administer into each nostril Referrals: Elias Swenson PA-C [Primary Care Provider, Internal Medicine] - 1 week Stand Alone Forms: Work/School Release Print Language: Swiss
[2025-02-13 16:41] LABS: MANUAL DIFF FLAG NO
[2025-02-13 16:52] LABS: Hematocrit 36.4 % (37.0-47.0); Hemoglobin 12.5 g/dl (12.0-16.0); Imm Gran Abs Auto 0.06 X10*3/uL (0.00-0.03); Imm Gran Pct Auto 1.0 % (0.0-0.4); Lymphocytes Absolute Auto 1.3 X10*3/uL (1.2-4.9); Mean Corpuscular HGB Conc 34.3 g/dl (31.0-35.0); Mean Corpuscular Hemoglobin 30.3 pg (27.0-33.0); Mean Corpuscular Volume 88.3 fL (80.0-98.0); NRBC Abs Auto 0.000 X10*3/uL (0.0-0.012); NRBC Pct Auto 0.0 /100WBC (0.0-0.2); Platelet Count 228 X10*3/uL (160-400); Red Blood Count 4.12 X10*6/uL (4.20-5.50); White Blood Count 5.8 X10*3/uL (4.8-10.8)
[2025-02-13 17:00] LABS: Alanine Aminotransferase 24 U/L (0-31); Albumin Level 4.5 g/dL (3.5-5.0); Alkaline Phosphatase 72 U/L (39-117); Anion Gap 16 (12-20); Aspartate Amino Transferase 26 U/L (5-31); Blood Urea Nitrogen 17 mg/dL (9-16); Calcium 8.7 mg/dL (8.4-10.2); Carbon Dioxide 23 mmol/L (22-29); Chloride 106 mmol/L (96-108); Creatinine Clr Calc Pharmacy 92.2; Estimated Glomerular Filt Rate > 60; Magnesium 2.6 mg/dL (1.6-2.6); Potassium 3.3 mmol/L (3.3-5.1); Sodium 142 mmol/L (135-145); Total Protein 6.4 g/dL (6.5-8.0)
[2025-02-13 17:13] LABS: Troponin-I High Sensitivity < 2.7 ng/L (<3.5-17.0)
--- NOTE | 2025-02-13 17:53 | PC.NURSE ---
ambulatory O2 remained at 92% room air
[2025-02-13 18:00] VITALS: PULSE 98; RESP 18; O2SAT 95
[2025-02-13 18:18] VITALS: BP 126/57; PULSE 90; RESP 17; TEMP 36.6; O2SAT 96
== END 2025-02-13 18:19 | disposition home or self-care (01) ==
PROVIDERS: Physician Assistant; Emergency Provider Emergency Medicine Emergency Medical Services; PCP Physician Assistant
DX: J98.01 Acute bronchospasm (principal); B34.9 Viral infection, unspecified; R06.02 Shortness of breath; R05.9 Cough, unspecified; Z79.899 Other long term (current) drug therapy
CPT/HCPCS: 36415; 71045; 80048; 80076; 83735; 84484; 85025; 93005; 94640; 96361; 96374; 99212; 99284; 99285; J3010

== ENCOUNTER → 2025-02-13 15:34 | Outpatient (BNV) | payer OTHER, SELFPAY | PROVIDERS: Emergency Provider Emergency Medicine Emergency Medical Services; PCP Physician Assistant; Visit Provider Internal Medicine Cardiovascular Disease | DX: R06.02 Shortness of breath (principal) | CPT/HCPCS: 93010 ==

== ENCOUNTER → 2025-02-13 15:34 | Outpatient (BNV) | payer OTHER, SELFPAY | PROVIDERS: Emergency Provider Emergency Medicine Emergency Medical Services; PCP Physician Assistant; Visit Provider Radiology Diagnostic Ultrasound | DX: R06.02 Shortness of breath (principal) | CPT/HCPCS: 71045 ==

== ENCOUNTER → 2025-02-14 15:36 | Outpatient (REF) | payer OTHER, SELFPAY ==
--- OUTSIDE RECORDS SUMMARY | 2023-09-29 07:50 | XMS_ITS ---
Author Organization [facility] Address [address] [place] [address] Care Team Providers Care Communications Billing Analyst Name Role Phone Elias Swenson Primary Care Provider Unavailab Sami Mancera Jr Unavailable REASON FOR VISIT erosive esophagitis, change in bowels Encounters Encounter Location Date Provider Diagnosis [facility] Out[place] [address] [place], [place] [phone] 09/29/2023 Sami Foster Jr Change in bowel movement R19.8 and Erosive esophagitis K22.10 Assessments Encounter Date Diagnosis (ICD Code) Assessment Notes Treatment Notes Treatment Clinical Notes Section Notes 09/29/2023 Change in bowel movement (ICD-10 - R19.8) 09/29/2023 Erosive esophagitis (ICD-10 - K22.10) Plan Of Treatment Next Appt Details Provider Name:Sami freeman Jr, 11/09/2025 02:15:00 PM, [address], [address], [place], [address], Progress Notes * JURGEN MONTEZDOB:1965 (59 yo F)Acc No.[id number]:09/29/2023 EGD and COL/MAC Patient: JURGEN LIU Provider: Kassidy Foster MD :1965 A ge:58 Y S ex:Female Date:09/29/2023 Address:[address] [id number] Pcp:Elias Swenson Subjective: * Chief Complaints: * E rosive esophagitis, change in bowels Assessment: * Assessment: 1. C hange in bowel movement - R19.8 (Primary) 2 . E rosive esophagitis - K22.10 Plan: * Procedure Codes: 4 5378 DIAGNOSTIC [id number] UPPER GI ENDOSCOPY, BIOPSY Billing Information: * Procedure Codes: 37338 DIAGNOSTIC COLONOSCOPY. 23429 UPPER GI ENDOSCOPY, BIOPSY. * The named appointment provid er may or may not be the originator of this progress note, and it is not deemed complete until electronically signed by the appointment provider. Sign off status: Pending * Provider: Kassidy Foster MD Date: 0 09/29/2023 Generated for Lexis bennett/Zarina/Carlaransmitting on: 1 04/17/2024 04:40 PM EST
--- OUTSIDE RECORDS SUMMARY | 2024-04-07 10:35 | XMS_ITS ---
Author Organization [facility] Address [address] [place] [address] Care Team Providers Care Supervisor Solder Making Name Role Phone Elias Swenson Primary Care Provider Unavailab Sami Mancera Jr Unavailable [phone] REASON FOR VISIT Patient presents today for GERD Encounters Encounter Location Date Provider Diagnosis [facility] [address] [place] [address] 04/07/2024 Sami Foster Jr Plan Of Treatment Next Appt Details Provider Name:Sami freeman Jr, 11/09/2025 02:15:00 PM, [address], [address], [place], [address], Progress Notes * JURGEN OMNTEZDOB:1965 (59 yo F)Acc No.[id number]:04/07/2024 Progress Notes Patient: JURGEN LIU Provider: Kassidy Foster MD :1965 A ge:58 Y S ex:Female Date:04/07/2024 Address:[address] [facility] [id number] Pcp:Elias Swenson Subjective: * Chief Complaints: * P atient presents today for GERD * The named appointment provid er may or may not be the originator of this progress note, and it is not deemed complete until electronically signed by the appointment provider. Sign off status: Pending * Provider: Kassidy Foster MD Date: 0 04/07/2024 Generated for Lexis bennett/Zarina/eTransmitting on: 04/17/2024 04:40 PM EST
--- OUTSIDE RECORDS SUMMARY | 2024-07-20 08:00 | XMS_ITS ---
Author Organization [facility] Address [address] [place] [address] Care Team Providers Care Medical Office Supervisor Name Role Phone Elias Swenson Primary Care Provider Unavailab Sami Mancera Jr Unavailable REASON FOR VISIT gerd,dysphagia Encounters Encounter Location Date Provider Diagnosis [facility] [place] [address] [place] [id number] 07/20/2024 Sami Foster Jr Plan Of Treatment Next Appt Details Provider Name:Sami freeman Jr, 11/09/2025 02:15:00 PM, [address] [facility], [address], [place], [address], Progress Notes * JURGEN MONTEZDOB:1965 (59 yo F)Acc No.[id number]:07/20/2024 EGD/MAC Patient: JURGEN LIU Provider: Kassidy Foster MD :1965 A ge:59 Y S ex:Female Date:07/20/2024 Address:[address] [facility] [id number] Pcp:Elias Swenson Subjective: * Chief Complaints: * G erd,dysphagia * The named appointment provid er may or may not be the originator of this progress note, and it is not deemed complete until electronically signed by the appointment provider. Sign off status: Pending * Provider: Kassidy Foster MD Date: 0 07/20/2024 Generated for Printi ng/Faxing/eTransmitting on: 1 04/17/2024 04:40 PM EST
--- OUTSIDE RECORDS SUMMARY | 2025-02-14 16:41 | XMS_ITS | Patient Health Record ---
Author Organization [facility] Address [address] [place] [address] Care Team Providers Care Area Operations Director Name Role Phone Elias Swenson Primary Care Provider UnavailSami Rowe Jr Unavailable [phone] Allergies Allergen (clinical drug ingredient) Drug/Non Drug Allergy documented on EMR Reaction Allergy Type Onset Date Status IVP Dye (uncoded) Unknown Allergy Ac tive Penicillin Unknown Drug Allergy Active tetanus immune globulin Tetanus Immune Globulin Unknown Drug Allergy Active Results Component Value Reference Range Flag Notes Complete Blood Count Man Dif Reviewed date:07/20/2024 04:40:28 PM Interpretation: Performing Lab:[facility], [address] [place] [phone] Notes/Report: White Blood Count 5.0 4.8-10.8 X10*3/uL [...] 04:40:37 PM Interpretation: Performing Lab:[facility], [address] [place] [phone] Notes/Report: Bilirubin Total 0.9 0.0-1.0 mg/dL N Bilirubin Direct 0.2 0.0-0.5 mg/dL N Aspartate Amino Transferase 27 5-31 U/L N Alanine Aminotransferase 29 0-31 U/L N Total Protein 6.5 6.5-8.0 g/dL N Albumin Level 4.4 3.5-5.0 g/dL N Alkaline Phosphatase 73 39-117 U/L N Lipase Reviewed date:07/20/2024 04:40:11 PM Interpretation: Performing Lab:[facility], [address] [place] [phone] Notes/Report: Lipase 25 8-78 U/L N Reason [...] Status Risk Notes Problem Diverticulitis of colon (672962447) Diverticulitis of large intestine without perforation or abscess without bleeding (K57.32) Active confirmed Problem Dysphagia (14946905) Dysphagia (R13.10) Active confirmed Problem Erosive esophagitis (73776272) Erosive esophagitis (K22.10) Active confirmed Problem Gastroesophageal reflux disease (660201895) GERD (gastroesophageal reflux disease) (K21.9) Active confirmed Problem Barium swallow abnormal (956705552) Abnormal barium swallow (R93.3) Active confirmed Problem 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) Active confirmed Problem Family history: Liver disease (situation) (935756026) Family history of liver disease (Z83.79) Active confirmed Problem Altered bowel function (37830115) Change in bowel movement (R19.8) Active confirmed Problem Esophageal dysphagia (43723866) Esophageal dysphagia (R13.19) Active confirmed Vital Signs Temperature 96.9 degrees Fahrenheit 11/03/2024 Blood pressure diastolic 01 mm Hg 11/03/2024 Height 61.5 in 11/03/2024 Blood pressure systolic 001 mm Hg 11/03/2024 Weight 193.8 lbs 11/03/2024 BMI 36.02 kg/m2 11/03/2024 Encounters Encounter Location Date Provider Diagnosis [facility] [place] [place] Outpatient [address] [place] [id number] 07/20/2024 Sami Foster Jr [facility] [address] [place] [phone] 07/07/2024 Sami Foster Jr Dysphagia R13.10 and GERD (gastroesophageal reflux disease) K21.9 [facility] [address] [place] [phone] 11/03/2024 Sami Foster Jr Erosive esophagitis K22.10 and Diarrhea R19.7 [facility] [address] [place] [phone] 04/07/2024 Sami Foster Jr [facility] [address] [place] [address], [place] [address] 07/19/2024 Sami Foster Jr [facility] [address] [place] [address] 07/20/2024 Sami Foster Jr GERD (gastroesophageal reflux [...] Provider Name:Sami freeman Jr, 11/09/2025 02:15:00 PM, [address] [place] [address], [address], [place], [address], Insurance Providers Payer Name Payer Address Payer Phone Subscriber Number Group Number Insured Name Patient Relationship to Insured Coverage Start Date Coverage End Date [facility] [address] Attn Claims B[employer]NIE [employer] [id number] JURGEN MONTEZ Self - patient is the [...] for 10 days with covid Hospitalized at [facility] for allergic reaction to contrast 09/14
== END ==
LOC: HO.SL 15:36
PROVIDERS: PCP Physician Assistant; Visit Provider Physician Assistant
DX: G47.33 Obstructive sleep apnea (adult) (pediatric) (principal); R06.83 Snoring; R40.0 Somnolence
CPT/HCPCS: 95806

== ENCOUNTER → 2025-02-14 15:47 | Outpatient (BNV) | payer OTHER, SELFPAY | PROVIDERS: PCP Physician Assistant; Visit Provider Internal Medicine | DX: G47.33 Obstructive sleep apnea (adult) (pediatric) (principal) | CPT/HCPCS: 95806 ==